=== PATIENT | male | born 1965 | race Hispanic/Latino ===

== ENCOUNTER 2019-12-17 16:18 | Emergency (ER) | payer OTHER ==
--- OUTSIDE RECORDS SUMMARY | 2019-12-17 16:20 | XMS REPORT | Clinical Summary ---
:1965 Author Organization [facility] Address [address] [place] [address] Care Team Providers Name Role Phone Junior Torres MD Primary Care Provider Allergies No Known Allergies Medications Medication Sig Dispensed Refills Start Date End Date Status insulin ASPART Please check blood sugars be fore meals three times a day and before bedtime 0 11/21/2017 Active (NovoLOG) 100 unit/mL BG 150 to 200, give 1 unit. injection BG 201 to 250, give 2 units. BG 251 to 300, give 3 units. BG > 300, give 4 units, recheck in 3 hours and treat again p er Scale pravastatin Take 10 mg by mouth 0 Active (PRAVACHOL) 10 MG nightly. tablet sevelamer (RENVELA) Take 800 mg by mouth 3 (thre e) times a day with meals. Take 4 tabs 3x/day with meals 0 Act tom 800 mg tablet 2 tabs with snacks polyethylene glycol Take 17 g by mouth 0 Active (MIRALAX) 17 gram daily. packet artificial Administer 2 drops 0 Active tears,hypromellose, to both eyes daily 0.3 % drops as needed. aspirin (ECOTRIN) 81 Take 81 mg by mouth 0 Active MG enteric coated daily. tablet ofloxacin (FLOXIN) Administer 3-4 0 08/12/2018 Active 0.3 % otic solution drops to the right ear 2 (two) times a day. amLODIPine (NORVASC) Take 10 mg by mouth 0 Active 10 mg tablet daily. insulin detemir U-100 Inject 10 Units 0 Active (LEVEMIR) 100 unit/mL under the skin injection daily. carvedilol (COREG) Take 6.25 mg by 0 Active 6.25 MG tablet mouth 2 (two) times a day with meals. Active Problems Problem Noted Date Problem with vascular access 09/27/2018 Mastoiditis of right side 08/27/2018 Family History Medical History Relation Name Comments Arthritis Father Diabetes Mother Relation Name Status Comments Father Alive Mother Social History Tobacco Use Types Packs/Day Years Used Date Former Smoker Cigarettes 10 Smokeless Tobacco: Never Used Comments: quit 30 years ago Alcohol Use Drinks/Week oz/Week Comments No Alcohol Habits Answer Date Recorded How often do you have a drink containing alcohol? Never 08/22/2018 How many drinks containing alcohol do you have on a typical Not asked day when you are drinking? How often do you have six or more drinks on one occasion? No t asked Sex Assigned at Date Recorded Not on file Job Start Date Occupation Industry Not on file Not on file Not on file Travel History Travel Start Travel End No recent travel history available. 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 Resources Support Specialist Device Shelf Model / Identifier Expiration Serial / Date Lot Catheter Dialysis Glidepath [id number] Symmetric Tip - [id number] Central N/A: BARD PERIPHERAL 11/14/2019 [id number] / Implanted: 08/22/2018 at [facility] (Quantity not on file) [place] ous N/A VASCULAR / Catheters [id number] Pacemaker Pacemaker System Thrmbtmy Otw 6fr 50cm Angiojet Avx - Sx - [id number] Surg ica N/A: [place] 10/01/2019 [id number] / Implanted: Qty: 1 on 09/30/2018 by Dom Lozano MD at [facility] Implants; N/A SCIENTIFIC GERRY X / Expanders; Extenders; Surgical Wires System Thrmbtmy Otw 6fr 50cm Angiojet Avx - Sx - [id number] Surg ica N/A: [place] 10/01/2019 [id number] / Implanted: Qty: 1 on 09/30/2018 by Dom Lozano MD at [facility] Implants; N/A SCIENTIFIC GERRY X / Expanders; Extenders; Surgical Wires Stent Endprths Viabahn 75x5cm 8mm Heprn Bioactv Surf - [id number] - [id number] Surgical N/A: W L GORE 07/11/2021 [id number] / Implanted: Qty: 1 on 09/30/2018 by Dom Lozano MD at [facility] Stents N/A [id number] / [id number] Graft Vasclr Sandy-Ramesh Stdwl 40cm 6mm - [id number] Vascular N/A: W L GORE 06/21/2022 [id number] / Implanted: 08/22/2018 at [facility] (Quantity not on file) Graft N/A [id number] / [id number] Results Not on fileafter 12/16/2018 Insurance Payer Benefit Plan / Subscriber ID Effective Dates Phone Addre ss Type Group MEDICAID MEDICAID xxxxxxxxx 2014-Present Med icaid [facility] MEDICARE [facility] DUAL COMPLETE xxxxxxxxx 2017-Present [facility] Advance Directives For more information, please contact: [phone] Type Date Recorded Patient Yard [employer] Explanati on Advance Directives, Living Will 08/27/2018 1:34 AM and Medical Power of Facility Administrator
--- OUTSIDE RECORDS SUMMARY | 2019-12-17 16:20 | XMS REPORT | Continuity of Care Document ---
:1965 Author Organization [facility] t Address 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 5-14 Me thodi side side 00:00: st 00 Allergies, Adverse Reactions, Alerts Allergy Allergy Status Severity Reaction(s) Onset Inactive Treating Comm ents Source Name Type Date Date Clinician No Known DA Active [facility] 06 [facility] Family History Family Member Diagnosis Comments Start Date Stop Date Source Natural father Arthritis [facility] thodist Natural mother Diabetes [facility] thodi Social History Social Habit Start Date Stop Date Quantity Comments Source History of Cigarette Smoker [place] [facility] tobacco use History [facility] odist Alcohol Std Drinks History [facility] Alcohol Binge Sex Assigned At [place] M ethodist Alcohol intake 2018-10-02 2018-10-02 Current [facility] thodist 00:00:00 00:00:00 non-drinker of alcohol (finding) History [facility] 2018-08-22 2018-08-22 1 [facility] Alcohol Frequency 00:00:00 00:00:00 Tobacco Comment 2018-08-22 2018-08-22 quit 30 years ago Jet Castellanos 00:00:00 00:00:00 Smoking Status Start Date Stop Date Source Former smoker 2018-10-02 00:00:00 2018-10-02 00:00:00 Mihai Castellanos Medications Ordered Filled Start Stop Current Ordering Indication Dosage Frequency Signature Comments Components Source Medication Medication Date Date Medication? Clinician (SIG) Name Name pravastatin Yes 10mg QD Take 10 mg [facility] (PRAVACHOL) 6-17 by mouth Meth iris 10 MG 21:14: nightly. st tablet 32 sevelamer Yes 800mg [id number] Take 800 [facility] (RENVELA) 6-17 [id number] mg by Met hodi 800 mg 21:14: 3D mouth 3 st tablet 32 (three) times a day with meals. Take 4 tabs 3x/day with meals2 tabs with snacks polyethylen Yes 17g QD Take 17 g [place] glycol 6-17 by mouth [facility] (MIRALAX) 21:14: daily. st 17 gram 32 packet artificial Yes 2[drp] Q24H Administer [facility] tears,hypro 6-17 2 drops to Me maksim dyerose, 21:14: both eyes st 0.3 % drops 32 daily as needed. aspirin Yes 81mg QD Take 81 mg [place] (ECOTRIN) 6-17 by mouth Method i 81 MG 21:14: daily. st enteric 32 coated tablet amLODIPine Yes 10mg QD Take 10 mg [place] (NORVASC) 6-17 by mouth Method i 10 mg 21:14: daily. st tablet 32 insulin Yes 10U QD Inject 10 [place] det[place]ir 6-17 Units Methodi U-100 21:14: under the st (LEVEMIR) 32 skin 100 unit/mL daily. injection carvedilol Yes 6.25mg Q.5D Take 6.25 [facility] (COREG) 6-17 mg by [facility] 6.25 MG 21:14: mouth 2 st tablet 32 (two) times a day with meals. ofloxacin 2018- Yes 3[drp] Q.5D Administer [facility] (FLOXIN) 4-29 3-4 drops Method i 0.3 % otic 00:00: to the st solution 00 right ear 2 (two) times a day. insulin Yes Please Mihai ASPART 11-21 check [facility] (NovoLOG) 00:00: blood st 100 unit/mL 00 sugars injection before meals three times a day and before bedtimeBG 150 to 200, give 1 unit. BG 201 to 250, give 2 units. BG 251 to 300, give 3 units. BG > 300, give 4 units, recheck in 3 hours and treat again per Scale Procedures This patient has no known procedures. Plan of Care Planned Activity Planned Date Details Comments Source Future Scheduled 2020-01-15 INFLUENZA VACCINE [place] [facility] 00:00:00 [code = INFLUENZA VACCINE] Future Scheduled 2013 COLONOSCOPY SCREENING [place] [facility] 00:00:00 [code = COLONOSCOPY SCREENING] Future Scheduled 2013 SHINGLES VACCINES (#1) [place] [facility] 00:00:00 [code = SHINGLES VACCINES (#1)] Future Scheduled 1973 DIABETIC FOOT EXAM [place] [facility] 00:00:00 [code = DIABETIC FOOT EXAM] Future Scheduled 1973 URINE MICROALBUMIN [place] [facility] 00:00:00 [code = URINE MICROALBUMIN] Future Scheduled 1963 DIABETIC RETINAL EYE [facility] 00:00:00 EXAM [code = DIABETIC RETINAL EYE EXAM] Results Test Description Test Time Test Comments Results Result Comments Source GLUBED 2019-08-29 11:34:00 Test Item Value Reference Range Interpretation Comme nts GLUBED (test code = GLUBED) 180 mg/dL 70-105 H Performed by certified 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 [facility] CBC W/AUTO [id number] 06:25:00 Test Item Value Reference Range Interpretation Comments WHITE BLOOD CELL (test code = 6.9 X10(3) 4.5-11.0 N WBC) RED BLOOD CELL (test code = 2.44 X10(6) 4.3-5.9 L RBC) HEMOGLOBIN (test code = HGB) 8.1 g/dL 13.5-18.0 L HEMATOCRIT (test code = HCT) 26.1 % 42.0-52.0 L MEAN CELL VOLUME (test code = 107.0 fl 78-100 H MCV) MEAN CELL HGB (test code = MCH) 33.2 pg 26.0-34.0 N MEAN CELL HGB CONCETRATION 31.0 g/dl 30.0-37.0 N (test code = MCHC) RED CELL DISTRIBUTION WIDTH 12.8 % 11.5-14.5 N (test code = RDW) PLATELET COUNT (test code = 293 X10(3) 150-350 N PLT) MEAN PLATELET VOLUME (test code 10.2 fl 8.7-11.4 N = MPV) NEUTROPHIL % (test code = NT%) 55.7 % 36.0-66.0 N IMMATURE GRANULOCYTE % (test 0.3 % 0.0-2.0 N code = IG%) LYMPHOCYTE % (test code = LY%) 25.4 % 16.0-50.0 N MONOCYTE % (test code = MO%) 16.0 % 0.0-13.0 H EOSINOPHIL % (test code = EO%) 1.9 % 0.0-4.5 N BASOPHIL % (test code = BA%) 0.7 % 0.0-1.5 N NUCLEATED RBC % (test code = 0.0 % 0-0.2 N NRBC%) NEUTROPHIL # (test code = NT#) 3.83 X10(3) 1.70-7.70 N IMMATURE GRANULOCYTE # (test 0.02 X10(3)uL 0.00-0.03 N code = IG#) LYMPHOCYTE # (test code = LY#) 1.75 X10(3) 0.70-4.00 N MONOCYTE # (test code = MO#) 1.10 X10(3) 0.00-0.89 H EOSINOPHIL # (test code = EO#) 0.13 X10(3) 0.00-0.60 N BASOPHIL # (test code = BA#) 0.05 X10(3) 0.00-0.20 N NUCLEATED RBC # (test code = 0.00 K/mm3 0.0-0.1 N NRBC#) ANISOCYTOSIS (test code = 1+ NOT PRESENT ANISO) MACROCYTOSIS (test code = MACR) 1+ NOT PRESENT PLATELET ESTIMATE (test code = NORMAL ADEQUATE PLTEST) [id number] 06:23:00 Test Item Value Reference Range Interpretation Comments GLUBED (test code = 116 mg/dL 70-105 H Performe d by certified GLUBED) 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 [facility] BASIC METABOLIC [id number] 06:08:00 Test Item Value Reference Range Interpretation Comments SODIUM (test code = 136 mmol/L 136-145 N NA) POTASSIUM (test code = 5.0 mmol/L 3.5-5.1 N K) CHLORIDE (test code = 101 mmol/L 98-107 N CL) CARBON DIOXIDE (test 26 mmol/L 21-32 N code = CO2) GLUCOSE (test code = 113 mg/dL 70-100 H GLU) BLOOD UREA NITROGEN 63 mg/dL 7-18 H (test code = BUN) GLOMERULAR FILTRATION 4.96 >=60 L Report ing units: RATE (test code = GFR) mL/mi n/1.73m\S\2 (Modified MDRD formula)REFEREN CE RANGE: > or = 6 0 ml/min/1.73M2IF PATIENT IS -RAUL N, MULTIPLY REPORT ED RESULT BY1.21. CREATININE (test code 10.80 mg/dL 0.67-1.17 H = CREAT) CALCIUM (test code = 8.0 mg/dL 8.5-10.1 L CA) BASIC METABOLIC [id number] 06:02:00 Test Item Value Reference Range Interpretation Comments SODIUM (test code = NA) 136 mmol/L 136-145 N POTASSIUM (test code = K) 5.0 mmol/L 3.5-5.1 N CHLORIDE (test code = CL) 101 mmol/L 98-107 N CARBON DIOXIDE (test code = CO2) mmol/L 21-32 GLUCOSE (test code = GLU) mg/dL 70-100 BLOOD UREA NITROGEN (test code = mg/dL 7-18 BUN) GLOMERULAR FILTRATION RATE (test >=60 code = GFR) CREATININE (test code = CREAT) mg/dL 0.67-1.17 CALCIUM (test code = CA) 8.0 mg/dL 8.5-10.1 L BASIC METABOLIC [id number] 06:02:00 Test Item Value Reference Range Interpretation Comments SODIUM (test code = NA) 136 mmol/L 136-145 N POTASSIUM (test code = K) 5.0 mmol/L 3.5-5.1 N CHLORIDE (test code = CL) 101 mmol/L 98-107 N CARBON DIOXIDE (test code = CO2) 26 mmol/L 21-32 N GLUCOSE (test code = GLU) 113 mg/dL 70-100 H BLOOD UREA NITROGEN (test code = 63 mg/dL 7-18 H BUN) GLOMERULAR FILTRATION RATE (test >=60 code = GFR) CREATININE (test code = CREAT) mg/dL 0.67-1.17 CALCIUM (test code = CA) 8.0 mg/dL 8.5-10.1 L BASIC METABOLIC [id number] 05:59:00 Test Item Value Reference Range Interpretation Comments SODIUM (test code = NA) 136 mmol/L 136-145 N POTASSIUM (test code = K) 5.0 mmol/L 3.5-5.1 N CHLORIDE (test code = CL) 101 mmol/L 98-107 N CARBON DIOXIDE (test code = CO2) mmol/L 21-32 GLUCOSE (test code = GLU) mg/dL 70-100 BLOOD UREA NITROGEN (test code = mg/dL 7-18 BUN) GLOMERULAR FILTRATION RATE (test >=60 code = GFR) CREATININE (test code = CREAT) mg/dL 0.67-1.17 CALCIUM (test code = CA) mg/dL 8.5-10.1 CBC W/AUTO [id number] 05:53:00 Test Item Value Reference Range Interpretation Comments WHITE BLOOD CELL (test code = 6.9 X10(3) 4.5-11.0 N WBC) RED BLOOD CELL (test code = RBC) 2.44 X10(6) 4.3-5.9 L HEMOGLOBIN (test code = HGB) 8.1 g/dL 13.5-18.0 L HEMATOCRIT (test code = HCT) 26.1 % 42.0-52.0 L MEAN CELL VOLUME (test code = 107.0 fl 78-100 H MCV) MEAN CELL HGB (test code = MCH) 33.2 pg 26.0-34.0 N MEAN CELL HGB CONCETRATION (test 31.0 g/dl 30.0-37.0 N code = MCHC) RED CELL DISTRIBUTION WIDTH (test 12.8 % 11.5-14.5 N code = RDW) PLATELET COUNT (test code = PLT) 293 X10(3) 150-350 N MEAN PLATELET VOLUME (test code = 10.2 fl 8.7-11.4 N MPV) NUCLEATED RBC % (test code = 0.0 % 0-0.2 N NRBC%) NUCLEATED RBC # (test code = 0.00 K/mm3 0.0-0.1 N NRBC#) [id number] 20:37:00 Test Item Value Reference Range Interpretation Comments GLUBED (test code = 255 mg/dL 70-105 H Performe d by certified GLUBED) 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 [facility] [id number] 17:12:00 Test Item Value Reference Range Interpretation Comments GLUBED (test code = 169 mg/dL 70-105 H Performe d by certified GLUBED) 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 [facility] [id number] 11:24:00 Test Item Value Reference Range Interpretation Comments GLUBED (test code = 197 mg/dL 70-105 H Performe d by certified GLUBED) 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 [facility] [id number] 06:37:00 Test Item Value Reference Range Interpretation Comments GLUBED (test code = 222 mg/dL 70-105 H Performe d by certified GLUBED) 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 [facility] [id number] 21:04:00 Test Item Value Reference Range Interpretation Comments GLUBED (test code = 174 mg/dL 70-105 H Performe d by certified GLUBED) 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 [facility] [id number] 18:47:00 Test Item Value Reference Range Interpretation Comments GLUBED (test code = 115 mg/dL 70-105 H Performe d by certified GLUBED) 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 [facility] [id number] 12:55:00 Test Item Value Reference Range Interpretation Comments GLUBED (test code = 165 mg/dL 70-105 H Performe d by certified GLUBED) 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 [facility] [id number] 09:25:00 Test Item Value Reference Range Interpretation Comments POTASSIUM (test code = K) 5.6 mmol/L 3.5-5.1 H [id number] 06:12:00 Test Item Value Reference Range Interpretation Comments GLUBED (test code = 163 mg/dL 70-105 H Performe d by certified GLUBED) 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 [facility] Novel Coronavirus 2019 [id number] 03:30:00 Test Item Value Reference Range Interpretation Comments Novel Coronavirus Negative NEGATIVE Positive(D etected) 2019 Inhouse (test results a re indicative of code = COVNONPUI) the presen ceof SARS-CoV-2 RNA, clinical c orrelation with patient hi storyand other diagnosti c information is necessary to determinepat ient infection statu s. Positive result s do not rule outbacteri al infection or co -infection with other viru ses. Negative(Not de tected) results do not preclude SARS-CoV-2 infe ction and should not be u sed as the sole basis forp atient management decisions.Negat tom results must be combined with other clinicalobserva tions, patient history , and epidemiological informatio n. The [employer] e COVID-19 Test is perform ed by laboratoryperso lizzette who have received s pecific training on the use ofthe VappsArray-2.0 S ystem. The [employer] COV ID-19 Test is onlyfor use under the Food and Drug Administration' s EmergencyUse Authorization. [id number] 20:58:00 Test Item Value Reference Range Interpretation Comments GLUBED (test code = 247 mg/dL 70-105 H Performe d by certified GLUBED) 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 [facility]2020-05-12 16:35:00 Test Item Value Reference Range Interpretation Comments GLUBED (test code = 163 mg/dL 70-105 H Performe d by certified GLUBED) 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 [facility]2020-05-12 11:40:00 Test Item Value Reference Range Interpretation Comments GLUBED (test code = 325 mg/dL 70-105 H Performe d by certified GLUBED) 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 [facility] [id number] 10:22:00 Test Item Value Reference Range Interpretation Comments GLUBED (test code = 265 mg/dL 70-105 H Performe d by certified GLUBED) 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 [facility] BASIC METABOLIC [id number] 06:07:00 Test Item Value Reference Range Interpretation Comments SODIUM (test code = 138 mmol/L 136-145 N NA) POTASSIUM (test code = 5.0 mmol/L 3.5-5.1 N K) CHLORIDE (test code = 102 mmol/L 98-107 N CL) CARBON DIOXIDE (test 26 mmol/L 21-32 N code = CO2) GLUCOSE (test code = 93 mg/dL 70-100 N GLU) BLOOD UREA NITROGEN 42 mg/dL 7-18 H (test code = BUN) GLOMERULAR FILTRATION 6.82 >=60 L Report ing units: RATE (test code = GFR) mL/mi n/1.73m\S\2 (Modified MDRD formula)REFEREN CE RANGE: > or = 6 0 ml/min/1.73M2IF PATIENT IS -RAUL N, MULTIPLY REPORT ED RESULT BY1.21. CREATININE (test code 8.20 mg/dL 0.67-1.17 H = CREAT) CALCIUM (test code = 8.5 mg/dL 8.5-10.1 N CA) BASIC METABOLIC [id number] 06:04:00 Test Item Value Reference Range Interpretation Comments SODIUM (test code = NA) 138 mmol/L 136-145 N POTASSIUM (test code = K) 5.0 mmol/L 3.5-5.1 N CHLORIDE (test code = CL) 102 mmol/L 98-107 N CARBON DIOXIDE (test code = CO2) 26 mmol/L 21-32 N GLUCOSE (test code = GLU) 93 mg/dL 70-100 N BLOOD UREA NITROGEN (test code = 42 mg/dL 7-18 H BUN) GLOMERULAR FILTRATION RATE (test >=60 code = GFR) CREATININE (test code = CREAT) mg/dL 0.67-1.17 CALCIUM (test code = CA) 8.5 mg/dL 8.5-10.1 N BASIC METABOLIC [id number] 06:03:00 Test Item Value Reference Range Interpretation Comments SODIUM (test code = NA) 138 mmol/L 136-145 N POTASSIUM (test code = K) 5.0 mmol/L 3.5-5.1 N CHLORIDE (test code = CL) 102 mmol/L 98-107 N CARBON DIOXIDE (test code = CO2) mmol/L 21-32 GLUCOSE (test code = GLU) mg/dL 70-100 BLOOD UREA NITROGEN (test code = mg/dL 7-18 BUN) GLOMERULAR FILTRATION RATE (test >=60 code = GFR) CREATININE (test code = CREAT) mg/dL 0.67-1.17 CALCIUM (test code = CA) 8.5 mg/dL 8.5-10.1 N BASIC METABOLIC [id number] 05:58:00 Test Item Value Reference Range Interpretation Comments SODIUM (test code = NA) 138 mmol/L 136-145 N POTASSIUM (test code = K) 5.0 mmol/L 3.5-5.1 N CHLORIDE (test code = CL) 102 mmol/L 98-107 N CARBON DIOXIDE (test code = CO2) mmol/L 21-32 GLUCOSE (test code = GLU) mg/dL 70-100 BLOOD UREA NITROGEN (test code = mg/dL 7-18 BUN) GLOMERULAR FILTRATION RATE (test >=60 code = GFR) CREATININE (test code = CREAT) mg/dL 0.67-1.17 CALCIUM (test code = CA) mg/dL 8.5-10.1 CBC W/AUTO [id number] 05:52:00 Test Item Value Reference Range Interpretation Comments WHITE BLOOD CELL (test code = 6.8 X10(3) 4.5-11.0 N WBC) RED BLOOD CELL (test code = 2.91 X10(6) 4.3-5.9 L RBC) HEMOGLOBIN (test code = HGB) 9.5 g/dL 13.5-18.0 L HEMATOCRIT (test code = HCT) 30.5 % 42.0-52.0 L MEAN CELL VOLUME (test code = 104.8 fl 78-100 H MCV) MEAN CELL HGB (test code = MCH) 32.6 pg 26.0-34.0 N MEAN CELL HGB CONCETRATION 31.1 g/dl 30.0-37.0 N (test code = MCHC) RED CELL DISTRIBUTION WIDTH 12.7 % 11.5-14.5 N (test code = RDW) PLATELET COUNT (test code = 362 X10(3) 150-350 H PLT) MEAN PLATELET VOLUME (test code 9.8 fl 8.7-11.4 N = MPV) NEUTROPHIL % (test code = NT%) 53.2 % 36.0-66.0 N IMMATURE GRANULOCYTE % (test 0.3 % 0.0-2.0 N code = IG%) LYMPHOCYTE % (test code = LY%) 31.1 % 16.0-50.0 N MONOCYTE % (test code = MO%) 12.6 % 0.0-13.0 N EOSINOPHIL % (test code = EO%) 1.6 % 0.0-4.5 N BASOPHIL % (test code = BA%) 1.2 % 0.0-1.5 N NUCLEATED RBC % (test code = 0.0 % 0-0.2 N NRBC%) NEUTROPHIL # (test code = NT#) 3.64 X10(3) 1.70-7.70 N IMMATURE GRANULOCYTE # (test 0.02 X10(3)uL 0.00-0.03 N code = IG#) LYMPHOCYTE # (test code = LY#) 2.13 X10(3) 0.70-4.00 N MONOCYTE # (test code = MO#) 0.86 X10(3) 0.00-0.89 N EOSINOPHIL # (test code = EO#) 0.11 X10(3) 0.00-0.60 N BASOPHIL # (test code = BA#) 0.08 X10(3) 0.00-0.20 N NUCLEATED RBC # (test code = 0.00 K/mm3 0.0-0.1 N NRBC#) [id number] 20:11:00 Test Item Value Reference Range Interpretation Comments GLUBED (test code = 408 mg/dL 70-105 H Performe d by certified GLUBED) 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 [facility] [id number] 16:29:00 Test Item Value Reference Range Interpretation Comments GLUBED (test code = 329 mg/dL 70-105 H Performe d by certified GLUBED) 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 [facility] AG HEPATITIS B [id number] 13:18:00 Test Item Value Reference Range Interpretation Comments AG HEPATITIS B SURFACE NONREAC NONREAC The r esults were (test code = HBSAG) obtained using the Centaur XP HBsA g assay. AB HEPATITIS [id number] 13:18:00 Test Item Value Reference Range Interpretation Comments AB HEPATITIS C (test NONREAC NONREAC These r esults were code = HCVAB) obtained using the Centaur XP HCV IgGAssay. Values obtained from other manufactu rer's assaymethods ma y not be used interchang eably. [id number] 11:26:00 Test Item Value Reference Range Interpretation Comments GLUBED (test code = 177 mg/dL 70-105 H Performe d by certified GLUBED) 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 [facility] CBC W/AUTO [id number] 11:26:00 Test Item Value Reference Range Interpretation Comments WHITE BLOOD CELL (test code = 8.9 X10(3) 4.5-11.0 N WBC) RED BLOOD CELL (test code = 2.86 X10(6) 4.3-5.9 L RBC) HEMOGLOBIN (test code = HGB) 9.5 g/dL 13.5-18.0 L HEMATOCRIT (test code = HCT) 30.2 % 42.0-52.0 L MEAN CELL VOLUME (test code = 105.6 fl 78-100 H MCV) MEAN CELL HGB (test code = MCH) 33.2 pg 26.0-34.0 N MEAN CELL HGB CONCETRATION 31.5 g/dl 30.0-37.0 N (test code = MCHC) RED CELL DISTRIBUTION WIDTH 12.6 % 11.5-14.5 N (test code = RDW) PLATELET COUNT (test code = 372 X10(3) 150-350 H PLT) MEAN PLATELET VOLUME (test code 10.3 fl 8.7-11.4 N = MPV) NEUTROPHIL % (test code = NT%) 65.2 % 36.0-66.0 N IMMATURE GRANULOCYTE % (test 0.5 % 0.0-2.0 N code = IG%) LYMPHOCYTE % (test code = LY%) 23.6 % 16.0-50.0 N MONOCYTE % (test code = MO%) 8.0 % 0.0-13.0 N EOSINOPHIL % (test code = EO%) 1.5 % 0.0-4.5 N BASOPHIL % (test code = BA%) 1.2 % 0.0-1.5 N NUCLEATED RBC % (test code = 0.0 % 0-0.2 N NRBC%) NEUTROPHIL # (test code = NT#) 5.79 X10(3) 1.70-7.70 N IMMATURE GRANULOCYTE # (test 0.04 X10(3)uL 0.00-0.03 H code = IG#) LYMPHOCYTE # (test code = LY#) 2.10 X10(3) 0.70-4.00 N MONOCYTE # (test code = MO#) 0.71 X10(3) 0.00-0.89 N EOSINOPHIL # (test code = EO#) 0.13 X10(3) 0.00-0.60 N BASOPHIL # (test code = BA#) 0.11 X10(3) 0.00-0.20 N NUCLEATED RBC # (test code = 0.00 K/mm3 0.0-0.1 N NRBC#) POLYCHROMASIA (test code = 1+ NOT PRESENT POLC) POIKILOCYTOSIS (test code = 1+ NOT PRESENT POIK) ANISOCYTOSIS (test code = 1+ NOT PRESENT ANISO) MACROCYTOSIS (test code = MACR) 1+ NOT PRESENT PLATELET ESTIMATE (test code = NORMAL ADEQUATE PLTEST) [id number] 06:26:00 Test Item Value Reference Range Interpretation Comments GLUBED (test code = 135 mg/dL 70-105 H Performe d by certified GLUBED) 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 [facility] BASIC METABOLIC [id number] 06:09:00 Test Item Value Reference Range Interpretation Comments SODIUM (test code = 137 mmol/L 136-145 N NA) POTASSIUM (test code = 5.1 mmol/L 3.5-5.1 N K) CHLORIDE (test code = 105 mmol/L 98-107 N CL) CARBON DIOXIDE (test 21 mmol/L 21-32 N code = CO2) GLUCOSE (test code = 127 mg/dL 70-100 H GLU) BLOOD UREA NITROGEN 62 mg/dL 7-18 H (test code = BUN) GLOMERULAR FILTRATION 5.36 >=60 L Report ing units: RATE (test code = GFR) mL/mi n/1.73m\S\2 (Modified MDRD formula)REFEREN CE RANGE: > or = 6 0 ml/min/1.73M2IF PATIENT IS -RAUL N, MULTIPLY REPORT ED RESULT BY1.21. CREATININE (test code 10.10 mg/dL 0.67-1.17 H = CREAT) CALCIUM (test code = 8.5 mg/dL 8.5-10.1 N CA) BASIC METABOLIC [id number] 06:01:00 Test Item Value Reference Range Interpretation Comments SODIUM (test code = NA) 137 mmol/L 136-145 N POTASSIUM (test code = K) 5.1 mmol/L 3.5-5.1 N CHLORIDE (test code = CL) 105 mmol/L 98-107 N CARBON DIOXIDE (test code = CO2) 21 mmol/L 21-32 N GLUCOSE (test code = GLU) 127 mg/dL 70-100 H BLOOD UREA NITROGEN (test code = 62 mg/dL 7-18 H BUN) GLOMERULAR FILTRATION RATE (test >=60 code = GFR) CREATININE (test code = CREAT) mg/dL 0.67-1.17 CALCIUM (test code = CA) 8.5 mg/dL 8.5-10.1 N BASIC METABOLIC [id number] 06:00:00 Test Item Value Reference Range Interpretation Comments SODIUM (test code = NA) 137 mmol/L 136-145 N POTASSIUM (test code = K) 5.1 mmol/L 3.5-5.1 N CHLORIDE (test code = CL) 105 mmol/L 98-107 N CARBON DIOXIDE (test code = CO2) 21 mmol/L 21-32 N GLUCOSE (test code = GLU) mg/dL 70-100 BLOOD UREA NITROGEN (test code = 62 mg/dL 7-18 H BUN) GLOMERULAR FILTRATION RATE (test >=60 code = GFR) CREATININE (test code = CREAT) mg/dL 0.67-1.17 CALCIUM (test code = CA) 8.5 mg/dL 8.5-10.1 N BASIC METABOLIC [id number] 05:57:00 Test Item Value Reference Range Interpretation Comments SODIUM (test code = NA) 137 mmol/L 136-145 N POTASSIUM (test code = K) 5.1 mmol/L 3.5-5.1 N CHLORIDE (test code = CL) 105 mmol/L 98-107 N CARBON DIOXIDE (test code = CO2) mmol/L 21-32 GLUCOSE (test code = GLU) mg/dL 70-100 BLOOD UREA NITROGEN (test code = mg/dL 7-18 BUN) GLOMERULAR FILTRATION RATE (test >=60 code = GFR) CREATININE (test code = CREAT) mg/dL 0.67-1.17 CALCIUM (test code = CA) mg/dL 8.5-10.1 CBC W/AUTO [id number] 05:52:00 Test Item Value Reference Range Interpretation Comments WHITE BLOOD CELL (test code = 8.9 X10(3) 4.5-11.0 N WBC) RED BLOOD CELL (test code = RBC) 2.86 X10(6) 4.3-5.9 L HEMOGLOBIN (test code = HGB) 9.5 g/dL 13.5-18.0 L HEMATOCRIT (test code = HCT) 30.2 % 42.0-52.0 L MEAN CELL VOLUME (test code = 105.6 fl 78-100 H MCV) MEAN CELL HGB (test code = MCH) 33.2 pg 26.0-34.0 N MEAN CELL HGB CONCETRATION (test 31.5 g/dl 30.0-37.0 N code = MCHC) RED CELL DISTRIBUTION WIDTH (test 12.6 % 11.5-14.5 N code = RDW) PLATELET COUNT (test code = PLT) 372 X10(3) 150-350 H MEAN PLATELET VOLUME (test code = 10.3 fl 8.7-11.4 N MPV) NUCLEATED RBC % (test code = 0.0 % 0-0.2 N NRBC%) NUCLEATED RBC # (test code = 0.00 K/mm3 0.0-0.1 N NRBC#) [id number] 05:19:00 Test Item Value Reference Range Interpretation Comments GLUBED (test code = 127 mg/dL 70-105 H Performe d by certified GLUBED) 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 [facility]2020-05-11 02:56:00 Test Item Value Reference Range Interpretation Comments GLUBED (test code = 44 mg/dL 70-105 L Performe d by certified GLUBED) 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 [facility]2020-05-10 21:06:00 Test Item Value Reference Range Interpretation Comments GLUBED (test code = 259 mg/dL 70-105 H Performe d by certified GLUBED) 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 [facility]2020-05-10 17:09:00 Test Item Value Reference Range Interpretation Comments GLUBED (test code = 150 mg/dL 70-105 H Performe d by certified GLUBED) 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 [facility]2020-05-10 11:35:00 Test Item Value Reference Range Interpretation Comments GLUBED (test code = 207 mg/dL 70-105 H Performe d by certified GLUBED) 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 [facility] BASIC METABOLIC [id number] 06:20:00 Test Item Value Reference Range Interpretation Comments SODIUM (test code = 134 mmol/L 136-145 L NA) POTASSIUM (test code = 4.6 mmol/L 3.5-5.1 N K) CHLORIDE (test code = 103 mmol/L 98-107 N CL) CARBON DIOXIDE (test 23 mmol/L 21-32 N code = CO2) GLUCOSE (test code = 150 mg/dL 70-100 H GLU) BLOOD UREA NITROGEN 43 mg/dL 7-18 H (test code = BUN) GLOMERULAR FILTRATION 7.22 >=60 L Report ing units: RATE (test code = GFR) mL/mi n/1.73m\S\2 (Modified MDRD formula)REFEREN CE RANGE: > or = 6 0 ml/min/1.73M2IF PATIENT IS -RAUL N, MULTIPLY REPORT ED RESULT BY1.21. 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 [id number] 05:59:00 Test Item Value Reference Range Interpretation Comments SODIUM (test code = NA) 134 mmol/L 136-145 L POTASSIUM (test code = K) 4.6 mmol/L 3.5-5.1 N CHLORIDE (test code = CL) 103 mmol/L 98-107 N CARBON DIOXIDE (test code = CO2) mmol/L 21-32 GLUCOSE (test code = GLU) mg/dL 70-100 BLOOD UREA NITROGEN (test code = mg/dL 7-18 BUN) GLOMERULAR FILTRATION RATE (test >=60 code = GFR) CREATININE (test code = CREAT) mg/dL 0.67-1.17 CALCIUM (test code = CA) 8.3 mg/dL 8.5-10.1 L CBC W/AUTO [id number] 05:58:00 Test Item Value Reference Range Interpretation Comments WHITE BLOOD CELL (test code = 7.2 X10(3) 4.5-11.0 N WBC) RED BLOOD CELL (test code = 2.84 X10(6) 4.3-5.9 L RBC) HEMOGLOBIN (test code = HGB) 9.2 g/dL 13.5-18.0 L HEMATOCRIT (test code = HCT) 29.1 % 42.0-52.0 L MEAN CELL VOLUME (test code = 102.5 fl 78-100 H MCV) MEAN CELL HGB (test code = MCH) 32.4 pg 26.0-34.0 N MEAN CELL HGB CONCETRATION 31.6 g/dl 30.0-37.0 N (test code = MCHC) RED CELL DISTRIBUTION WIDTH 12.2 % 11.5-14.5 N (test code = RDW) PLATELET COUNT (test code = 394 X10(3) 150-350 H PLT) MEAN PLATELET VOLUME (test code 10.6 fl 8.7-11.4 N = MPV) NEUTROPHIL % (test code = NT%) 53.5 % 36.0-66.0 N IMMATURE GRANULOCYTE % (test 0.3 % 0.0-2.0 N code = IG%) LYMPHOCYTE % (test code = LY%) 34.9 % 16.0-50.0 N MONOCYTE % (test code = MO%) 9.1 % 0.0-13.0 N EOSINOPHIL % (test code = EO%) 1.4 % 0.0-4.5 N BASOPHIL % (test code = BA%) 0.8 % 0.0-1.5 N NUCLEATED RBC % (test code = 0.0 % 0-0.2 N NRBC%) NEUTROPHIL # (test code = NT#) 3.86 X10(3) 1.70-7.70 N IMMATURE GRANULOCYTE # (test 0.02 X10(3)uL 0.00-0.03 N code = IG#) LYMPHOCYTE # (test code = LY#) 2.52 X10(3) 0.70-4.00 N MONOCYTE # (test code = MO#) 0.66 X10(3) 0.00-0.89 N EOSINOPHIL # (test code = EO#) 0.10 X10(3) 0.00-0.60 N BASOPHIL # (test code = BA#) 0.06 X10(3) 0.00-0.20 N NUCLEATED RBC # (test code = 0.00 K/mm3 0.0-0.1 N NRBC#) BASIC METABOLIC [id number] 05:57:00 Test Item Value Reference Range Interpretation Comments SODIUM (test code = NA) 134 mmol/L 136-145 L POTASSIUM (test code = K) 4.6 mmol/L 3.5-5.1 N CHLORIDE (test code = CL) 103 mmol/L 98-107 N CARBON DIOXIDE (test code = CO2) mmol/L 21-32 GLUCOSE (test code = GLU) mg/dL 70-100 BLOOD UREA NITROGEN (test code = mg/dL 7-18 BUN) GLOMERULAR FILTRATION RATE (test >=60 code = GFR) CREATININE (test code = CREAT) mg/dL 0.67-1.17 CALCIUM (test code = CA) mg/dL 8.5-10.1 [id number] 20:55:00 Test Item Value Reference Range Interpretation Comments GLUBED (test code = 252 mg/dL 70-105 H Performe d by certified GLUBED) 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 [facility]2020-05-09 16:00:00 Test Item Value Reference Range Interpretation Comments GLUBED (test code = 99 mg/dL 70-105 N Performe d by certified GLUBED) 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 [facility]2020-05-09 11:34:00 Test Item Value Reference Range Interpretation Comments GLUBED (test code = 215 mg/dL 70-105 H Performe d by certified GLUBED) 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 [facility] BASIC METABOLIC [id number] 07:06:00 Test Item Value Reference Range Interpretation Comments SODIUM (test code = 132 mmol/L 136-145 L NA) POTASSIUM (test code = 4.4 mmol/L 3.5-5.1 N K) CHLORIDE (test code = 100 mmol/L 98-107 N CL) CARBON DIOXIDE (test 25 mmol/L 21-32 N code = CO2) GLUCOSE (test code = 278 mg/dL 70-100 H GLU) BLOOD UREA NITROGEN 21 mg/dL 7-18 H (test code = BUN) GLOMERULAR FILTRATION 11.79 >=60 L Report ing units: RATE (test code = GFR) mL/mi n/1.73m\S\2 (Modified MDRD formula)REFEREN CE RANGE: > or = 6 0 ml/min/1.73M2IF PATIENT IS -RAUL N, MULTIPLY REPORT ED RESULT BY.. CREATININE (test code 5.10 mg/dL 0.67-1.17 H = CREAT) CALCIUM (test code = 8.5 mg/dL 8.5-10.1 N CA) LIPID PROFILE (CORONARY RISK)2019-08-23 07:06:00 Test Item Value Reference Range Interpretation Comments TRIGLYCERIDES (test code 75 mg/dL 30-150 N = TRIG) CHOLESTEROL (test code = 130 mg/dL 0-200 N CHOL) HDL CHOLESTEROL (test 57 mg/dL 40-59 N code = HDL) NON-HDL CHOLESTEROL (test 73 mg/dl <130 code = NHDL) LIPOPROTEIN LDL [place] (test 58 mg/dl <100 code = LDLC) LDL/HDL (test code = 1.0 Ratio L DL/HDL RATIO LDL/HDL) RISK ---- 3.22 Average 5.03 Twi ce average 6.14 Thr ee times average [id number] 07:06:00 Test Item Value Reference Range Interpretation Comments MAGNESIUM (test code = MAG) 2.6 mg/dL 1.8-2.4 H PROCALCITONIN (PCT)2019-08-23 07:06:00 Test Item Value Reference Range Interpretation Comments PROCALCITONIN (PCT) 0.66 ng/mL <0.5 REFERENC E (test code = PROCAL) RANGES- -->2.0 ng/ml High risk for progression to severe sepsis and/o r septic shock.0. 5 - 2.0 ng/ml Sep sis should be considered.<0.5 ng/ml Lo w risk for progre ssion to severe sepsi s an d/or septic shock. CBC W/AUTO [id number] 06:48:00 Test Item Value Reference Range Interpretation Comments WHITE BLOOD CELL (test code = 6.7 X10(3) 4.5-11.0 N WBC) RED BLOOD CELL (test code = 3.01 X10(6) 4.3-5.9 L RBC) HEMOGLOBIN (test code = HGB) 9.9 g/dL 13.5-18.0 L HEMATOCRIT (test code = HCT) 30.5 % 42.0-52.0 L MEAN CELL VOLUME (test code = 101.3 fl 78-100 H MCV) MEAN CELL HGB (test code = MCH) 32.9 pg 26.0-34.0 N MEAN CELL HGB CONCETRATION 32.5 g/dl 30.0-37.0 N (test code = MCHC) RED CELL DISTRIBUTION WIDTH 12.0 % 11.5-14.5 N (test code = RDW) PLATELET COUNT (test code = 401 X10(3) 150-350 H PLT) MEAN PLATELET VOLUME (test code 10.4 fl 8.7-11.4 N = MPV) NEUTROPHIL % (test code = NT%) 83.8 % 36.0-66.0 H IMMATURE GRANULOCYTE % (test 0.4 % 0.0-2.0 N code = IG%) LYMPHOCYTE % (test code = LY%) 11.0 % 16.0-50.0 L MONOCYTE % (test code = MO%) 4.5 % 0.0-13.0 N EOSINOPHIL % (test code = EO%) 0.0 % 0.0-4.5 N BASOPHIL % (test code = BA%) 0.3 % 0.0-1.5 N NUCLEATED RBC % (test code = 0.0 % 0-0.2 N NRBC%) NEUTROPHIL # (test code = NT#) 5.61 X10(3) 1.70-7.70 N IMMATURE GRANULOCYTE # (test 0.03 X10(3)uL 0.00-0.03 N code = IG#) LYMPHOCYTE # (test code = LY#) 0.74 X10(3) 0.70-4.00 N MONOCYTE # (test code = MO#) 0.30 X10(3) 0.00-0.89 N EOSINOPHIL # (test code = EO#) 0.00 X10(3) 0.00-0.60 N BASOPHIL # (test code = BA#) 0.02 X10(3) 0.00-0.20 N NUCLEATED RBC # (test code = 0.00 K/mm3 0.0-0.1 N NRBC#) SED [id number] 06:48:00 Test Item Value Reference Range Interpretation Comments SED RATE (test code = SEDW) 96 mm/hr 0-15 H BASIC METABOLIC [id number] 06:14:00 Test Item Value Reference Range Interpretation Comments SODIUM (test code = 132 mmol/L 136-145 L NA) POTASSIUM (test code = 4.4 mmol/L 3.5-5.1 N K) CHLORIDE (test code = 100 mmol/L 98-107 N CL) CARBON DIOXIDE (test 25 mmol/L 21-32 N code = CO2) GLUCOSE (test code = 278 mg/dL 70-100 H GLU) BLOOD UREA NITROGEN 21 mg/dL 7-18 H (test code = BUN) GLOMERULAR FILTRATION 11.79 >=60 L Report ing units: RATE (test code = GFR) mL/mi n/1.73m\S\2 (Modified MDRD formula)REFEREN CE RANGE: > or = 6 0 ml/min/1.73M2IF PATIENT IS -RAUL N, MULTIPLY REPORT ED RESULT BY1.21. CREATININE (test code 5.10 mg/dL 0.67-1.17 H = CREAT) CALCIUM (test code = 8.5 mg/dL 8.5-10.1 N CA) LIPID PROFILE (CORONARY RISK)2019-08-23 06:14:00 Test Item Value Reference Range Interpretation Comments TRIGLYCERIDES (test code 75 mg/dL 30-150 N = TRIG) CHOLESTEROL (test code = 130 mg/dL 0-200 N CHOL) HDL CHOLESTEROL (test 57 mg/dL 40-59 N code = HDL) NON-HDL CHOLESTEROL (test 73 mg/dl <130 code = NHDL) LIPOPROTEIN LDL [place] (test 58 mg/dl <100 code = LDLC) LDL/HDL (test code = 1.0 Ratio L DL/HDL RATIO LDL/HDL) RISK ---- 3.22 Average 5.03 Twi ce average 6.14 Thr ee times average [id number] 06:14:00 Test Item Value Reference Range Interpretation Comments MAGNESIUM (test code = MAG) 2.6 mg/dL 1.8-2.4 H PROCALCITONIN (PCT)2019-08-23 06:14:00 Test Item Value Reference Range Interpretation Comments PROCALCITONIN (PCT) (test code = ng/mL <0.5 PROCAL) [id number] 06:11:00 Test Item Value Reference Range Interpretation Comments GLYCOSYLATED 9.7 % <5.7 H SAL GGESTED HEMOGLOBIN (HA1C) DIAGNOSIS (test code = GLYHGB) INTERPR ETATION -------- Normal: < 5.7% Prediabetes: 5 .7 - 6.4% Diabetic: >/ = 6.5%* DUE TO METHOD R EVISION, REFERENCE RANGE HAS BEEN UPDATED * ESTIMATED AVERAGE 232 MG/DL <126 GLUCOSE (test code = EAG) [id number] 06:09:00 Test Item Value Reference Range Interpretation Comments GLUBED (test code = 268 mg/dL 70-105 H Performe d by certified GLUBED) 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 [facility] BASIC METABOLIC [id number] 06:01:00 Test Item Value Reference Range Interpretation Comments SODIUM (test code = NA) 132 mmol/L 136-145 L POTASSIUM (test code = K) 4.4 mmol/L 3.5-5.1 N CHLORIDE (test code = CL) 100 mmol/L 98-107 N CARBON DIOXIDE (test code = CO2) mmol/L 21-32 GLUCOSE (test code = GLU) mg/dL 70-100 BLOOD UREA NITROGEN (test code = mg/dL 7-18 BUN) GLOMERULAR FILTRATION RATE (test >=60 code = GFR) CREATININE (test code = CREAT) mg/dL 0.67-1.17 CALCIUM (test code = CA) mg/dL 8.5-10.1 LIPID PROFILE (CORONARY RISK)2019-08-23 06:01:00 Test Item Value Reference Range Interpretation Comments TRIGLYCERIDES (test code = TRIG) mg/dL 30-150 CHOLESTEROL (test code = CHOL) mg/dL 0-200 HDL CHOLESTEROL (test code = HDL) mg/dL 40-59 NON-HDL CHOLESTEROL (test code = NHDL) mg/dl <130 LIPOPROTEIN LDL [place] (test code = LDLC) mg/dl <100 LDL/HDL (test code = LDL/HDL) Ratio [id number] 06:01:00 Test Item Value Reference Range Interpretation Comments MAGNESIUM (test code = MAG) mg/dL 1.8-2.4 PROCALCITONIN (PCT)2019-08-23 06:01:00 Test Item Value Reference Range Interpretation Comments PROCALCITONIN (PCT) (test code = ng/mL <0.5 PROCAL) CBC W/AUTO [id number] 05:54:00 Test Item Value Reference Range Interpretation Comments WHITE BLOOD CELL (test code = 6.7 X10(3) 4.5-11.0 N WBC) RED BLOOD CELL (test code = 3.01 X10(6) 4.3-5.9 L RBC) HEMOGLOBIN (test code = HGB) 9.9 g/dL 13.5-18.0 L HEMATOCRIT (test code = HCT) 30.5 % 42.0-52.0 L MEAN CELL VOLUME (test code = 101.3 fl 78-100 H MCV) MEAN CELL HGB (test code = MCH) 32.9 pg 26.0-34.0 N MEAN CELL HGB CONCETRATION 32.5 g/dl 30.0-37.0 N (test code = MCHC) RED CELL DISTRIBUTION WIDTH 12.0 % 11.5-14.5 N (test code = RDW) PLATELET COUNT (test code = 401 X10(3) 150-350 H PLT) MEAN PLATELET VOLUME (test code 10.4 fl 8.7-11.4 N = MPV) NEUTROPHIL % (test code = NT%) 83.8 % 36.0-66.0 H IMMATURE GRANULOCYTE % (test 0.4 % 0.0-2.0 N code = IG%) LYMPHOCYTE % (test code = LY%) 11.0 % 16.0-50.0 L MONOCYTE % (test code = MO%) 4.5 % 0.0-13.0 N EOSINOPHIL % (test code = EO%) 0.0 % 0.0-4.5 N BASOPHIL % (test code = BA%) 0.3 % 0.0-1.5 N NUCLEATED RBC % (test code = 0.0 % 0-0.2 N NRBC%) NEUTROPHIL # (test code = NT#) 5.61 X10(3) 1.70-7.70 N IMMATURE GRANULOCYTE # (test 0.03 X10(3)uL 0.00-0.03 N code = IG#) LYMPHOCYTE # (test code = LY#) 0.74 X10(3) 0.70-4.00 N MONOCYTE # (test code = MO#) 0.30 X10(3) 0.00-0.89 N EOSINOPHIL # (test code = EO#) 0.00 X10(3) 0.00-0.60 N BASOPHIL # (test code = BA#) 0.02 X10(3) 0.00-0.20 N NUCLEATED RBC # (test code = 0.00 K/mm3 0.0-0.1 N NRBC#) SED [id number] 05:54:00 Test Item Value Reference Range Interpretation Comments SED RATE (test code = SEDW) mm/hr 0-15 [id number] 23:48:00 Test Item Value Reference Range Interpretation Comments GLUBED (test code = 248 mg/dL 70-105 H Performe d by certified GLUBED) 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 COMPARISON: None. Chest, portable single frontal view. The lungs are well-inflated and clear except for some minimal left basilar atelectasis. Heart size is upper normal. ICD leads intact. Pulmonary vessels maybe upper normal. Some this could be exaggerated by the portable film technique No effusion or pneumothorax can be seen. Osseous structures appear to be intact. IMPRESSION: No obvious consolidation. No effusion seen. Minimal left basilar atelectasis Borderline vascular congestion, possibly Location: U19 at 1932 Reported and signed by: DAPHNE ISAACS M.D. CC: Nelly Beckham MD Technologist: Callie Brannon, RT (R); ... 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 Positive result s do not rule outbacteri al infection or co -infection with other viru ses. Negative(Not de tected) results do not preclude SARS-CoV-2 infe ction and should not be u sed as the sole basis forp atient management decisions.Negat tom results must be combined with other clinicalobserva tions, patient history , and epidemiological informatio n. The BioF[employer] e COVID-19 Test is perform ed by laboratoryperso nnel who have received s pecific training on the use ofthe 2-Observe-2.0 S Mingle360tem. The [employer]Fire COV ID-19 Test is onlyfor use under the Food and Drug Administration' s EmergencyUse Authorization. BASIC METABOLIC [id number] 14:37:00 Test Item Value Reference Range Interpretation Comments SODIUM (test code = 129 mmol/L 136-145 L NA) POTASSIUM (test code = 3.9 mmol/L 3.5-5.1 N K) CHLORIDE (test code = 96 mmol/L 98-107 L CL) CARBON DIOXIDE (test 28 mmol/L 21-32 N code = CO2) GLUCOSE (test code = 305 mg/dL 70-100 H GLU) BLOOD UREA NITROGEN 10 mg/dL 7-18 N (test code = BUN) GLOMERULAR FILTRATION 19.49 >=60 L Report ing units: RATE (test code = GFR) mL/mi n/1.73m\S\2 (Modified MDRD formula)REFEREN CE RANGE: > or = 6 0 ml/min/1.73M2IF PATIENT IS -RAUL N, MULTIPLY REPORT ED RESULT BY1.21. CREATININE (test code 3.30 mg/dL 0.67-1.17 H = CREAT) CALCIUM (test code = 8.7 mg/dL 8.5-10.1 N CA) BASIC METABOLIC [id number] 14:34:00 Test Item Value Reference Range Interpretation Comments SODIUM (test code = NA) 129 mmol/L 136-145 L POTASSIUM (test code = K) 3.9 mmol/L 3.5-5.1 N CHLORIDE (test code = CL) 96 mmol/L 98-107 L CARBON DIOXIDE (test code = CO2) 28 mmol/L 21-32 N GLUCOSE (test code = GLU) 305 mg/dL 70-100 H BLOOD UREA NITROGEN (test code = 10 mg/dL 7-18 N BUN) GLOMERULAR FILTRATION RATE (test >=60 code = GFR) CREATININE (test code = CREAT) mg/dL 0.67-1.17 CALCIUM (test code = CA) 8.7 mg/dL 8.5-10.1 N BASIC METABOLIC [id number] 14:33:00 Test Item Value Reference Range Interpretation Comments SODIUM (test code = NA) 129 mmol/L 136-145 L POTASSIUM (test code = K) 3.9 mmol/L 3.5-5.1 N CHLORIDE (test code = CL) 96 mmol/L 98-107 L CARBON DIOXIDE (test code = CO2) mmol/L 21-32 GLUCOSE (test code = GLU) mg/dL 70-100 BLOOD UREA NITROGEN (test code = mg/dL 7-18 BUN) GLOMERULAR FILTRATION RATE (test >=60 code = GFR) CREATININE (test code = CREAT) mg/dL 0.67-1.17 CALCIUM (test code = CA) 8.7 mg/dL 8.5-10.1 N BASIC METABOLIC [id number] 14:32:00 Test Item Value Reference Range Interpretation Comments SODIUM (test code = NA) 129 mmol/L 136-145 L POTASSIUM (test code = K) 3.9 mmol/L 3.5-5.1 N CHLORIDE (test code = CL) 96 mmol/L 98-107 L CARBON DIOXIDE (test code = CO2) mmol/L 21-32 GLUCOSE (test code = GLU) mg/dL 70-100 BLOOD UREA NITROGEN (test code = mg/dL 7-18 BUN) GLOMERULAR FILTRATION RATE (test >=60 code = GFR) CREATININE (test code = CREAT) mg/dL 0.67-1.17 CALCIUM (test code = CA) mg/dL 8.5-10.1 CBC W/AUTO [id number] 14:21:00 Test Item Value Reference Range Interpretation Comments WHITE BLOOD CELL (test code = 6.1 X10(3) 4.5-11.0 N WBC) RED BLOOD CELL (test code = 3.02 X10(6) 4.3-5.9 L RBC) HEMOGLOBIN (test code = HGB) 9.9 g/dL 13.5-18.0 L HEMATOCRIT (test code = HCT) 29.8 % 42.0-52.0 L MEAN CELL VOLUME (test code = 98.7 fl 78-100 N MCV) MEAN CELL HGB (test code = MCH) 32.8 pg 26.0-34.0 N MEAN CELL HGB CONCETRATION 33.2 g/dl 30.0-37.0 N (test code = MCHC) RED CELL DISTRIBUTION WIDTH 11.9 % 11.5-14.5 N (test code = RDW) PLATELET COUNT (test code = 396 X10(3) 150-350 H PLT) MEAN PLATELET VOLUME (test code 9.7 fl 8.7-11.4 N = MPV) NEUTROPHIL % (test code = NT%) 63.4 % 36.0-66.0 N IMMATURE GRANULOCYTE % (test 0.2 % 0.0-2.0 N code = IG%) LYMPHOCYTE % (test code = LY%) 21.8 % 16.0-50.0 N MONOCYTE % (test code = MO%) 11.5 % 0.0-13.0 N EOSINOPHIL % (test code = EO%) 2.1 % 0.0-4.5 N BASOPHIL % (test code = BA%) 1.0 % 0.0-1.5 N NUCLEATED RBC % (test code = 0.0 % 0-0.2 N NRBC%) NEUTROPHIL # (test code = NT#) 3.87 X10(3) 1.70-7.70 N IMMATURE GRANULOCYTE # (test 0.01 X10(3)uL 0.00-0.03 N code = IG#) LYMPHOCYTE # (test code = LY#) 1.33 X10(3) 0.70-4.00 N MONOCYTE # (test code = MO#) 0.70 X10(3) 0.00-0.89 N EOSINOPHIL # (test code = EO#) 0.13 X10(3) 0.00-0.60 N BASOPHIL # (test code = BA#) 0.06 X10(3) 0.00-0.20 N NUCLEATED RBC # (test code = 0.00 K/mm3 0.0-0.1 N NRBC#) CBC W/AUTO [id number] 14:53:00 Test Item Value Reference Range Interpretation Comments WHITE BLOOD CELL (test code = 8.3 X10(3) 4.5-11.0 N WBC) RED BLOOD CELL (test code = 3.12 X10(6) 4.3-5.9 L RBC) HEMOGLOBIN (test code = HGB) 10.1 g/dL 13.5-18.0 L HEMATOCRIT (test code = HCT) 30.5 % 42.0-52.0 L MEAN CELL VOLUME (test code = 97.8 fl 78-100 N MCV) MEAN CELL HGB (test code = MCH) 32.4 pg 26.0-34.0 N MEAN CELL HGB CONCETRATION 33.1 g/dl 30.0-37.0 N (test code = MCHC) RED CELL DISTRIBUTION WIDTH 11.8 % 11.5-14.5 N (test code = RDW) PLATELET COUNT (test code = 399 X10(3) 150-350 H PLT) MEAN PLATELET VOLUME (test code 9.6 fl 8.7-11.4 N = MPV) NEUTROPHIL % (test code = NT%) 75.9 % 36.0-66.0 H IMMATURE GRANULOCYTE % (test 0.4 % 0.0-2.0 N code = IG%) LYMPHOCYTE % (test code = LY%) 14.7 % 16.0-50.0 L MONOCYTE % (test code = MO%) 7.8 % 0.0-13.0 N EOSINOPHIL % (test code = EO%) 0.5 % 0.0-4.5 N BASOPHIL % (test code = BA%) 0.7 % 0.0-1.5 N NUCLEATED RBC % (test code = 0.0 % 0-0.2 N NRBC%) NEUTROPHIL # (test code = NT#) 6.30 X10(3) 1.70-7.70 N IMMATURE GRANULOCYTE # (test 0.03 X10(3)uL 0.00-0.03 N code = IG#) LYMPHOCYTE # (test code = LY#) 1.22 X10(3) 0.70-4.00 N MONOCYTE # (test code = MO#) 0.65 X10(3) 0.00-0.89 N EOSINOPHIL # (test code = EO#) 0.04 X10(3) 0.00-0.60 N BASOPHIL # (test code = BA#) 0.06 X10(3) 0.00-0.20 N NUCLEATED RBC # (test code = 0.00 K/mm3 0.0-0.1 N NRBC#)
[2019-12-17] MEDS ORDERED: AMOX/K CLAV 875 MG TAB ONE (18:31)
--- NOTE | 2019-12-17 18:34 | ER ---
Nurse's Notes [facility] Name: Joey Baez Age: 54 yrs Sex: Male : 1965 Arrival Date: 12/17/2019 Time: 16:22 Bed 13 Private MD: Diagnosis: Cellulitis Right Fifth Toe Presentation: 12/16 16:33 Chief complaint: Patient states: Wound to right foot 5th digit for 3 days. Oozes blood. ll1 No fever. Coronavirus screen: Client denies travel out of the [place] in the last 14 days. At this time, the client does not indicate any symptoms associated with coronavirus-19. Ebola Screen: Patient denies travel to an Ebola-affected area in the 21 days before illness onset. Initial Sepsis Screen: Does the patient meet any 2 criteria? No. Patient's initial sepsis screen is negative. Risk Assessment: Do you want to hurt yourself or someone else? Patient reports no desire to harm self or others. Onset of symptoms was December 15, 2019. 16:33 Method Of Arrival: Ambulatory ll1 16:33 Acuity: GIRMA 3 ll1 Historical: - Allergies: 16:35 No Known Allergies; ll1 - PMHx: 16:35 Diabetes - IDDM; High Cholesterol; Hypertension; ll1 - PSHx: 16:35 KIDNEY REMOVAL; BTK AMPUTATION-LEFT; pacemaker; ll1 - Immunization history:: Flu vaccine is up to date. - Social history:: Smoking status: Patient denies any tobacco usage or history of. Patient/guardian denies using alcohol, street drugs. Vital Signs: 16:33 BP 138 / 66; Pulse 81; Resp 17; Temp 99.1; Pulse Ox 98% ; Weight 58.97 kg; Height 5 ft. ll1 3 in. (160.02 cm); Pain 3/10; 16:33 Body Mass Index 23.03 (58.97 kg, 160.02 cm) ll1 ED Course: 16:22 Patient arrived in ED. ds1 16:34 Triage completed. ll1 16:35 Arm band placed on. ll1 17:27 Adarsh Solorzano MD is Attending Physician. kdr 18:09 Flower Ott RN is Primary Nurse. ls4 Administered Medications: 18:20 Drug: Augmentin 875 mg Route: PO; ls4 Outcome: 18:33 Discharge ordered by . cornelius 19:14 Patient left the ED. ph Signatures: Adarsh Solorzano MD MD kdr Sanford, Demi ds1 Nata Boyce RN RN ph Flower Ott RN RN ls4 Ede Ponce RN RN ll1
--- NOTE | 2019-12-17 18:34 | EDPHYS ---
Physician Documentation [facility] Name: Joey Baez Age: 54 yrs Sex: Male : 1965 Arrival Date: 12/17/2019 Time: 16:22 Bed 13 Private MD: ED Physician Adarsh Solorzano HPI: 12/17 08:24 This 54 yrs old Male presents to ER via Ambulatory with complaints of Foot kdr Pain. 08:24 The patient presents with pain, swelling, tenderness, erythema . The complaints affect kdr the right foot. Context: The problem was sustained at home, resulted from an unknown cause, Mechanism of Injury: Unknown the patient can fully bear weight, the patient is able to ambulate. Onset: The symptoms/episode began/occurred gradually, 3 day(s) ago. Modifying factors: The symptoms are alleviated by nothing, the symptoms are aggravated by Touching area. Associated signs and symptoms: The patient has no apparent associated signs or symptoms. Severity of symptoms: At their worst the symptoms were mild, in the emergency department the symptoms are unchanged. The patient has not experienced similar symptoms in the past. The patient has not recently seen a physician. Historical: - Allergies: 12/16 16:35 No Known Allergies; ll1 - PMHx: 16:35 Diabetes - IDDM; High Cholesterol; Hypertension; ll1 - PSHx: 16:35 KIDNEY REMOVAL; BTK AMPUTATION-LEFT; pacemaker; ll1 - Immunization history:: Flu vaccine is up to date. - Social history:: Smoking status: Patient denies any tobacco usage or history of. Patient/guardian denies using alcohol, street drugs. ROS: 12/17 08:24 Constitutional: Negative for fever, chills, and weight loss, Eyes: Negative for injury, kdr pain, redness, and discharge, ENT: Negative for injury, pain, and discharge, Neck: Negative for injury, pain, and swelling, Cardiovascular: Negative for chest pain, palpitations, and edema, Respiratory: Negative for shortness of breath, cough, wheezing, and pleuritic chest pain, Abdomen/GI: Negative for abdominal pain, nausea, vomiting, diarrhea, and constipation, Back: Negative for injury and pain, : Negative for injury, bleeding, discharge, and swelling, MS/Extremity: Negative for injury and deformity, Neuro: Negative for headache, weakness, numbness, tingling, and seizure activity. Psych: Negative for depression, anxiety, suicide ideation, homicidal ideation, and hallucinations, Allergy/Immunology: Negative for hives, rash, and allergies, Endocrine: Negative for neck swelling, polydipsia, polyuria, polyphagia, and marked weight changes, Hematologic/Lymphatic: Negative for swollen nodes, abnormal bleeding, and unusual bruising. Skin: Positive for cellulitis, erythema, swelling, Negative for abscesses, burn. Exam: 08:24 Constitutional: This is a well developed, well nourished patient who is awake, alert, kdr and in no acute distress. Head/Face: Normocephalic, atraumatic. Eyes: Pupils equal round and reactive to light, extra-ocular motions intact. Lids and lashes normal. Conjunctiva and sclera are non-icteric and not injected. Cornea within normal limits. Periorbital areas with no swelling, redness, or edema. Neck: Trachea midline, no thyromegaly or masses palpated, and no cervical lymphadenopathy. Supple, full range of motion without nuchal rigidity, or vertebral point tenderness. No Meningismus. 08:24 Skin: cellulitis, that is mild, induration, that is mild is noted, located on the right fifth toe. Vital Signs: 12/16 16:33 BP 138 / 66; Pulse 81; Resp 17; Temp 99.1; Pulse Ox 98% ; Weight 58.97 kg; Height 5 ft. ll1 3 in. (160.02 cm); Pain 3/10; 16:33 Body Mass Index 23.03 (58.97 kg, 160.02 cm) ll1 MDM: 18:33 Patient medically screened. kdr 12/17 08:24 Data reviewed: vital signs, nurses notes, lab test result(s). Counseling: I had a kdr detailed discussion with the patient and/or guardian regarding: the historical points, exam findings, and any diagnostic results supporting the discharge/admit diagnosis, lab results, the need for outpatient follow up. Administered Medications: 12/16 18:20 Drug: Augmentin 875 mg Route: PO; ls4 Disposition: 12/17/19 18:33 Discharged to Home. Impression: Cellulitis Right Fifth Toe. - Condition is Stable. - Discharge Instructions: Cellulitis, Adult, [id number]. - Prescriptions for Augmentin 875- 125 mg Oral Tablet - take 1 tablet by ORAL route every 12 hours for 10 days; 20 tablet. - Medication Reconciliation Form, Thank You Letter, Antibiotic Education form. - Follow up: Private Physician; When: 2 - 3 days; Reason: If symptoms return, Further diagnostic work-up, Recheck today's complaints, Continuance of care, Re-evaluation by your physician. - Problem is new. - Symptoms are unchanged. Signatures: Adarsh Solorzano MD MD kdr Nata Boyce RN RN Flower Ott RN RN ls4 Ede Ponce RN RN ll1 Corrections: (The following items were deleted from the chart) 19:14 18:33 12/17/2019 18:33 Discharged to Home. Impression: Cellulitis Right Fifth Toe. ph Condition is Stable. Forms are Medication Reconciliation Form, Thank You Letter, Antibiotic Education, Prescription Opioid Use. Follow up: Private Physician; When: 2 - 3 days; Reason: If symptoms return, Further diagnostic work-up, Recheck today's complaints, Continuance of care, Re-evaluation by your physician. Problem is new. Symptoms are unchanged. kdr
== END 2019-12-17 19:14 | disposition home or self-care (01) ==
LOC: ER 16:18
DX: L03.031 Cellulitis of right toe (principal); Z95.0 Presence of cardiac pacemaker; Z90.5 Acquired absence of kidney; Z89.9 Acquired absence of limb, unspecified
CPT/HCPCS: 99282

== ENCOUNTER 2020-04-06 14:21 | Inpatient (IN) | payer OTHER ==
--- OUTSIDE RECORDS SUMMARY | 2020-04-06 14:29 | XMS REPORT | Clinical Summary ---
:1965 Author Organization [facility] Address [address] [place] [address] Care Team Providers Name Role Phone Junior Torres MD Primary Care Provider Allergies No Known Active Allergies Medications Medication Sig Dispensed Refills Start [...] access 09/27/2018 Mastoiditis of right side 08/27/2018 Surgical History Surgery Date Site/Laterality Comments CARDIAC PACEMAKER PLACEMENT AV FISTULA PLACEMENT Right INSERT / REPLACE / REMOVE 04/16/2012 - Left PACEMAKER 04/15/2013 AMPUTATION Right toe AMPUTATION, BELOW KNEE 04/16/2008 - Left 04/15/2009 INSERTION, CATHETER, 08/22/2018 Right Procedure: INSERTION CENTRAL VENOUS, TUNNELED, RIGHT TUNNELED CENTRAL FOR HEMODIALYSIS VENOUS CATHETER , AND RIGHT ARM GRAFT REVISION; Surgeon: Ben Cox MD; Locatio n: [facility] OR; Servic e: General; Latera lity: Right; Medical devices from this surgery are in t he Implants section . THROMBECTOMY 09/30/2018 Arm Lower/Right Procedure: THROM BECTOMY RIGHT UPPER EXTT REMITY AVF,BALLOON ANGIOPLASTY,STEN T PLACEMENT; Surg corina: Dom Lozano MD; Location: [facility] OR; Service: Vascula r; Laterality: Righ t; Medical devices from this surgery are in t he Implants section . Medical History Medical History Date Comments Type 2 diabetes mellitus (HCC) Hypertension Prosthesis fitting left leg Hypercholesteremia Chronic kidney disease Renal insufficiency Cataract bilateral Family History Medical History Relation Name Comments [...] Assigned at Date Recorded Not on file Last Filed Vital Signs Not on file Plan of Treatment Health Maintenance Due Date Last Done Comments DIABETES: RETINAL EYE EXAM 1973 DIABETIC FOOT EXAM 1973 URINE MICROALBUMIN 1973 COVID-19 VACCINE (#1) 1979 COLONOSCOPY SCREENING 2013 SHINGLES VACCINES (#1) 2013 INFLUENZA VACCINE 11/15/2019 02/23/2018, 06/27/2012 Implants Implanted Type Area [employer] Device Shelf Model / Identifier Expiration Serial / Date Lot Catheter Dialysis Glidepath [id number] Symmetric Tip - [id number] Central N/A: BARD PERIPHERAL 11/14/2019 [id number] / Implanted: 08/22/2018 at [facility] (Quantity not on file) [place] ous N/A VASCULAR / Catheters [id number] Pacemaker Pacemaker System Thrmbtmy Otw 6fr 50cm Angiojet Avx - Sx - [id number] Surg ical N/A: [place] 10/01/2019 [id number] / Implanted: Qty: 1 on 09/30/2018 by Dom Lozano MD at [facility] Implants; N/A SCIENTIFIC GERRY X / Expanders; Extenders; Surgical Wires System Thrmbtmy Otw 6fr 50cm Angiojet Avx - Sx - [id number] Surg ical N/A: [place] 10/01/2019 [id number] / Implanted: Qty: 1 on 09/30/2018 by Dom Lozano MD at [facility] Implants; N/A SCIENTIFIC GERRY X / Expanders; Extenders; Surgical Wires Stent Endprths Viabahn 75x5cm 8mm Heprn Bioactv Surf - [id number] - [id number] Surgical N/A: W L GORE 07/11/2021 [id number] / Implanted: Qty: 1 on 09/30/2018 by Dom Lozano MD at [facility] Stents N/A [id number] / [id number] Graft Vasclr Fulton-Ramesh Stdwl 40cm 6mm - [id number] Vascular N/A: W L GORE 06/21/2022 [id number] / Implanted: 08/22/2018 at [facility] (Quantity not on file) Graft N/A [id number] / [id number] Results Not on fileafter 04/06/2019 Insurance Payer Benefit Plan / Subscriber ID Effective Dates Phone Addre ss Type Group MEDICAID MEDICAID [id number] 2014-Present Med icaid [facility] MEDICARE [facility] DUAL COMPLETE [id number] 2017-Present [facility] Advance Directives For more information, please contact: [phone] Type Date Recorded 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
--- OUTSIDE RECORDS SUMMARY | 2020-04-06 14:30 | XMS REPORT | Continuity of Care Document ---
:1965 Author Organization [facility] t Address [address] [place] [place] [address] Care Team Providers Name Role Phone Melissa JACOBO, Junior Primary Care Physician Keith HEATON, Payton Adame Attending Clinician Cole JACOBO Attending Clinician Doctor Unassigned, Name Attending Clinician Unavailable Camryn VEGA Attending Clinician Unavailable Khanh JACOBO Attending Clinician Cole JACOBO Admitting Clinician Khanh JACOBO Admitting Clinician Payers Payer Name Policy Type Policy Number Effective Date Expiration Date S ource Problems Condition Condition Condition Status Onset Resolution Last Treating Co mments Source Name Details Category Date Date Treatment Clinician Date Problem Problem Disease Active [facility] with with 6-14 [facility] vascular vascular 00:00: st access access 00 Mastoiditi 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[facility] right s of right 5-14 Me [place] side side 00:00: st 00 Allergies, Adverse Reactions, Alerts Allergy Allergy Status Severity Reaction(s) Onset Inactive Treating Comm ents Source Name Type Date Date Clinician No Known DA Active U [facility] Allergie 5-06 [facility] 00[facility]: [facility] Family History Family Member Diagnosis Comments Start Date Stop Date Source Natural father Arthritis [facility] thodist Natural mother Diabetes [facility] thodist Social History Social Habit Start Date Stop Date Quantity Comments Source History of Cigarette Smoker [facility] tobacco use History [facility] Meth odist Alcohol Std Drinks History [facility] Meth odist Alcohol Binge Sex Assigned At [facility] ethodist Tobacco use and 2018-10-02 2018-10-02 Never used [facility] ethodist exposure 00:00:00 00:00:00 Alcohol intake 2018-10-02 2018-10-02 Current [facility] thodist 00:00:00 00:00:00 non-drinker of alcohol (finding) History SDKY 2018-08-22 2018-08-22 1 [facility] Alcohol Frequency 00:00:00 00:00:00 Tobacco Comment 2018-08-22 2018-08-22 quit 30 years ago [facility] 00:00:00 00:00:00 Smoking Status Start Date Stop Date Source Former smoker 2018-10-02 00:00:00 2018-10-02 00:00:00 [facility] Medications Ordered Filled Start Stop Current Ordering Indication Dosage Frequency Signature Comments Components Source Medication Medication Date Date Medication? Clinician (SIG) Name Name pravastatin Yes 10mg QD Take 10 mg [place] (PRAVACHOL) 6-17 by mouth Meth iris 10 MG 21:14: nightly. st tablet 32 sevelamer Yes 800mg [id number] Take 800 [place] (RENVELA) 6-17 [id number] mg by Met hodi 800 mg 21:14: 3D mouth 3 st tablet 32 (three) times a day with meals. Take 4 tabs 3x/day with meals2 tabs with snacks polyethylen 2018- Yes 17g QD Take 17 g [place] glycol 6-17 by mouth [facility] (MIRALAX) 21:14: daily. st 17 gram 32 packet artificial Yes 2[drp] Q24H Administer [place] tears,hypro 6-17 2 drops to [place] mellose, 21:14: both eyes st 0.3 % drops [...] (two) times a day with meals. ofloxacin Yes 3[drp] Q.5D Administer [place] (FLOXIN) 4-29 3-4 drops Method i 0.3 % otic 00:00: to the st solution 00 right ear 2 (two) times a day. insulin Yes Please Mihai ASPART 8 check [facility] (NovoLOG) 00:00: blood st 100 [...] Planned Date Details Comments Source Future Scheduled 2019-11-15 INFLUENZA VACCINE [place] [facility] Test 00:00:00 [code = INFLUENZA VACCINE] Future Scheduled 2013 COLONOSCOPY SCREENING [place] [facility] Test 00:00:00 [code = COLONOSCOPY SCREENING] Future Scheduled 2013 SHINGLES VACCINES (#1) [place] [facility] Test 00:00:00 [code = SHINGLES VACCINES (#1)] Future Scheduled 1979 COVID-19 VACCINE (#1) [place] [facility] Test 00:00:00 [code = COVID-19 VACCINE (#1)] Future Scheduled 1973 DIABETES: RETINAL EYE [place] [facility] 00:00:00 EXAM [code = DIABETES: RETINAL EYE EXAM] Future Scheduled 1973 DIABETIC FOOT EXAM [place] [facility] 00:00:00 [code = DIABETIC FOOT EXAM] Future Scheduled 1973 URINE MICROALBUMIN [place] [facility] 00:00:00 [code = URINE MICROALBUMIN] Encounters Start End Encounter Admission Attending Care Care Encounter Source Date/Time Date/Time Type Type Clinicians Facility Department ID 2020-01-19 2020-01-24 [facility] Payton Parker [facility] 1.2.840. 114 [id number] 15:57:00 19:05:00 Encounter BrightisidoroKamlesh hernandezpham Molly [id number] [place] [id number] [place] [id number] 2020-01-19 2020-01-19 Orders Doctor ZENY [id number] 00:00:00 00:00:00 Only Unassigned, [place] [id number] [place] [id number] 2020-01-01 2020-01-01 Transition Angella Cowancolin [id number] 00:00:00 00:00:00 of Care Migdalia Caldera [id number] [place] [id number] [id number] 2019-12-23 2019-12-31 [facility] Payton Parker [facility] 1.2.840. 114 [id number] 09:57:00 15:53:00 Encounter Sterling Cassidy Molly [id number] [place] [id number] [place] [id number] 2019-12-23 2019-12-23 Orders Doctor ZENY [id number] 00:00:00 00:00:00 Only Unassigned, [place] [id number] [place] [id number] Results Test Description Test Time Test Comments Results Result Comments Source GLUBED 2019-08-29 11:34:00 Test Item Value Reference Range Interpretation Comme nts GLUBED (test code = GLUBED) 180 mg/dL 70-105 H Performed by certified survey instrument operator at [facility] CBC W/AUTO [id number] 06:25:00 Test Item Value Reference Range Interpretation [...] ESTIMATE (test code = NORMAL ADEQUATE PLTEST) [id number] 06:23:00 Test Item Value Reference Range Interpretation Comments GLUBED (test code = 116 mg/dL 70-105 H Performe d by certified GLUBED) survey instrument operator at [facility] BASIC METABOLIC [id number] 06:08:00 Test Item Value Reference Range Interpretation [...] 8.0 mg/dL 8.5-10.1 L CA) BASIC METABOLIC [id number] 06:02:00 Test Item Value Reference Range Interpretation [...] CA) 8.0 mg/dL 8.5-10.1 L BASIC METABOLIC [id number] 06:02:00 Test Item Value Reference Range Interpretation [...] CA) 8.0 mg/dL 8.5-10.1 L BASIC METABOLIC [id number] 05:59:00 Test Item Value Reference Range Interpretation [...] code = CA) mg/dL 8.5-10.1 CBC W/AUTO [id number] 05:53:00 Test Item Value Reference Range Interpretation [...] code = 0.00 K/mm3 0.0-0.1 N NRBC#) [id number] 20:37:00 Test Item Value Reference Range Interpretation Comments GLUBED (test code = 255 mg/dL 70-105 H Performe d by certified GLUBED) survey instrument operator at [facility]2020-05-14 17:12:00 Test Item Value Reference Range Interpretation Comments GLUBED (test code = 169 mg/dL 70-105 H Performe d by certified GLUBED) survey instrument operator at [facility]2020-05-14 11:24:00 Test Item Value Reference Range Interpretation Comments GLUBED (test code = 197 mg/dL 70-105 H Performe d by certified GLUBED) survey instrument operator at [facility]2020-05-14 06:37:00 Test Item Value Reference Range Interpretation Comments GLUBED (test code = 222 mg/dL 70-105 H Performe d by certified GLUBED) survey instrument operator at [facility]2020-05-13 21:04:00 Test Item Value Reference Range Interpretation Comments GLUBED (test code = 174 mg/dL 70-105 H Performe d by certified GLUBED) survey instrument operator at [facility] [id number] 18:47:00 Test Item Value Reference Range Interpretation Comments GLUBED (test code = 115 mg/dL 70-105 H Performe d by certified GLUBED) survey instrument operator at [facility]2020-05-13 12:55:00 Test Item Value Reference Range Interpretation Comments GLUBED (test code = 165 mg/dL 70-105 H Performe d by certified GLUBED) survey instrument operator at [facility] [id number] 09:25:00 Test Item Value Reference Range Interpretation Comments POTASSIUM (test code = K) 5.6 mmol/L 3.5-5.1 H [id number] 06:12:00 Test Item Value Reference Range Interpretation Comments GLUBED (test code = 163 mg/dL 70-105 H Performe d by certified GLUBED) survey instrument operator at [facility] Novel Coronavirus 2019 [id number] 03:30:00 Test Item Value Reference Range Interpretation Comments Novel Coronavirus Negative NEGATIVE Positive(D etected) 2018 Inhouse (test results [...] s pecific training on the use ofthe Bigvest-2.0 S Telepathytem. The BioFire COV ID-19 Test is onlyfor use under the Food and Drug Administration' s EmergencyUse Authorization. [id number] 20:58:00 Test Item Value Reference Range Interpretation Comments GLUBED (test code = 247 mg/dL 70-105 H Performe d by certified GLUBED) survey instrument operator at [facility] [id number] 16:35:00 Test Item Value Reference Range Interpretation Comments GLUBED (test code = 163 mg/dL 70-105 H Performe d by certified GLUBED) survey instrument operator at [facility] [id number] 11:40:00 Test Item Value Reference Range Interpretation Comments GLUBED (test code = 325 mg/dL 70-105 H Performe d by certified GLUBED) survey instrument operator at [facility] [id number] 10:22:00 Test Item Value Reference Range Interpretation Comments GLUBED (test code = 265 mg/dL 70-105 H Performe d by certified GLUBED) survey instrument operator at [facility] BASIC METABOLIC [id number] 06:07:00 Test Item Value Reference Range Interpretation [...] 8.5 mg/dL 8.5-10.1 N CA) BASIC METABOLIC [id number] 06:04:00 Test Item Value Reference Range Interpretation [...] CA) 8.5 mg/dL 8.5-10.1 N BASIC METABOLIC [id number] 06:03:00 Test Item Value Reference Range Interpretation [...] CA) 8.5 mg/dL 8.5-10.1 N BASIC METABOLIC [id number] 05:58:00 Test Item Value Reference Range Interpretation [...] code = CA) mg/dL 8.5-10.1 CBC W/AUTO [id number] 05:52:00 Test Item Value Reference Range Interpretation [...] code = 0.00 K/mm3 0.0-0.1 N NRBC#) [id number] 20:11:00 Test Item Value Reference Range Interpretation Comments GLUBED (test code = 408 mg/dL 70-105 H Performe d by certified GLUBED) survey instrument operator at [facility] [id number] 16:29:00 Test Item Value Reference Range Interpretation Comments GLUBED (test code = 329 mg/dL 70-105 H Performe d by certified GLUBED) survey instrument operator at [facility] AG HEPATITIS B [id number] 13:18:00 Test Item Value Reference Range Interpretation Comments AG HEPATITIS B SURFACE NONREAC NONREAC The r esults were (test code = HBSAG) obtained using the Interview Masteraur XP HBsA g assay. AB HEPATITIS [id number] 13:18:00 Test Item Value Reference Range Interpretation Comments AB HEPATITIS C (test NONREAC NONREAC These r esults were code = HCVAB) obtained using the Interview Masteraur XP HCV IgGAssay. Values obtained from other manufactu rer's assaymethods ma y not be used interchang eably. [id number] 11:26:00 Test Item Value Reference Range Interpretation Comments GLUBED (test code = 177 mg/dL 70-105 H Performe d by certified GLUBED) survey instrument operator at [facility] CBC W/AUTO [id number] 11:26:00 Test Item Value Reference Range Interpretation [...] ESTIMATE (test code = NORMAL ADEQUATE PLTEST) [id number] 06:26:00 Test Item Value Reference Range Interpretation Comments GLUBED (test code = 135 mg/dL 70-105 H Performe d by certified GLUBED) survey instrument operator at [facility] BASIC METABOLIC [id number] 06:09:00 Test Item Value Reference Range Interpretation [...] IS -RAUL N, MULTIPLY REPORT ED RESULT BY05.06. CREATININE (test code 10.10 mg/dL 0.67-1.17 H = CREAT) CALCIUM (test code = 8.5 mg/dL 8.5-10.1 N CA) BASIC METABOLIC [id number] 06:01:00 Test Item Value Reference Range Interpretation [...] CA) 8.5 mg/dL 8.5-10.1 N BASIC METABOLIC [id number] 06:00:00 Test Item Value Reference Range Interpretation [...] CA) 8.5 mg/dL 8.5-10.1 N BASIC METABOLIC [id number] 05:57:00 Test Item Value Reference Range Interpretation [...] code = CA) mg/dL 8.5-10.1 CBC W/AUTO [id number] 05:52:00 Test Item Value Reference Range Interpretation [...] code = 0.00 K/mm3 0.0-0.1 N NRBC#) [id number] 05:19:00 Test Item Value Reference Range Interpretation Comments GLUBED (test code = 127 mg/dL 70-105 H Performe d by certified GLUBED) survey instrument operator at [facility]2020-05-11 02:56:00 Test Item Value Reference Range Interpretation Comments GLUBED (test code = 44 mg/dL 70-105 L Performe d by certified GLUBED) survey instrument operator at [facility]2020-05-10 21:06:00 Test Item Value Reference Range Interpretation Comments GLUBED (test code = 259 mg/dL 70-105 H Performe d by certified GLUBED) survey instrument operator at [facility]2020-05-10 17:09:00 Test Item Value Reference Range Interpretation Comments GLUBED (test code = 150 mg/dL 70-105 H Performe d by certified GLUBED) survey instrument operator at [facility]2020-05-10 11:35:00 Test Item Value Reference Range Interpretation Comments GLUBED (test code = 207 mg/dL 70-105 H Performe d by certified GLUBED) survey instrument operator at [facility] BASIC METABOLIC [id number] 06:20:00 Test Item Value Reference Range Interpretation [...] code = 8.3 mg/dL 8.5-10.1 L CA) [id number] 06:11:00 Test Item Value Reference Range Interpretation Comments GLUBED (test code = 158 mg/dL 70-105 H Performe d by certified GLUBED) survey instrument operator at [facility] BASIC METABOLIC [id number] 05:59:00 Test Item Value Reference Range Interpretation [...] CA) 8.3 mg/dL 8.5-10.1 L CBC W/AUTO [id number] 05:58:00 Test Item Value Reference Range Interpretation [...] 0.00 K/mm3 0.0-0.1 N NRBC#) BASIC METABOLIC [id number] 05:57:00 Test Item Value Reference Range Interpretation [...] CALCIUM (test code = CA) mg/dL 8.5-10.1 [id number] 20:55:00 Test Item Value Reference Range Interpretation Comments GLUBED (test code = 252 mg/dL 70-105 H Performe d by certified GLUBED) survey instrument operator at [facility]2020-05-09 16:00:00 Test Item Value Reference Range Interpretation Comments GLUBED (test code = 99 mg/dL 70-105 N Performe d by certified GLUBED) survey instrument operator at [facility]2020-05-09 11:34:00 Test Item Value Reference Range Interpretation Comments GLUBED (test code = 215 mg/dL 70-105 H Performe d by certified GLUBED) survey instrument operator at [facility] BASIC METABOLIC [id number] 07:06:00 Test Item Value Reference Range Interpretation [...] ce average 6.14 Thr ee times average [id number] 07:06:00 Test Item Value Reference Range Interpretation [...] s an d/or septic shock. CBC W/AUTO [id number] 06:48:00 Test Item Value Reference Range Interpretation [...] = 0.00 K/mm3 0.0-0.1 N NRBC#) SED [id number] 06:48:00 Test Item Value Reference Range Interpretation Comments SED RATE (test code = SEDW) 96 mm/hr 0-15 H BASIC METABOLIC [id number] 06:14:00 Test Item Value Reference Range Interpretation [...] ce average 6.14 Thr ee times average [id number] 06:14:00 Test Item Value Reference Range Interpretation Comments MAGNESIUM (test code = MAG) 2.6 mg/dL 1.8-2.4 H PROCALCITONIN (PCT)2019-08-23 06:14:00 Test Item Value Reference Range Interpretation Comments PROCALCITONIN (PCT) (test code = ng/mL <0.5 PROCAL) [id number] 06:11:00 Test Item Value Reference Range Interpretation Comments GLYCOSYLATED 9.7 % <5.7 H SAL GGESTED HEMOGLOBIN (HA1C) DIAGNOSIS (test code = GLYHGB) INTERPR ETATION -------- Normal: < 5.7% Prediabetes: 5 .7 - 6.4% Diabetic: >/ = 6.5%* DUE TO METHOD R EVISION, REFERENCE RANGE HAS BEEN UPDATED * ESTIMATED AVERAGE 232 MG/DL <126 GLUCOSE (test code = EAG) [id number] 06:09:00 Test Item Value Reference Range Interpretation Comments GLUBED (test code = 268 mg/dL 70-105 H Performe d by certified GLUBED) survey instrument operator at [facility] BASIC METABOLIC [id number] 06:01:00 Test Item Value Reference Range Interpretation [...] <100 LDL/HDL (test code = LDL/HDL) Ratio [id number] 06:01:00 Test Item Value Reference Range Interpretation Comments MAGNESIUM (test code = MAG) mg/dL 1.8-2.4 PROCALCITONIN (PCT)2019-08-23 06:01:00 Test Item Value Reference Range Interpretation Comments PROCALCITONIN (PCT) (test code = ng/mL <0.5 PROCAL) CBC W/AUTO [id number] 05:54:00 Test Item Value Reference Range Interpretation [...] = 0.00 K/mm3 0.0-0.1 N NRBC#) SED [id number] 05:54:00 Test Item Value Reference Range Interpretation Comments SED RATE (test code = SEDW) mm/hr 0-15 [id number] 23:48:00 Test Item Value Reference Range Interpretation Comments GLUBED (test code = 248 mg/dL 70-105 H Performe d by certified GLUBED) survey instrument operator at [facility] - XR CHEST 1 [id number] 19:32:00 [facility] Name: VAL BAEZ [address] [place] [address] Phys: Kathrine Vasques MD [place] [address] : 1965 Age: 54 Sex: M Acct: [id number] Loc: H.514 A PHONE #: [phone] Exam Date: 08/22/2019 Status: ADM IN FAX #: [phone] Radiology No: Unit No: [id number] Reason: infected L arm vascular access EXAMS: CPT CODE: [id number] XR CHEST 1 V [id number] Fluoro Time: DAP (Gy m2): Air Kerma [...] RT (R); ... Transcribed Date/Time: 08/22/2019 (1931) [email or web address] Orig Print D/T: S: 08/22/2019 (1935) PAGE 1 Signed ReportGLUBED 2019-08-22 17:49:00 Test Item Value Reference Range Interpretation Comments GLUBED (test code = 260 mg/dL 70-105 H Performe d by certified GLUBED) survey instrument operator at [facility] Novel Coronavirus 2019 [id number] 16:44:00 Test Item Value Reference Range Interpretation [...] s pecific training on the use ofthe FilmArray-2.0 S TelepathyteTedcas. The BioFire COV ID-19 Test is onlyfor use under the Food and Drug Administration' s EmergencyUse Authorization. BASIC METABOLIC [id number] 14:37:00 Test Item Value Reference Range Interpretation [...] 8.7 mg/dL 8.5-10.1 N CA) BASIC METABOLIC [id number] 14:34:00 Test Item Value Reference Range Interpretation [...] CA) 8.7 mg/dL 8.5-10.1 N BASIC METABOLIC [id number] 14:33:00 Test Item Value Reference Range Interpretation [...] CA) 8.7 mg/dL 8.5-10.1 N BASIC METABOLIC [id number] 14:32:00 Test Item Value Reference Range Interpretation [...] code = CA) mg/dL 8.5-10.1 CBC W/AUTO [id number] 14:21:00 Test Item Value Reference Range Interpretation [...] 0.00 K/mm3 0.0-0.1 N NRBC#) CBC W/AUTO [id number] 14:53:00 Test Item Value Reference Range Interpretation [...]
[2020-04-06 17:22] LABS: Absolute Lymphocytes (CBC) 1.2 K/uL (0.7-4.9); Basophils % 0.3 % (0-1.3); Hematocrit 28.7 % (39.6-49.0); Lymphocytes % 6.5 % (15.3-44.8); MPV 8.9 fL (7.6-11.3)
[2020-04-06 17:31] LABS: Protime INR 1.16
[2020-04-06 17:41] LABS: Potassium 4.6 mmol/L (3.5-5.1)
--- NOTE | 2020-04-06 17:43 | RAD REPORT ---
EXAM DESCRIPTION: RAD - Chest Single View - 04/06/2020 5:22 pm CLINICAL HISTORY: preop, soft tissue infection right foot, possible amputation COMPARISON: Two view chest June 2018 TECHNIQUE: AP portable chest image was obtained 04/06/2020 5:22 pm . FINDINGS: Lung volumes are low accentuating baseline interstitial pattern. No peripheral mass or con solidation. Significant failure or volume overload are doubtful. Pacemaker in place. Heart and vascul ature are normal. No measurable pleural effusion and no pneumothorax. No acute bony abnormality seen. No acute aortic findings suspected. IMPRESSION: Limited shallow inspiration study without acute cardiopulmonary finding. Above detailed findings are not substantially different from comparison.
--- NOTE | 2020-04-06 17:49 | RAD REPORT ---
EXAM DESCRIPTION: RAD - Foot Right 3 View - 04/06/2020 5:22 pm CLINICAL HISTORY: r/o osteomyelitis COMPARISON: No comparisons FINDINGS: Infectious cast density present in the soft tissues of the right fourth toe. Bones are ost eopenic. Bone destructive changes are present in the proximal, middle and distal phalanges of the fou rth toe. Proximal phalanx base and head at the fourth MTP joint show complete or near complete loss. The first and second metatarsals and phalanges show no acute findings. Lucent changes involve the dis alicia aspect of the third metatarsal head and distal shaft most likely osteomyelitis. Patient has had p rior are section of the middle and distal phalanges of the third toe. No gross bone destruction of th e remnant third proximal phalanx. Prior surgical resection of the fifth toe and most of the metatarsa l. 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 There is abnormal infectious superior in the soft tissues adjacent to the remnant fifth metat arsal. Dense arterial tree calcifications are present. Overall soft tissue edema throughout the right foot. IMPRESSION: Findings of gas-forming infection involving the right fourth toe and the soft tissues ad jacent to the remnant fifth metatarsal. Patient has bone destructive changes involving the entire fourth phalanx, distal fourth metatarsal, r emnant fifth metatarsal and probably the head and distal shaft of the third metatarsal.
[2020-04-06 17:58] LABS: Blood Morphology Comment NOT SEEN (NOT SEEN); Platelet Estimate INCR; White Blood Cell Scan OK (OK)
[2020-04-06] MEDS ORDERED: MORPHINE 4 MG/ML SYR ONE (17:58)
[2020-04-06] MEDS ORDERED: ONDANSETRON 4 MG/2 ML VIAL ONE (17:59)
--- NOTE | 2020-04-06 18:07 | ER ---
Nurse's Notes [facility] Name: Joey Baez Age: 54 yrs Sex: Male : 1965 Arrival Date: 04/06/2020 Time: 14:23 Bed 19 Private MD: Diagnosis: Open wound of foot;Elevated white blood cell count;Cellulitis of right lower limb Presentation: 04/06 14:43 Chief complaint: Patient's son or daughter states: has an infection in his right foot, iw was sent by Dr. Lozano for possible amputation. Coronavirus screen: At this time, the client does not indicate any symptoms associated with coronavirus-19. Ebola Screen: Patient negative for fever greater than or equal to 101.5 degrees Fahrenheit, and additional compatible Ebola Virus Disease symptoms Patient denies exposure to infectious person. Patient denies travel to an Ebola-affected area in the 21 days before illness onset. No symptoms or risks identified at this time. Initial Sepsis Screen: Does the patient meet any 2 criteria? No. Patient's initial sepsis screen is negative. Does the patient have a suspected source of infection? No. Patient's initial sepsis screen is negative. Risk Assessment: Do you want to hurt yourself or someone else? Patient reports no desire to harm self or others. Onset of symptoms. 14:43 Method Of Arrival: Wheelchair iw 14:43 Acuity: GIRMA 3 iw Historical: - Allergies: 14:47 No Known Allergies; iw - Home Meds: 14:47 sevelamer carbonate 800 mg oral tab 3 times per day [Active]; pravastatin 10 mg Oral iw tab 1 tab once daily [Active]; ferrous sulfate 325 mg (65 mg iron) Oral TbEC twice a day [Active]; tramadol 50 mg Oral tab 2 tabs three times a day [Active]; Levemir FlexTouch 100 unit/mL (3 mL) subcutaneous inpn 25 unit daily [Active]; hydralazine 50 mg Oral tab three times a day [Active]; carvedilol 6.25 mg oral tab 1 tab 2 times per day [Active]; amlodipine 10 mg tab 1 tab once daily [Active]; aspirin 81 mg Oral TbEC 1 tab once daily [Active]; - PMHx: 14:47 Diabetes - IDDM; High Cholesterol; Hypertension; iw - PSHx: 14:47 KIDNEY REMOVAL; BKA; pacemaker; iw - Immunization history:: Adult Immunizations up to date. - Social history:: Smoking status: Patient denies any tobacco usage or history of. Screenin:00 Abuse screen: Denies threats or abuse. Denies injuries from another. Nutritional zb screening: No deficits noted. Tuberculosis screening: No symptoms or risk factors identified. Fall Risk No fall in past 12 months (0 pts). No secondary diagnosis (0 pts). IV access (20 points). Ambulatory Aid- Crutches/Cane/Walker (15 pts). Gait- Impaired (20 pts.). Mental Status- Overestimates/Forgets Limitations (15 pts.). Total Freedman Fall Scale indicates Low Risk Score (25-44 pts). Fall prevention measures have been instituted. Side Rails Up X 2 Placed close to Nursing Station Frequent Obs/Assesments occuring Family Present and informed to notify staff if they need to leave bedside As available Patient and Family Educated on Fall Prevention Program and strategies. Assessment: 17:00 General: Appears in no apparent distress. uncomfortable, Behavior is calm, cooperative, zb appropriate for age. Pain: Complains of pain in right foot Pain currently is 10 out of 10 on a pain scale. Quality of pain is described as aching, sharp. Neuro: Level of Consciousness is awake, alert, obeys commands, Oriented to person, place, time, situation. Cardiovascular: Capillary refill is > 3 seconds in bilateral fingers Patient's skin is warm and dry. Respiratory: Airway is patent Respiratory effort is even, unlabored, Respiratory pattern is regular, symmetrical. GI: Abdomen is round non-distended. : No signs and/or symptoms were reported regarding the genitourinary system. EENT: No signs and/or symptoms were reported regarding the EENT system. Derm: Skin is intact, is healthy with good turgor, Skin is jaundiced, Wound noted right foot black eschar noted to foot, amputated 4th, 5th, and 2nd digits. wounds located dorsal and medial area of foot. Musculoskeletal: Amputation of left leg. Capillary refill is > 3 seconds, is sluggish, in bilateral fingers. Range of motion: limited in bilateral feet Swelling present in right foot. 18:00 Reassessment: Patient appears in no apparent distress at this time. Patient and/or zb family updated on plan of care and expected duration. Pain level reassessed. Patient is alert, oriented x 3, equal unlabored respirations, skin warm/dry/pink. family at bedside. pt talking on phone. express some pain and discomfort. 18:38 Reassessment: pt talking on phone currently. aox4. patient states pain had decrease "a zb little bit". 19:00 Reassessment: Patient appears in no apparent distress at this time. Patient and/or jb4 family updated on plan of care and expected duration. Pain level reassessed. Patient is alert, oriented x 3, equal unlabored respirations, skin warm/dry/pink. 20:16 Reassessment: Patient appears in no apparent distress at this time. Patient and/or jb4 family updated on plan of care and expected duration. Pain level reassessed. Patient is alert, oriented x 3, equal unlabored respirations, skin warm/dry/pink. 21:00 Reassessment: Patient appears in no apparent distress at this time. Patient and/or jb4 family updated on plan of care and expected duration. Pain level reassessed. Patient is alert, oriented x 3, equal unlabored respirations, skin warm/dry/pink. Vital Signs: 14:43 BP 144 / 56; Pulse 72; Resp 16; Temp 99.0; Pulse Ox 97% on R/A; Weight 58.97 kg; Height iw 5 ft. 3 in. (160.02 cm); Pain 10/10; 17:00 BP 136 / 88; Pulse 77; Resp 18; Pulse Ox 98% on R/A; zb 18:00 BP 124 / 83; Pulse 59; Resp 16; Pulse Ox 96% on R/A; zb 18:43 BP 132 / 91; Pulse 74; Resp 16; Pulse Ox 97% on R/A; zb 20:00 BP 151 / 63; Pulse 70; Resp 16; Pulse Ox 99% on R/A; jb4 14:43 Body Mass Index 23.03 (58.97 kg, 160.02 cm) iw ED Course: 14:23 Patient arrived in ED. rg4 14:44 Triage completed. iw 14:47 Arm band placed on. iw 16:24 [facility]ite[facility]-C [facility]. kb 16:24 Adarsh Solorzano MD is Attending Physician. kb 16:58 Angie Ramon RN is Primary Nurse. zb 17:00 Patient has correct armband on for positive identification. Bed in low position. Call zb light in reach. Side rails up X 1. Adult w/ patient. Pulse ox on. NIBP on. Door closed. Noise minimized. 17:10 Initial lab(s) drawn, by mi, sent to lab. First set of blood cultures drawn. Inserted kj1 saline lock: 22 gauge in left antecubital area, using aseptic technique. Blood collected. 17:22 Chest Single View XRAY In Process Unspecified. EDMS 17:22 Foot Right 3 View XRAY In Process Unspecified. EDMS 18:05 Marbin Gil MD is Hospitalizing Provider. kb 20:41 Primary Nurse role handed off by Angie Ramon RN ar5 21:15 No provider procedures requiring assistance completed. Patient admitted, IV remains in jb4 place. 21:31 Tank Malloy, RN is Primary Nurse. jb4 Administered Medications: 18:03 Drug: Zofran (Ondansetron) 4 mg Route: IVP; Site: left antecubital; zb 18:04 Drug: morphine 4 mg Route: IVP; Site: left antecubital; zb 19:17 Drug: Clindamycin 600 mg Route: IVPB; Infused Over: 30 mins; Site: left antecubital; jb4 19:47 Follow up: Response: No adverse reaction; IV Status: Completed infusion; IV Intake: [id number] 20:05 Drug: vancoMYCIN 1 grams Route: IVPB; Infused Over: 2 hrs; Site: left antecubital; jb4 Intake: 19:47 IV: 50ml; Total: 50ml. jb4 Outcome: 18:07 Decision to Hospitalize by Provider. kb 21:15 Admitted to Med/surg accompanied by tech, via stretcher, room 208, with chart. jb4 21:15 Condition: stable 21:15 Discharge instructions given to patient, Instructed on the need for admit, Demonstrated understanding of instructions. 21:31 Patient left the ED. jb4 Signatures: Dispatcher [employer] EDMS Erma Benitez, MARYC MOLLY-Kyra Perdue RN RN iw Garcia, Rubi 4 Tank Malloy RN RN jb4 Fauzia Cartwright ar5 Little Benitez kj1 Angie Ramon, RN RN zb Corrections: (The following items were deleted from the chart) 18:36 18:24 General: Appears in no apparent distress. uncomfortable, Behavior is calm, zb cooperative, appropriate for age, zb 18:36 18:24 Pain: Complains of pain in right foot Pain currently is 10 out of 10 on a pain zb scale. Quality of pain is described as aching, sharp, zb 18:36 18:24 Neuro: Level of Consciousness is awake, alert, obeys commands, Oriented to zb person, place, time, situation, zb 18:36 18:24 Cardiovascular: Capillary refill is > 3 seconds in bilateral fingers Patient's zb skin is warm and dry. zb 18:36 18:24 Respiratory: Airway is patent Respiratory effort is even, unlabored, Respiratory zb pattern is regular, symmetrical, zb 18:36 18:24 GI: Abdomen is round non-distended, zb zb 18:36 18:24 : No signs and/or symptoms were reported regarding the genitourinary system. zb zb 18:36 18:24 EENT: No signs and/or symptoms were reported regarding the EENT system. zb zb 18:36 18:24 Derm: Skin is intact, is healthy with good turgor, Skin is jaundiced, Wound noted zb right foot black eschar noted to foot, amputated 4th, 5th, and 2nd digits. wounds located dorsal and medial area of foot zb 18:36 18:24 Musculoskeletal: Amputation of left leg. Capillary refill is > 3 seconds, is zb sluggish, in bilateral fingers. Range of motion: limited in bilateral feet Swelling present in right foot zb 04/07 03:11 03:10 Admitted to Med/surg accompanied by tech, via stretcher, room 208, with chart, [id number] 03:11 03:10 Condition: stable jb4 jb4 03: 03:10 Discharge instructions given to patient, Instructed on the need for admit, jb4 Demonstrated understanding of instructions, jb4
--- NOTE | 2020-04-06 18:07 | EDPHYS ---
Physician Documentation [facility] Name: Joey Baez Age: 54 yrs Sex: Male : 1965 Arrival Date: 04/06/2020 Time: 14:23 Bed 19 Private MD: ED Physician Adarsh Solorzano HPI: 04/06 18:09 This 54 yrs old Male presents to ER via Wheelchair with complaints of Wound kb Infection. 18:07 Pt reports he developed an infection to right foot a few months ago. States he was kb given antibiotics that didn't work, ended up getting some toes amputated, but that didn't work. Was being seen by wound care, but today Dr Lozano told him he needed to come to the ER for admission for possible BKA.. 18:09 The patient presents with pain, swelling, tenderness. The complaints affect the right kb foot. Context: resulted from infection, the patient can partially bear weight, must have assistance. Onset: The symptoms/episode began/occurred 2 month(s) ago. Modifying factors: The symptoms are alleviated by nothing, the symptoms are aggravated by nothing. Associated signs and symptoms: Pertinent positives: swelling, warmth. Severity of symptoms: At their worst the symptoms were moderate, severe, in the emergency department the symptoms are unchanged. The patient has experienced a previous episode. The patient has been recently seen by a physician:. Historical: - Allergies: 14:47 No Known Allergies; iw - Home Meds: 14:47 sevelamer carbonate 800 mg oral tab 3 times per day [Active]; pravastatin 10 mg Oral iw tab 1 tab once daily [Active]; ferrous sulfate 325 mg (65 mg iron) Oral TbEC twice a day [Active]; tramadol 50 mg Oral tab 2 tabs three times a day [Active]; Levemir FlexTouch 100 unit/mL (3 mL) subcutaneous inpn 25 unit daily [Active]; hydralazine 50 mg Oral tab three times a day [Active]; carvedilol 6.25 mg oral tab 1 tab 2 times per day [Active]; amlodipine 10 mg tab 1 tab once daily [Active]; aspirin 81 mg Oral TbEC 1 tab once daily [Active]; - PMHx: 14:47 Diabetes - IDDM; High Cholesterol; Hypertension; iw - PSHx: 14:47 KIDNEY REMOVAL; BKA; pacemaker; iw - Immunization history:: Adult Immunizations up to date. - Social history:: Smoking status: Patient denies any tobacco usage or history of. ROS: 18:01 Constitutional: Negative for fever, chills, and weight loss, Cardiovascular: Negative kb for chest pain, palpitations, and edema, Respiratory: Negative for shortness of breath, cough, wheezing, and pleuritic chest pain, Abdomen/GI: Negative for abdominal pain, nausea, vomiting, diarrhea, and constipation, Neuro: Negative for headache, weakness, numbness, tingling, and seizure. 18:01 MS/extremity: Positive for pain, swelling, of the right foot. 18:01 Skin: Positive for discoloration, erythema, swelling, of the right foot, open wounds. Exam: 18:01 Constitutional: This is a well developed, well nourished patient who is awake, alert, kb and in no acute distress. Head/Face: Normocephalic, atraumatic. Chest/axilla: Normal chest wall appearance and motion. Nontender with no deformity. No lesions are appreciated. Cardiovascular: Regular rate and rhythm with a normal S1 and S2. No gallops, murmurs, or rubs. Normal PMI, no JVD. No pulse deficits. Respiratory: Lungs have equal breath sounds bilaterally, clear to auscultation and percussion. No rales, rhonchi or wheezes noted. No increased work of breathing, no retractions or nasal flaring. Abdomen/GI: Soft, non-tender, with normal bowel sounds. No distension or tympany. No guarding or rebound. No evidence of tenderness throughout. Neuro: Awake and alert, GCS 15, oriented to person, place, time, and situation. Cranial nerves II-XII grossly intact. Motor strength 5/5 in all extremities. Sensory grossly intact. Cerebellar exam normal. Normal gait. 18:01 Musculoskeletal/extremity: Extremities: grossly normal except: noted in the right foot: erythema, pain, swelling, tenderness, open wounds. Vital Signs: 14:43 BP 144 / 56; Pulse 72; Resp 16; Temp 99.0; Pulse Ox 97% on R/A; Weight 58.97 kg; Height iw 5 ft. 3 in. (160.02 cm); Pain 10/10; 17:00 BP 136 / 88; Pulse 77; Resp 18; Pulse Ox 98% on R/A; zb 18:00 BP 124 / 83; Pulse 59; Resp 16; Pulse Ox 96% on R/A; zb 18:43 BP 132 / 91; Pulse 74; Resp 16; Pulse Ox 97% on R/A; zb 20:00 BP 151 / 63; Pulse 70; Resp 16; Pulse Ox 99% on R/A; jb4 14:43 Body Mass Index 23.03 (58.97 kg, 160.02 cm) iw MDM: 16:35 Patient medically screened. kb 17:59 Data reviewed: vital signs, nurses notes. Data interpreted: Pulse oximetry: on room air kb is 97 %. Interpretation: normal. Counseling: I had a detailed discussion with the patient and/or guardian regarding: the historical points, exam findings, and any diagnostic results supporting the discharge/admit diagnosis, lab results, radiology results, the need for further work-up and treatment in the hospital. 18:05 Physician consultation: Ellis PINEDO was contacted at 18:05, regarding admission, kb to the medical/surgical unit. patient's condition, and will see patient in ED, shortly. 04/06 16:44 Order name: CBC with Diff; Complete Time: 17:59 kb 04/06 16:44 Order name: Basic Metabolic Panel; Complete Time: 17:58 kb 04/06 16:44 Order name: Protime (+inr); Complete Time: 17:35 kb 04/06 16:44 Order name: Ptt, Activated; Complete Time: 17:35 kb 04/06 16:45 Order name: Type And Screen; Complete Time: 18:23 kb 04/06 16:55 Order name: Blood Culture Adult (2) kb 04/06 16:45 Order name: Chest Single View XRAY; Complete Time: 17:48 kb 04/06 16:55 Order name: Foot Right 3 View XRAY; Complete Time: 17:50 kb 04/06 17:59 Order name: CBC Smear Scan; Complete Time: 17:59 EDMS 04/06 18:50 Order name: SARS-COV-2 RT PCR; Complete Time: 18:55 EDMS 04/06 18:57 Order name: Procalcitonin; Complete Time: 20:20 la1 04/06 18:57 Order name: Lactate; Complete Time: 19:46 la1 04/06 20:20 Order name: CT; Complete Time: 20:20 EDMS 04/06 16:44 Order name: EKG; Complete Time: 16:45 kb 04/06 16:44 Order name: EKG - Nurse/Tech; Complete Time: 17:21 kb 04/06 16:45 Order name: IV Start; Complete Time: 17:21 kb Administered Medications: 18:03 Drug: Zofran (Ondansetron) 4 mg Route: IVP; Site: left antecubital; zb 18:04 Drug: morphine 4 mg Route: IVP; Site: left antecubital; zb 19:17 Drug: Clindamycin 600 mg Route: IVPB; Infused Over: 30 mins; Site: left antecubital; jb4 19:47 Follow up: Response: No adverse reaction; IV Status: Completed infusion; IV Intake: [id number] 20:05 Drug: vancoMYCIN 1 grams Route: IVPB; Infused Over: 2 hrs; Site: left antecubital; jb4 Disposition: 04/07 06:34 Co-signature as Attending Physician, Adarsh Solorzano MD I agree with the assessment and kdr plan of care. Disposition: 04/06/20 18:07 Hospitalization ordered by Marbin Gil for Inpatient Admission. Preliminary diagnosis are Open wound of foot, Elevated white blood cell count, Cellulitis of right lower limb. - Bed requested for Telemetry/MedSurg (Inpatient). - Status is Inpatient Admission. jb4 - Condition is Stable. - Problem is new. - Symptoms are unchanged. Signatures: Dispatcher [employer] [facility] Erma Benitez, HUMAN FACTORS ERGONOMIST-C HUMAN FACTORS ERGONOMIST-Ckb Luh Hammer RN Adarsh Forde MD MD kdr Williams, Irene, RN RN iw Attema, Lee, HUMAN FACTORS ERGONOMIST-C HUMAN FACTORS ERGONOMIST-Cla1 Tank Malloy RN RN jbAngie Smith RN RN zb Corrections: (The following items were deleted from the chart) 04/06 18:01 17:16 CORONAVIRUS+ ordered. [facility] EDWI 19:53 18:07 Hospitalization Ordered by Marbin Gil MD for Inpatient Admission. Preliminary diagnosis is Open wound of foot; Elevated white blood cell count; Cellulitis of right lower limb. Bed requested for Telemetry/MedSurg (Inpatient). Status is Inpatient Admission. Condition is Stable. Problem is new. Symptoms are unchanged. kb 21:31 19:53 04/06/2020 18:07 Hospitalization Ordered by Marbin Gil MD for Inpatient jb4 Admission. Preliminary diagnosis is Open wound of foot; Elevated white blood cell count; Cellulitis of right lower limb. Bed requested for Telemetry/MedSurg (Inpatient). Status is Inpatient Admission. Condition is Stable. Problem is new. Symptoms are unchanged. dw
[2020-04-06] MEDS ORDERED: VANCOMYCIN/NS 1 gm 1 GM/250 ML BAG IVPB ONE (18:45)
[2020-04-06] MEDS ORDERED: CLINDAMYCIN 600MG/D5W 600 MG/50 ML BAG IV ONE (19:20)
--- NOTE | 2020-04-06 19:42 | P.HP ---
Certification for Inpatient Patient admitted to: Inpatient With expected LOS: >2 Midnights Patient will require the following post-hospital care: None Practitioner: I am a practitioner with admitting privileges, knowledge of patient current condition, hospital course, and medical plan of care. Services: Services provided to patient in accordance with Admission requirements found in Title 42 Section 412.3 of the Code of Federal Regulations <HeladionaimaEllis - Last Filed: 04/06/20 19:38> Patient History Date of Service: 04/06/20 Reason for admission: Gangrenous foot wound History of Present Illness: 54-year-old male with history of diabetes mellitus type 2, end-stage renal disease on hemodialysis MWF, hypertension, hyperlipidemia, presents emergency department for right foot wound. Patient reports that the multiple courses of oral antibiotics for this wound and has not cleared up, patient was sent by his general surgeon for evaluation and admission. Workup in the emergency department reveals white blood cell count 18.3, hemoglobin 9.2 hematocrit 28.7 pro calcitonin lactate currently pending on the patient does not appear septic at this time. Creatinine 6.59 GFR 9 potassium is 4.6. Patient did receive dialysis on Sunday and did complete his session. X-ray the right foot shows gas forming infection involving the right 4th toe and soft tissues adjacent to the remnant 5th metatarsal. Patient has bone destructive changes involving the entire 4th phalanx distal 4th metatarsal remnant 5th metatarsal in probably the head and distal shaft of the 3rd metatarsal. Case was discussed with general surgeon who plans for amputation tomorrow. Continue with broad- spectrum antibiotics including vancomycin and clindamycin. Obtain CT without contrast as patient is unable to receive an MRI due to pacemaker placement. Will admit for further evaluation and management. - Past Medical/Surgical History Diabetic: Yes -: cataracts -: IDDM -: anxiety -: One Kidney from -: HTN -: heart problems -: anemia -: ESRD on HD MWF -: Left BKA -: pacemaker Insertion -: toe amputation -: fistula Psychosocial/ Personal History: Lives at home with family - Family History Family History: Reviewed- Non-Contributory - Social History Smoking Status: Never smoker Alcohol use: No CD- Drugs: No Caffeine use: Yes Place of Residence: Home <Ellis Ann - Last Filed: 04/06/20 19:38> Date of Service: 04/16/20 <Marbin Gil - Last Filed: 04/16/20 04:15> Allergies No Known Allergies Allergy (Verified 04/11/13 00:38) Home Medications: Aspirin [Tao Chewable Aspirin] 1 tab PO DAILY 07/14/16 Pravastatin Sodium 10 mg PO DAILY AT SUPPER 07/14/16 carvediloL [Carvedilol] 1 tab PO DAILY 07/14/16 Ferrous Sulfate [Ferrous Sulfate*] 1 tab PO DAILY 04/07/20 Hydralazine HCl [Apresoline] 25 mg PO DAILY 04/07/20 Sevelamer Carbonate 2 tab PO TID 04/07/20 Acetaminophen 2 tab PO SEECOM PRN 04/12/20 Calcitrol [Rocaltrol*] 1 tab PO DAILY 04/12/20 Carboxymethylcellulose Sodium [Artificial Tears] 2 drops EACH EYE Q2H PRN 04/12/20 Cetirizine HCl [Zyrtec] 1 tab PO DAILY 04/12/20 Ergocalciferol (Vitamin D2) [Vitamin D2] 1 tab PO SEECOM 04/12/20 Folic Acid/Vit B Complex and C [Rashmi-Brad Tablet] 1 tab PO DAILY 04/12/20 Gabapentin [Neurontin*] 1 tab PO Q8H 04/12/20 Lactulose [Cephulac*] 1 tab PO DAILY 04/12/20 Mineral Oil/Petrolatum,White [Lubricant Eye Ointment] 0.5 shashank RIGHT EYE BEDTIME 04/12/20 Patiromer Calcium Sorbitex [Veltassa] 1 packet PO DAILY 04/12/20 Promethazine HCl 1 tab PO Q6H PRN 04/12/20 hydrOXYzine HCL [Atarax*] 1 tab PO Q8H PRN 04/12/20 polyethylene glycoL 3350 [Polyethylene Glycol 3350] 1 packet PO DAILY 04/12/20 Chlorhexidine 4% [Betasept*] 1 appl TOP UD #0 btl 04/14/20 Doxycycline Hyclate [Vibramycin] 100 mg PO BID #14 capsule 04/14/20 Epoetin [Retacrit] 4,000 unit IV EVERY HD vial 04/14/20 Heparin [Heparin 1,000 units/mL *] 2,000 unit IV EVERY HD PRN vial 04/14/20 Insulin -Regular Human [Novolin -R*] See Protocol SQ ACHS ml 04/14/20 Mupirocin Oint [Bactroban 2% Ointment*] 1 appl TOP BID tube 04/14/20 Nifedipine Xl [Procardia Xl*] 30 mg PO DAILY tab 04/14/20 levoFLOXacin [Levaquin] 500 mg PO Q48H #3 tab 04/14/20 Review of Systems General: Fever, Chills Musculoskeletal: Foot Pain Integumentary: As per HPI <Ellis Ann - Last Filed: 04/06/20 19:38> Physical Examination - Physical Exam General: Alert, In no apparent distress HEENT: Atraumatic, PERRLA, Mucous membr. moist/pink Neck: Supple, 2+ carotid pulse no bruit, No LAD Respiratory: Clear to auscultation bilaterally, Normal air movement Cardiovascular: Regular rate/rhythm, Normal S1 S2 Capillary refill: <2 Seconds Gastrointestinal: Normal bowel sounds, No tenderness, No masses, No rebound, No guarding Musculoskeletal: No tenderness, Other (Left BKA) Integumentary: Pressure ulcer (Right lateral foot with eschar present stage IV) Neurological: Normal gait, Normal speech, Normal strength at 5/5 x4 extr, Normal tone, Normal affect Lymphatics: No axilla or inguinal lymphadenopathy - Studies Laboratory Data (last 24 hrs) 04/06/20 17:10: PT 13.6 H, INR 1.16, APTT 26.5 04/06/20 17:10: Sodium 128 L, Potassium 4.6, BUN 35 H, Creatinine 6.59 H*, Glucose 281 H 04/06/20 17:10: WBC 18.3 H, Hgb 9.2 L, Hct 28.7 L, Plt Count 468 H <Ellis Ann - Last Filed: 04/06/20 19:38> Assessment and Plan - Plan Assessment Diabetic ulcer with gas forming infection and osteomyelitis right lateral foot ESRD on HD MWF Diabetes mellitus type 2-insulin dependent Hypertension Hyperlipidemia Plan Diabetic ulcer with gas forming infection and osteomyelitis right lateral foot: Blood cultures obtained, continue with vancomycin/clindamycin. General surgery consulted, case discussed. Obtain CT right foot noncontrast as patient cannot have MRI. NPO after midnight for likely surgical intervention tomorrow. DVT pr ophylaxis with SCD. ESRD on HD MWF: Nephrology consulted patient did complete dialysis on Sunday. Diabetes mellitus type 2-insulin dependent: A.c. HS Accu-Cheks, sliding scale insulin therapy. Hypertension: Obtain and restart home medications. Hyperlipidemia: Obtain and restart home medications. Discharge Plan: Home Plan to discharge in: 72 Hours - Advance Directives Does patient have a Living Will: No Does patient have a Durable POA for Healthcare: No - Code Status/Comfort Care Code Status Assessed: Yes (Full code) Critical Care: No Time Spent Managing Pts Care (In Minutes): 55 <Ellis Ann - Last Filed: 04/06/20 19:38> - Plan Plan of care reviewed as noted above by Ellis Ann, and I agree with the management plan as noted above. will need surgical intervention, likely BKA. General surgery consulted nephrology consulted for HD <Marbin Gil - Last Filed: 04/16/20 04:15>
--- NOTE | 2020-04-06 20:19 | RAD REPORT ---
EXAM DESCRIPTION: CT - Foot Right Wo Con - 04/06/2020 7:47 pm CLINICAL HISTORY: eval for amputation, soft tissue infection, bone destruction, abnormal plain film COMPARISON: Foot Right 3 View dated 04/06/2020 TECHNIQUE: Axial noncontrast 2 millimeter thick images of the foot were obtained. Sagittal and coron al re-formatted images were generated and reviewed. The CT scan was performed using dose optimization techniques as appropriate to a performed exam incl uding one or more of the following: Automated exposure control, adjustment of the mA and/or kV accord ing to patient size (this includes techniques or standardized protocols for targeted exams where dose is matched to indication/reason for exam) and use of iterative reconstruction technique. FINDINGS: The distal tibia/ fibula, talus and calcaneus show no acute or destructive findings. Degen erative cystic changes are present in the navicular bone with mild degenerative changes in the cuboid and cuneiform bones. The first and second metatarsals and phalanges are intact. Degenerative changes minimal. The head and distal shaft of the third metatarsal shows thinning but no gross disruption of the catrachito x. Third proximal phalanx is intact. Middle and distal phalanges of the third toe previously resected . Air densities throughout the soft tissues of the fourth toe consistent with gas-forming infectious pr ocess. Air densities are present surrounding and within the fourth distal phalanx and abutting the pr oximal and mid phalanges of the fourth toe. Bone destructive changes are present in the phalanges of the fourth toe. Similar infectious soft tissue air densities are present along the lateral and plantar margins of the remnant fifth metatarsal. There is bone loss at the distal shaft osteotomy site as well as cortical thinning and disruption along the lateral base. Soft tissue edema surrounds the foot. No additional areas of abnormal air density. No abscess or drai nable fluid collection. Dense arterial calcifications present. IMPRESSION: Bone destruction and air densities in the right fourth toe consistent with bone destruct tom gas-forming infection. Bone destructive changes extend into the fourth metatarsal head. Similar gas-forming infection changes are seen in the soft tissues lateral and plantar surface of the fifth metatarsal remnant. There is bone destruction of the fifth metatarsal base indicating destruct tom osteomyelitis. There is some thinning of the cortex third metatarsal head without gross bone destruction. No abscess or drainable fluid collection. Soft tissue air extends proximally from the base of the fifth metatarsal in the soft tissues cuboid b one level. There is no evidence for involvement of the cuboid bone.
[2020-04-06] MEDS: INSULIN -REGULAR HUMAN 50 UNIT/0.5 ML ML SQ SCH (22:03)
[2020-04-06] MEDS: MORPHINE 2 MG/ML SYR IV PRN (22:21)
[2020-04-06] MEDS: ONDANSETRON 4 MG/2 ML VIAL IV PRN (22:21)
[2020-04-06] MEDS: ACETAMINOPHEN 500 MG TAB PO PRN (23:43)
[2020-04-07] MEDS ORDERED: CLINDAMYCIN 600MG/D5W 600 MG/50 ML BAG IV ONE (00:06)
[2020-04-07] MEDS: CLINDAMYCIN INJ 600 MG in NA CHLORIDE 0.9% 50 ML IV SCH ×3 (01:00→16:50)
[2020-04-07] MEDS ORDERED: CLINDAMYCIN IV 150 MG/ML (6 mL) VIAL ONE (01:38)
[2020-04-07] MEDS ORDERED: NA CHLORIDE 0.9% 50 ML ONE (01:39)
[2020-04-07] MEDS: MORPHINE 2 MG/ML SYR IV PRN (05:44)
[2020-04-07] MEDS: ONDANSETRON 4 MG/2 ML VIAL IV PRN (05:44)
[2020-04-07 06:15] LABS: Absolute Lymphocytes (CBC) 1.6 K/uL (0.7-4.9); Basophils % 0.7 % (0-1.3); Hematocrit 27.4 % (39.6-49.0); Lymphocytes % 9.1 % (15.3-44.8); MPV 8.9 fL (7.6-11.3); RBC Red Blood Cell Count 2.79 M/uL (4.33-5.43)
[2020-04-07] MEDS: INSULIN -REGULAR HUMAN 50 UNIT/0.5 ML ML SQ SCH ×4 (07:30→21:20)
[2020-04-07] MEDS ORDERED: VANCOMYCIN 500 MG in NA CHLORIDE 0.9% 100 ML IVPB SCH (08:15)
[2020-04-07] MEDS ORDERED: VANCOMYCIN/NS 1 gm 1 GM/250 ML BAG IVPB SCH (09:00)
[2020-04-07] MEDS ORDERED: LIDOCAINE 2% MPF 5 ML VIAL ONE (09:18)
[2020-04-07] MEDS ORDERED: NS 0.9% VIAL 10 ML ONE (09:18)
[2020-04-07] MEDS ORDERED: dexAMETHasone 10 MG/ML VIAL ONE (09:19)
[2020-04-07] MEDS ORDERED: MIDAZOLAM HCL 2 MG/2 ML INJ ONE (09:19)
[2020-04-07] MEDS ORDERED: NA CHLORIDE 0.9% 500 ML ONE (09:19)
--- NOTE | 2020-04-07 09:49 | PREOPCON ---
Date of Consultation: 04/06/2020 Reason For Consultation: Gangrene right lower extremity. History Of Present Illness: The patient is a 54-year-old gentleman, who has had multiple procedure i n [facility] Molly was seen 2 weeks ago. He told everything was doing fine, but he had progressive pain , drainage, tissue turning black and he [facility] yesterday and I saw him for the first time and he obviously had a very bad diabetic foot infection. He in my opinion was very ill, he was sent to the ER, workup was done. He has gas gangrene with destruction o f multiple metatarsal bone and the best treatment is a right below-knee amputation. He already has a below-knee amputation on the left side for similar issues in the past. He is complaining of exquisi te pain and low-grade fever. No sore throat, runny nose, cough, headaches, or dizziness. No chest p ain. Foul smell to the right foot. Review of Systems: Otherwise unremarkable. Past Medical History: Significant for cataract, insulin-dependent diabetes, hypertension, end-stage renal disease, and anemia. Past Surgical History: Left below-knee amputation, right foot surgery, pacemaker, toe amputation, fi stula. Social History: The patient does not smoke. Does not drink alcohol. Allergies: NONE. Family History: Noncontributory. Physical Examination: Vital Signs: Currently stable. He is afebrile. General: He is awake, alert, and oriented x3. Head and Neck: No masses. Chest: Clear. Heart: S1 and S2. Abdomen: Soft. Extremities: Palpable dorsalis pedis and posterior tibial pulses. Diminished on the posterior tibia l side. Right lateral foot has gangrene and foul odor to the wound. There is infection all across t he plantar aspect of the wound near the calcaneus. There is pus underneath the skin. Laboratory Data: White count was 18.3 yesterday with a left shift. INR is 1.16. Electrolytes revie sun. Procalcitonin is 4.13. He had a CT of the foot and the foot x-ray, which showed consistent wit h gas gangrene and destruction of multiple metatarsal bones. Assessment: Gas gangrene with a bad diabetic infection in the right foot. Recommendations: This foot is not salvageable, therefore we will proceed with right below-knee amput ation. The patient understands the risks, benefits, and alternatives and agrees to procedure. IV an tibiotics per the renal service and dialysis per the renal service. /MODL Voice ID: [id number] Report ID: [id number]
[2020-04-07] MEDS ORDERED: propofoL 200 MG/20 ML VIAL IV ONE (10:30)
[2020-04-07] MEDS ORDERED: dexAMETHasone 4 MG/ML VIAL ONE (10:30)
[2020-04-07] MEDS ORDERED: KETAMINE HCL 500 MG/5 ML VIAL ONE (10:34)
[2020-04-07] MEDS ORDERED: ALBUMIN HUMAN 25% 50 ML IV ONE (10:37)
--- NOTE | 2020-04-07 11:11 | P.OP ---
Air Conditioning Specialist: Haritha LEIVA Preoperative diagnosis: Gas Gangrene Right Foot Postoperative diagnosis: same Primary procedure: Right BKA Anesthesia: Regional Estimated blood loss: min Specimen: Right Leg and Foot Findings: as above Complications: None Transferred to: Recovery Room Condition: Good
--- NOTE | 2020-04-07 11:55 | OP ---
Date of Procedure: 04/07/2020 Surgeon: Nato Lozano MD Communications Superintendent: ABBIE Rebollar Preoperative Diagnosis: Gas gangrene, right foot. Postoperative Diagnosis: Gas gangrene, right foot. Procedure: Right below-knee amputation. Estimated Blood Loss: Minimal. Specimen: Right leg and foot. Finding: As above. Anesthesia: Regional. Complications: None. Disposition: Patient tolerated the procedure in stable condition, taken to Recovery in good general condition. Description Of Procedure: Patient brought to the operating room and placed in supine position. Jessica onal anesthesia was begun and patient was prepped and draped in usual sterile fashion. Then, a 15 bl gustavo was used to make a flap 4 fingerbreadths below the tibial tuberosity and posterior flaps created accordingly. Then, a flap was made and the tibia and fibula neurovascular bundle identified and divi ded between clamps and tied with 2-0 silk and 0 silk ties and then Gigli saw used to cut the tibia an d bone cutter was used to cut the fibula. Rough edges smoothened with rasp and rongeur and then the entire leg removed and sent to Pathology. Flap fashioned to fit appropriately and cover the wound co mpletely and then wound irrigated, bleeding controlled cautery, and 2-0 silk ties and then a nice mus chapis flap utilized and the fascia closed with 2-0 chromic. Subcutaneous tissue closed with 3-0 chromi c and then lou were used to close skin. Sterile dressing was applied. Patient awakened and taken to Recovery in good general condition. /MODL Voice ID: [id number] Report ID: [id number]
--- NOTE | 2020-04-07 14:40 | P.PN ---
Subjective Date of Service: 04/07/20 Chief Complaint: Gangrenous foot wound Subjective: No new changes (continues with foot pain, scheduled for OR today. denies any other symptoms at this time) Review of Systems 10-point ROS is otherwise unremarkable Physical Examination - Vital Signs Temperature: 97.8 F Blood Pressure: 134/61 Pulse: 61 Respirations: 18 Pulse Ox (%): 90 - Physical Exam General: Alert, In no apparent distress HEENT: Sclerae nonicteric Respiratory: Clear to auscultation bilaterally Cardiovascular: Regular rate/rhythm Gastrointestinal: Soft and benign, Non-distended, No tenderness Integumentary: Other (foot wrapped in kerlix) Neurological: Normal speech, Normal affect - Studies Laboratory Data (last 24 hrs) 04/06/20 17:10: PT 13.6 H, INR 1.16, APTT 26.5 04/06/20 17:10: Sodium 128 L, Potassium 4.6, BUN 35 H, Creatinine 6.59 H*, Glucose 281 H 04/06/20 17:10: WBC 18.3 H, Hgb 9.2 L, Hct 28.7 L, Plt Count 468 H Assessment & Plan Physician Review Additional Text: Diabetic ulcer with gas forming infection and osteomyelitis right lateral foot ESRD on HD MWF Diabetes mellitus type 2-insulin dependent Hypertension Hyperlipidemia Plan Diabetic ulcer with gas forming infection and osteomyelitis right lateral foot: Blood cultures obtained, continue with vancomycin/clindamycin. General surgery consulted, case discussed. NPO, for surgery today ESRD on HD MWF: Nephrology consulted patient did complete dialysis on Sunday. Diabetes mellitus type 2-insulin dependent: A.c. HS Accu-Cheks, sliding scale insulin therapy. Hypertension, HLD: resume as appropriate Dispo: will likely be hospitalized >48hrs, likely needs BKA, will need PT/OT Time Spent Managing Pts Care (In Minutes): 35
[2020-04-08] MEDS: CLINDAMYCIN INJ 600 MG in NA CHLORIDE 0.9% 50 ML IV SCH ×3 (00:36→16:26)
[2020-04-08 06:20] LABS: Absolute Lymphocytes (CBC) 0.6 K/uL (0.7-4.9); Basophils % 0.2 % (0-1.3); Lymphocytes % 5.2 % (15.3-44.8); MPV 9.6 fL (7.6-11.3); RBC Red Blood Cell Count 3.32 M/uL (4.33-5.43)
[2020-04-08] MEDS: INSULIN -REGULAR HUMAN 50 UNIT/0.5 ML ML SQ SCH ×5 (07:30→21:00)
[2020-04-08 08:17] LABS: Magnesium 2.5 mg/dL (1.8-2.4); Potassium 5.4 mmol/L (3.5-5.1)
[2020-04-08] MEDS ORDERED: GLUCAGON 1 MG/VIAL IM PRN ×2 (08:36→12:42)
[2020-04-08] MEDS ORDERED: D50W 25 GM/50 ML SYRINGE IV PRN ×2 (08:36→12:42)
--- NOTE | 2020-04-08 08:46 | P.PN ---
Subjective Date of Service: 04/08/20 Primary Care Provider: Dr. Torres; Nephrology-Dr. Rodriguez Chief Complaint: Gangrenous foot wound Subjective: Other (Patient doing well post operatively. Pain under control.) Physical Examination - Vital Signs Temperature: 97.5 F Blood Pressure: 121/60 Pulse: 67 Respirations: 16 Pulse Ox (%): 96 - Physical Exam General: Alert, In no apparent distress, Oriented x3, Cooperative HEENT: Atraumatic Neck: Supple Respiratory: Clear to auscultation bilaterally, Normal air movement Cardiovascular: Normal pulses, Regular rate/rhythm Gastrointestinal: No ascites, No tenderness Musculoskeletal: Other (Right lower extremity and knee immobilizer. Dressings in place.) Integumentary: Other (Patient also with history of left below-knee amputation.) Neurological: Normal speech, Normal strength at 5/5 x4 extr, Normal tone, Normal affect - Studies Medications List Reviewed: Yes Assessment & Plan Discharge Plan: Other (Inpatient rehab versus skilled placement) Plan to discharge in: Greater than 2 days Physician Review Additional Text: Impression: Diabetic ulcer with gas forming infection and osteomyelitis right lateral foot status post below-knee amputation of the right foot End-stage renal disease on hemodialysis with hyperkalemia and hyponatremia: Diabetes mellitus type 2 insulin-dependent with hyperglycemia Hypertension Hyperlipidemia History of left below-knee amputation Anemia of chronic disease with iron deficiency Plan Diabetic ulcer with gas forming infection and osteomyelitis right lateral foot status post below-knee amputation of the right foot: Blood cultures negative. Continue with IV antibiotic therapy. Status post right below-knee amputation. Will discuss with surgery about plan of care. Doubt patient will require long- term IV antibiotic therapy. Will discuss with surgery on when to discontinue antibiotics. Will recommend physical therapy to assess his mobility. Patient with left below-knee amputation history. Patient will need to increase his strength to the upper extremity. Patient will likely require will chair. Patient has prosthetic with him. Patient would benefit with inpatient rehab versus skilled placement. Will consult inpatient rehab. Will discuss with delinquency prevention social worker and surgery. Need diabetes better controlled. Patient will likely require dialysis today due to hypernatremia and hyperkalemia. Will discuss with nephrology. End-stage renal disease on hemodialysis with hyperkalemia and hyponatremia: Patient may require dialysis today. Will discuss with nephrology. Diabetes mellitus type 2 insulin-dependent with hyperglycemia: Blood sugars not well controlled. Will restart Lantus. Provide aggressive sliding scale. Will check A1c. Will make sure diabetes is better control. Hypertension: Home medications reviewed. Will start carvedilol and hydralazine. Hold on Norvasc. Will continue to adjust medication. Hyperlipidemia: Will review and restart home medication. History of left below-knee amputation: Continue as above. Anemia of chronic disease with iron deficiency: Restart iron supplementation. Time Spent Managing Pts Care (In Minutes): 55
[2020-04-08] MEDS: INSULIN GLARGINE 100 UNITS/ML SQ SCH ×2 (08:51→21:00)
[2020-04-08] MEDS ORDERED: AMLODIPINE 10 MG TAB PO SCH (09:00)
[2020-04-08] MEDS: HYDRALAZINE HCL 25 MG TABLET PO SCH (09:00)
[2020-04-08] MEDS ORDERED: HOME MED 1 EA UNK (Hydralazine Hcl [Apresoline] 50 MG Tablet) PO SCH (09:00)
[2020-04-08] MEDS ORDERED: SEVELAMER CARBONATE 800 MG TABLET PO SCH (09:00)
[2020-04-08] MEDS: FERROUS SULFATE 325 MG TAB PO SCH (09:45)
[2020-04-08] MEDS: ASPIRIN 81 MG CHEWABLE TABLET PO SCH (09:45)
--- NOTE | 2020-04-08 10:08 | PN ---
Date of Progress Note: 04/08/2020 Subjective: Patient is awake alert, has a little bit of pain, but not too bad. Objective: VITALS: Stable. He is afebrile. Laboratory Data: Reviewed. His white count is 11.5 with a left shift. Electrolytes reviewed as wel l. His dressing is clean, dry, and intact. Assessment: Status post right below knee amputation. Recommendations: Continue IV antibiotics, physical therapy, and rehab evaluation as ordered. Keep d ressing clean and dry. The patient can be transferred up to the rehab floor when accepted. /MODL Voice ID: [id number] Report ID: [id number]
[2020-04-08] MEDS: carvediloL 6.25 MG TAB PO SCH (11:18)
[2020-04-08] MEDS: HYDROMORPHONE HCL 1 MG/ML INJ IV PRN ×3 (11:38→21:54)
[2020-04-08] MEDS ORDERED: INSULIN -REGULAR HUMAN 50 UNIT/0.5 ML ML SQ ONE ×2 (12:43→13:55)
[2020-04-08 13:32] LABS: Potassium 4.8 mmol/L (3.5-5.1)
[2020-04-08] MEDS: ONDANSETRON 4 MG/2 ML VIAL IV PRN (16:57)
[2020-04-08] MEDS: HYDROCODONE/APAP 7.5/325 MG TAB PO PRN (19:25)
[2020-04-08] MEDS: ATORVASTATIN 10 MG TAB PO SCH (19:25)
[2020-04-09] MEDS: CLINDAMYCIN INJ 600 MG in NA CHLORIDE 0.9% 50 ML IV SCH ×3 (01:31→16:46)
[2020-04-09] MEDS: HYDROCODONE/APAP 7.5/325 MG TAB PO PRN ×3 (01:31→16:46)
[2020-04-09] MEDS: HYDROMORPHONE HCL 1 MG/ML INJ IV PRN ×3 (05:45→21:31)
[2020-04-09 06:09] LABS: Absolute Lymphocytes (CBC) 2.1 K/uL (0.7-4.9); Basophils % 0.8 % (0-1.3); Hematocrit 31.5 % (39.6-49.0); MPV 8.7 fL (7.6-11.3); RBC Red Blood Cell Count 3.27 M/uL (4.33-5.43)
[2020-04-09 06:24] LABS: Potassium 4.9 mmol/L (3.5-5.1)
--- NOTE | 2020-04-09 08:31 | P.PN ---
Subjective Date of Service: 04/09/20 Primary Care Provider: Dr. Torres; Nephrology-Dr. Rodriguez Chief Complaint: Gangrenous foot wound Subjective: Other (Blood sugars better. Patient still reports some pain to the lower extremity.) Physical Examination - Vital Signs Temperature: 97.3 F Blood Pressure: 172/70 Pulse: 68 Respirations: 19 Pulse Ox (%): 97 - Physical Exam General: Alert, In no apparent distress, Oriented x3, Cooperative HEENT: Atraumatic Neck: Supple Respiratory: Clear to auscultation bilaterally, Normal air movement Cardiovascular: Normal pulses, Regular rate/rhythm Gastrointestinal: Normal bowel sounds, Soft and benign, Non-distended Neurological: Normal speech, Normal strength at 5/5 x4 extr, Normal tone, Other (Right lower extremity bandage with knee immobilizer.) - Studies Medications List Reviewed: Yes Assessment & Plan Discharge Plan: Other (Inpatient rehab) Plan to discharge in: 72 Hours Physician Review Additional Text: Impression: Diabetic ulcer with gas forming infection and osteomyelitis right lateral foot status post below-knee amputation of the right foot End-stage renal disease on hemodialysis with hyperkalemia and hyponatremia: Diabetes mellitus type 2 insulin-dependent with hyperglycemia Hypertension Hyperlipidemia History of left below-knee amputation Anemia of chronic disease with iron deficiency Plan Diabetic ulcer with gas forming infection and osteomyelitis right lateral foot status post below-knee amputation of the right foot: Blood cultures negative. Wound culture pending. Continue with IV antibiotic therapy. Will transition to oral medication once wound care cultures resolved. Blood sugars were not well controlled yesterday. Blood sugars better control today. Lantus has been adjusted. Continue aggressive sliding scale. Will adjust pain medication. Add Neurontin. Continue physical therapy. Awaiting approval for inpatient rehab. Case discussed with social work yesterday. Will discuss further with surgery today for plan of care. I will turn the service over to the hospitalist team tomorrow. I will go plan of care with him. End-stage renal disease on hemodialysis with hyperkalemia and hyponatremia: Continue with dialysis. Continue with Nephrology recommendations.. Diabetes mellitus type 2 insulin-dependent with hyperglycemia: Blood sugars was not well controlled yesterday. Aggressive sliding scale was added. Lantus was adjusted. Now on 15 units subcu twice daily. Continue to adjust for better control. Hypertension: Continue with home medications including carvedilol, hydralazine and Norvasc. Hyperlipidemia: Continue medication. History of left below-knee amputation: Continue as above. Patient has prosthestic for left lower extremity. Anemia of chronic disease with iron deficiency: Continue iron supplementation Time Spent Managing Pts Care (In Minutes): 55
[2020-04-09] MEDS: HYDRALAZINE HCL 25 MG TABLET PO SCH (08:39)
[2020-04-09] MEDS: ASPIRIN 81 MG CHEWABLE TABLET PO SCH (08:40)
[2020-04-09] MEDS: FERROUS SULFATE 325 MG TAB PO SCH (08:40)
[2020-04-09] MEDS: INSULIN -REGULAR HUMAN 50 UNIT/0.5 ML ML SQ SCH ×4 (08:40→21:31)
[2020-04-09] MEDS: carvediloL 6.25 MG TAB PO SCH (08:40)
[2020-04-09] MEDS: GABAPENTIN 100 MG CAP PO SCH ×3 (09:26→21:31)
[2020-04-09] MEDS: INSULIN GLARGINE 100 UNITS/ML SQ SCH ×2 (09:27→21:30)
[2020-04-09] MEDS ORDERED: CHLORHEXIDINE GLUCO 4% 120 ML TOP SCH (11:00)
--- NOTE | 2020-04-09 11:03 | PN ---
Date of Progress Note: 04/09/2020 Subjective: The patient is awake, alert, complaining of incisional pain. Objective: Vital Signs: Stable. Afebrile. Laboratory Data: White count is 12.5. Cultures reviewed and growing Enterobacter cloacae and MRSA. Patient's dressing is clean, dry, and intact. Assessment: Status post right below-knee amputation. Recommendations: I discussed the sensitivities with the Renal Service and the hospitalist. We will adjust the antibiotics accordingly. Probably add another one based on the sensitivity and his kidney functions. Continue vancomycin. We will add Bactroban and Hibiclens soap as ordered. Physical the rapy as ordered. Rehab evaluation is in progress. Patient is clinically doing well. /MODL Voice ID: [id number] Report ID: [id number]
--- NOTE | 2020-04-09 11:10 | P.PN ---
Subjective Date of Service: 04/10/20 Primary Care Provider: Dr. Torres; Nephrology-Dr. Rodriguez Chief Complaint: Gangrenous foot wound Subjective 54-year-old male with history ESRD on HD MWF via AVF from [place], poorly controlled DM , , hypertension, hyperlipidemia PVD S/p Lt AKA and chronic Rt foot ulcer , required multiple hospitalization with prolonged ABx duration presented for right foot wound required BKA today No overnight events wound culture E. faeclais Abx as per sensitivity HD today Pt/O possible transfer to Rehab Review of Systems: Head and Neck: No red eye. No ear pain. GI: No nausea, no vomiting. : No polyuria, no dysuria, no hematuria. Wire Repairer: Not applicable. Respiratory: No shortness of breath. Cardiovascular: No chest pain. Endocrine: No polydipsia. Skin: No rash. Neuro: Has neuropathy. Musculoskeletal: Rt stumb pain . Physical exam general: AAOX3, NAD , Neck; Supple, No elevated JVD hear: RRR, normal S1,2 no murmur or rub Chest: CTAB, no rlaes or wheezes Abdomen: Soft , Nt Extremities Lt AKA, rt BKA with dressing A/p End-stage renal disease on HD MWF HD as per schedule renal dose meds pseudohyponatremia need strict BS control Rt Foot OM with gas S/p BKA Abx as per sensitivity Anemia of chronic disease Cont epogen HTN Controlled DM as per PCP Physical Examination - Vital Signs Temperature: 97.3 F Blood Pressure: 134/63 Pulse: 62 Respirations: 16 Pulse Ox (%): 97 - Studies Medications List Reviewed: Yes
[2020-04-09] MEDS ORDERED: ALBUMIN HUMAN 25% 100 ML IV ONE (14:00)
[2020-04-09] MEDS: SEVELAMER CARBONATE 800 MG TABLET PO SCH (16:45)
[2020-04-09] MEDS: MUPIROCIN 2% OINT 22GM TUBE TOP SCH (21:30)
[2020-04-09] MEDS: ATORVASTATIN 10 MG TAB PO SCH (21:31)
[2020-04-10] MEDS: CLINDAMYCIN INJ 600 MG in NA CHLORIDE 0.9% 50 ML IV SCH ×3 (01:05→16:24)
[2020-04-10 06:16] LABS: Absolute Lymphocytes (CBC) 1.9 K/uL (0.7-4.9); Basophils % 1.3 % (0-1.3); Hematocrit 31.2 % (39.6-49.0); Lymphocytes % 23.4 % (15.3-44.8); MPV 8.7 fL (7.6-11.3); RBC Red Blood Cell Count 3.21 M/uL (4.33-5.43)
[2020-04-10 06:33] LABS: Magnesium 2.5 mg/dL (1.8-2.4); Potassium 4.7 mmol/L (3.5-5.1)
[2020-04-10] MEDS: INSULIN GLARGINE 100 UNITS/ML SQ SCH ×2 (09:14→21:21)
[2020-04-10] MEDS: INSULIN -REGULAR HUMAN 50 UNIT/0.5 ML ML SQ SCH ×4 (09:14→21:21)
[2020-04-10] MEDS: ASPIRIN 81 MG CHEWABLE TABLET PO SCH (09:15)
[2020-04-10] MEDS: SEVELAMER CARBONATE 800 MG TABLET PO SCH ×2 (09:15→16:24)
[2020-04-10] MEDS: HYDRALAZINE HCL 25 MG TABLET PO SCH (09:15)
[2020-04-10] MEDS: GABAPENTIN 100 MG CAP PO SCH ×3 (09:15→21:20)
[2020-04-10] MEDS: FERROUS SULFATE 325 MG TAB PO SCH (09:16)
[2020-04-10] MEDS: carvediloL 6.25 MG TAB PO SCH (09:16)
[2020-04-10] MEDS: MUPIROCIN 2% OINT 22GM TUBE TOP SCH ×2 (09:17→21:20)
--- NOTE | 2020-04-10 10:54 | P.PN ---
Subjective Date of Service: 04/10/20 Primary Care Provider: Dr. Torres; Nephrology-Dr. Rodriguez Chief Complaint: Gangrenous foot wound Subjective: No new changes (overall reports feeling ok, continues with R stump pain, medication helps temporarily. pain better when not moving) Review of Systems 10-point ROS is otherwise unremarkable Physical Examination - Vital Signs Temperature: 97.4 F Blood Pressure: 191/79 Pulse: 68 Respirations: 20 Pulse Ox (%): 96 - Physical Exam General: Alert, In no apparent distress HEENT: Sclerae nonicteric Respiratory: Clear to auscultation bilaterally Cardiovascular: Regular rate/rhythm Gastrointestinal: Soft and benign, No tenderness Musculoskeletal: Other (b/l BKAs) Integumentary: Other (R stump with ISABELLA bandage ) Neurological: Normal speech, Normal affect - Studies Medications List Reviewed: Yes Assessment & Plan Physician Review Additional Text: Impression: Diabetic ulcer with gas forming infection and osteomyelitis right lateral foot status post below-knee amputation of the right foot End-stage renal disease on hemodialysis with hyperkalemia and hyponatremia: Diabetes mellitus type 2 insulin-dependent with hyperglycemia Hypertension Hyperlipidemia History of left below-knee amputation Anemia of chronic disease with iron deficiency Plan Diabetic ulcer with gas forming infection and osteomyelitis right lateral foot status post below-knee amputation of the right foot: Blood cx negative Wound cx: enterobacter & MRSA - on IV Vanc and Clinda will discuss with surgery/nephrology regarding antibiotic regimen continues with moderate-severe pain at times, neurontin added yesterday PT/OT consulted awaiting approval for inpatient rehab leukocytosis resolved End-stage renal disease on hemodialysis with hyperkalemia and hyponatremia: Continue with dialysis. Continue with Nephrology recommendations.. Diabetes mellitus type 2 insulin-dependent with hyperglycemia: much better controlled now, continue Lantus 15u BID, and sliding scale insulin Hypertension: Continue with home medications including carvedilol, hydralazine and Norvasc. Hyperlipidemia: Continue medication. History of left below-knee amputation: Continue as above. Patient has prosthestic for left lower extremity. Anemia of chronic disease with iron deficiency: Continue iron supplementation Dispo: awaiting approval for inpatient rehab Time Spent Managing Pts Care (In Minutes): 35
[2020-04-10] MEDS: AMLODIPINE 5 MG TAB PO SCH (11:54)
--- NOTE | 2020-04-10 14:47 | P.PN ---
Subjective Date of Service: 04/10/20 Primary Care Provider: Dr. Torres; Nephrology-Dr. Rodriguez Chief Complaint: Gangrenous foot wound Subjective 54-year-old male with history ESRD on HD MWF via AVF from [place], poorly controlled DM , , hypertension, hyperlipidemia PVD S/p Lt AKA and chronic Rt foot ulcer , required multiple hospitalization with prolonged ABx duration presented for right foot wound required BKA today No overnight events next HD on Sunday Pt/O possible transfer to Rehab Review of Systems: Head and Neck: No red eye. No ear pain. GI: No nausea, no vomiting. : No polyuria, no dysuria, no hematuria. Ui Developer Designer: Not applicable. Respiratory: No shortness of breath. Cardiovascular: No chest pain. Endocrine: No polydipsia. Skin: No rash. Neuro: Has neuropathy. Musculoskeletal: Rt stumb pain . Physical exam general: AAOX3, NAD , Neck; Supple, No elevated JVD hear: RRR, normal S1,2 no murmur or rub Chest: CTAB, no rlaes or wheezes Abdomen: Soft , Nt Extremities Lt AKA, rt BKA with dressing A/p End-stage renal disease on HD MWF HD as per schedule renal dose meds vanco oh HD days monitor level pseudohyponatremia need strict BS control Rt Foot OM with gas S/p BKA wound cultures MRSA and E.fecalis Abx as per sensitivity Anemia of chronic disease Cont epogen HTN Controlled DM as per PCP total time 30min Physical Examination - Vital Signs Temperature: 97.9 F Blood Pressure: 159/70 Pulse: 63 Respirations: 18 Pulse Ox (%): 97 - Studies Medications List Reviewed: Yes
[2020-04-10] MEDS: HYDROCODONE/APAP 7.5/325 MG TAB PO PRN (16:52)
[2020-04-10] MEDS: Levofloxacin500mg IV 500 MG/100 ML BAG IV SCH (18:37)
[2020-04-10] MEDS: ATORVASTATIN 10 MG TAB PO SCH (21:20)
[2020-04-11] MEDS: HYDROMORPHONE HCL 1 MG/ML INJ IV PRN (01:19)
[2020-04-11 05:16] LABS: Absolute Lymphocytes (CBC) 2.3 K/uL (0.7-4.9); Basophils % 0.7 % (0-1.3); Hematocrit 30.3 % (39.6-49.0); Lymphocytes % 24.1 % (15.3-44.8); MPV 8.5 fL (7.6-11.3); RBC Red Blood Cell Count 3.08 M/uL (4.33-5.43)
[2020-04-11 05:32] LABS: Magnesium 2.7 mg/dL (1.8-2.4); Potassium 5.4 mmol/L (3.5-5.1)
[2020-04-11] MEDS: INSULIN -REGULAR HUMAN 50 UNIT/0.5 ML ML SQ SCH ×4 (07:30→20:45)
[2020-04-11] MEDS: INSULIN GLARGINE 100 UNITS/ML SQ SCH ×2 (08:28→20:45)
[2020-04-11] MEDS: AMLODIPINE 5 MG TAB PO SCH (08:38)
[2020-04-11] MEDS: HYDRALAZINE HCL 25 MG TABLET PO SCH (08:38)
[2020-04-11] MEDS: carvediloL 6.25 MG TAB PO SCH (08:38)
[2020-04-11] MEDS: FERROUS SULFATE 325 MG TAB PO SCH (08:39)
[2020-04-11] MEDS: GABAPENTIN 100 MG CAP PO SCH ×3 (08:39→20:44)
[2020-04-11] MEDS: ASPIRIN 81 MG CHEWABLE TABLET PO SCH (08:39)
[2020-04-11] MEDS: SEVELAMER CARBONATE 800 MG TABLET PO SCH ×2 (08:39→17:28)
[2020-04-11] MEDS: TRAMADOL HCL 50 MG TAB PO PRN (08:43)
[2020-04-11] MEDS: MUPIROCIN 2% OINT 22GM TUBE TOP SCH ×2 (09:00→20:45)
[2020-04-11] MEDS ORDERED: EPOETIN 4,000 UNIT/ML VIAL IV SCH (11:30)
--- NOTE | 2020-04-11 11:31 | P.PN ---
Subjective Date of Service: 04/11/20 Primary Care Provider: Dr. Torres; Nephrology-Dr. Rodriguez Chief Complaint: Gangrenous foot wound Subjective 54-year-old male with history ESRD on HD MWF via AVF from [place], poorly controlled DM , , hypertension, hyperlipidemia PVD S/p Lt AKA and chronic Rt foot ulcer , required multiple hospitalization with prolonged ABx duration presented for right foot wound required BKA today No overnight events next HD on Sunday Pt/OT will change amlodipine to Nifedipine possible transfer to Rehab Review of Systems: Head and Neck: No red eye. No ear pain. GI: No nausea, no vomiting. : No polyuria, no dysuria, no hematuria. Supervisor Sign Shop: Not applicable. Respiratory: No shortness of breath. Cardiovascular: No chest pain. Endocrine: No polydipsia. Skin: No rash. Neuro: Has neuropathy. Musculoskeletal: Rt stumb pain . Physical exam general: AAOX3, NAD , Neck; Supple, No elevated JVD hear: RRR, normal S1,2 no murmur or rub Chest: CTAB, no rlaes or wheezes Abdomen: Soft , Nt Extremities Lt AKA, rt BKA with dressing A/p End-stage renal disease on HD MWF HD as per schedule renal dose meds vanco oh HD days monitor level pseudohyponatremia need strict BS control Rt Foot OM with gas S/p BKA wound cultures MRSA and E.fecalis Abx as per sensitivity Anemia of chronic disease Cont epogen HTN will change amlodipine to Nifedipine DM as per PCP total time 30min Physical Examination - Vital Signs Temperature: 97 F Blood Pressure: 194/84 Pulse: 69 Respirations: 18 Pulse Ox (%): 99 - Studies Medications List Reviewed: Yes
--- NOTE | 2020-04-11 12:46 | P.PN ---
Subjective Date of Service: 04/11/20 Primary Care Provider: Dr. Torres; Nephrology-Dr. Rodriguez Chief Complaint: Gangrenous foot wound Subjective: No new changes (doing about the same per patient, continues wit hsome R stump pain no acute events overnight) Review of Systems 10-point ROS is otherwise unremarkable Physical Examination - Vital Signs Temperature: 97 F Blood Pressure: 194/84 Pulse: 69 Respirations: 18 Pulse Ox (%): 99 - Physical Exam General: Alert, In no apparent distress HEENT: Sclerae nonicteric Respiratory: Clear to auscultation bilaterally Cardiovascular: Regular rate/rhythm Gastrointestinal: Soft and benign, No tenderness Musculoskeletal: Other (RLE with surgical dressing in place, immobilizer in place as well, c/d/i) Neurological: Normal speech, Normal affect - Studies Medications List Reviewed: Yes Assessment & Plan Physician Review Additional Text: Impression: Diabetic ulcer with gas forming infection and osteomyelitis right lateral foot status post below-knee amputation of the right foot End-stage renal disease on hemodialysis with hyperkalemia and hyponatremia: Diabetes mellitus type 2 insulin-dependent with hyperglycemia Hypertension Hyperlipidemia History of left below-knee amputation Anemia of chronic disease with iron deficiency Plan Diabetic ulcer with gas forming infection and osteomyelitis right lateral foot status post below-knee amputation of the right foot: Blood cx negative Wound cx: enterobacter & MRSA - on IV Vanc and levaquin - will need 2 weeks total since surgery continues with moderate-severe pain at times, neurontin added PT/OT consulted awaiting approval for inpatient rehab leukocytosis resolved End-stage renal disease on hemodialysis with hyperkalemia and hyponatremia: Continue with dialysis. Continue with Nephrology recommendations.. Diabetes mellitus type 2 insulin-dependent with hyperglycemia: much better controlled now, with some lower glc this morning, will decrease lantus to 10u BID, reduce aggressive sliding scale to mild Hypertension: Continue with home medications including carvedilol, hydralazine, very hypertensive today, nephrology switched norvasc to nifedipine Hyperlipidemia: Continue medication. History of left below-knee amputation: Continue as above. Patient has prosthestic for left lower extremity. Anemia of chronic disease with iron deficiency: Continue iron supplementation Dispo: awaiting approval for inpatient rehab Time Spent Managing Pts Care (In Minutes): 35
[2020-04-11] MEDS: NIFEDIPINE XL 30 MG TABLET PO SCH (13:20)
[2020-04-11] MEDS: HYDROCODONE/APAP 7.5/325 MG TAB PO PRN ×2 (13:20→20:48)
[2020-04-11] MEDS: ATORVASTATIN 10 MG TAB PO SCH (20:45)
[2020-04-12 06:02] LABS: Absolute Lymphocytes (CBC) 1.5 K/uL (0.7-4.9); Basophils % 0.4 % (0-1.3); Hematocrit 29.4 % (39.6-49.0); Lymphocytes % 6.7 % (15.3-44.8); MPV 8.3 fL (7.6-11.3); RBC Red Blood Cell Count 2.95 M/uL (4.33-5.43)
[2020-04-12 06:30] LABS: Magnesium 2.7 mg/dL (1.8-2.4)
[2020-04-12 06:32] LABS: Potassium 6.6 mmol/L (3.5-5.1)
[2020-04-12] MEDS: ONDANSETRON 4 MG/2 ML VIAL IV PRN (06:38)
[2020-04-12] MEDS: HYDROCODONE/APAP 7.5/325 MG TAB PO PRN ×2 (07:07→23:13)
--- NOTE | 2020-04-12 08:51 | RAD REPORT ---
EXAM DESCRIPTION: RAD - Chest Single View - 04/12/2020 6:44 am CLINICAL HISTORY: SOB Chest pain. COMPARISON: Chest Single View dated 04/06/2020; Chest Pa And Lat (2 Views) dated 07/01/2018; Chest Pa And Lat (2 Views) dated 04/30/2018; Chest Single View dated 07/13/2016 FINDINGS: Portable technique limits examination quality. The lungs are grossly clear. The heart is mildly enlarged with a dual lead pacer device present. No d isplaced fractures. IMPRESSION: No acute intrathoracic process suspected.
[2020-04-12] MEDS: INSULIN -REGULAR HUMAN 50 UNIT/0.5 ML ML SQ SCH ×4 (09:00→21:07)
[2020-04-12] MEDS: ASPIRIN 81 MG CHEWABLE TABLET PO SCH (09:00)
[2020-04-12] MEDS: GABAPENTIN 100 MG CAP PO SCH ×3 (09:00→21:07)
[2020-04-12] MEDS: NIFEDIPINE XL 30 MG TABLET PO SCH (09:00)
[2020-04-12] MEDS: FERROUS SULFATE 325 MG TAB PO SCH (09:01)
[2020-04-12] MEDS: carvediloL 6.25 MG TAB PO SCH (09:01)
[2020-04-12] MEDS: SEVELAMER CARBONATE 800 MG TABLET PO SCH ×2 (09:01→17:01)
[2020-04-12] MEDS: HYDRALAZINE HCL 25 MG TABLET PO SCH (09:01)
[2020-04-12] MEDS: MUPIROCIN 2% OINT 22GM TUBE TOP SCH ×2 (09:02→21:08)
[2020-04-12 09:21] LABS: Blood Morphology Comment NOT SEEN (NOT SEEN); Platelet Estimate INCR
[2020-04-12] MEDS ORDERED: D50W 25 GM/50 ML VIAL IV PRN (15:00)
[2020-04-12 15:10] LABS: Potassium 3.9 mmol/L (3.5-5.1)
[2020-04-12] MEDS: Levofloxacin500mg IV 500 MG/100 ML BAG IV SCH (17:01)
--- NOTE | 2020-04-12 17:37 | PN ---
Date of Progress Note: 04/12/2020 Subjective: The patient is awake, alert. No complaints. Objective: Vital Signs: Stable, afebrile. Extremities: Examination of the wound reveals it to be clean, dry, and intact. No evidence of infec tion. Laboratory Data: However, shows white count has jumped up to 21.9 today from a normal level yesterda y. Platelets are slightly high at 575 and there is a left shift. His potassium and creatinine are e levated as well. He is being dialyzed today. His chest x-ray shows no acute intrathoracic process. Assessment: A 54-year-old gentleman with status post right [id number] with leukocytosis. Recommendations: At this time, we keep the IV antibiotics on the patient. The stump does not appear to be a source of the infection. We will clinically follow this patient and make further recommenda tions as the case develops. /MODL Voice ID: [id number] Report ID: [id number]
--- NOTE | 2020-04-12 18:23 | P.PN ---
Subjective Date of Service: 04/12/20 Primary Care Provider: Dr. Torres; Nephrology-Dr. Rodriguez Chief Complaint: Gangrenous foot wound Subjective: Improving (pt with slight nausea today, otherwise doing well, continues with pain at BKA site but improved slightly. denies cough, diarrhea, abdominal pain, rash/lesions.) Review of Systems 10-point ROS is otherwise unremarkable Physical Examination - Vital Signs Temperature: 98.2 F Blood Pressure: 123/58 Pulse: 68 Respirations: 15 Pulse Ox (%): 96 - Physical Exam General: Alert, In no apparent distress HEENT: Sclerae nonicteric Respiratory: Clear to auscultation bilaterally Cardiovascular: No edema, Regular rate/rhythm Gastrointestinal: Soft and benign, Non-distended, No tenderness Musculoskeletal: No tenderness Integumentary: No rashes, No breakdown, No significant lesion Neurological: Normal speech, Normal affect - Studies Microbiology Data (last 24 hrs): 04/06/20 17:35 Blood - Blood Aerobic Blood Culture - Final No growth in 5 days. 04/06/20 17:35 Blood - Blood Anaerobic Blood Culture - Final No growth in 5 days. 04/06/20 17:10 Blood - Blood Aerobic Blood Culture - Final No growth in 5 days. 04/06/20 17:10 Blood - Blood Anaerobic Blood Culture - Final No growth in 5 days. Medications List Reviewed: Yes Assessment & Plan Physician Review Additional Text: Impression: Diabetic ulcer with gas forming infection and osteomyelitis right lateral foot status post below-knee amputation of the right foot End-stage renal disease on hemodialysis with hyperkalemia and hyponatremia: Diabetes mellitus type 2 insulin-dependent with hyperglycemia Hypertension Hyperlipidemia History of left below-knee amputation Anemia of chronic disease with iron deficiency Plan Diabetic ulcer with gas forming infection and osteomyelitis right lateral foot status post below-knee amputation of the right foot: leukocytosis this morning, unclear source, patient clinically appears well / improving. Surgery looked at wound and reported no evidence of infection Wound cx: enterobacter & MRSA - on IV Vanc and levaquin - will need 2 weeks total since surgery PT/OT consulted awaiting approval for inpatient rehab blood cultures obtained, CXR clear, pt denies diarrhea, had formed BM yesterday, ?drug reaction discussed with general surgery, repeat CBC in AM End-stage renal disease on hemodialysis with hyperkalemia and hyponatremia: Continue with dialysis. Continue with Nephrology recommendations.. Diabetes mellitus type 2 insulin-dependent with hyperglycemia: much better controlled now, with some lower glc this morning, zenobia'nacho dugan Hypertension: Continue with home medications including carvedilol, hydralazine, very hypertensive today, nephrology switched norvasc to nifedipine Hyperlipidemia: Continue medication. History of left below-knee amputation: Continue as above. Patient has prosthestic for left lower extremity. Anemia of chronic disease with iron deficiency: Continue iron supplementation Dispo: awaiting approval for inpatient rehab Time Spent Managing Pts Care (In Minutes): 40
[2020-04-12] MEDS: ATORVASTATIN 10 MG TAB PO SCH (21:07)
--- NOTE | 2020-04-12 23:03 | PN ---
Date of Progress Note: 04/12/2020 Chief Complaint: End-stage renal disease, on dialysis 3 times per week on Sunday, Sunday, Sunday. History Of Present Illness: The patient is a 54-year-old man with history of end-stage renal disease , on hemodialysis via AV fistula; poorly controlled diabetes; hypertension; hyperlipidemia; history o f left AKA secondary to severe peripheral vascular disease, complicated by diabetic foot infection an d osteomyelitis. The patient required multiple hospitalization with prolonged antibiotic treatment, presented for right foot wound and diabetic foot infection. The patient required BKA. Review of Systems: The patient denies PND or orthopnea. Physical Examination: Lungs: Diminished breath sounds at bases. Heart: S1, S2. Abdomen: Soft, benign. Extremities: No edema. Laboratory Data: WBC 21.9, hemoglobin 9.4, platelet count 575,000. Chemistry showed procalcitonin 0 .54, sodium 153, potassium 6.2, chloride 96, CO2 28, BUN 87, creatinine 9.47, glucose 195, magnesium 2.2, calcium 8.8. Impression And Plan: 1.End-stage renal disease, hyperkalemia, fluid overload, hyponatremia. The patient is to have under went dialysis to control electrolyte abnormality. The patient has uncontrolled diabetes. The patien t was found to have hypoglycemia. Recommended treatment and avoid oral medication in this particular patient. The patient needs to being managed with insulin. 2.Fluid overload associated with dilutional hyponatremia. Volume control will be managed with ultra filtration and dialysis. The patient is oliguric. The patient has advanced kidney failure with end- stage renal disease. Continue dialysis 3 times per week. Continue renal diet with p.o. fluid restri ction. 3.Hyperkalemia with potassium of 6.6, was treated with dialysis and after dialysis, potassium improv ed to 3.9. 4.Metabolic acidosis, in relatively good control. Bicarbonate was 28 before dialysis. 5.Diabetic foot infection. Continue on antibiotics and further workup for peripheral vascular disea se. EB/MODL Voice ID: [id number] Report ID: [id number]
[2020-04-13 05:52] LABS: Basophils % 0.9 % (0-1.3); Hematocrit 26.6 % (39.6-49.0); Lymphocytes % 15.2 % (15.3-44.8); MPV 8.6 fL (7.6-11.3); RBC Red Blood Cell Count 2.68 M/uL (4.33-5.43)
[2020-04-13 06:04] LABS: Magnesium 2.6 mg/dL (1.8-2.4); Potassium 5.3 mmol/L (3.5-5.1)
[2020-04-13] MEDS: INSULIN -REGULAR HUMAN 50 UNIT/0.5 ML ML SQ SCH ×4 (09:32→21:00)
[2020-04-13] MEDS: NIFEDIPINE XL 30 MG TABLET PO SCH (09:32)
[2020-04-13] MEDS: HYDRALAZINE HCL 25 MG TABLET PO SCH (09:33)
[2020-04-13] MEDS: SEVELAMER CARBONATE 800 MG TABLET PO SCH ×2 (09:33→17:00)
[2020-04-13] MEDS: FERROUS SULFATE 325 MG TAB PO SCH (09:33)
[2020-04-13] MEDS: ASPIRIN 81 MG CHEWABLE TABLET PO SCH (09:33)
[2020-04-13] MEDS: carvediloL 6.25 MG TAB PO SCH (09:33)
[2020-04-13] MEDS: GABAPENTIN 100 MG CAP PO SCH ×3 (09:33→21:18)
[2020-04-13] MEDS: MUPIROCIN 2% OINT 22GM TUBE TOP SCH ×2 (09:34→21:19)
[2020-04-13] MEDS: ACETAMINOPHEN 500 MG TAB PO PRN (09:45)
[2020-04-13] MEDS ORDERED: SOD POLYSTYREN SUL 15 GM/60 ML UCUP PO ONE (12:27)
--- NOTE | 2020-04-13 12:29 | P.PN ---
Subjective Date of Service: 04/13/20 Primary Care Provider: Dr. Torres; Nephrology-Dr. Rodriguez Chief Complaint: Gangrenous foot wound Subjective 54-year-old male with history ESRD on HD MWF via AVF from [place], poorly controlled DM , , hypertension, hyperlipidemia PVD S/p Lt AKA and chronic Rt foot ulcer , required multiple hospitalization with prolonged ABx duration presented for right foot wound required BKA today No overnight events WBC trending down Will give kayexalate HD tomorrow Cont ABx Review of Systems: Head and Neck: No red eye. No ear pain. GI: No nausea, no vomiting. : No polyuria, no dysuria, no hematuria. Radiation Therapy Technologist: Not applicable. Respiratory: No shortness of breath. Cardiovascular: No chest pain. Endocrine: No polydipsia. Skin: No rash. Neuro: Has neuropathy. Musculoskeletal: Rt stumb pain . Physical exam general: AAOX3, NAD , Neck; Supple, No elevated JVD hear: RRR, normal S1,2 no murmur or rub Chest: CTAB, no rlaes or wheezes Abdomen: Soft , Nt Extremities Lt AKA, rt BKA with dressing A/p End-stage renal disease on HD MWF HD as per schedule renal dose meds vanco oh HD days monitor level pseudohyponatremia need strict BS control Rt Foot OM with gas S/p BKA wound cultures MRSA and E.fecalis Abx as per sensitivity wbc on 03/13 >20K , now trending down Anemia of chronic disease Cont epogen HTN better controlled DM as per PCP total time 30min Physical Examination - Vital Signs Temperature: 97.6 F Blood Pressure: 155/70 Pulse: 68 Respirations: 16 Pulse Ox (%): 98 - Studies Medications List Reviewed: Yes
[2020-04-13] MEDS ORDERED: D50W 25 GM/50 ML SYRINGE IV PRN (15:15)
--- NOTE | 2020-04-13 15:15 | P.PN ---
Subjective Date of Service: 04/13/20 Primary Care Provider: Dr. Torres; Nephrology-Dr. Rodriguez Chief Complaint: Gangrenous foot wound Status post BKA. Patient has no complain He has been AFib. He is eating well. Physical Examination - Vital Signs Temperature: 97.6 F Blood Pressure: 155/70 Pulse: 68 Respirations: 16 Pulse Ox (%): 98 - Physical Exam General: Alert, In no apparent distress Neck: Supple, JVD not distended Respiratory: Clear to auscultation bilaterally, Normal air movement Cardiovascular: No edema, Regular rate/rhythm, Normal S1 S2 Gastrointestinal: Normal bowel sounds, Soft and benign, No tenderness Musculoskeletal: Other (B/L BKA.) Neurological: Other (Nonfocal) - Studies Medications List Reviewed: Yes Assessment And Plan - Current Problems (Diagnosis) (1) Gangrene of right foot Current Visit: No Status: Acute (2) Diabetes Current Visit: No Status: Chronic (3) ESRD (end stage renal disease) Current Visit: No Status: Chronic Physician Review Additional Text: Impression: Diabetic ulcer with gas forming infection and osteomyelitis right lateral foot status post below-knee amputation of the right foot End-stage renal disease on hemodialysis with hyperkalemia and hyponatremia: Diabetes mellitus type 2 insulin-dependent with hyperglycemia Hypertension Hyperlipidemia History of left below-knee amputation Anemia of chronic disease with iron deficiency Plan Diabetic ulcer with gas forming infection and osteomyelitis right lateral foot status post below-knee amputation of the right foot: Wound cx: enterobacter & MRSA - on IV Vanc and levaquin. Leukocytosis has trended down significantly. No infection on the amputation stump per general surgery. Patient hoping for inpatient rehab placement awaiting approval for inpatient rehab blood cultures: No growth, CXR clear. Ok to D/C per Surgery once he is approved for inpatient rehab. Wound care recommendation per general surgery. End-stage renal disease on hemodialysis with hyperkalemia and hyponatremia: Continue with dialysis. Continue with Nephrology recommendations.. Diabetes mellitus type 2 insulin-dependent with hyperglycemia: Patient now hyperglycemic Will start Lantus insulin 10 units daily. Hypertension: Continue with home medications including carvedilol, hydralazine, very hypertensive today, nephrology switched norvasc to nifedipine Hyperlipidemia: Continue medication. History of left below-knee amputation: Continue as above. Patient has prosthestic for left lower extremity. Anemia of chronic disease with iron deficiency: Continue iron supplementation Dispo: awaiting approval for inpatient rehab
--- NOTE | 2020-04-13 17:24 | PN ---
Date of Progress Note: 04/13/2020 Subjective: The patient is awake, alert, no complaints. Objective: Vital Signs: Stable, afebrile. Extremities: Dressing is clean, dry, and intact. Wound is clean, dry, and intact. Laboratory Data: White count is down to 13.1. Assessment: Status post right [id number]. Recommendations: Continue current medical management with antibiotics. The patient can be discharge d to the appropriate facility, hopefully a rehab facility and he can follow up with me in 2-3 weeks f or a wound check and evaluation for when lou should be removed. Plan of care discussed with the nursing staff. /MODL Voice ID: [id number] Report ID: [id number]
[2020-04-13] MEDS: ATORVASTATIN 10 MG TAB PO SCH (21:18)
[2020-04-14 05:09] VITALS: BMI 22.4
[2020-04-14 06:04] LABS: Absolute Lymphocytes (CBC) 1.6 K/uL (0.7-4.9); Basophils % 0.8 % (0-1.3); Hematocrit 25.6 % (39.6-49.0); Lymphocytes % 14.9 % (15.3-44.8); MPV 8.6 fL (7.6-11.3); RBC Red Blood Cell Count 2.59 M/uL (4.33-5.43)
[2020-04-14 06:25] LABS: Magnesium 2.8 mg/dL (1.8-2.4)
[2020-04-14 06:32] LABS: Potassium 5.9 mmol/L (3.5-5.1)
[2020-04-14] MEDS: INSULIN -REGULAR HUMAN 50 UNIT/0.5 ML ML SQ SCH ×2 (07:30→11:30)
[2020-04-14] MEDS: SEVELAMER CARBONATE 800 MG TABLET PO SCH (08:21)
[2020-04-14] MEDS: ASPIRIN 81 MG CHEWABLE TABLET PO SCH (08:21)
[2020-04-14] MEDS: FERROUS SULFATE 325 MG TAB PO SCH (08:22)
[2020-04-14] MEDS: MUPIROCIN 2% OINT 22GM TUBE TOP SCH (08:22)
[2020-04-14] MEDS: GABAPENTIN 100 MG CAP PO SCH (08:22)
[2020-04-14] MEDS: TRAMADOL HCL 50 MG TAB PO PRN (08:22)
[2020-04-14] MEDS: carvediloL 6.25 MG TAB PO SCH (08:50)
[2020-04-14] MEDS: HYDRALAZINE HCL 25 MG TABLET PO SCH (08:50)
[2020-04-14] MEDS ORDERED: INSULIN GLARGINE 100 UNITS/ML SQ SCH (09:00)
[2020-04-14] MEDS: NIFEDIPINE XL 30 MG TABLET PO SCH (09:00)
[2020-04-14 10:16] VITALS: BP 165/72; TEMP 97.2; O2SAT 98
[2020-04-14] MEDS ORDERED: PNEUMOCOCCAL VACCINE 0.5 ML IMVAC ONE (11:00)
--- NOTE | 2020-04-14 12:04 | P.DS ---
Admission Date: 04/06/20 Discharge Date: 04/14/20 Primary Care Provider: Dr. Trores; Nephrology-Dr. Rodriguez Disposition: TRANSFER TO INPATIENT REHAB Discharge Condition: FAIR Reason for Admission: Gangrenous foot wound - Problems (1) Gangrene of right foot Current Visit: No Status: Acute (2) Diabetes Current Visit: No Status: Chronic (3) ESRD (end stage renal disease) Current Visit: No Status: Chronic Brief History of Present Illness: 54-year-old gentleman with a history of end-stage renal disease on hemodialysis, diabetes mellitus type 2, status post left BKA was referred to the emergency department due to chronic nonhealing wound of the right foot. Patient had its taking multiple rounds of antibiotics without improvement. He had leukocytosis in the ED. X-ray done in the ED also showed gas gangrene and bony destruction of multiple phalances and metatarsals of the right foot. His general surgeon Dr. Lozano recommended hospitalization for amputation. Patient was started on IV antibiotics and admitted for further management. Hospital Course: Patient was diagnosed with gas gangrene and osteomyelitis of the right and was admitted to the medical floor. He was treated with IV antibiotics including vancomycin and clindamycin. He was seen by Dr. Lozano will performed right below-knee amputation the next day. Nephrology was consulted, he underwent routine hemodialysis. Patient was treated with antibiotics during the postop period. Nephrology help optimize patient's electrolyte abnormalities. His blood cultures yielded no growth. Wound culture grew Enterobacter and MRAs. Patient had transient leukocytosis which resolved with no change in antibiotics. Patient clinical condition has improved. He is deemed stable for discharge per Dr. Lozano. He has been accepted to inpatient rehab. Patient is discharged to continue antibiotic treatment. He needs to follow with Dr. Lozano 2-3 weeks for wound check, and lou check. Vital Signs/Physical Exam: Temp Pulse Resp BP Pulse Ox 97.2 F 79 16 165/72 H 98 04/14/20 08:00 04/14/20 08:00 04/14/20 08:00 04/14/20 08:00 04/14/20 08:00 General: Alert, In no apparent distress, Oriented x3 HEENT: Mucous membr. moist/pink Respiratory: Clear to auscultation bilaterally, Normal air movement Cardiovascular: Regular rate/rhythm, Normal S1 S2 Gastrointestinal: Soft and benign, No tenderness Musculoskeletal: Other (Bilateral BKA) Integumentary: No rashes Neurological: Other (Non-focal.) Laboratory Data at Discharge: WBC 10.6 K/uL (4.3-10.9) D 04/14/20 05:34 Hgb 8.4 g/dL (13.6-17.9) L 04/14/20 05:34 Hct 25.6 % (39.6-49.0) L 04/14/20 05:34 Plt Count 502 K/uL (152-406) H 04/14/20 05:34 PT 13.6 SECONDS (9.5-12.5) H 04/06/20 17:10 INR 1.16 04/06/20 17:10 APTT 26.5 SECONDS (24.3-36.9) 04/06/20 17:10 Sodium 133 mmol/L (136-145) L 04/14/20 05:34 Potassium 5.9 mmol/L (3.5-5.1) H* 04/14/20 05:34 BUN 68 mg/dL (7-18) H D 04/14/20 05:34 Creatinine 8.57 mg/dL (0.55-1.3) H* D 04/14/20 05:34 Glucose 253 mg/dL (74-106) H 04/14/20 05:34 Magnesium 2.8 mg/dL (1.8-2.4) H 04/14/20 05:34 Home Medications: Aspirin [Tao Chewable Aspirin] 1 tab PO DAILY 07/14/16 Pravastatin Sodium 10 mg PO DAILY AT SUPPER 07/14/16 carvediloL [Carvedilol] 1 tab PO DAILY 07/14/16 Ferrous Sulfate [Ferrous Sulfate*] 1 tab PO DAILY 04/07/20 Hydralazine HCl [Apresoline] 25 mg PO DAILY 04/07/20 Sevelamer Carbonate 2 tab PO TID 04/07/20 Acetaminophen 2 tab PO SEECOM PRN 04/12/20 Calcitrol [Rocaltrol*] 1 tab PO DAILY 04/12/20 Carboxymethylcellulose Sodium [Artificial Tears] 2 drops EACH EYE Q2H PRN 04/12/20 Cetirizine HCl [Zyrtec] 1 tab PO DAILY 04/12/20 Ergocalciferol (Vitamin D2) [Vitamin D2] 1 tab PO SEECOM 04/12/20 Folic Acid/Vit B Complex and C [Rashmi-Brad Tablet] 1 tab PO DAILY 04/12/20 Gabapentin [Neurontin*] 1 tab PO Q8H 04/12/20 Lactulose [Cephulac*] 1 tab PO DAILY 04/12/20 Mineral Oil/Petrolatum,White [Lubricant Eye Ointment] 0.5 shashank RIGHT EYE BEDTIME 04/12/20 Patiromer Calcium Sorbitex [Veltassa] 1 packet PO DAILY 04/12/20 Promethazine HCl 1 tab PO Q6H PRN 04/12/20 hydrOXYzine HCL [Atarax*] 1 tab PO Q8H PRN 04/12/20 polyethylene glycoL 3350 [Polyethylene Glycol 3350] 1 packet PO DAILY 04/12/20 Chlorhexidine 4% [Betasept*] 1 appl TOP UD #0 btl 04/14/20 Epoetin [Retacrit] 4,000 unit IV EVERY HD vial 04/14/20 Heparin [Heparin 1,000 units/mL *] 2,000 unit IV EVERY HD PRN vial 04/14/20 Insulin -Regular Human [Novolin -R*] See Protocol SQ ACHS ml 04/14/20 Mupirocin Oint [Bactroban 2% Ointment*] 1 appl TOP BID tube 04/14/20 Nifedipine Xl [Procardia Xl*] 30 mg PO DAILY tab 04/14/20 levoFLOXacin [Levaquin] 500 mg PO Q48H #3 tab 04/14/20 New Medications: levoFLOXacin [Levaquin] 500 mg PO Q48H #3 tab Diet: Renal (ADA) Activity: Fall precautions Followup: NONE,NONE [Primary Care Provider] - (within 4 weeks) Nato Lozano MD [ACTIVE - CAN ADMIT] - (within 2-3 weeks for wound check and evaluation of lou/sutures. )
--- NOTE | 2020-04-14 22:47 | PN ---
Date of Progress Note: 04/14/2020 Chief Complaint: End-stage renal disease, on dialysis Sunday, Sunday, and Sunday. The patient is undergoing dialysis 3 times per week. The patient has history of diabetes mellitus poorly controlle d, hypertension, hyperlipidemia, and he presented to the hospital for right foot wound with osteomyel itis, required BKA. Review of Systems: Denies PND or orthopnea. Objective: Lungs: Diminished breath sounds at bases. Heart: S1, S2. Abdomen: Soft, benign. Extremities: He has some peripheral edema. Impression And Plan: 1.End-stage renal disease. Continue dialysis Sunday, Sunday, and Sunday. Adjust dialysis parame ters to current blood work. 2.Pseudohyponatremia. The patient needs blood sugar control. 3.Right foot osteomyelitis, status post below knee amputation. Culture showed methicillin-resistant Staphylococcus aureus and Enterococcus faecalis. Continue antibiotics. White count is gradually im proving. 4.Hypertension. Continue blood pressure medication. 5.Diabetes mellitus. Continue insulin. CHRISTOPHER/SAMYL Voice ID: [id number] Report ID: [id number]
--- NOTE | 2020-04-15 20:29 | PN ---
Date of Progress Note: 04/15/2020 Chief Complaint: End-stage renal disease, on dialysis 3 times per week on Sunday, Sunday, Sunday. Patient underwent dialysis yesterday. The patient has history of diabetes mellitus, poorly control led, hypertension, hyperlipidemia, presented to the hospital for right foot wound and osteomyelitis, he required BKA. Currently, he is undergoing rehab. Review of Systems: Denies PND or orthopnea. Physical Examination: Lungs: Diminished breath sounds at bases. Heart: S1, S2. Abdomen: Soft. Benign. Extremities: Some peripheral edema. Impression: 1.End-stage renal disease. Continue dialysis 3 times per week. Next dialysis tomorrow. Monitor el ectrolytes. Continue on low-potassium diet. 2.Pseudohyponatremia. Due to hyperglycemia, monitor glucose level, adjust insulin. 3.Right foot osteomyelitis, status post below-knee amputation. Culture showed methicillin-resistant Staphylococcus aureus and Enterococcus faecalis. Continue antibiotic. White count is gradually imp roving. 4.Hypertension, on blood pressure medication. Continue low-sodium diet and current blood pressure m edication. 5.Diabetes mellitus with renal manifestation. Continue insulin. EB/MODL Voice ID: [id number] Report ID: [id number]
== END 2020-04-14 14:03 | DRG 853 ==
LOC: ER 14:21 → ERHOLD 19:15 → 2ND 20:44
PROVIDERS: ADMIT Hospitalist; ATTEND Internal Medicine
PROC: 5A1D70Z Performance of Urinary Filtration, Intermittent, Less than 6 Hours Per Day (ICD-10-PCS; 2020-04-07)
PROC: 0Y6H0Z1 Detachment at Right Lower Leg, High, Open Approach (ICD-10-PCS; principal; 2020-04-07 10:00)
DX: A41.9 Sepsis, unspecified organism (principal); A48.0 Gas gangrene; N18.6 End stage renal disease; E11.52 Type 2 diabetes mellitus with diabetic peripheral angiopathy with gangrene; M86.8X7 Other osteomyelitis, ankle and foot; I12.0 Hypertensive chronic kidney disease with stage 5 chronic kidney disease or end stage renal disease; E87.1 Hypo-osmolality and hyponatremia; E87.2 Acidosis; E11.69 Type 2 diabetes mellitus with other specified complication; E11.22 Type 2 diabetes mellitus with diabetic chronic kidney disease; E11.649 Type 2 diabetes mellitus with hypoglycemia without coma; E11.65 Type 2 diabetes mellitus with hyperglycemia; E11.621 Type 2 diabetes mellitus with foot ulcer; L97.519 Non-pressure chronic ulcer of other part of right foot with unspecified severity; E78.5 Hyperlipidemia, unspecified; I48.91 Unspecified atrial fibrillation; E87.5 Hyperkalemia; D72.829 Elevated white blood cell count, unspecified; D50.9 Iron deficiency anemia, unspecified; B95.2 Enterococcus as the cause of diseases classified elsewhere; B95.62 Methicillin resistant Staphylococcus aureus infection as the cause of diseases classified elsewhere; Z79.82 Long term (current) use of aspirin; Z79.899 Other long term (current) drug therapy; Z79.4 Long term (current) use of insulin; Z99.2 Dependence on renal dialysis; Z89.422 Acquired absence of other left toe(s); Z89.512 Acquired absence of left leg below knee; Z20.828 Contact with and (suspected) exposure to other viral communicable diseases
CPT/HCPCS: 36415; 71045; 73700; 80048; 80202; 82947; 83605; 83735; 84145; 85025; 85610; 85730; 86850; 86900; 86901; 87040; 87070; 87077; 87186; 87205; 88305; 88307; 88311; 90935; 93005; 96365; 96375; 97110; 97161; 97530; 97542; 99203; 99285; J1100; J1170; J1644; J1815; J2250; J2270; J2405; J2704; J3370; J7040; P9047; Q5105; U0003

== ENCOUNTER 2020-04-12 12:21 | Inpatient (IN) | payer OTHER ==
--- NOTE | 2020-04-08 14:05 | P.CNS ---
Date of Consult: 04/08/20 Reason for Consult: ESRd , hyperkalemia, hyponatremia History of Present Illness: HPI 54-year-old male with history ESRD on HD MWF via AVF from [place], poorly controlled DM , , hypertension, hyperlipidemia PVD S/p Lt AKA and chronic Rt foot ulcer , required multiple hospitalization with prolonged ABx duration presented for right foot wound. X-ray the right foot shows gas forming infection involving the right 4th toe and soft tissues adjacent to the remnant 5th metatarsal. Review of Systems: Head and Neck: No red eye. No ear pain. GI: No nausea, no vomiting. : No polyuria, no dysuria, no hematuria. Pastry Mixer: Not applicable. Respiratory: No shortness of breath. Cardiovascular: No chest pain. Endocrine: No polydipsia. Skin: No rash. Neuro: Has neuropathy. Musculoskeletal: Rt stumb pain . Physical exam general: AAOX3, NAD , Neck; Supple, No elevated JVD hear: RRR, normal S1,2 no murmur or rub Chest: CTAB, no rlaes or wheezes Abdomen: Soft , Nt Extremities Lt AKA, rt BKA with dressing A/p End-stage renal disease on HD MWF HD as per schedule renal dose meds Hyperkalemia will correct with HD pseudohyponatremia need strict BS control Rt Foot OM with gas S/p BKA Anemia of chronic disease Cont epogen HTN Controlled DM as per PCP Allergies No Known Allergies Allergy (Verified 04/11/13 00:38) Home Medications: Amlodipine Besylate 10 mg PO DAILY 07/14/16 Aspirin [Tao Chewable Aspirin] 1 tab PO DAILY 07/14/16 Pravastatin Sodium 10 mg PO DAILY AT SUPPER 07/14/16 Sevelamer Carbonate [Renvela*] 4 tab PO TID 07/14/16 carvediloL [Carvedilol] 1 tab PO DAILY 07/14/16 Insulin Detemir [Levemir Flextouch] 12 unit SQ DAILY 07/17/18 Insulin Lispro [Humalog*] 5 unit SQ TIDWM 07/17/18 Ferrous Sulfate [Ferrous Sulfate*] 1 tab PO DAILY 04/07/20 Hydralazine HCl [Apresoline] 1 tab PO DAILY 04/07/20 Sevelamer Carbonate 2 tab PO SEECOM 04/07/20 Tramadol HCl [Ultram] 1 tab PO Q6H PRN 04/07/20 - Past Medical/Surgical History Diabetic: Yes -: cataracts -: IDDM -: anxiety -: One Kidney from (right) -: HTN -: heart problems-pacemaker -: anemia -: ESRD on HD MWF -: Left BKA -: pacemaker Insertion -: toe amputation -: fistula-KENNETH Psychosocial/ Personal History: Lives at home with family - Family History Mother Medical History: Diabetes - Social History Smoking Status: Never smoker Alcohol use: No CD- Drugs: No Caffeine use: Yes
--- NOTE | 2020-04-14 11:03 | R.PREADM ---
PRE-ADMISSION SCREENING FORM SCREENING DATE AND TIME 04/12/2020 11:09 (CYTOGENETICS TECHNOLOGIST) ANTICIPATED REHAB ADMISSION DATE 04/14/2020 REFERRING FACILITY [facility] REFERRAL DATE AND TIME 04/12/2020 11:09 (CYTOGENETICS TECHNOLOGIST) REFERRAL OFFICE PHONE [phone] REFERRAL ROOM# [id number] ACUTE ADMIT DATE 04/14/2020 Previous Rehabilitation(s): No. ACUTE KILN WORKER/DC LENDING CONSULTANT Antonia ATTENDING PHYSICIAN SHANEKA REFERRING PHYSICIAN PRIMARY CARE PHYSICIAN ; NEPHROLOGY- DR. FLOOD REHAB FACILITY [facility] CLINICAL LIAISON Melchor Vera PHYSICIAN REVIEWER Dr. Min Velarde M.D. MR# [id number] NAME VAL MAGALLANES ADDRESS [facility] PHONE [facility] [id number] DATE OF 1965 AGE 54 SSN# [id number] GENDER male MARITAL STATUS RACE unknown race PREF. LANGUAGE (IF NON-LUXEMBOURGISH) Trinidadian ADMIT FROM 02 - [facility] PRE-HOSPITAL LIVING SETTING 01 - Home (private home/apt. board/care, assisted living, senior care, transitional living) HOME TYPE AND DETAILS Type of home: single family house # of levels in the residence: 1 # of steps within the residence: 0 # of steps to enter the residence: 0 PRE-HOSPITAL LIVING WITH Family/Relatives FAMILY SUPPORT Yes PRIMARY FAMILY CONTACT NAME SHAGGY MAGALLANES PRIMARY FAMILY CONTACT PHONE PRIMARY FAMILY CONTACT RELATIONSHIP Spouse PHONE PRIMARY FAMILY CONTACT ON ADM.? no IS PRIMARY FAMILY CONTACT AUTH. REP.? no 1ST EMERGENCY CONTACT SHAGGY MAGALLANES 1ST CONTACT PHONE 1ST CONTACT RELATIONSHIP Spouse PHONE 1ST CONTACT ON ADM. no IS 1ST CONTACT AUTH. REP.? no PHONE 2ND CONTACT ON ADM.? no PATIENT EMPLOYMENT STATUS Employed [employer] PAYOR INFORMATION: 1ST PAYOR NAME MEDICARE [employer] 1ST PAYOR PHONE [phone] 1ST PAYOR INJURY/ILLNESS DUE TO ACCIDENT? No ANOTHER REPUBLICAN RESPONSIBLE? No PRIMARY REHAB/ACUTE DIAGNOSIS: RIGHT BELOW-KNEE AMPUTTION ONSET DATE 04/06/2020 REHAB IMPAIRMENT CATEGORY (DEMETRI): 10 Amputation, lower extremity (Amp/LE) MEETS 60% rule AFFECTED EXTREMITIES: BLE PRIMARY DIAGNOSIS-RELATED SURGERIES: RIGHT BELOW KNEE AMPUTATION SUMMARY OF ACUTE HOSPITALIZATION: Pt. is a 54 yo Right-handed male of unknown race. On 04/06/2020 he was admitted to [facility] with diagnosis RIGHT BELOW-KNEE AMPUTTION. His impairment category is Amputation of Limb 05 - Bilateral Lower Limb Below the Knee (BK/BK) (05.7 ). Pre-morbidly, Pt. was independent/mod-I in Safety Awareness, Transfers Control, Sphincter Control, an d Self-Care; and he had good Safety Awareness, Balance, Endurance, and Locomotion. Currently, he has deficits of Safety Awareness, Locomotion, Balance, Transfers Control, Endurance, an d Sphincter Control. Pt. is now referred to [facility] for acute in-patient rehabilitation in order to maximize patient's functional independence in activities of daily living, strength, ROM, and mobi lity. Patient has realistic goal of being discharged at assistance level 7-Ind to reside at Home with Fami ly/Relatives. CONSULT: Consult Certified Prosthetic for prosthesis construction PAST MEDICAL HISTORY L BKA W/ PROSTHETIC LEG IDDM ESRD ON HD MWF FISTULA R ARM HTN HYPERLIPIDEMIA CATARACT ANXIETY ONE KIDNEY BY ANEMIA TO DAILYSIS DIABETIC PAST SURGICAL HISTORY: PACEMAKER TOE AMPUTATION S/P R BKA OLD L BKA MEDICATION ALLERGIES: No Known Drug Allergies (NKDA) ENVIRONMENTAL ALLERGIES: - Substance Allergies None Known - Other Allergies None Known CODE STATUS: Full code WEIGHT/HEIGHT/BMI: WEIGHT 130 lbs HEIGHT 5' 3" BMI 23 DIET: - Diet Type Regular - Diet - Solid Texture Regular - Diet - Liquid Texture Regular - Tube Feed N/A REVIEW OF SYSTEMS: - Gen Alert and awake Lying in bed No apparent distress Oriented to: person, time, and place - Vital Signs Temperature: 97.9 F SBP/DBP: 160/65 Pulse: 59 Resp: 18 Vital signs stable, afebrile - CVS RRR VITAL SIGNS Temperature: 97.9 F SBP/DBP: 160/65 Pulse: 59 Resp: 18 Vital signs stable, afebrile MEDICATIONS/TREATMENT: Other- See attached MAR (Medication Administration Record). CURRENT SPHINCTER CONTROL: Pre-hospital bladder status: unspecified # of bladder accidents in the last 7 days prior to screenin Pre-hospital bowel status: unspecified # of bowel accidents in the last 7 days prior to screenin Last Bowel Movement Date: 04/12/2020 CURRENT LOCOMOTION STATUS: distance walked feet DETAILED CURRENT FUNCTIONAL STATUS: - Bladder accident frequency: Ind - No accidents in the past 7 days - Bowel accident frequency: Ind - No accidents in the past 7 days - Walking score based on distance walked: 0(N/A) - Wheelchair score based on distance traveled: 0(N/A) QI SCORES: - Self-Care A. Eating 03-Partial/moderate assistance B. Oral hygiene 03-Partial/moderate assistance C. Toileting hygiene 03-Partial/moderate assistance E. Shower/bathe self 03-Partial/moderate assistance F. Upper body dressing 03-Partial/moderate assistance G. Lower body dressing 03-Partial/moderate assistance H. Putting on/taking off footwear 88-Not attempted due to medical condition or safety concerns - Mobility A. Roll left and right 04-Supervision or touching assistance B. Sit to lying 03-Partial/moderate assistance C. Lying to sitting on side of bed 03-Partial/moderate assistance D. Sit to stand 88-Not attempted due to medical condition or safety concerns E. Chair/azu-rm-djjsg transfer 03-Partial/moderate assistance F. Toilet transfer 03-Partial/moderate assistance G. Car transfer 88-Not attempted due to medical condition or safety concerns I. Walk 10 feet 88-Not attempted due to medical condition or safety concerns J. Walk 50 feet with two turns 88-Not attempted due to medical condition or safety concerns K. Walk 150 feet 88-Not attempted due to medical condition or safety concerns L. Walking 10 feet on uneven surfaces 88-Not attempted due to medical condition or safety concerns M. 1 step (curb) 88-Not attempted due to medical condition or safety concerns N. 4 steps 88-Not attempted due to medical condition or safety concerns O. 12 steps 88-Not attempted due to medical condition or safety concerns P. Picking up object 88-Not attempted due to medical condition or safety concerns R. Wheel 50 feet with two turns 88-Not attempted due to medical condition or safety concerns S. Wheel 150 feet 88-Not attempted due to medical condition or safety concerns - Bladder and Bowel Bladder continence Bowel continence - Endurance Fair - Balance Fair - Safety Awareness Fair CURRENT FUNC. DEFICITS: Self-Care CURRENT / PREVIOUS ASSISTIVE DEVICES: Wheelchair HISTORY OF FALLS. HAS THE PATIENT HAD TWO OR MORE FALLS IN THE PAST YEAR OR ANY FALL WITH INJURY IN T HE PAST YEAR?: No PRIOR SURGERY. DID THE PATIENT HAVE MAJOR SURGERY DURING THE 100 DAYS PRIOR TO ADMISSION?: No THERAPY NOTES FROM ACUTE CARE: Attached. SPECIAL NEEDS: - Safety Concerns Skin breakdown precautions needed due to skin breakdown risk PATIENT NEEDS ACTIVE AND ONGOING THERAPEUTIC INTERVENTION OF MULTIPLE THERAPY DISCIPLINES, INCLUDING: - Orthotics/Prosthetics Prosthetic Evaluation. - Dietary and Nutrition Adequate Nutrition. Nutritional Education. Nutritional Supplements. PATIENT NEEDS CLOSE MEDICAL SUPERVISION BY A REHABILITATION PHYSICIAN FOR: Coordination of Treatment Team PATIENT REQUIRES 24X7 REHAB NURSING FOR MEDICAL AND FUNCTIONAL MGT. OF THE FOLLOWING DEFICITS: Disease Management Medication Management Patient/Family Education Providing Safe Environment PATIENT REQUIRES INTENSIVE, COORDINATED INTERDISCIPLINARY APPROACH TO REHAB: Arranging Home Equipment/Services Discharge Planning Family Intervention/Training Dog Beautician/Case Management PATIENT REHAB POTENTIAL: Pretty MAGALLANES is able and expected to receive 3 hours of individualized therapy daily on at least 5 o f every 7 days Pretty MAGALLANES's prognosis for significant practical improvement within a reasonable period of time ap pears Good Expected level of measurable improvement will be of a practical value to Pretty MAGALLANES's functional c apacity or adaptations to impairments Has a viable Discharge Plan Medically appropriate; condition is sufficiently stable to participate in intensive rehab program DISCHARGE PLAN: - Estimated Length of Stay (days) 11. - Consensus on plan Discharge plan has been discussed with primary caregiver. Patient/Family is in agreement with the mushtaq n. Primary caregiver is in agreement with the plan. - Patient/Family Goals Return home independently. - Planned Living Setting Upon Discharge Home, to live with Family/Relatives. Transitional Living. RECOMMENDED CARE LEVEL: IRF RECOMMENDATION DETAILS: Recommended Admission to Comprehensive Rehabilitation Program to Increase Functional Nutrioso SCREENER'S COMPLETENESS CONFIRMATION: - Screening Confirmation The patient data collection on this preadmission screening form is finished PHYSICIANS REVIEW AND ADMISSION DETERMINATION Admit - Based on my review of the Pre-Admission Screening results, in my medical judgment and experie nce, I concur with the findings and recommend admission to [facility], as this patient requires an IRF level of care. SIGNATURE PANEL: Patient Access Associate - [electronically] signed by Melchor Vera on 04/13/2020 at 14:27 (CYTOGENETICS TECHNOLOGIST) Patient Access Associate - [electronically] signed by Kyle Sotelo PT on 04/13/2020 at 16:49 (CYTOGENETICS TECHNOLOGIST) Physician Reviewer - [electronically] signed by Dr. Min Velarde M.D. on 04/14/2020 at 11:03 (CYTOGENETICS TECHNOLOGIST )
--- OUTSIDE RECORDS SUMMARY | 2020-04-14 14:32 | XMS REPORT | Clinical Summary ---
:1965 Author Organization [facility] Address [address] [place] [address] Care Team Providers Name Role Phone Junior [...] REVISION; Surgeon: Ben Cox MD; Locatio n: [facility] OR; Servic e: General; Latera lity: Right; Medical devices from this surgery are in t he Implants section . THROMBECTOMY 09/30/2018 Arm Lower/Right Procedure: THROM BECTOMY RIGHT UPPER EXTT REMITY AVF,BALLOON ANGIOPLASTY,STEN T PLACEMENT; Surg corina: Dom Lozano MD; Location: [facility] OR; Service: Vascula r; Laterality: Righ [...] 11/15/2019 02/23/2018, 06/27/2012 Implants Implanted Type Area Ship Engines Operating Engineer Device Shelf Model / Identifier Expiration Serial / Date Lot Catheter Dialysis Glidepath [id number] Symmetric Tip - [id number] Central N/A: BARD PERIPHERAL 11/14/2019 [id number] / Implanted: 08/22/2018 at [facility] (Quantity not on file) [place] ous N/A VASCULAR / Catheters [id number] Pacemaker Pacemaker System Thrmbtmy Otw 6fr 50cm Angiojet Avx - Sx - [id number] Surg ical N/A: [place] 10/01/2019 [id number] / Implanted: Qty: 1 on 09/30/2018 by Dom Lozano MD at [facility] Implants; N/A SCIENTIFIC GERRY X / Expanders; Extenders; Surgical Wires System Thrmbtmy Otw 6fr 50cm Angiojet Avx - Sx - [id number] Surg ical N/A: [place] 10/01/2019 [id number] / Implanted: Qty: 1 on 09/30/2018 by Dom Lozano MD at [facility] Implants; N/A SCIENTIFIC GERRY X / Expanders; Extenders; Surgical Wires Stent Endprths Viabahn 75x5cm 8mm Heprn Bioactv Surf - [id number] - [id number] Surgical N/A: W L GORE 07/11/2021 [id number] / Implanted: Qty: 1 on 09/30/2018 by Dom Lozano MD at [facility] Stents N/A [id number] / [id number] Graft Vasclr Hancock-Ramesh Stdwl 40cm 6mm - [id number] Vascular N/A: W L GORE 06/21/2022 [id number] / Implanted: 08/22/2018 at [facility] (Quantity not on file) Graft N/A [id number] / [id number] Results Not on fileafter 04/14/2019 Insurance Payer Benefit Plan / Subscriber ID Effective Dates Phone Addre ss Type Group MEDICAID MEDICAID [id number] 2014-Present Med icaid [facility] MEDICARE [facility] DUAL COMPLETE [id number] 2017-Present [facility] Advance Directives For more information, please contact: [phone] Type Date Recorded Patient Surgical Rn Explanati on Advance Directives, Living Will 08/27/2018 1:34 AM and Medical Power of Machine Striper
--- OUTSIDE RECORDS SUMMARY | 2020-04-14 14:33 | XMS REPORT | Continuity of Care Document ---
:1965 Author Organization [facility] t Address [address] [place] [address] Care Team Providers Name Role Phone Melissa [...] Treatment Clinician Date Problem Problem Disease Active [place] with with 6-14 Methodi vascular vascular 00:00: st access access 00 Mastoiditi 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 of right s of right 5-14 Me th[place] side side 00:00: st 00 Allergies, Adverse Reactions, Alerts Allergy Allergy Status Severity Reaction(s) Onset Inactive Treating Comm ents Source Name Type Date Date Clinician No Known DA Active [facility] All[facility]ie 5-06 [facility] Family History Family Member Diagnosis Comments Start Date Stop Date Source Natural father [facility] Natural mother [facility] Social History Social Habit Start Date Stop Date Quantity Comments Source History of Cigarette Smoker [facility] tobacco use History [facility] odist Alcohol Std Drinks History [facility] Meth odist Alcohol Binge Sex Assigned At [facility] ethodist Tobacco use and 2018-10-02 2018-10-02 Never used [facility] ethodist exposure 00:00:00 00:00:00 Alcohol intake 2018-10-02 2018-10-02 [facility] 00:00:00 00:00:00 non-drinker of alcohol (finding) History SDOH 2018-08-22 2018-08-22 1 [facility] Meth odist Alcohol Frequency 00:00:00 00:00:00 Tobacco Comment 2018-08-22 2018-08-22 quit 30 years ago Jet jaimes [facility]ast[facility] 00:00:00 00:00:00 Smoking Status Start Date Stop Date Source Former smoker 2018-10-02 00:00:00 2018-10-02 00:00:00 [facility] Medications Ordered Filled Start Stop Current Ordering Indication Dosage Frequency Signature Comments Components Source Medication Medication Date Date Medication? Clinician (SIG) Name Name pravastatin Yes 10mg QD Take 10 mg [place] (PRAVACHOL) 6-17 by mouth Meth iris 10 MG 21:14: nightly. st tablet 32 sevelamer Yes 800mg [id number] Take 800 [place] (RENVELA) 6-17 [id number] mg by Met hodi 800 mg 21:14: 3D mouth 3 st tablet 32 (three) times a day with meals. Take 4 tabs 3x/day with meals2 tabs with snacks polyethylen 2018- Yes 17g QD Take 17 g [place] e glycol 6-17 by mouth Methodi (MIRALAX) 21:14: daily. st 17 gram 32 packet artificial Yes 2[drp] Q24H Administer [place] tears,hypro 6-[address] mellose, 21:14: both eyes st 0.3 % drops 32 daily as needed. aspirin Yes 81mg QD Take 81 mg [place] (ECOTRIN) 6-17 by mouth Method i 81 MG 21:14: daily. st enteric 32 coated tablet amLODIPine Yes 10mg QD Take 10 mg [place] (NORVASC) 6-17 by mouth Method i 10 mg 21:14: daily. st tablet 32 insulin 2018- Yes 10U QD Inject 10 [place] detemir 6-17 Units Methodi U-100 21:14: under the st (LEVEMIR) 32 skin 100 unit/mL daily. injection carvedilol 2018- Yes 6.25mg Q.5D Take 6.25 [place] (COREG) [...] Comments Source Future Scheduled 2019-11-15 INFLUENZA VACCINE [place] [facility] Test 00:00:00 [code = INFLUENZA VACCINE] Future Scheduled 2013 COLONOSCOPY SCREENING [place] [facility] Test 00:00:00 [code = COLONOSCOPY SCREENING] Future Scheduled 2013 SHINGLES VACCINES (#1) [place] [facility] Test 00:00:00 [code = SHINGLES VACCINES (#1)] Future Scheduled 1979 COVID-19 VACCINE (#1) [place] [facility] Test 00:00:00 [code = COVID-19 VACCINE (#1)] Future Scheduled 1973 DIABETES: RETINAL EYE [place] [facility] Test 00:00:00 EXAM [code = DIABETES: RETINAL EYE EXAM] Future Scheduled 1973 DIABETIC FOOT EXAM [place] [facility] Test 00:00:00 [code = DIABETIC FOOT EXAM] Future Scheduled 1973 URINE MICROALBUMIN [place] [facility] Test 00:00:00 [code = URINE MICROALBUMIN] Encounters Start End Encounter Admission Attending Care Care Encounter Source Date/Time Date/Time Type Type Clinicians Facility Department ID 2020-01-19 2020-01-24 [facility] Payton Parker [facility] 1.2.840. [id number] 15:57:00 19:05:00 Encounter Delicia Galvan [place] [id number] [place] [id number] [place] [id number] 2020-01-19 2020-01-19 Orders Doctor ZENY [id number] 00:00:00 00:00:00 Only Unassigned, [place] [id number] [place] [id number] 2020-01-01 2020-01-01 Transition Waldemar Cowan [id number] 00:00:00 00:00:00 of Care Migdalia Caldera [id number] [place] [id number] 2019-12-23 2019-12-31 [facility] 1.2.840. 114 [id number] 09:57:00 15:53:00 Encounter Sterling [place] [id number] [place] [id number] [place] [id number] 2019-12-23 2019-12-23 Orders Doctor ZENY [id number] 00:00:00 00:00:00 Only Unassigned, [place] [id number] [place] [id number] Results Test Description Test Time Test Comments Results Result Comments Source GLUBED 2019-08-29 11:34:00 Test Item Value Reference Range Interpretation Comme nts GLUBED (test code = GLUBED) 180 mg/dL 70-105 H Performed by certified brine mixer operator at [facility] CBC W/AUTO [id number] 06:25:00 Test Item Value Reference Range Interpretation [...] ESTIMATE (test code = NORMAL ADEQUATE PLTEST) [id number] 06:23:00 Test Item Value Reference Range Interpretation Comments GLUBED (test code = 116 mg/dL 70-105 H Performe d by certified GLUBED) brine mixer operator at [facility] BASIC METABOLIC [id number] 06:08:00 Test Item Value Reference Range Interpretation [...] IS -RAUL N, MULTIPLY REPORT ED RESULT BY1.. CREATININE (test code 10.80 mg/dL 0.67-1.17 H = CREAT) CALCIUM (test code = 8.0 mg/dL 8.5-10.1 L CA) BASIC METABOLIC [id number] 06:02:00 Test Item Value Reference Range Interpretation [...] CA) 8.0 mg/dL 8.5-10.1 L BASIC METABOLIC [id number] 06:02:00 Test Item Value Reference Range Interpretation [...] CA) 8.0 mg/dL 8.5-10.1 L BASIC METABOLIC [id number] 05:59:00 Test Item Value Reference Range Interpretation [...] code = CA) mg/dL 8.5-10.1 CBC W/AUTO [id number] 05:53:00 Test Item Value Reference Range Interpretation [...] code = 0.00 K/mm3 0.0-0.1 N NRBC#) [id number] 20:37:00 Test Item Value Reference Range Interpretation Comments GLUBED (test code = 255 mg/dL 70-105 H Performe d by certified GLUBED) brine mixer operator at [facility] [id number] 17:12:00 Test Item Value Reference Range Interpretation Comments GLUBED (test code = 169 mg/dL 70-105 H Performe d by certified GLUBED) brine mixer operator at [facility] [id number] 11:24:00 Test Item Value Reference Range Interpretation Comments GLUBED (test code = 197 mg/dL 70-105 H Performe d by certified GLUBED) brine mixer operator at [facility] [id number] 06:37:00 Test Item Value Reference Range Interpretation Comments GLUBED (test code = 222 mg/dL 70-105 H Performe d by certified GLUBED) brine mixer operator at [facility] [id number] 21:04:00 Test Item Value Reference Range Interpretation Comments GLUBED (test code = 174 mg/dL 70-105 H Performe d by certified GLUBED) brine mixer operator at [facility] [id number] 18:47:00 Test Item Value Reference Range Interpretation Comments GLUBED (test code = 115 mg/dL 70-105 H Performe d by certified GLUBED) brine mixer operator at [facility] [id number] 12:55:00 Test Item Value Reference Range Interpretation Comments GLUBED (test code = 165 mg/dL 70-105 H Performe d by certified GLUBED) brine mixer operator at [facility] [id number] 09:25:00 Test Item Value Reference Range Interpretation Comments POTASSIUM (test code = K) 5.6 mmol/L 3.5-5.1 H [id number] 06:12:00 Test Item Value Reference Range Interpretation Comments GLUBED (test code = 163 mg/dL 70-105 H Performe d by certified GLUBED) brine mixer operator at [facility] Novel Coronavirus 2019 [id number] 03:30:00 Test Item Value Reference Range Interpretation [...] s pecific training on the use ofthe [employer]-2.[employer] S [employer]. The BioFire COV ID-19 Test is onlyfor use under the Food and Drug Administration' s EmergencyUse Authorization. [id number] 20:58:00 Test Item Value Reference Range Interpretation Comments GLUBED (test code = 247 mg/dL 70-105 H Performe d by certified GLUBED) brine mixer operator at [facility] [id number] 16:35:00 Test Item Value Reference Range Interpretation Comments GLUBED (test code = 163 mg/dL 70-105 H Performe d by certified GLUBED) brine mixer operator at [facility] [id number] 11:40:00 Test Item Value Reference Range Interpretation Comments GLUBED (test code = 325 mg/dL 70-105 H Performe d by certified GLUBED) brine mixer operator at [facility] [id number] 10:22:00 Test Item Value Reference Range Interpretation Comments GLUBED (test code = 265 mg/dL 70-105 H Performe d by certified GLUBED) brine mixer operator at [facility] BASIC METABOLIC [id number] 06:07:00 Test Item Value Reference Range Interpretation [...] 8.5 mg/dL 8.5-10.1 N CA) BASIC METABOLIC [id number] 06:04:00 Test Item Value Reference Range Interpretation [...] CA) 8.5 mg/dL 8.5-10.1 N BASIC METABOLIC [id number] 06:03:00 Test Item Value Reference Range Interpretation [...] CA) 8.5 mg/dL 8.5-10.1 N BASIC METABOLIC [id number] 05:58:00 Test Item Value Reference Range Interpretation [...] code = CA) mg/dL 8.5-10.1 CBC W/AUTO [id number] 05:52:00 Test Item Value Reference Range Interpretation [...] code = 0.00 K/mm3 0.0-0.1 N NRBC#) [id number] 20:11:00 Test Item Value Reference Range Interpretation Comments GLUBED (test code = 408 mg/dL 70-105 H Performe d by certified GLUBED) brine mixer operator at [facility] [id number] 16:29:00 Test Item Value Reference Range Interpretation Comments GLUBED (test code = 329 mg/dL 70-105 H Performe d by certified GLUBED) brine mixer operator at [facility] AG HEPATITIS B [id number] 13:18:00 Test Item Value Reference Range Interpretation Comments AG HEPATITIS B SURFACE NONREAC NONREAC The r esults were (test code = HBSAG) obtained using the [employer] XP HBsA g assay. AB HEPATITIS [id number] 13:18:00 Test Item Value Reference Range Interpretation Comments AB HEPATITIS C (test NONREAC NONREAC These r esults were code = HCVAB) obtained using the [employer] XP HCV IgGAssay. Values obtained from other manufactu rer's assaymethods ma y not be used interchang eably. [id number] 11:26:00 Test Item Value Reference Range Interpretation Comments GLUBED (test code = 177 mg/dL 70-105 H Performe d by certified GLUBED) brine mixer operator at [facility] CBC W/AUTO [id number] 11:26:00 Test Item Value Reference Range Interpretation [...] ESTIMATE (test code = NORMAL ADEQUATE PLTEST) [id number] 06:26:00 Test Item Value Reference Range Interpretation Comments GLUBED (test code = 135 mg/dL 70-105 H Performe d by certified GLUBED) brine mixer operator at [facility] BASIC METABOLIC [id number] 06:09:00 Test Item Value Reference Range Interpretation [...] 8.5 mg/dL 8.5-10.1 N CA) BASIC METABOLIC [id number] 06:01:00 Test Item Value Reference Range Interpretation [...] CA) 8.5 mg/dL 8.5-10.1 N BASIC METABOLIC [id number] 06:00:00 Test Item Value Reference Range Interpretation [...] CA) 8.5 mg/dL 8.5-10.1 N BASIC METABOLIC [id number] 05:57:00 Test Item Value Reference Range Interpretation [...] code = CA) mg/dL 8.5-10.1 CBC W/AUTO [id number] 05:52:00 Test Item Value Reference Range Interpretation [...] code = 0.00 K/mm3 0.0-0.1 N NRBC#) [id number] 05:19:00 Test Item Value Reference Range Interpretation Comments GLUBED (test code = 127 mg/dL 70-105 H Performe d by certified GLUBED) brine mixer operator at [facility]2020-05-11 02:56:00 Test Item Value Reference Range Interpretation Comments GLUBED (test code = 44 mg/dL 70-105 L Performe d by certified GLUBED) brine mixer operator at [facility]2020-05-10 21:06:00 Test Item Value Reference Range Interpretation Comments GLUBED (test code = 259 mg/dL 70-105 H Performe d by certified GLUBED) brine mixer operator at [facility]2020-05-10 17:09:00 Test Item Value Reference Range Interpretation Comments GLUBED (test code = 150 mg/dL 70-105 H Performe d by certified GLUBED) brine mixer operator at [facility]2020-05-10 11:35:00 Test Item Value Reference Range Interpretation Comments GLUBED (test code = 207 mg/dL 70-105 H Performe d by certified GLUBED) brine mixer operator at [facility] BASIC METABOLIC [id number] 06:20:00 Test Item Value Reference Range Interpretation [...] code = 8.3 mg/dL 8.5-10.1 L CA) [id number] 06:11:00 Test Item Value Reference Range Interpretation Comments GLUBED (test code = 158 mg/dL 70-105 H Performe d by certified GLUBED) brine mixer operator at [facility] BASIC METABOLIC [id number] 05:59:00 Test Item Value Reference Range Interpretation [...] CA) 8.3 mg/dL 8.5-10.1 L CBC W/AUTO [id number] 05:58:00 Test Item Value Reference Range Interpretation [...] 0.00 K/mm3 0.0-0.1 N NRBC#) BASIC METABOLIC [id number] 05:57:00 Test Item Value Reference Range Interpretation [...] CALCIUM (test code = CA) mg/dL 8.5-10.1 [id number] 20:55:00 Test Item Value Reference Range Interpretation Comments GLUBED (test code = 252 mg/dL 70-105 H Performe d by certified GLUBED) brine mixer operator at [facility]2020-05-09 16:00:00 Test Item Value Reference Range Interpretation Comments GLUBED (test code = 99 mg/dL 70-105 N Performe d by certified GLUBED) brine mixer operator at [facility]2020-05-09 11:34:00 Test Item Value Reference Range Interpretation Comments GLUBED (test code = 215 mg/dL 70-105 H Performe d by certified GLUBED) brine mixer operator at [facility] BASIC METABOLIC [id number] 07:06:00 Test Item Value Reference Range Interpretation [...] ce average 6.14 Thr ee times average [id number] 07:06:00 Test Item Value Reference Range Interpretation [...] s an d/or septic shock. CBC W/AUTO [id number] 06:48:00 Test Item Value Reference Range Interpretation [...] = 0.00 K/mm3 0.0-0.1 N NRBC#) SED [id number] 06:48:00 Test Item Value Reference Range Interpretation Comments SED RATE (test code = SEDW) 96 mm/hr 0-15 H BASIC METABOLIC [id number] 06:14:00 Test Item Value Reference Range Interpretation [...] ce average 6.14 Thr ee times average [id number] 06:14:00 Test Item Value Reference Range Interpretation Comments MAGNESIUM (test code = MAG) 2.6 mg/dL 1.8-2.4 H PROCALCITONIN (PCT)2019-08-23 06:14:00 Test Item Value Reference Range Interpretation Comments PROCALCITONIN (PCT) (test code = ng/mL <0.5 PROCAL) [id number] 06:11:00 Test Item Value Reference Range Interpretation Comments GLYCOSYLATED 9.7 % <5.7 H SAL GGESTED HEMOGLOBIN (HA1C) DIAGNOSIS (test code = GLYHGB) INTERPR ETATION -------- Normal: < 5.7% Prediabetes: 5 .7 - 6.4% Diabetic: >/ = 6.5%* DUE TO METHOD R EVISION, REFERENCE RANGE HAS BEEN UPDATED * ESTIMATED AVERAGE 232 MG/DL <126 GLUCOSE (test code = EAG) [id number] 06:09:00 Test Item Value Reference Range Interpretation Comments GLUBED (test code = 268 mg/dL 70-105 H Performe d by certified GLUBED) brine mixer operator at [facility] BASIC METABOLIC [id number] 06:01:00 Test Item Value Reference Range Interpretation [...] <100 LDL/HDL (test code = LDL/HDL) Ratio [id number] 06:01:00 Test Item Value Reference Range Interpretation Comments MAGNESIUM (test code = MAG) mg/dL 1.8-2.4 PROCALCITONIN (PCT)2019-08-23 06:01:00 Test Item Value Reference Range Interpretation Comments PROCALCITONIN (PCT) (test code = ng/mL <0.5 PROCAL) CBC W/AUTO [id number] 05:54:00 Test Item Value Reference Range Interpretation [...] = 0.00 K/mm3 0.0-0.1 N NRBC#) SED [id number] 05:54:00 Test Item Value Reference Range Interpretation Comments SED RATE (test code = SEDW) mm/hr 0-15 [id number] 23:48:00 Test Item Value Reference Range Interpretation Comments GLUBED (test code = 248 mg/dL 70-105 H Performe d by certified GLUBED) brine mixer operator at [facility] - XR CHEST 1 [id number] 19:32:00 [facility] Name: VAL BAEZ [address] [place] [address] Phys: Kathrine Vasques MD [place] [address] : 1965 Age: 54 Sex: M Acct: [id number] Loc: H.514 A PHONE #: [phone] Exam Date: 08/22/2019 Status: ADM IN FAX #: [phone] Radiology No: Unit No: [id number] Reason: infected L arm vascular access EXAMS: CPT CODE: [id number] XR CHEST 1 V 22047 Fluoro Time: DAP (Gy m2): Air Kerma [...] RT (R); ... Transcribed Date/Time: 08/22/2019 (1931) [email or web address] Orig Print D/T: S: 08/22/2019 (1935) PAGE 1 Signed ReportGLUBED 2019-08-22 17:49:00 Test Item Value Reference Range Interpretation Comments GLUBED (test code = 260 mg/dL 70-105 H Performe d by certified GLUBED) brine mixer operator at [facility] Novel Coronavirus 2018 [id number] 16:44:00 Test Item Value Reference Range Interpretation [...] training on the use ofthe FilmArray-2.[employer] S [employer]. The BioFire COV ID-19 Test is onlyfor use under the Food and Drug Administration' s EmergencyUse Authorization. BASIC METABOLIC [id number] 14:37:00 Test Item Value Reference Range Interpretation [...] 8.7 mg/dL 8.5-10.1 N CA) BASIC METABOLIC [id number] 14:34:00 Test Item Value Reference Range Interpretation [...] CA) 8.7 mg/dL 8.5-10.1 N BASIC METABOLIC [id number] 14:33:00 Test Item Value Reference Range Interpretation [...] CA) 8.7 mg/dL 8.5-10.1 N BASIC METABOLIC [id number] 14:32:00 Test Item Value Reference Range Interpretation [...] code = CA) mg/dL 8.5-10.1 CBC W/AUTO [id number] 14:21:00 Test Item Value Reference Range Interpretation [...] 0.00 K/mm3 0.0-0.1 N NRBC#) CBC W/AUTO [id number] 14:53:00 Test Item Value Reference Range Interpretation [...]
[2020-04-14] MEDS ORDERED: CETIRIZINE HCL 5 MG TABLET PO PRN (15:21)
[2020-04-14] MEDS ORDERED: hydrOXYzine HCL 25 MG TAB PO PRN (15:43)
[2020-04-14] MEDS ORDERED: GLUCAGON 1 MG/VIAL IM PRN ×2 (16:02→16:52)
[2020-04-14] MEDS ORDERED: D50W 25 GM/50 ML SYRINGE IV PRN ×2 (16:02→16:52)
[2020-04-14] MEDS: INSULIN -REGULAR HUMAN 50 UNIT/0.5 ML ML SQ SCH ×2 (16:27→20:56)
[2020-04-14] MEDS: SEVELAMER CARBONATE 800 MG TABLET PO SCH (17:21)
[2020-04-14] MEDS: levoFLOXacin 500 MG TAB PO SCH (17:21)
[2020-04-14] MEDS: ATORVASTATIN 10 MG TAB PO SCH (19:45)
[2020-04-14] MEDS: HEPARIN 5000 UNIT/ML 1 ML VIAL SQ SCH (20:00)
[2020-04-14] MEDS: MUPIROCIN 2% OINT 22GM TUBE TOP SCH (20:55)
[2020-04-14] MEDS: ACETAMINOPHEN 325 MG TABLET PO PRN (23:42)
[2020-04-15] MEDS: carvediloL 6.25 MG TAB PO SCH (05:12)
[2020-04-15 05:55] LABS: Absolute Lymphocytes (CBC) 1.6 K/uL (0.7-4.9); Basophils % 1.3 % (0-1.3); Hematocrit 26.3 % (39.6-49.0); Lymphocytes % 23.1 % (15.3-44.8); MPV 8.1 fL (7.6-11.3); RBC Red Blood Cell Count 2.67 M/uL (4.33-5.43)
[2020-04-15 06:13] LABS: Albumin 2.1 g/dL (3.4-5.0); Magnesium 2.6 mg/dL (1.8-2.4); Potassium 4.7 mmol/L (3.5-5.1); Prealbumin 17.5 mg/dL (20-40)
[2020-04-15] MEDS: INSULIN -REGULAR HUMAN 50 UNIT/0.5 ML ML SQ SCH ×4 (07:30→20:51)
[2020-04-15] MEDS ORDERED: INSULIN GLARGINE 100 UNITS/ML SQ SCH (08:00)
[2020-04-15] MEDS: HEPARIN 5000 UNIT/ML 1 ML VIAL SQ SCH ×2 (09:00→21:00)
[2020-04-15] MEDS: SEVELAMER CARBONATE 800 MG TABLET PO SCH ×3 (09:27→17:18)
[2020-04-15] MEDS: HYDRALAZINE HCL 25 MG TABLET PO SCH (09:27)
[2020-04-15] MEDS: ASPIRIN 81 MG CHEWABLE TABLET PO SCH (09:28)
[2020-04-15] MEDS: MULTIVITAMINS,THERAPEUT 1 TAB PO SCH (09:28)
[2020-04-15] MEDS: FERROUS SULFATE 325 MG TAB PO SCH (09:28)
[2020-04-15] MEDS: CALCITROL 0.25 MCG CAP PO SCH (09:28)
[2020-04-15] MEDS: MUPIROCIN 2% OINT 22GM TUBE TOP SCH ×2 (09:31→20:50)
--- NOTE | 2020-04-15 10:23 | P.RH.PN ---
Estimated Length of Stay: 15 Expected Discharge Date: 04/28/20 Discharge Disposition Plan: Home Family Support: Yes Shelter Goal: Mobility, Transfers, Self Care Vital Signs: Last Vital Signs Temp 98.1 F 04/15/20 07:15 Pulse 60 04/15/20 07:15 Resp 16 04/15/20 07:15 BP 142/61 H 04/15/20 07:15 Pulse Ox 97 04/14/20 20:00 Laboratory: Laboratory Last Values WBC 7.1 K/uL (4.3-10.9) D 04/15/20 05:42 RBC 2.67 M/uL (4.33-5.43) L 04/15/20 05:42 Hgb 8.6 g/dL (13.6-17.9) L 04/15/20 05:42 Hct 26.3 % (39.6-49.0) L 04/15/20 05:42 MCV 98.3 fL (80-100) 04/15/20 05:42 MCH 32.2 pg (27.0-35.0) 04/15/20 05:42 MCHC 32.7 g/dL (32.0-36.0) 04/15/20 05:42 RDW 13.8 % (12.1-15.2) 04/15/20 05:42 Plt Count 484 K/uL (152-406) H 04/15/20 05:42 MPV 8.1 fL (7.6-11.3) 04/15/20 05:42 Neutrophils % 61.4 % (41.7-73.7) 04/15/20 05:42 Lymphocytes % 23.1 % (15.3-44.8) 04/15/20 05:42 Monocytes % 9.7 % (3.3-12.3) 04/15/20 05:42 Eosinophils % 4.5 % (0-4.4) H 04/15/20 05:42 Basophils % 1.3 % (0-1.3) 04/15/20 05:42 Absolute Neutrophils 4.4 K/uL (1.8-8.0) 04/15/20 05:42 Absolute Lymphocytes 1.6 K/uL (0.7-4.9) 04/15/20 05:42 Absolute Monocytes 0.7 K/uL (0.1-1.3) 04/15/20 05:42 Absolute Eosinophils 0.3 K/uL (0-0.5) 04/15/20 05:42 Absolute Basophils 0.1 K/uL (0-0.5) 04/15/20 05:42 Sodium 141 mmol/L (136-145) 04/15/20 05:42 Potassium 4.7 mmol/L (3.5-5.1) 04/15/20 05:42 Chloride 102 mmol/L (98-107) 04/15/20 05:42 Carbon Dioxide 32 mmol/L (21-32) 04/15/20 05:42 BUN 41 mg/dL (7-18) H D 04/15/20 05:42 Creatinine 5.86 mg/dL (0.55-1.3) H* D 04/15/20 05:42 Estimated GFR 10 mL/min (=/>90) L 04/15/20 05:42 Glucose 60 mg/dL (74-106) L 04/15/20 05:42 POC Glucose 98 mg/dL (65-120) 04/15/20 07:31 Calcium 8.8 mg/dL (8.5-10.1) 04/15/20 05:42 Magnesium 2.6 mg/dL (1.8-2.4) H 04/15/20 05:42 Albumin 2.1 g/dL (3.4-5.0) L 04/15/20 05:42 Prealbumin 17.5 mg/dL (20-40) L 04/15/20 05:42 SARS-CoV-2 RNA (RT-PCR) Negative (NEGATIVE) 04/14/20 14:15 Weight: 130 lb Closed Surgical Incision Present: Yes Negative Pressure Wound Therapy Present: No Physician Update: Walker 200' contact guard with the rolling walker. Needs minimum assistance for transfers. His current left lower extremity prosthesis is 10 years and does not fit well. He has a ramp and steps to get into his house and should be able to easily get into and out of his house. He will likely require shower remodling as he is now a bilateral lower extremity amputee. He will require a wheelchair. His blood sugars decreased to 55 this AM. Will decrease insulin to 8 units daily (Glargine). Summary: Patient's care plan and sand tester goals have been reviewed and revised as necessary. Please see the Rehabilitation Signature page for all necessary signatures.
[2020-04-15] MEDS: NIFEDIPINE XL 30 MG TABLET PO SCH (11:15)
[2020-04-15] MEDS: ACETAMINOPHEN 325 MG TABLET PO PRN (12:11)
--- NOTE | 2020-04-15 13:09 | R.HP ---
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 board/care, assisted living, care home, transitional living) PRE-HOSPITAL LIVING WITH Family/Relatives ENCOUNTER PHYSICIAN: Dr. Min Velarde M.D. 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 FLOOD HOME TYPE AND DETAILS: Type of home: single family house # of levels in the residence: 1 # of steps within the residence: 0 # of steps to enter the residence: 0 ONSET DATE: 04/06/2020 PRIMARY DIAGNOSIS-RELATED SURGERIES: RIGHT BELOW KNEE AMPUTATION HISTORY OF PRESENT ILLNESS (HPI): Pt. is a 54 yo Right-handed male of unknown race. On 04/06/2020 [facility] RIGHT BELOW-KNEE AMPUTTION. His impairment category is Amputation of Limb 05 - Bilateral Lower Limb Below the Knee (BK/BK) (05.7 ). Pre-morbidly, Pt. was independent/mod-I in Safety Awareness, Transfers Control, Sphincter Control, an d Self-Care; and he had good Safety Awareness, Balance, Endurance, and Locomotion. Currently, he has deficits of Safety Awareness, Locomotion, Balance, Transfers Control, Endurance, an d Sphincter Control. Pt. is now referred to [facility] for acute in-patient rehabilitation in order to maximize patient's functional independence in activities of daily living, strength, ROM, and mobi lity. Patient has realistic goal of being discharged at assistance level 7-Ind to reside at Home with Fami ly/Relatives. 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 DIABETIC PAST SURGICAL HISTORY: PACEMAKER TOE AMPUTATION S/P R BKA OLD L BKA SOCIAL HISTORY: - Home Living Family/Relatives REVIEW OF SYSTEMS: - Gen No Chills Fatigue No Fever - Eyes No Double Vision No itchiness - ENMT No Difficulty Swallowing - CVS No Chest Discomfort No Chest Pain Fatigue No Weight Gain - Resp No Cough No Shortness of Breath - GI Continent No Abdominal Pain No Constipation No Diarrhea - Continent No Kidney Pain No Painful Urination No Urinary Urgency - MSK No Joint Pain Muscle Cramps No Stiffness - Skin No Itching No Rash No Suspicious Lesions - Neuro Coordination Difficulty No Difficulty with Concentration No Memory Loss No Seizures Weakness - Psych No Anxiety No Depression No HIV Exposure No Persistent Infections No Seasonal Allergies - Endo No Cold/Heat Intolerance No Excessive Hunger No Excessive Thirst No Excessive Urination PHYSICAL EXAM - Gen Alert and awake Lying in bed No apparent distress Oriented to: person, time, and place - Skin No skin breakdown. No abnormalities - Eyes No abnormalities - ENMT No abnormalities - Neck No abnormalities No cervical adenopathy - CVS RRR - Chest No abnormalities - Resp Clear to auscultation - Abd Soft - GI Soft Deferred - No abnormalities - Ext No significant edema - MSK 4+/5 weakness in both lower extremities. - Neuro 4/5 strength right lower extremity. - Psych No abnormalities VITAL SIGNS Temperature: 97.9 F SBP/DBP: 138-179/61-75 Pulse: 59 Resp: 18 NURSING: - Shower allowing shower - Skin care per protocol PRECAUTIONS: - Weight Bearing Precaution NWB right LE ACTIVITIES OOB only with supervision QI SCORES: - Self-Care A. Eating 03-Partial/moderate assistance B. Oral hygiene 03-Partial/moderate assistance C. Toileting hygiene 03-Partial/moderate assistance E. Shower/bathe self 03-Partial/moderate assistance F. Upper body dressing 03-Partial/moderate assistance G. Lower body dressing 03-Partial/moderate assistance H. Putting on/taking off footwear 88-Not attempted due to medical condition or safety concerns - Mobility A. Roll left and right 04-Supervision or touching assistance B. Sit to lying 03-Partial/moderate assistance C. Lying to sitting on side of bed 03-Partial/moderate assistance D. Sit to stand 88-Not attempted due to medical condition or safety concerns E. Chair/cnb-wj-gsded transfer 03-Partial/moderate assistance F. Toilet transfer 03-Partial/moderate assistance G. Car transfer 88-Not attempted due to medical condition or safety concerns I. Walk 10 feet 88-Not attempted due to medical condition or safety concerns J. Walk 50 feet with two turns 88-Not attempted due to medical condition or safety concerns K. Walk 150 feet 88-Not attempted due to medical condition or safety concerns L. Walking 10 feet on uneven surfaces 88-Not attempted due to medical condition or safety concerns M. 1 step (curb) 88-Not attempted due to medical condition or safety concerns N. 4 steps 88-Not attempted due to medical condition or safety concerns O. 12 steps 88-Not attempted due to medical condition or safety concerns P. Picking up object 88-Not attempted due to medical condition or safety concerns R. Wheel 50 feet with two turns 88-Not attempted due to medical condition or safety concerns S. Wheel 150 feet 88-Not attempted due to medical condition or safety concerns - Bladder and Bowel Bladder continence Bowel continence - Endurance Fair - Balance Fair - Safety Awareness Fair CURRENT FUNC. DEFICITS: Self-Care MEDICATIONS: - Other See attached MAR (Medication Administration Record) ASSESSMENT: Pt. is a 54 yo Right-handed male of unknown race.On 04/06/2020 he was admitted to [facility] with diagnosis RIGHT BELOW-KNEE AMPUTTION.His impairment category is Amputation of Limb 05 - Bi lateral Lower Limb Below the Knee (BK/BK) (05.7).Pre-morbidly, Pt. was independent/mod-I in Safety Aw areness, Transfers Control, Sphincter Control, and Self-Care; and he had good Safety Awareness, Michelet ce, Endurance, and Locomotion.Currently, he has deficits of Safety Awareness, Locomotion, Balance, Tr ansfers Control, Endurance, and Sphincter Control.Pt. is now referred to [facility] for acute in-patient rehabilitation in order to maximize patient's functional independence in a ctivities of daily living, strength, ROM, and mobility.- Rehab Goal Patient has realistic goal of being discharged at assistance level 7-Ind to reside at Home with Fami ly/Relatives. REHAB PLAN: - Physical Therapy Inability to transfer - to improve, our physical therapists will perform initial evaluation of pt's s tatus upon admission and devise an individualized program for Bed mobility Need for home safety evaluation - to improve, our physical therapists will perform initial evaluation of pt's status upon admission and devise an individualized program for Home Evaluation Need in caregiver upon discharge - to improve, our physical therapists will perform initial evaluatio n of pt's status upon admission and devise an individualized program for Caregiver Training New precaution - to improve, our physical therapists will perform initial evaluation of pt's status u gay admission and devise an individualized program for Patient precaution education Edema - to improve, our physical therapists will perform initial evaluation of pt's status upon admi ssion and devise an individualized program for Elevation Training, and Lymphedema Therapy Poor balance - to improve, our physical therapists will perform initial evaluation of pt's status upo n admission and devise an individualized program for Balance Training Poor endurance - to improve, our physical therapists will perform initial evaluation of pt's status u gay admission and devise an individualized program for Endurance Training Achieving independence - to improve, our physical therapists will perform initial evaluation of pt's status upon admission and devise an individualized program for Community Reintegration Activities - Occupational Therapy Need for manager respiratory care - to improve, our occupation therapists will perform initial evaluation of pt's s tatus upon admission and devise an individualized program for Caregiver Training MEDICAL PLAN: - Diet Type Start Regular - Diet - Liquid Texture Start Regular - Tube Feed Start N/A - Weight Bearing Precaution NWB right LE - Consult Perform Consult Certified Prosthetic for prosthesis construction - Skin care per protocol - Other See attached MAR (Medication Administration Record) - N/A Perform Consult Certified Prosthetic for prosthesis construction - Diet - Solid Texture Regular - Shower shower DISCHARGE PLAN: - Estimated Length of Stay (days) 11. - Consensus on plan Discharge plan has been discussed with primary caregiver. Patient/Family is in agreement with the mushtaq n. Primary caregiver is in agreement with the plan. - Patient/Family Goals Return home independently. - Planned Living Setting Upon Discharge Home, to live with Family/Relatives. Transitional Living. 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
--- NOTE | 2020-04-15 13:11 | PAPE ---
POST ADMISSION PHYSICIAN EVALUATION PATIENT: [facility] MR# [id number] REFERRING DOCTOR PRIMARY CARE PHYSICIAN ; NEPHROLOGY- DR. 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 Min Velarde M.D. ADMISSION DIAGNOSIS: RIGHT BELOW-KNEE AMPUTTION ONSET DATE 04/06/2020 POST-ADMISSION FUNCTIONAL/MEDICAL STATUS: - Bladder Same accident frequency: Ind - No accidents in the past 7 days - Bowel Same accident frequency: Ind - No accidents in the past 7 days - Walking Same score based on distance walked: 0(N/A) - Wheelchair Same score based on distance traveled: 0(N/A) STATUS CHANGE EVALUATION: No change in Functional or Medical Status is identified compared with Pre-Admission screening. PATIENT NEEDS CLOSE MEDICAL SUPERVISION BY A REHABILITATION PHYSICIAN FOR: Coordination of Treatment Team PATIENT REQUIRES 24X7 REHAB NURSING FOR MEDICAL AND FUNCTIONAL MGT. OF THE FOLLOWING DEFICITS: Disease Management Medication Management Patient/Family Education Providing Safe Environment PATIENT REQUIRES INTENSIVE, COORDINATED INTERDISCIPLINARY APPROACH TO REHAB: Arranging Home Equipment/Services Discharge Planning Family Intervention/Training Safety Manager/Case Management LIST OF IDENTIFIED AND POTENTIAL PROBLEMS: Alteration in leisure activities Bladder, Incontinence Bowel, Incontinence Infection, Actual or Potential Mobility Impaired Pain, Alteration in Comfort Self Care Deficit Skin Integrity, Actual or Potential Urinary Tract Infection (UTI), Actual or Potential PATIENT COULD BE AT RISK FOR COMPLICATIONS FROM ADVERSE MEDICAL CONDITIONS DUE TO HIS/HER COMORBIDITI ES AND THE RIGORS OF THE INTENSIVE REHABILLITATION PROGRAM. METHODS OR INTERVENTIONS TO AVOID COMPLIC ATIONS INCLUDE: - Infection Clinical staff to assess and manage the signs and symptoms of infection including fever, redness, war mth, etc. - Urinary Tract Infection - Falls Patient will be evaluated for Fall Precautions and will be placed on Fall Precautions as indicated pe r protocol. - Skin Breakdown Nursing will assess skin daily using assessment tool and will place on Skin Breakdown Precautions as indicated per protocol. - Pain Clinical staff may employ non-medication methods such as massage, distraction, decrease stimulus, etc . as needed. Clinical staff will assess patient's pain level every shift per protocol to assess and e nsure pain management effectiveness. Medications will be given and the pain level re-assessed. PRELIMINARY PLAN OF CARE: - Physical Therapy Patient needs Physical Therapy for a daily minimum of 1.5 hours at least 5 out of 7 days, to improve: Mobility, Strengthening, Transfers, Stretching, ROM, Endurance, Ability to manage stairs, Gait, and Balance. - Rehabilitation Nursing Patient requires 24x7 Rehabilitation Nursing for: Pain Issues, Identifying and preventing risk factor s, Monitoring and reporting current medical conditions, Assisting with ambulation and transfer, Beth ting with all ADL-s, Teaching patients about disease process and medications, Family teaching, Provid ing safe environment, Bowel and Bladder Issues, Skin Integrity, and Medication Management. Patient needs Safety Manager and/or Case Management for: Discharge Planning, Arranging Home Equipmen t or Services, and Family Interventions. - Dietary and Nutrition Services Patient needs Dietary and Nutrition Services for: Adequate Nutrition, Nutritional Supplements, and Nu tritional Education. - Occupational Therapy Patient needs Occupational Therapy for a daily minimum of 1.5 hours at least 5 out of 7 days, to impr ove Activities of Daily Living, including: Eating, Grooming, Bathing, Dressing, Toileting, Toilet Tra nsfers, Community Reintegration, Higher functional activities, Adaptive Equipment, Splinting, Househo ld Tasks, and Other activities as determined. QI SCORES: - Self-Care A. Eating 03-Partial/moderate assistance B. Oral hygiene 03-Partial/moderate assistance C. Toileting hygiene 03-Partial/moderate assistance E. Shower/bathe self 03-Partial/moderate assistance F. Upper body dressing 03-Partial/moderate assistance G. Lower body dressing 03-Partial/moderate assistance H. Putting on/taking off footwear 88-Not attempted due to medical condition or safety concerns - Mobility A. Roll left and right 04-Supervision or touching assistance B. Sit to lying 03-Partial/moderate assistance C. Lying to sitting on side of bed 03-Partial/moderate assistance D. Sit to stand 88-Not attempted due to medical condition or safety concerns E. Chair/mnh-zp-jewzg transfer 03-Partial/moderate assistance F. Toilet transfer 03-Partial/moderate assistance G. Car transfer 88-Not attempted due to medical condition or safety concerns I. Walk 10 feet 88-Not attempted due to medical condition or safety concerns J. Walk 50 feet with two turns 88-Not attempted due to medical condition or safety concerns K. Walk 150 feet 88-Not attempted due to medical condition or safety concerns L. Walking 10 feet on uneven surfaces 88-Not attempted due to medical condition or safety concerns M. 1 step (curb) 88-Not attempted due to medical condition or safety concerns N. 4 steps 88-Not attempted due to medical condition or safety concerns O. 12 steps 88-Not attempted due to medical condition or safety concerns P. Picking up object 88-Not attempted due to medical condition or safety concerns R. Wheel 50 feet with two turns 88-Not attempted due to medical condition or safety concerns S. Wheel 150 feet 88-Not attempted due to medical condition or safety concerns - Bladder and Bowel Bladder continence Bowel continence - Endurance Fair - Balance Fair - Safety Awareness Fair POTENTIAL FUNCTIONAL GOALS FOR PATIENT TO ACHIEVE BY DISCHARGE: - Safety Precaution Patient will remain free from falls or injury at time of discharge. - Bed Mobility Patient will perform bed mobility at 4-Cynthia level of assistance. - Transfers Patient will complete transfers from bed to chair at 4-Cynthia level of assistance. - Mobility Patient will ambulate 150 ft with 4-Cynthia level of assistance with RW. PATIENT REHAB POTENTIAL Pretty MAGALLANES is able and expected to receive 3 hours of individualized therapy daily on at least 5 o f every 7 days Pretty MAGALLANES's prognosis for significant practical improvement within a reasonable period of time ap pears Good Expected level of measurable improvement will be of a practical value to Pretty MAGALLANES's functional c apacity or adaptations to impairments Has a viable Discharge Plan Medically appropriate; condition is sufficiently stable to participate in intensive rehab program DISCHARGE PLAN: - Estimated Length of Stay (days) 11. - Consensus on plan Discharge plan has been discussed with primary caregiver. Patient/Family is in agreement with the mushtaq n. Primary caregiver is in agreement with the plan. - Patient/Family Goals Return home independently. - Planned Living Setting Upon Discharge Home, to live with Family/Relatives. Transitional Living. CONCLUSION ON REHABILITATION NECESSITY: I have evaluated patient's pre-admission functional status and, comparing it to the patient's post-ad mission functional status now, I conclude that the pre-admission assessment was accurate. Patient's c ondition on admission supports the medical necessity of admission to [facility]. It is safe to proceed with patient's therapy program. 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
--- NOTE | 2020-04-15 15:08 | FAST ---
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 Min Velarde M.D. ADMISSION DIAGNOSIS: - Amputation of Limb 05 - Bilateral Lower Limb Below the Knee (BK/BK) (05.7) RIGHT BELOW-KNEE AMPUTTION. EATING: EATING - STEP 1: Does the patient complete the activity by him/herself with no assistance (physical, verbal/nonverbal cueing, setup/clean-up)? No. EATING - STEP 2: Does the patient need only setup/clean-up assistance from one helper? Yes. 1. [id number] ADMISSION PERFORMANCE: Setup or clean-up assistance CODE: 05 ORAL HYGIENE: ORAL HYGIENE - STEP 1: Does the patient complete the activity by him/herself with no assistance (physical, verbal/nonverbal cueing, setup/clean-up)? No. ORAL HYGIENE - STEP 2: Does the patient need only setup/clean-up assistance from one helper? Yes. 1. [id number] ADMISSION PERFORMANCE: Setup or clean-up assistance CODE: 05 TOILETING HYGIENE: TOILETING HYGIENE - STEP 1: Does the patient complete the activity by him/herself with no assistance (physical, verbal/nonverbal cueing, setup/clean-up)? No. TOILETING HYGIENE - STEP 2: Does the patient need only setup/clean-up assistance from one helper? Yes. 1. [id number] ADMISSION PERFORMANCE: Setup or clean-up assistance CODE: 05 DRESSING - UPPER BODY: DRESSING - UPPER BODY - STEP 1: Does the patient complete the activity by him/herself with no assistance (physical, verbal/nonverbal cueing, setup/clean-up)? No. DRESSING - UPPER BODY - STEP 2: Does the patient need only setup/clean-up assistance from one helper? Yes. 1. [id number] ADMISSION PERFORMANCE: Setup or clean-up assistance CODE: 05 DRESSING - LOWER BODY: DRESSING - LOWER BODY - STEP 1: Does the patient complete the activity by him/herself with no assistance (physical, verbal/nonverbal cueing, setup/clean-up)? No. DRESSING - LOWER BODY - STEP 2: Does the patient need only setup/clean-up assistance from one helper? Yes. 1. [id number] ADMISSION PERFORMANCE: Setup or clean-up assistance CODE: 05 PUTTING ON/TAKING OFF FOOTWEAR: FOOTWEAR - STEP 1: Does the patient complete the activity by him/herself with no assistance (physical, verbal/nonverbal cueing, setup/clean-up)? Yes. 1. [id number] ADMISSION PERFORMANCE: Independent CODE: 06 ROLL LEFT AND RIGHT: ROLL LEFT AND RIGHT - STEP 1: Does the patient complete the activity by him/herself with no assistance (physical, verbal/nonverbal cueing, setup/clean-up)? No. ROLL LEFT AND RIGHT - STEP 2: Does the patient need only setup/clean-up assistance from one helper? Yes. 1. [id number] ADMISSION PERFORMANCE: Setup or clean-up assistance CODE: 05 SIT TO LYING: SIT TO LYING - STEP 1: Does the patient complete the activity by him/herself with no assistance (physical, verbal/nonverbal cueing, setup/clean-up)? No. SIT TO LYING - STEP 2: Does the patient need only setup/clean-up assistance from one helper? Yes. 1. [id number] ADMISSION PERFORMANCE: Setup or clean-up assistance CODE: 05 LYING TO SITTING: LYING TO SITTING ON SIDE OF BED - STEP 1: Does the patient complete the activity by him/herself with no assistance (physical, verbal/nonverbal cueing, setup/clean-up)? No. LYING TO SITTING ON SIDE OF BED - STEP 2: Does the patient need only setup/clean-up assistance from one helper? Yes. 1. [id number] ADMISSION PERFORMANCE: Setup or clean-up assistance CODE: 05 SIT TO STAND: SIT TO STAND - STEP 1: Does the patient complete the activity by him/herself with no assistance (physical, verbal/nonverbal cueing, setup/clean-up)? No. SIT TO STAND - STEP 2: Does the patient need only setup/clean-up assistance from one helper? No. SIT TO STAND - STEP 3: Does the patient need only verbal/nonverbal cueing or touching/steadying/contact guard assistance fro m one helper? Yes. 1. [id number] ADMISSION PERFORMANCE: Supervision or touching assistance CODE: 04 TRANSFERS: BED, CHAIR: CHAIR/[id number] TRANSFER - STEP 1: Does the patient complete the activity by him/herself with no assistance (physical, verbal/nonverbal cueing, setup/clean-up)? No. CHAIR/[id number] TRANSFER - STEP 2: Does the patient need only setup/clean-up assistance from one helper? Yes. 1. [id number] ADMISSION PERFORMANCE: Setup or clean-up assistance CODE: 05 TRANSFER TOILET: TOILET TRANSFER - STEP 1: Does the patient complete the activity by him/herself with no assistance (physical, verbal/nonverbal cueing, setup/clean-up)? No. TOILET TRANSFER - STEP 2: Does the patient need only setup/clean-up assistance from one helper? Yes. 1. [id number] ADMISSION PERFORMANCE: Setup or clean-up assistance CODE: 05 TRANSFERS: CAR: Not assessed/no information CODE: - WALK 10 FEET: Not assessed/no information CODE: - 1 STEP (CURB): Not assessed/no information CODE: - PICKING UP OBJECT: Not assessed/no information CODE: - DOES THE PATIENT USE A WHEELCHAIR/SCOOTER? Q1. DOES THE PATIENT USE A WHEELCHAIR/SCOOTER?: Yes CODE: 1 WHEEL 50 FEET WITH TWO TURNS: WHEEL 50 FEET WITH TWO TURNS - STEP 1: Does the patient complete the activity by him/herself with no assistance (physical, verbal/nonverbal cueing, setup/clean-up)? Yes. 1. [id number] ADMISSION PERFORMANCE: Independent CODE: 06 INDICATE THE TYPE OF WHEELCHAIR/SCOOTER USED: RR1. INDICATE THE TYPE OF WHEELCHAIR/SCOOTER USED.: Manual CODE: 1 WHEEL 150 FEET: WHEEL 150 FEET - STEP 1: Does the patient complete the activity by him/herself with no assistance (physical, verbal/nonverbal cueing, setup/clean-up)? Yes. 1. [id number] ADMISSION PERFORMANCE: Independent CODE: 06 INDICATE THE TYPE OF WHEELCHAIR/SCOOTER USED: SS1. INDICATE THE TYPE OF WHEELCHAIR/SCOOTER USED.: Manual CODE: 1 BLADDER AND BOWEL: H350. BLADDER CONTINENCE (3-DAY ASSESSMENT PERIOD): No urine output (e.g., renal failure) CODE: 5 H400. BOWEL CONTINENCE (3-DAY ASSESSMENT PERIOD): Always continent CODE: 0 SIGNATURE PANEL: The following modified sections: 1. [id number] Admission Performance, 1. [id number] Admission Performance, 1. [id number] Admission Performance, 1. [id number] Admission Performance, 1. [id number] Admission Performance, 1. LC0610c Admission Performance, 1. [id number] Admission Performance, 1. [id number] Admission Performance , 1. [id number] Admission Performance, 1. [id number] Admission Performance, 1. [id number] Admission Performanc e, 1. [id number] Admission Performance, Q1. Does the patient use a wheelchair/scooter?, 1. [id number] Admis luisa Performance, RR1. Indicate the type of wheelchair/scooter used., 1. [id number] Admission Performanc e, 1. [id number] Admission Performance, Code, SS1. Indicate the type of wheelchair/scooter used., H350. Bladder Continence (3-day assessment period), H350. Bladder Continence (3-day assessment period), H40 0. Bowel Continence (3-day assessment period) were [electronically] signed by Haritha GordonNAlize on SunApr 15 2020 15:07:00 GMT-0600 (Central Standard Time)
[2020-04-15] MEDS: ATORVASTATIN 10 MG TAB PO SCH (20:50)
[2020-04-16] MEDS: ACETAMINOPHEN 325 MG TABLET PO PRN ×2 (01:25→08:15)
[2020-04-16] MEDS: carvediloL 6.25 MG TAB PO SCH (05:05)
[2020-04-16] MEDS: HEPARIN 5000 UNIT/ML 1 ML VIAL SQ SCH ×2 (06:24→17:58)
[2020-04-16] MEDS: INSULIN -REGULAR HUMAN 50 UNIT/0.5 ML ML SQ SCH ×4 (07:30→20:46)
[2020-04-16] MEDS: NIFEDIPINE XL 30 MG TABLET PO SCH ×2 (08:00→13:59)
[2020-04-16] MEDS: HYDRALAZINE HCL 25 MG TABLET PO SCH ×2 (08:00→14:00)
[2020-04-16] MEDS: VELTASSA PO SCH (08:00)
[2020-04-16] MEDS ORDERED: [UNRECOGNIZED DRUG - OTHER] PO SCH (08:00)
[2020-04-16] MEDS: INSULIN GLARGINE 100 UNITS/ML SQ SCH (08:13)
[2020-04-16] MEDS: POLYVINYL ALCOHOL 1.4% 15 ML EACH EYE PRN ×2 (08:14→19:09)
[2020-04-16] MEDS: MUPIROCIN 2% OINT 22GM TUBE TOP SCH ×2 (08:14→19:09)
[2020-04-16] MEDS: VITAMIN D 1000 UNIT TAB PO SCH (08:15)
[2020-04-16] MEDS: SEVELAMER CARBONATE 800 MG TABLET PO SCH ×3 (08:15→17:03)
[2020-04-16] MEDS: FERROUS SULFATE 325 MG TAB PO SCH (08:17)
[2020-04-16] MEDS: MULTIVITAMINS,THERAPEUT 1 TAB PO SCH (08:17)
[2020-04-16] MEDS: CALCITROL 0.25 MCG CAP PO SCH (08:17)
[2020-04-16] MEDS: ASPIRIN 81 MG CHEWABLE TABLET PO SCH (08:17)
[2020-04-16] MEDS: TRAMADOL HCL 50 MG TAB PO PRN (10:33)
[2020-04-16] MEDS: GABAPENTIN 100 MG CAP PO SCH ×2 (10:33→19:09)
[2020-04-16] MEDS: EPOETIN 4,000 UNIT/ML VIAL IV SCH (14:45)
[2020-04-16] MEDS: GABAPENTIN 300 MG CAP PO SCH (15:38)
[2020-04-16] MEDS: levoFLOXacin 500 MG TAB PO SCH (15:38)
[2020-04-16] MEDS: ATORVASTATIN 10 MG TAB PO SCH (19:09)
--- NOTE | 2020-04-16 22:37 | PN ---
Date of Progress Note: 04/16/2020 Chief Complaint: End-stage renal disease, on dialysis. History Of Present Illness: Patient is undergoing dialysis 3 times per week. Today, he had dialysis done with ultrafiltration. Procedure was well tolerated. Patient is undergoing wound care and reha b after BKA was done for osteomyelitis and gangrene of the right foot. Review of Systems: Denies PND, orthopnea. Physical Examination: Lungs: Diminished breath sounds at bases. Heart: S1, S2. Abdomen: Soft, benign. Extremities: No edema. Impression And Plan: 1.End-stage renal disease. Continue dialysis 3 times per week. Monitor electrolytes. Adjust dialy sis parameters accordingly. 2.Mild fluid overload. Patient responded to IV fluids. Monitor fluid balance and electrolytes. 3.Right foot osteomyelitis status post below-knee amputation. Culture showed methicillin-resistant Staphylococcus aureus and enterococcus faecalis. Continue antibiotics. 4.Hypertension. Blood pressure controlled. Monitor blood pressure during dialysis. Adjust ultrafi ltration goal accordingly. EB/MODL Voice ID: [id number] Report ID: [id number]
[2020-04-17] MEDS: carvediloL 6.25 MG TAB PO SCH (05:05)
[2020-04-17] MEDS: INSULIN -REGULAR HUMAN 50 UNIT/0.5 ML ML SQ SCH ×4 (07:30→20:29)
[2020-04-17] MEDS: VELTASSA PO SCH (08:00)
[2020-04-17] MEDS: MUPIROCIN 2% OINT 22GM TUBE TOP SCH ×2 (08:00→19:15)
[2020-04-17] MEDS: GABAPENTIN 100 MG CAP PO SCH ×2 (08:11→19:15)
[2020-04-17] MEDS: FERROUS SULFATE 325 MG TAB PO SCH (08:11)
[2020-04-17] MEDS: VITAMIN D 1000 UNIT TAB PO SCH (08:11)
[2020-04-17] MEDS: HYDRALAZINE HCL 25 MG TABLET PO SCH (08:12)
[2020-04-17] MEDS: ASPIRIN 81 MG CHEWABLE TABLET PO SCH (08:12)
[2020-04-17] MEDS: MULTIVITAMINS,THERAPEUT 1 TAB PO SCH (08:12)
[2020-04-17] MEDS: CALCITROL 0.25 MCG CAP PO SCH (08:12)
[2020-04-17] MEDS: SEVELAMER CARBONATE 800 MG TABLET PO SCH ×3 (08:12→17:01)
[2020-04-17] MEDS: INSULIN GLARGINE 100 UNITS/ML SQ SCH (08:53)
[2020-04-17] MEDS: NIFEDIPINE XL 30 MG TABLET PO SCH (08:55)
[2020-04-17] MEDS: HEPARIN 5000 UNIT/ML 1 ML VIAL SQ SCH ×2 (09:00→20:00)
[2020-04-17] MEDS: POLYETHYL GLY 3350 17 GM/DOSE PO PRN (12:57)
[2020-04-17] MEDS: POLYVINYL ALCOHOL 1.4% 15 ML EACH EYE PRN (19:15)
[2020-04-17] MEDS: ATORVASTATIN 10 MG TAB PO SCH (19:15)
[2020-04-17] MEDS: TRAMADOL HCL 50 MG TAB PO PRN (22:19)
[2020-04-18] MEDS: carvediloL 6.25 MG TAB PO SCH (05:45)
[2020-04-18] MEDS: HEPARIN 5000 UNIT/ML 1 ML VIAL SQ SCH ×2 (07:15→20:00)
[2020-04-18] MEDS: INSULIN -REGULAR HUMAN 50 UNIT/0.5 ML ML SQ SCH ×4 (07:30→21:00)
[2020-04-18] MEDS: MUPIROCIN 2% OINT 22GM TUBE TOP SCH ×2 (08:00→20:00)
[2020-04-18] MEDS: VELTASSA PO SCH (08:00)
[2020-04-18] MEDS ORDERED: ERGOCALCIFEROL 1250 MCG PO SCH (08:00)
[2020-04-18] MEDS: CALCITROL 0.25 MCG CAP PO SCH (08:28)
[2020-04-18] MEDS: MULTIVITAMINS,THERAPEUT 1 TAB PO SCH (08:29)
[2020-04-18] MEDS: VITAMIN D 1000 UNIT TAB PO SCH (08:29)
[2020-04-18] MEDS: HYDRALAZINE HCL 25 MG TABLET PO SCH (08:29)
[2020-04-18] MEDS: SEVELAMER CARBONATE 800 MG TABLET PO SCH ×3 (08:29→17:10)
[2020-04-18] MEDS: ASPIRIN 81 MG CHEWABLE TABLET PO SCH (08:29)
[2020-04-18] MEDS: FERROUS SULFATE 325 MG TAB PO SCH (08:30)
[2020-04-18] MEDS: INSULIN GLARGINE 100 UNITS/ML SQ SCH (08:32)
[2020-04-18] MEDS: GABAPENTIN 100 MG CAP PO SCH ×2 (08:32→20:18)
[2020-04-18] MEDS: NIFEDIPINE XL 30 MG TABLET PO SCH (09:16)
[2020-04-18] MEDS: POLYETHYL GLY 3350 17 GM/DOSE PO PRN (17:10)
[2020-04-18] MEDS: levoFLOXacin 500 MG TAB PO SCH (17:10)
--- NOTE | 2020-04-18 20:15 | PN ---
Date of Progress Note: 04/17/2020 Chief Complaint: 1.End-stage renal disease, on hemodialysis 3 times per week. The patient underwent dialysis yesterd ay without agitation. He tolerated the procedure. The patient is euvolemic. He is on p.o. fluid re striction and low-potassium diet. 2.The patient has history of hyperkalemia. He was instructed about low-potassium diet. 3.The patient is undergoing wound care and rehab after BKA was done for osteomyelitis and gangrene o f the right foot. Review of Systems: Denies PND or orthopnea. Physical Examination: Lungs: Diminished breath sounds at bases. Heart: S1 and S2. Abdomen: Soft, benign. Extremities: No edema. No clubbing. No cyanosis. Impression And Plan: 1.End-stage renal disease. Continue dialysis 3 times per week. The patient was complaining of some discomfort at the right eye and plan is to treat Doppler with fistula and venous circulation to rule out deep vein thrombosis. 2.Mild fluid overload. Continue p.o. section. The patient underwent dialysis and volemia has impro zohaib. 3.Right foot osteomyelitis, status post below-knee amputation. Culture showed methicillin-resistant Staphylococcal aureus and Enterococcus faecalis. Continue antibiotics. 4.Hypertension. Continue blood pressure medication and monitor blood pressure during dialysis. Adj ust ultrafiltration accordingly to prevent intradialytic hypotension. 5.Renal osteodystrophy. Continue renal diet. Adjust binders according to phosphorus level. EB/MODL Voice ID: [id number] Report ID: [id number]
[2020-04-18] MEDS: ATORVASTATIN 10 MG TAB PO SCH (20:18)
[2020-04-18] MEDS: POLYVINYL ALCOHOL 1.4% 15 ML EACH EYE PRN (20:19)
--- NOTE | 2020-04-19 01:27 | PN ---
Date of Progress Note: 04/18/2020 Chief Complaint: End-stage renal disease, on hemodialysis. Patient is undergoing rehab after he had BKA done for osteomyelitis and gangrene of the right foot. Patient had diabetic kidney disease, per ipheral neuropathy, nephropathy, retinopathy. Review of Systems: Denies PND or orthopnea. Physical Examination: General: Not in acute distress. Heart: S1, S2. Abdomen: Soft, benign. Extremities: No edema, no clubbing, no cyanosis. Impression And Plan: 1.End-stage renal dialysis. Continue dialysis 3 times per week. Next dialysis tomorrow. Monitor e lectrolytes. Adjust dialysis parameters. Patient has history of hyperkalemia. Recently done potass ium level was 5.0. Continue p.o. fluid restriction. Blood work will be done tomorrow to check elect rolytes. 2.Hypertension. Continue blood pressure medication. Adjust ultrafiltration for volume control. 3.Renal osteodystrophy. Continue renal diet and binders. EB/MODL Voice ID: [id number] Report ID: [id number]
[2020-04-19] MEDS: carvediloL 6.25 MG TAB PO SCH (05:29)
[2020-04-19] MEDS: HYDRALAZINE HCL 25 MG TABLET PO SCH (05:31)
[2020-04-19] MEDS: TRAMADOL HCL 50 MG TAB PO PRN ×2 (05:34→19:48)
[2020-04-19] MEDS: HEPARIN 5000 UNIT/ML 1 ML VIAL SQ SCH ×2 (06:12→18:27)
[2020-04-19 06:31] LABS: Basophils % 1.6 % (0-1.3); Hematocrit 24.4 % (39.6-49.0); Lymphocytes % 24.3 % (15.3-44.8); MPV 8.1 fL (7.6-11.3); RBC Red Blood Cell Count 2.49 M/uL (4.33-5.43)
[2020-04-19 06:40] LABS: Potassium 6.7 mmol/L (3.5-5.1)
[2020-04-19] MEDS: POLYVINYL ALCOHOL 1.4% 15 ML EACH EYE PRN (06:44)
[2020-04-19] MEDS ORDERED: SOD POLYSTYREN SUL 15 GM/60 ML UCUP PO ONE (07:19)
[2020-04-19] MEDS ORDERED: ALBUTEROL 2.5 MG/3 ML NEB SOL NEB ONE (07:20)
[2020-04-19] MEDS: INSULIN -REGULAR HUMAN 50 UNIT/0.5 ML ML SQ SCH ×4 (07:30→19:40)
[2020-04-19] MEDS: INSULIN GLARGINE 100 UNITS/ML SQ SCH ×2 (07:43→08:00)
[2020-04-19] MEDS: FERROUS SULFATE 325 MG TAB PO SCH (07:44)
[2020-04-19] MEDS: VITAMIN D 1000 UNIT TAB PO SCH (07:44)
[2020-04-19] MEDS: GABAPENTIN 100 MG CAP PO SCH ×2 (07:44→19:40)
[2020-04-19] MEDS: SEVELAMER CARBONATE 800 MG TABLET PO SCH ×3 (07:44→17:30)
[2020-04-19] MEDS: MUPIROCIN 2% OINT 22GM TUBE TOP SCH ×2 (07:44→19:40)
[2020-04-19] MEDS: MULTIVITAMINS,THERAPEUT 1 TAB PO SCH (07:44)
[2020-04-19] MEDS: CALCITROL 0.25 MCG CAP PO SCH (07:45)
[2020-04-19] MEDS: ASPIRIN 81 MG CHEWABLE TABLET PO SCH (07:45)
[2020-04-19] MEDS: NIFEDIPINE XL 30 MG TABLET PO SCH (07:45)
[2020-04-19] MEDS: VELTASSA PO SCH (07:45)
[2020-04-19] MEDS: EPOETIN 4,000 UNIT/ML VIAL IV SCH (11:17)
[2020-04-19] MEDS: ACETAMINOPHEN 325 MG TABLET PO PRN (12:56)
[2020-04-19] MEDS: GABAPENTIN 300 MG CAP PO SCH (13:02)
[2020-04-19] MEDS: POLYETHYL GLY 3350 17 GM/DOSE PO PRN (15:25)
--- NOTE | 2020-04-19 16:51 | RAD REPORT ---
EXAM DESCRIPTION: US - UPPER EXTREMITY VENOUS UNILATE - 04/19/2020 4:32 pm CLINICAL HISTORY: Right upper extremity pain COMPARISON: 2012 FINDINGS: The right internal jugular, subclavian, brachial, axillary, cephalic, basilic, radial and ulnar veins demonstrate phasic signal. The veins are generally compressible. Doppler demonstrates good flow IMPRESSION: No evidence of thrombus involving the right upper extremity
[2020-04-19] MEDS ORDERED: D50W 25 GM/50 ML VIAL IV PRN (16:57)
--- NOTE | 2020-04-19 17:15 | R.PN ---
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 Pt denied any Shortness of Breath. Right BKA and chronic left BKA with pain in the heeling right stump. Ambulated 300' with contact guard assistance using a rolling walker. WBC 8.4, Hbg 8.1, Plt 413, K+ 6.7 and Occupational Physician 9.80, glucose 90 to 187. He has hemodialysis today managed by the renal service. COVID-19 is negative. VITAL SIGNS Temperature: 97.4F SBP/DBP: 151/45 Pulse: 60 Resp: 16 MEDICATION ALLERGIES: No Known Drug Allergies (NKDA) ENVIRONMENTAL ALLERGIES: - Substance Allergies None Known - Other Allergies None Known CONSULT: Perform Consult Certified Prosthetic for prosthesis construction NURSING: - Shower allowing shower - Skin care per protocol PRECAUTIONS: - Weight Bearing Precaution NWB right LE ACTIVITIES OOB only with supervision THERAPIES: - Orthotics/Prosthetics Prosthetic Evaluation. - Dietary and Nutrition Adequate Nutrition. Nutritional Education. Nutritional Supplements. PHYSICAL EXAM - Gen Alert and awake Lying in bed No apparent distress Oriented to: person, time, and place - Skin No skin breakdown. No abnormalities - Eyes No abnormalities - ENMT No abnormalities - Neck No abnormalities No cervical adenopathy - CVS RRR - Chest No abnormalities - Resp Clear to auscultation - Abd Soft - GI Soft Deferred - No abnormalities - Ext No significant edema - MSK 4+/5 weakness in both lower extremities. - Neuro 4/5 strength right lower extremity. - Psych No abnormalities ASSESSMENT: Pt. is a 54 yo Right-handed male of unknown race.On 04/06/2020 he was admitted to [facility] with diagnosis RIGHT BELOW-KNEE AMPUTTION.His impairment category is Amputation of Limb 05 - Bi lateral Lower Limb Below the Knee (BK/BK) (05.7).Pre-morbidly, Pt. was independent/mod-I in Safety Aw areness, Transfers Control, Sphincter Control, and Self-Care; and he had good Safety Awareness, Michelet ce, Endurance, and Locomotion.Currently, he has deficits of Safety Awareness, Locomotion, Balance, Tr ansfers Control, Endurance, and Sphincter Control.Pt. is now referred to [facility] for acute in-patient rehabilitation in order to maximize patient's functional independence in a ctivities of daily living, strength, ROM, and mobility.- Rehab Goal Patient has realistic goal of being discharged at assistance level 7-Ind to reside at Home with Fami ly/Relatives. MDM/PLAN: - Physical Therapy Inability to transfer - to improve, our physical therapists will perform initial evaluation of pt's status upon admission and devise an individualized program for Bed mobility Need for home safety evaluation - to improve, our physical therapists will perform initial evaluatio n of pt's status upon admission and devise an individualized program for Home Evaluation Need in caregiver upon discharge - to improve, our physical therapists will perform initial evaluati on of pt's status upon admission and devise an individualized program for Caregiver Training New precaution - to improve, our physical therapists will perform initial evaluation of pt's status upon admission and devise an individualized program for Patient precaution education Edema - to improve, our physical therapists will perform initial evaluation of pt's status upon admis luisa and devise an individualized program for Elevation Training, and Lymphedema Therapy Poor balance - to improve, our physical therapists will perform initial evaluation of pt's status up on admission and devise an individualized program for Balance Training Poor endurance - to improve, our physical therapists will perform initial evaluation of pt's status upon admission and devise an individualized program for Endurance Training Achieving independence - to improve, our physical therapists will perform initial evaluation of pt's status upon admission and devise an individualized program for Community Reintegration Activities - Occupational Therapy Need for care management associate - to improve, our occupation therapists will perform initial evaluation of pt's status upon admission and devise an individualized program for Caregiver Training - Other See attached MAR (Medication Administration Record) - Diet Type Continue Regular - Diet - Liquid Texture Continue Regular - Tube Feed Continue N/A - Weight Bearing Precaution NWB right LE - Consult Perform Consult Certified Prosthetic for prosthesis construction - Skin care per protocol - N/A Perform Consult Certified Prosthetic for prosthesis construction - Diet - Solid Texture Continue Regular - Shower allowing shower FUNCTIONAL STATUS: UPDATED AT WEEKLY TEAM CONFERENCE - Bladder Same accident frequency: 7-Ind - No accidents in the past 7 days - Bowel Same accident frequency: 7-Ind - No accidents in the past 7 days - Walking Same score based on distance walked: 0(N/A) - Wheelchair Same score based on distance traveled: 0(N/A) FUNCTIONAL STATUS: - Self-Care A. Eating sup B. Grooming Gera C. Bathing Cynthia D. Dressing - Upper sup E. Dressing - Lower Cynthia F. Toileting Cynthia - Sphincter Control G. Bladder control modA H. Bowel control Gera - Transfers Control I. Bed/Chair/Wheelchair sup J. Toilet sup K. Tub/Shower Cynthia - Locomotion L. Walk/Wheelchair (B) sup M. Stairs modA - Communication N. Comprehension (B) Gera O. Expression (B) Gera - Social Cognition P. Social Interaction Gera Q. Problem Solving Gera R. Memory Gera - Endurance Good - Balance Fair - Safety Awareness Fair QI SCORES: - Self-Care A. Eating 03-Partial/moderate assistance B. Oral hygiene 03-Partial/moderate assistance C. Toileting hygiene 03-Partial/moderate assistance E. Shower/bathe self 03-Partial/moderate assistance F. Upper body dressing 03-Partial/moderate assistance G. Lower body dressing 03-Partial/moderate assistance H. Putting on/taking off footwear 88-Not attempted due to medical condition or safety concerns - Mobility A. Roll left and right 04-Supervision or touching assistance B. Sit to lying 03-Partial/moderate assistance C. Lying to sitting on side of bed 03-Partial/moderate assistance D. Sit to stand 88-Not attempted due to medical condition or safety concerns E. Chair/trw-uo-srhiz transfer 03-Partial/moderate assistance F. Toilet transfer 03-Partial/moderate assistance G. Car transfer 88-Not attempted due to medical condition or safety concerns I. Walk 10 feet 88-Not attempted due to medical condition or safety concerns J. Walk 50 feet with two turns 88-Not attempted due to medical condition or safety concerns K. Walk 150 feet 88-Not attempted due to medical condition or safety concerns L. Walking 10 feet on uneven surfaces 88-Not attempted due to medical condition or safety concerns M. 1 step (curb) 88-Not attempted due to medical condition or safety concerns N. 4 steps 88-Not attempted due to medical condition or safety concerns O. 12 steps 88-Not attempted due to medical condition or safety concerns P. Picking up object 88-Not attempted due to medical condition or safety concerns R. Wheel 50 feet with two turns 88-Not attempted due to medical condition or safety concerns S. Wheel 150 feet 88-Not attempted due to medical condition or safety concerns - Bladder and Bowel Bladder continence Bowel continence - Endurance Fair - Balance Fair - Safety Awareness Fair CURRENT [facility]. 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
--- NOTE | 2020-04-19 17:18 | P.PN ---
Date of Service: 04/19/20 Due to scheduled hemodialysis and untrasound studies, Mr. Baez cannot get a full day of physical and occupational therapy today. This will be made up over the next 2-3 days.
[2020-04-19 17:51] LABS: Potassium 4.9 mmol/L (3.5-5.1)
[2020-04-19] MEDS: DOCUSATE NA/SENNA CONC 1 TAB PO PRN (19:39)
[2020-04-19] MEDS: ATORVASTATIN 10 MG TAB PO SCH (19:40)
--- NOTE | 2020-04-19 19:45 | RAD REPORT ---
EXAM DESCRIPTION: CT - Upper Extremity Wo Contr - 04/19/2020 7:19 pm CLINICAL HISTORY: Arm pain COMPARISON: Ultrasound April 19, 2020 TECHNIQUE: Computed axial tomography of the right arm was obtained from above the shoulder to above the elbow All CT scans are performed using dose optimization technique as appropriate and may include automated exposure control or mA/KV adjustment according to patient size. FINDINGS: An AV graft is present within the anterior aspect of the upper arm. A 27 x 16 millimeter fluid collection abuts the graft at the mid to lower aspect of the right humerus . Contrast was not administered during this exam. However, ultrasound demonstrates flow within this c ompatible with a pseudo aneurysm. . 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
--- NOTE | 2020-04-19 22:15 | PN ---
Date of Progress Note: 04/18/2020 End-stage renal disease on hemodialysis. The patient is undergoing rehab after he had BKA done for o steomyelitis and gangrene of the right foot. Patient has diabetic kidney disease, peripheral neuropa thy, nephropathy, retinopathy. Today, Doppler of the right upper extremity and Doppler of the AV gra ft was ordered for evaluation. Review of Systems: Patient developed hyperkalemia today and had stat dialysis with 1 potassium. Patient denies chest pa in, palpitation, syncope. Physical Examination: Lungs: Diminished breath sounds at bases. Heart: S1, S2. Abdomen: Soft, benign. Extremities: No edema. Impression And Plan: 1.End-stage renal disease. Continue dialysis 3 times per week. Patient will have low-potassium t and plan is to start low dose of Kayexalate to prevent hyperkalemia. 2.Hypertension. Continue blood pressure medication. 3.Renal osteodystrophy. Continue renal diet and binders. EB/MODL Voice ID: [id number] Report ID: [id number]
[2020-04-20] MEDS: carvediloL 6.25 MG TAB PO SCH (05:06)
[2020-04-20 05:13] LABS: Potassium 5.8 mmol/L (3.5-5.1)
[2020-04-20] MEDS: HEPARIN 5000 UNIT/ML 1 ML VIAL SQ SCH ×2 (06:20→18:18)
[2020-04-20] MEDS: POLYVINYL ALCOHOL 1.4% 15 ML EACH EYE PRN (06:28)
[2020-04-20] MEDS: HYDRALAZINE HCL 25 MG TABLET PO SCH (06:48)
[2020-04-20] MEDS: NIFEDIPINE XL 30 MG TABLET PO SCH (06:48)
[2020-04-20] MEDS: INSULIN -REGULAR HUMAN 50 UNIT/0.5 ML ML SQ SCH ×4 (07:30→20:13)
[2020-04-20] MEDS: SOD POLYSTYREN SUL 15 GM/60 ML UCUP PO SCH (08:05)
[2020-04-20] MEDS: SEVELAMER CARBONATE 800 MG TABLET PO SCH ×3 (08:06→17:28)
[2020-04-20] MEDS: MULTIVITAMINS,THERAPEUT 1 TAB PO SCH (08:06)
[2020-04-20] MEDS: FERROUS SULFATE 325 MG TAB PO SCH (08:06)
[2020-04-20] MEDS: INSULIN GLARGINE 100 UNITS/ML SQ SCH (08:06)
[2020-04-20] MEDS: VITAMIN D 1000 UNIT TAB PO SCH (08:06)
[2020-04-20] MEDS: CALCITROL 0.25 MCG CAP PO SCH (08:07)
[2020-04-20] MEDS: GABAPENTIN 100 MG CAP PO SCH ×2 (08:07→20:13)
[2020-04-20] MEDS: ASPIRIN 81 MG CHEWABLE TABLET PO SCH (08:07)
[2020-04-20] MEDS: ACETAMINOPHEN 325 MG TABLET PO PRN (08:32)
[2020-04-20] MEDS: MUPIROCIN 2% OINT 22GM TUBE TOP SCH ×2 (08:34→20:13)
[2020-04-20] MEDS: PROMETHAZINE 25 MG TABLET PO PRN (10:01)
--- NOTE | 2020-04-20 15:02 | PN ---
Date of Progress Note: 04/20/2020 Subjective: The patient was admitted for rehabilitation. The patient had been on rehabilitation for a week. Objective: Vital Signs: Blood pressure 129/60, pulse of 60. Chest: Clear to auscultation. Heart: S1, S2 regular. Abdomen: Soft, nontender. Extremities: Bilateral below-knee amputation. Laboratory Data: Sodium 120, potassium 5.8. Current Medications: The patient on aspirin, promethazine, cetirizine, Epogen, ferrous sulfate, atorvastatin, carvedilol, nifedipine, hydralazine, Tylenol, Renvela. Assessment And Plan: 1. End-stage renal disease with hyperkalemia. I am going to do another session of dialysis on 1K today and we will follow up. We are not going to remove any fluid. Patient with normal volume. 2. Hyperkalemia, possible secondary to poor clearance secondary to recirculation phenomenon, secondary to central stenosis for the patient. We will repeat dialysis today. The patient is going to need angiogram with angioplasty as outpatient. 3. Anemia of chronic kidney disease. Continue SHERIF. 4. Deconditioning. Continue PT, OT. time spend exam the patient face to face , place order , discussed the case with other steam oven operator hospitalist and other customer care voice consultant 45 min. PELON Voice ID: [id number] Report ID: [id number] YAMIL
[2020-04-20] MEDS: GABAPENTIN 300 MG CAP PO SCH (17:30)
--- NOTE | 2020-04-20 18:05 | R.PN ---
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 Pt denied any Shortness of Breath. Right BKA and chronic left BKA with pain in the heeling right stump. Ambulated 405' with standby assistance using a rolling walker. WBC 8.4, Hbg 8.1, Plt 413, K+ 5.8 and Formula Clerk 7.34, glucose 100 to 135. He has hemodialysis today managed by the renal service. COVID-19 is negative. VITAL SIGNS Temperature: 97.7 F SBP/DBP: 129/60 Pulse: 60 Resp: 16 MEDICATION ALLERGIES: No Known Drug Allergies (NKDA) ENVIRONMENTAL ALLERGIES: - Substance Allergies None Known - Other Allergies None Known CONSULT: Perform Consult Certified Prosthetic for prosthesis construction NURSING: - Shower allowing shower - Skin care per protocol PRECAUTIONS: - Weight Bearing Precaution NWB right LE ACTIVITIES OOB only with supervision THERAPIES: - Orthotics/Prosthetics Prosthetic Evaluation. - Dietary and Nutrition Adequate Nutrition. Nutritional Education. Nutritional Supplements. PHYSICAL EXAM - Gen Alert and awake Lying in bed No apparent distress Oriented to: person, time, and place - Skin No skin breakdown. No abnormalities - Eyes No abnormalities - ENMT No abnormalities - Neck No abnormalities No cervical adenopathy - CVS RRR - Chest No abnormalities - Resp Clear to auscultation - Abd Soft - GI Soft Deferred - No abnormalities - Ext No significant edema - MSK 4+/5 weakness in both lower extremities. - Neuro 4/5 strength right lower extremity. - Psych No abnormalities ASSESSMENT: Pt. is a 54 yo Right-handed male of unknown race.On 04/06/2020 he was admitted to [facility] with diagnosis RIGHT BELOW-KNEE AMPUTTION.His impairment category is Amputation of Limb 05 - Bi lateral Lower Limb Below the Knee (BK/BK) (05.7).Pre-morbidly, Pt. was independent/mod-I in Safety Aw areness, Transfers Control, Sphincter Control, and Self-Care; and he had good Safety Awareness, Michelet ce, Endurance, and Locomotion.Currently, he has deficits of Safety Awareness, Locomotion, Balance, Tr ansfers Control, Endurance, and Sphincter Control.Pt. is now referred to [facility] for acute in-patient rehabilitation in order to maximize patient's functional independence in a ctivities of daily living, strength, ROM, and mobility.- Rehab Goal Patient has realistic goal of being discharged at assistance level 7-Ind to reside at Home with Fami ly/Relatives. MDM/PLAN: - Physical Therapy Inability to transfer - to improve, our physical therapists will perform initial evaluation of pt's status upon admission and devise an individualized program for Bed mobility Need for home safety evaluation - to improve, our physical therapists will perform initial evaluatio n of pt's status upon admission and devise an individualized program for Home Evaluation Need in caregiver upon discharge - to improve, our physical therapists will perform initial evaluati on of pt's status upon admission and devise an individualized program for Caregiver Training New precaution - to improve, our physical therapists will perform initial evaluation of pt's status upon admission and devise an individualized program for Patient precaution education Edema - to improve, our physical therapists will perform initial evaluation of pt's status upon admi ssion and devise an individualized program for Elevation Training, and Lymphedema Therapy Poor balance - to improve, our physical therapists will perform initial evaluation of pt's status up on admission and devise an individualized program for Balance Training Poor endurance - to improve, our physical therapists will perform initial evaluation of pt's status upon admission and devise an individualized program for Endurance Training Achieving independence - to improve, our physical therapists will perform initial evaluation of pt's status upon admission and devise an individualized program for Community Reintegration Activities - Occupational Therapy Need for health and social care teacher - to improve, our occupation therapists will perform initial evaluation of pt's status upon admission and devise an individualized program for Caregiver Training - Other See attached MAR (Medication Administration Record) - Diet Type Continue Regular - Diet - Liquid Texture Continue Regular - Tube Feed Continue N/A - Weight Bearing Precaution NWB right LE - Consult Perform Consult Certified Prosthetic for prosthesis construction - Skin care per protocol - N/A Perform Consult Certified Prosthetic for prosthesis construction - Diet - Solid Texture Continue Regular - Shower allowing shower FUNCTIONAL STATUS: UPDATED AT WEEKLY TEAM CONFERENCE - Bladder Same accident frequency: 7-Ind - No accidents in the past 7 days - Bowel Same accident frequency: 7-Ind - No accidents in the past 7 days - Walking Same score based on distance walked: 0(N/A) - Wheelchair Same score based on distance traveled: 0(N/A) FUNCTIONAL STATUS: - Self-Care A. Eating sup B. Grooming Gera C. Bathing Cynthia D. Dressing - Upper sup E. Dressing - Lower Cynthia F. Toileting Cynthia - Sphincter Control G. Bladder control modA H. Bowel control Gera - Transfers Control I. Bed/Chair/Wheelchair sup J. Toilet sup K. Tub/Shower Cynthia - Locomotion L. Walk/Wheelchair (B) sup M. Stairs modA - Communication N. Comprehension (B) Gera O. Expression (B) Gera - Social Cognition P. Social Interaction Gera Q. Problem Solving Gera R. Memory Gera - Endurance Good - Balance Fair - Safety Awareness Fair QI SCORES: - Self-Care A. Eating 03-Partial/moderate assistance B. Oral hygiene 03-Partial/moderate assistance C. Toileting hygiene 03-Partial/moderate assistance E. Shower/bathe self 03-Partial/moderate assistance F. Upper body dressing 03-Partial/moderate assistance G. Lower body dressing 03-Partial/moderate assistance H. Putting on/taking off footwear 88-Not attempted due to medical condition or safety concerns - Mobility A. Roll left and right 04-Supervision or touching assistance B. Sit to lying 03-Partial/moderate assistance C. Lying to sitting on side of bed 03-Partial/moderate assistance D. Sit to stand 88-Not attempted due to medical condition or safety concerns E. Chair/kui-sl-ynrnc transfer 03-Partial/moderate assistance F. Toilet transfer 03-Partial/moderate assistance G. Car transfer 88-Not attempted due to medical condition or safety concerns I. Walk 10 feet 88-Not attempted due to medical condition or safety concerns J. Walk 50 feet with two turns 88-Not attempted due to medical condition or safety concerns K. Walk 150 feet 88-Not attempted due to medical condition or safety concerns L. Walking 10 feet on uneven surfaces 88-Not attempted due to medical condition or safety concerns M. 1 step (curb) 88-Not attempted due to medical condition or safety concerns N. 4 steps 88-Not attempted due to medical condition or safety concerns O. 12 steps 88-Not attempted due to medical condition or safety concerns P. Picking up object 88-Not attempted due to medical condition or safety concerns R. Wheel 50 feet with two turns 88-Not attempted due to medical condition or safety concerns S. Wheel 150 feet 88-Not attempted due to medical condition or safety concerns - Bladder and Bowel Bladder continence Bowel continence - Endurance Fair - Balance Fair - Safety Awareness Fair [facility]. 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
[2020-04-20] MEDS: DOCUSATE NA/SENNA CONC 1 TAB PO PRN (20:13)
[2020-04-20] MEDS: ATORVASTATIN 10 MG TAB PO SCH (20:13)
[2020-04-21] MEDS: carvediloL 6.25 MG TAB PO SCH (05:00)
[2020-04-21] MEDS: HEPARIN 5000 UNIT/ML 1 ML VIAL SQ SCH ×2 (06:15→20:00)
[2020-04-21] MEDS: ACETAMINOPHEN 325 MG TABLET PO PRN (07:28)
[2020-04-21] MEDS: INSULIN -REGULAR HUMAN 50 UNIT/0.5 ML ML SQ SCH ×4 (07:30→20:23)
[2020-04-21] MEDS: MUPIROCIN 2% OINT 22GM TUBE TOP SCH ×2 (08:00→20:22)
[2020-04-21] MEDS ORDERED: EPOETIN ALFA 10,000 UNIT/ML VIAL IV SCH (08:00)
[2020-04-21] MEDS: VITAMIN D 1000 UNIT TAB PO SCH (08:31)
[2020-04-21] MEDS: MULTIVITAMINS,THERAPEUT 1 TAB PO SCH (08:32)
[2020-04-21] MEDS: CALCITROL 0.25 MCG CAP PO SCH (08:32)
[2020-04-21] MEDS: ASPIRIN 81 MG CHEWABLE TABLET PO SCH (08:32)
[2020-04-21] MEDS: SEVELAMER CARBONATE 800 MG TABLET PO SCH ×3 (08:32→17:04)
[2020-04-21] MEDS: GABAPENTIN 100 MG CAP PO SCH ×2 (08:32→20:21)
[2020-04-21] MEDS: HYDRALAZINE HCL 25 MG TABLET PO SCH (08:33)
[2020-04-21] MEDS: INSULIN GLARGINE 100 UNITS/ML SQ SCH (08:36)
[2020-04-21] MEDS: NIFEDIPINE XL 30 MG TABLET PO SCH (09:07)
[2020-04-21 11:15] LABS: Potassium 4.8 mmol/L (3.5-5.1)
[2020-04-21] MEDS ORDERED: EPOETIN ALFA-EPBX 10,000 UNIT/ML VIAL SQ SCH (14:00)
[2020-04-21 18:59] LABS: HBsAG Nonreactive (Nonreactive)
[2020-04-21] MEDS: POLYVINYL ALCOHOL 1.4% 15 ML EACH EYE PRN (20:22)
[2020-04-21] MEDS: ATORVASTATIN 10 MG TAB PO SCH (20:22)
[2020-04-21] MEDS: TRAMADOL HCL 50 MG TAB PO PRN (20:33)
--- NOTE | 2020-04-21 21:04 | R.PN ---
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 Pt denied any Shortness of Breath. Right BKA and chronic left BKA with pain in the heeling right stump. Ambulated 690' with contact guard assistance using a rolling walker. WBC 8.4, Hbg 8.1, Plt 413, K+ 5.8 and Insect Control Aide 6.29, glucose 84 to 290. He has hemodialysis managed by the renal service. COVID-19 is negative. VITAL SIGNS Temperature: 99.2 F SBP/DBP: 154/71 Pulse: 65 Resp: 16 MEDICATION ALLERGIES: No Known Drug Allergies (NKDA) ENVIRONMENTAL ALLERGIES: - Substance Allergies None Known - Other Allergies None Known CONSULT: Perform Consult Certified Prosthetic for prosthesis construction NURSING: - Shower allowing shower - Skin care per protocol PRECAUTIONS: - Weight Bearing Precaution NWB right LE ACTIVITIES OOB only with supervision THERAPIES: - Orthotics/Prosthetics Prosthetic Evaluation. - Dietary and Nutrition Adequate Nutrition. Nutritional Education. Nutritional Supplements. PHYSICAL EXAM - Gen Alert and awake Lying in bed No apparent distress Oriented to: person, time, and place - Skin No skin breakdown. No abnormalities - Eyes No abnormalities - ENMT No abnormalities - Neck No abnormalities No cervical adenopathy - CVS RRR - Chest No abnormalities - Resp Clear to auscultation - Abd Soft - GI Soft Deferred - No abnormalities - Ext No significant edema - MSK 4+/5 weakness in both lower extremities. - Neuro 4/5 strength right lower extremity. - Psych No abnormalities ASSESSMENT: Pt. is a 54 yo Right-handed male of unknown race.On 04/06/2020 he was admitted to [facility] with diagnosis RIGHT BELOW-KNEE AMPUTTION.His impairment category is Amputation of Limb 05 - Bi lateral Lower Limb Below the Knee (BK/BK) (05.7).Pre-morbidly, Pt. was independent/mod-I in Safety Aw areness, Transfers Control, Sphincter Control, and Self-Care; and he had good Safety Awareness, Michelet ce, Endurance, and Locomotion.Currently, he has deficits of Safety Awareness, Locomotion, Balance, Tr ansfers Control, Endurance, and Sphincter Control.Pt. is now referred to [facility] for acute in-patient rehabilitation in order to maximize patient's functional independence in a ctivities of daily living, strength, ROM, and mobility.- Rehab Goal Patient has realistic goal of being discharged at assistance level 7-Ind to reside at Home with Fami ly/Relatives. MDM/PLAN: - Physical Therapy Inability to transfer - to improve, our physical therapists will perform initial evaluation of pt's status upon admission and devise an individualized program for Bed mobility Need for home safety evaluation - to improve, our physical therapists will perform initial evaluatio n of pt's status upon admission and devise an individualized program for Home Evaluation Need in caregiver upon discharge - to improve, our physical therapists will perform initial evaluati on of pt's status upon admission and devise an individualized program for Caregiver Training New precaution - to improve, our physical therapists will perform initial evaluation of pt's status upon admission and devise an individualized program for Patient precaution education Edema - to improve, our physical therapists will perform initial evaluation of pt's status upon admi ssion and devise an individualized program for Elevation Training, and Lymphedema Therapy Poor balance - to improve, our physical therapists will perform initial evaluation of pt's status up on admission and devise an individualized program for Balance Training Poor endurance - to improve, our physical therapists will perform initial evaluation of pt's status upon admission and devise an individualized program for Endurance Training Achieving independence - to improve, our physical therapists will perform initial evaluation of pt's status upon admission and devise an individualized program for Community Reintegration Activities - Occupational Therapy Need for laboratory animal caretaker - to improve, our occupation therapists will perform initial evaluation of pt's status upon admission and devise an individualized program for Caregiver Training - Other See attached MAR (Medication Administration Record) - Diet Type Continue Regular - Diet - Liquid Texture Continue Regular - Tube Feed Continue N/A - Weight Bearing Precaution NWB right LE - Consult Perform Consult Certified Prosthetic for prosthesis construction - Skin care per protocol - N/A Perform Consult Certified Prosthetic for prosthesis construction - Diet - Solid Texture Continue Regular - Shower allowing shower FUNCTIONAL STATUS: UPDATED AT WEEKLY TEAM CONFERENCE - Bladder Same accident frequency: 7-Ind - No accidents in the past 7 days - Bowel Same accident frequency: 7-Ind - No accidents in the past 7 days - Walking Same score based on distance walked: 0(N/A) - Wheelchair Same score based on distance traveled: 0(N/A) FUNCTIONAL STATUS: - Self-Care A. Eating sup B. Grooming Gera C. Bathing Cynthia D. Dressing - Upper sup E. Dressing - Lower Cynthia F. Toileting Cynthia - Sphincter Control G. Bladder control modA H. Bowel control Gera - Transfers Control I. Bed/Chair/Wheelchair sup J. Toilet sup K. Tub/Shower Cynthia - Locomotion L. Walk/Wheelchair (B) sup M. Stairs modA - Communication N. Comprehension (B) Gera O. Expression (B) Gera - Social Cognition P. Social Interaction Gera Q. Problem Solving Gera R. Memory Gera - Endurance Good - Balance Fair - Safety Awareness Fair QI SCORES: - Self-Care A. Eating 03-Partial/moderate assistance B. Oral hygiene 03-Partial/moderate assistance C. Toileting hygiene 03-Partial/moderate assistance E. Shower/bathe self 03-Partial/moderate assistance F. Upper body dressing 03-Partial/moderate assistance G. Lower body dressing 03-Partial/moderate assistance H. Putting on/taking off footwear 88-Not attempted due to medical condition or safety concerns - Mobility A. Roll left and right 04-Supervision or touching assistance B. Sit to lying 03-Partial/moderate assistance C. Lying to sitting on side of bed 03-Partial/moderate assistance D. Sit to stand 88-Not attempted due to medical condition or safety concerns E. Chair/mgc-ds-mpedd transfer 03-Partial/moderate assistance F. Toilet transfer 03-Partial/moderate assistance G. Car transfer 88-Not attempted due to medical condition or safety concerns I. Walk 10 feet 88-Not attempted due to medical condition or safety concerns J. Walk 50 feet with two turns 88-Not attempted due to medical condition or safety concerns K. Walk 150 feet 88-Not attempted due to medical condition or safety concerns L. Walking 10 feet on uneven surfaces 88-Not attempted due to medical condition or safety concerns M. 1 step (curb) 88-Not attempted due to medical condition or safety concerns N. 4 steps 88-Not attempted due to medical condition or safety concerns O. 12 steps 88-Not attempted due to medical condition or safety concerns P. Picking up object 88-Not attempted due to medical condition or safety concerns R. Wheel 50 feet with two turns 88-Not attempted due to medical condition or safety concerns S. Wheel 150 feet 88-Not attempted due to medical condition or safety concerns - Bladder and Bowel Bladder continence Bowel continence - Endurance Fair - Balance Fair - Safety Awareness Fair CURRENT PENDING SALE TO [facility]. 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
[2020-04-22] MEDS: TRAMADOL HCL 50 MG TAB PO PRN (00:36)
[2020-04-22] MEDS: carvediloL 6.25 MG TAB PO SCH (05:14)
[2020-04-22 06:34] LABS: Absolute Lymphocytes (CBC) 1.9 K/uL (0.7-4.9); Basophils % 2.7 % (0-1.3); Hematocrit 26.4 % (39.6-49.0); MPV 8.2 fL (7.6-11.3); RBC Red Blood Cell Count 2.67 M/uL (4.33-5.43)
[2020-04-22] MEDS: HYDRALAZINE HCL 25 MG TABLET PO SCH (06:44)
[2020-04-22 07:01] LABS: Albumin 2.5 g/dL (3.4-5.0); Magnesium 3.1 mg/dL (1.8-2.4); Potassium 4.8 mmol/L (3.5-5.1); Prealbumin 25.8 mg/dL (20-40)
[2020-04-22] MEDS: INSULIN -REGULAR HUMAN 50 UNIT/0.5 ML ML SQ SCH ×4 (07:30→20:37)
[2020-04-22] MEDS: HEPARIN 5000 UNIT/ML 1 ML VIAL SQ SCH ×2 (07:30→20:00)
[2020-04-22] MEDS: MUPIROCIN 2% OINT 22GM TUBE TOP SCH ×2 (08:00→19:51)
[2020-04-22] MEDS: CALCITROL 0.25 MCG CAP PO SCH (08:06)
[2020-04-22] MEDS: ACETAMINOPHEN 325 MG TABLET PO PRN (08:06)
[2020-04-22] MEDS: VITAMIN D 1000 UNIT TAB PO SCH (08:06)
[2020-04-22] MEDS: MULTIVITAMINS,THERAPEUT 1 TAB PO SCH (08:09)
[2020-04-22] MEDS: NIFEDIPINE XL 30 MG TABLET PO SCH (08:10)
[2020-04-22] MEDS: SEVELAMER CARBONATE 800 MG TABLET PO SCH ×3 (08:10→17:16)
[2020-04-22] MEDS: ASPIRIN 81 MG CHEWABLE TABLET PO SCH (08:10)
[2020-04-22] MEDS: GABAPENTIN 100 MG CAP PO SCH ×2 (08:10→19:51)
[2020-04-22] MEDS: SOD POLYSTYREN SUL 15 GM/60 ML UCUP PO SCH (08:11)
[2020-04-22] MEDS: INSULIN GLARGINE 100 UNITS/ML SQ SCH (08:11)
[2020-04-22] MEDS: PROMETHAZINE 25 MG TABLET PO PRN (10:27)
--- NOTE | 2020-04-22 13:51 | PN ---
Date of Progress Note: 04/22/2020 Subjective: The patient was admitted with rehabilitation. The patient found to have hyperkalemia. Objective: Vital Signs: When I saw the patient, blood pressure 156/67, pulse of 60. Chest: Clear to auscultation. Heart: S1, S2 regular. Systolic murmur. Abdomen: Soft, nontender. Extremities: Bilateral above-knee amputation. Laboratory Data: H and H 8.4/26.4. Sodium 136, potassium 4.8, bicarb 30, BUN 53, creatinine 7.9, calcium 8.7. Current Medications: The patient on includes cetirizine, hydroxyzine, Epogen, atorvastatin, carvedilol 6.25, hydralazine 25 t.i.d., nifedipine 30, gabapentin, Renvela. Assessment And Plan: 1. End-stage renal disease with hyperkalemia. We will continue to dialyze the patient on low-potassium bath and we will follow up. 2. Hypertension, controlled to avoid low blood pressure. Discontinue nifedipine. We will follow up blood pressure after dialysis. 3. Anemia of chronic kidney disease. Continue SHERIF. 4. Deconditioning. Continue PT, OT. Time spent discussing with the patient, [id number], using the translation, discussing with the staff and placing an order, discussing with over subspecialty and hospitalist 45 minutes. PELON Voice ID: [id number] Report ID: [id number] YAMIL
[2020-04-22] MEDS ORDERED: ONDANSETRON 4 MG (ODT) TAB PO PRN (14:11)
--- NOTE | 2020-04-22 14:34 | FAST ---
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 Min Velarde M.D. ADMISSION DIAGNOSIS: - Amputation of Limb 05 - Bilateral Lower Limb Below the Knee (BK/BK) (05.7) RIGHT BELOW-KNEE AMPUTTION. EATING: EATING - STEP 1: Does the patient complete the activity by him/herself with no assistance (physical, verbal/nonverbal cueing, setup/clean-up)? No. EATING - STEP 2: Does the patient need only setup/clean-up assistance from one helper? Yes. 1. [id number] ADMISSION PERFORMANCE: Setup or clean-up assistance CODE: 05 ORAL HYGIENE: ORAL HYGIENE - STEP 1: Does the patient complete the activity by him/herself with no assistance (physical, verbal/nonverbal cueing, setup/clean-up)? No. ORAL HYGIENE - STEP 2: Does the patient need only setup/clean-up assistance from one helper? Yes. 1. [id number] ADMISSION PERFORMANCE: Setup or clean-up assistance CODE: 05 TOILETING HYGIENE: TOILETING HYGIENE - STEP 1: Does the patient complete the activity by him/herself with no assistance (physical, verbal/nonverbal cueing, setup/clean-up)? No. TOILETING HYGIENE - STEP 2: Does the patient need only setup/clean-up assistance from one helper? Yes. 1. [id number] ADMISSION PERFORMANCE: Setup or clean-up assistance CODE: 05 BATHING: Not assessed/no information CODE: - DRESSING - UPPER BODY: DRESSING - UPPER BODY - STEP 1: Does the patient complete the activity by him/herself with no assistance (physical, verbal/nonverbal cueing, setup/clean-up)? No. DRESSING - UPPER BODY - STEP 2: Does the patient need only setup/clean-up assistance from one helper? Yes. 1. [id number] ADMISSION PERFORMANCE: Setup or clean-up assistance CODE: 05 DRESSING - LOWER BODY: DRESSING - LOWER BODY - STEP 1: Does the patient complete the activity by him/herself with no assistance (physical, verbal/nonverbal cueing, setup/clean-up)? No. DRESSING - LOWER BODY - STEP 2: Does the patient need only setup/clean-up assistance from one helper? Yes. 1. [id number] ADMISSION PERFORMANCE: Setup or clean-up assistance CODE: 05 PUTTING ON/TAKING OFF FOOTWEAR: FOOTWEAR - STEP 1: Does the patient complete the activity by him/herself with no assistance (physical, verbal/nonverbal cueing, setup/clean-up)? Yes. 1. [id number] ADMISSION PERFORMANCE: Independent CODE: 06 ROLL LEFT AND RIGHT: ROLL LEFT AND RIGHT - STEP 1: Does the patient complete the activity by him/herself with no assistance (physical, verbal/nonverbal cueing, setup/clean-up)? No. ROLL LEFT AND RIGHT - STEP 2: Does the patient need only setup/clean-up assistance from one helper? Yes. 1. [id number] ADMISSION PERFORMANCE: Setup or clean-up assistance CODE: 05 SIT TO LYING: SIT TO LYING - STEP 1: Does the patient complete the activity by him/herself with no assistance (physical, verbal/nonverbal cueing, setup/clean-up)? No. SIT TO LYING - STEP 2: Does the patient need only setup/clean-up assistance from one helper? Yes. 1. [id number] ADMISSION PERFORMANCE: Setup or clean-up assistance CODE: 05 LYING TO SITTING: LYING TO SITTING ON SIDE OF BED - STEP 1: Does the patient complete the activity by him/herself with no assistance (physical, verbal/nonverbal cueing, setup/clean-up)? No. LYING TO SITTING ON SIDE OF BED - STEP 2: Does the patient need only setup/clean-up assistance from one helper? Yes. 1. [id number] ADMISSION PERFORMANCE: Setup or clean-up assistance CODE: 05 SIT TO STAND: SIT TO STAND - STEP 1: Does the patient complete the activity by him/herself with no assistance (physical, verbal/nonverbal cueing, setup/clean-up)? No. SIT TO STAND - STEP 2: Does the patient need only setup/clean-up assistance from one helper? Yes. 1. [id number] ADMISSION PERFORMANCE: Setup or clean-up assistance CODE: 05 TRANSFERS: BED, CHAIR: CHAIR/[id number] TRANSFER - STEP 1: Does the patient complete the activity by him/herself with no assistance (physical, verbal/nonverbal cueing, setup/clean-up)? No. CHAIR/[id number] TRANSFER - STEP 2: Does the patient need only setup/clean-up assistance from one helper? Yes. 1. [id number] ADMISSION PERFORMANCE: Setup or clean-up assistance CODE: 05 TRANSFER TOILET: TOILET TRANSFER - STEP 1: Does the patient complete the activity by him/herself with no assistance (physical, verbal/nonverbal cueing, setup/clean-up)? No. TOILET TRANSFER - STEP 2: Does the patient need only setup/clean-up assistance from one helper? Yes. 1. [id number] ADMISSION PERFORMANCE: Setup or clean-up assistance CODE: 05 TRANSFERS: CAR: Not assessed/no information CODE: - WALK 10 FEET: Not assessed/no information CODE: - 1 STEP (CURB): Not assessed/no information CODE: - PICKING UP OBJECT: Not assessed/no information CODE: - DOES THE PATIENT USE A WHEELCHAIR/SCOOTER? Q1. DOES THE PATIENT USE A WHEELCHAIR/SCOOTER?: Yes CODE: 1 WHEEL 50 FEET WITH TWO TURNS: WHEEL 50 FEET WITH TWO TURNS - STEP 1: Does the patient complete the activity by him/herself with no assistance (physical, verbal/nonverbal cueing, setup/clean-up)? No. WHEEL 50 FEET WITH TWO TURNS - STEP 2: Does the patient need only setup/clean-up assistance from one helper? Yes. 1. [id number] ADMISSION PERFORMANCE: Setup or clean-up assistance CODE: 05 INDICATE THE TYPE OF WHEELCHAIR/SCOOTER USED: RR1. INDICATE THE TYPE OF WHEELCHAIR/SCOOTER USED.: Manual CODE: 1 WHEEL 150 FEET: WHEEL 150 FEET - STEP 1: Does the patient complete the activity by him/herself with no assistance (physical, verbal/nonverbal cueing, setup/clean-up)? No. WHEEL 150 FEET - STEP 2: Does the patient need only setup/clean-up assistance from one helper? Yes. 1. [id number] ADMISSION PERFORMANCE: Setup or clean-up assistance CODE: 05 INDICATE THE TYPE OF WHEELCHAIR/SCOOTER USED: SS1. INDICATE THE TYPE OF WHEELCHAIR/SCOOTER USED.: Manual CODE: 1 BLADDER AND BOWEL: H350. BLADDER CONTINENCE (3-DAY ASSESSMENT PERIOD): No urine output (e.g., renal failure) CODE: 5 H400. BOWEL CONTINENCE (3-DAY ASSESSMENT PERIOD): Always continent CODE: 0 SIGNATURE PANEL: The following modified sections: 1. [id number] Admission Performance, 1. [id number] Admission Performance, 1. [id number] Admission Performance, 1. [id number] Admission Performance, 1. [id number] Admission Performance, 1. [id number] Admission Performance, 1. [id number] Admission Performance, 1. [id number] Admission Performance , 1. [id number] Admission Performance, 1. [id number] Admission Performance, 1. [id number] Admission Performanc e, 1. [id number] Admission Performance, Q1. Does the patient use a wheelchair/scooter?, 1. [id number] Admis luisa Performance, RR1. Indicate the type of wheelchair/scooter used., 1. [id number] Admission Performanc e, Code, SS1. Indicate the type of wheelchair/scooter used., H350. Bladder Continence (3-day assessme nt period), H400. Bowel Continence (3-day assessment period) were [electronically] signed by Ingrid Arroyo [email or web address] on SunApr 22 2020 14:34:10 GMT-0600 (Central Standard Time)
--- NOTE | 2020-04-22 17:39 | R.PN ---
PROGRESS NOTES ENCOUNTER DATE AND TIME: 04/22/2020 17:34 (SERVICE ATTENDANT CAFETERIA) NAME VAL MAGALLANES DATE OF : 1965 DATE OF ADMISSION: 04/14/2020 14:13 (SERVICE ATTENDANT CAFETERIA) RIGHT BELOW-KNEE AMPUTTIONCHIEF COMPLAINT: Right [id number] amputation SUBJECTIVE: Pt denied any depression. Pt denied any Shortness of Breath. Right BKA and chronic left BKA with less pain in the heeling right stump. Ambulated 270' with contact guard assistance using a rolling walker. WBC 7.7, Hbg 8.4, Plt 350, K+ 4.8 and Charting Clerk 7.94, glucose 65 to 229. He has hemodialysis managed by the renal service. COVID-19 is negative. VITAL SIGNS Temperature: 98.6 F SBP/DBP: 156/67 Pulse: 60 Resp: 16 MEDICATION ALLERGIES: No Known Drug Allergies (NKDA) ENVIRONMENTAL ALLERGIES: - Substance Allergies None Known - Other Allergies None Known CONSULT: Perform Consult Certified Prosthetic for prosthesis construction NURSING: - Shower allowing shower - Skin care per protocol PRECAUTIONS: - Weight Bearing Precaution NWB right LE ACTIVITIES OOB only with supervision THERAPIES: - Orthotics/Prosthetics Prosthetic Evaluation. - Dietary and Nutrition Adequate Nutrition. Nutritional Education. Nutritional Supplements. PHYSICAL EXAM - Gen Alert and awake Lying in bed No apparent distress Oriented to: person, time, and place - Skin No skin breakdown. No abnormalities - Eyes No abnormalities - ENMT No abnormalities - Neck No abnormalities No cervical adenopathy - CVS RRR - Chest No abnormalities - Resp Clear to auscultation - Abd Soft - GI Soft Deferred - No abnormalities - Ext No significant edema - MSK 4+/5 weakness in both lower extremities. - Neuro 4/5 strength right lower extremity. - Psych No abnormalities ASSESSMENT: Pt. is a 54 yo Right-handed male of unknown race.On 04/06/2020 he was admitted to [facility] with diagnosis RIGHT BELOW-KNEE AMPUTTION.His impairment category is Amputation of Limb 05 - Bi lateral Lower Limb Below the Knee (BK/BK) (05.7).Pre-morbidly, Pt. was independent/mod-I in Safety Aw areness, Transfers Control, Sphincter Control, and Self-Care; and he had good Safety Awareness, Michelet ce, Endurance, and Locomotion.Currently, he has deficits of Safety Awareness, Locomotion, Balance, Tr ansfers Control, Endurance, and Sphincter Control.Pt. is now referred to [facility] for acute in-patient rehabilitation in order to maximize patient's functional independence in a ctivities of daily living, strength, ROM, and mobility.- Rehab Goal Patient has realistic goal of being discharged at assistance level 7-Ind to reside at Home with Fami ly/Relatives. MDM/PLAN: - Physical Therapy Inability to transfer - to improve, our physical therapists will perform initial evaluation of pt's status upon admission and devise an individualized program for Bed mobility Need for home safety evaluation - to improve, our physical therapists will perform initial evaluatio n of pt's status upon admission and devise an individualized program for Home Evaluation Need in caregiver upon discharge - to improve, our physical therapists will perform initial evaluati on of pt's status upon admission and devise an individualized program for Caregiver Training New precaution - to improve, our physical therapists will perform initial evaluation of pt's status upon admission and devise an individualized program for Patient precaution education Edema - to improve, our physical therapists will perform initial evaluation of pt's status upon admi ssion and devise an individualized program for Elevation Training, and Lymphedema Therapy Poor balance - to improve, our physical therapists will perform initial evaluation of pt's status up on admission and devise an individualized program for Balance Training Poor endurance - to improve, our physical therapists will perform initial evaluation of pt's status upon admission and devise an individualized program for Endurance Training Achieving independence - to improve, our physical therapists will perform initial evaluation of pt's status upon admission and devise an individualized program for Community Reintegration Activities - Occupational Therapy Need for point of care specialist - to improve, our occupation therapists will perform initial evaluation of pt's status upon admission and devise an individualized program for Caregiver Training - Other See attached MAR (Medication Administration Record) - Diet Type Continue Regular - Diet - Liquid Texture Continue Regular - Tube Feed Continue N/A - Weight Bearing Precaution NWB right LE - Consult Perform Consult Certified Prosthetic for prosthesis construction - Skin care per protocol - N/A Perform Consult Certified Prosthetic for prosthesis construction - Diet - Solid Texture Continue Regular - Shower allowing shower FUNCTIONAL STATUS: UPDATED AT WEEKLY TEAM CONFERENCE - Bladder Same accident frequency: 7-Ind - No accidents in the past 7 days - Bowel Same accident frequency: 7-Ind - No accidents in the past 7 days - Walking Same score based on distance walked: 0(N/A) - Wheelchair Same score based on distance traveled: 0(N/A) FUNCTIONAL STATUS: - Self-Care A. Eating sup B. Grooming Gera C. Bathing Cynthia D. Dressing - Upper sup E. Dressing - Lower Cynthia F. Toileting Cynthia - Sphincter Control G. Bladder control modA H. Bowel control Gera - Transfers Control I. Bed/Chair/Wheelchair sup J. Toilet sup K. Tub/Shower Cynthia - Locomotion L. Walk/Wheelchair (B) sup M. Stairs modA - Communication N. Comprehension (B) Gera O. Expression (B) Gera - Social Cognition P. Social Interaction Gera Q. Problem Solving Gera R. Memory Gera - Endurance Good - Balance Fair - Safety Awareness Fair QI SCORES: - Self-Care A. Eating 03-Partial/moderate assistance B. Oral hygiene 03-Partial/moderate assistance C. Toileting hygiene 03-Partial/moderate assistance E. Shower/bathe self 03-Partial/moderate assistance F. Upper body dressing 03-Partial/moderate assistance G. Lower body dressing 03-Partial/moderate assistance H. Putting on/taking off footwear 88-Not attempted due to medical condition or safety concerns - Mobility A. Roll left and right 04-Supervision or touching assistance B. Sit to lying 03-Partial/moderate assistance C. Lying to sitting on side of bed 03-Partial/moderate assistance D. Sit to stand 88-Not attempted due to medical condition or safety concerns E. Chair/bkg-kz-ezsym transfer 03-Partial/moderate assistance F. Toilet transfer 03-Partial/moderate assistance G. Car transfer 88-Not attempted due to medical condition or safety concerns I. Walk 10 feet 88-Not attempted due to medical condition or safety concerns J. Walk 50 feet with two turns 88-Not attempted due to medical condition or safety concerns K. Walk 150 feet 88-Not attempted due to medical condition or safety concerns L. Walking 10 feet on uneven surfaces 88-Not attempted due to medical condition or safety concerns M. 1 step (curb) 88-Not attempted due to medical condition or safety concerns N. 4 steps 88-Not attempted due to medical condition or safety concerns O. 12 steps 88-Not attempted due to medical condition or safety concerns P. Picking up object 88-Not attempted due to medical condition or safety concerns R. Wheel 50 feet with two turns 88-Not attempted due to medical condition or safety concerns S. Wheel 150 feet 88-Not attempted due to medical condition or safety concerns - Bladder and Bowel Bladder continence Bowel continence - Endurance Fair - Balance Fair - Safety Awareness Fair CURRENT [facility]. DEFICITS: Self-Care SIGNATURE PANEL: (SERVICE ATTENDANT CAFETERIA)
[2020-04-22] MEDS: ATORVASTATIN 10 MG TAB PO SCH (19:51)
[2020-04-22] MEDS: POLYVINYL ALCOHOL 1.4% 15 ML EACH EYE PRN (19:51)
[2020-04-23] MEDS: carvediloL 6.25 MG TAB PO SCH (05:25)
[2020-04-23] MEDS: INSULIN -REGULAR HUMAN 50 UNIT/0.5 ML ML SQ SCH ×4 (06:45→20:15)
[2020-04-23] MEDS: HEPARIN 5000 UNIT/ML 1 ML VIAL SQ SCH ×2 (06:47→18:20)
[2020-04-23] MEDS: INSULIN GLARGINE 100 UNITS/ML SQ SCH (06:48)
[2020-04-23] MEDS: VITAMIN D 1000 UNIT TAB PO SCH ×2 (06:49→13:34)
[2020-04-23] MEDS: GABAPENTIN 100 MG CAP PO SCH ×2 (06:49→20:13)
[2020-04-23] MEDS: MULTIVITAMINS,THERAPEUT 1 TAB PO SCH ×2 (06:49→13:35)
[2020-04-23] MEDS: SEVELAMER CARBONATE 800 MG TABLET PO SCH ×3 (06:49→16:55)
[2020-04-23] MEDS: CALCITROL 0.25 MCG CAP PO SCH ×2 (06:49→13:35)
[2020-04-23] MEDS: ASPIRIN 81 MG CHEWABLE TABLET PO SCH ×2 (06:50→13:35)
[2020-04-23] MEDS: HYDRALAZINE HCL 25 MG TABLET PO SCH (06:52)
[2020-04-23] MEDS: POLYVINYL ALCOHOL 1.4% 15 ML EACH EYE PRN ×2 (06:53→20:23)
[2020-04-23] MEDS: MUPIROCIN 2% OINT 22GM TUBE TOP SCH ×2 (06:53→20:00)
[2020-04-23] MEDS ORDERED: NA CHLORIDE 0.9% 500 ML ONE (09:12)
[2020-04-23] MEDS ORDERED: CEFAZOLIN/SWI 1gm 1 GM/10 ML SYR ONE (09:18)
--- NOTE | 2020-04-23 09:41 | PREOPCON ---
Date of Consultation: 04/22/2020 Reason: Patient needs dialysis. History Of Present Illness: Patient is a 54-year-old gentleman who underwent a right below-knee ampu tation by me a couple of weeks ago, was in rehab, was doing well but his right arm graft/fistula clot lee and he needs dialysis; therefore, I was asked to place a dialysis catheter in hand and he is awak e, alert, no complaint, no fever or chills. No sore throat, runny nose, cough, headaches, or dizzine ss. No chest pain. Review of Systems: Otherwise, unremarkable. Past Medical History: See my previous dictation. Physical Examination: Vital Signs: Stable. He is afebrile. General: He is awake, alert, and oriented x3. Head and Neck: No masses. Chest: Clear. Heart: S1, S2. Abdomen: Soft. Extremities: Neurovascularly intact. Neurologic: Nonfocal. Assessment: End-stage renal disease with a clotted graft. Recommendation: We will go ahead and try to place a chest tube catheter in the left side of the neck or the chest. Patient understands the risks, benefits, and alternatives and agrees to procedure. /MODL Voice ID: [id number] Report ID: [id number]
--- NOTE | 2020-04-23 10:06 | P.RH.PN ---
Estimated Length of Stay: 14 Expected Discharge Date: 04/27/20 Discharge Disposition Plan: Home Family Support: Yes Residential Goal: Mobility, Transfers, Self Care Vital Signs: Last Vital Signs Temp 98.5 F 04/23/20 07:38 Pulse 60 04/23/20 07:50 Resp 18 04/23/20 07:38 BP 155/65 H 04/23/20 07:50 Pulse Ox 98 04/23/20 07:38 Laboratory: Laboratory Last Values WBC 7.7 K/uL (4.3-10.9) 04/22/20 06:01 RBC 2.67 M/uL (4.33-5.43) L 04/22/20 06:01 Hgb 8.4 g/dL (13.6-17.9) L 04/22/20 06:01 Hct 26.4 % (39.6-49.0) L 04/22/20 06:01 MCV 98.7 fL (80-100) 04/22/20 06:01 MCH 31.5 pg (27.0-35.0) 04/22/20 06:01 MCHC 31.9 g/dL (32.0-36.0) L 04/22/20 06:01 RDW 14.4 % (12.1-15.2) 04/22/20 06:01 Plt Count 350 K/uL (152-406) 04/22/20 06:01 MPV 8.2 fL (7.6-11.3) 04/22/20 06:01 Neutrophils % 57.9 % (41.7-73.7) 04/22/20 06:01 Lymphocytes % 24.0 % (15.3-44.8) 04/22/20 06:01 Monocytes % 10.7 % (3.3-12.3) 04/22/20 06:01 Eosinophils % 4.7 % (0-4.4) H 04/22/20 06:01 Basophils % 2.7 % (0-1.3) H 04/22/20 06:01 Absolute Neutrophils 4.5 K/uL (1.8-8.0) 04/22/20 06:01 Absolute Lymphocytes 1.9 K/uL (0.7-4.9) 04/22/20 06:01 Absolute Monocytes 0.8 K/uL (0.1-1.3) 04/22/20 06:01 Absolute Eosinophils 0.4 K/uL (0-0.5) 04/22/20 06:01 Absolute Basophils 0.2 K/uL (0-0.5) 04/22/20 06:01 Sodium 136 mmol/L (136-145) 04/22/20 06:01 Potassium 4.8 mmol/L (3.5-5.1) 04/22/20 06:01 Chloride 98 mmol/L (98-107) 04/22/20 06:01 Carbon Dioxide 31 mmol/L (21-32) 04/22/20 06:01 BUN 53 mg/dL (7-18) H 04/22/20 06:01 Creatinine 7.94 mg/dL (0.55-1.3) H* D 04/22/20 06:01 Estimated GFR 7 mL/min (=/>90) L 04/22/20 06:01 Glucose 75 mg/dL (74-106) 04/22/20 06:01 POC Glucose 138 mg/dL (65-120) H 04/23/20 06:24 Calcium 8.7 mg/dL (8.5-10.1) 04/22/20 06:01 Magnesium 3.1 mg/dL (1.8-2.4) H D 04/22/20 06:01 Albumin 2.5 g/dL (3.4-5.0) L 04/22/20 06:01 Prealbumin 25.8 mg/dL (20-40) 04/22/20 06:01 Hep Bs Antigen Nonreactive (Nonreactive) 04/19/20 06:04 Hep Bs Antibody Reactive (Nonreactive) H 04/19/20 06:04 Hep B Core Total Ab Nonreactive (Nonreactive) 04/19/20 06:04 Hepatitis C Antibody Nonreactive (Nonreactive) 04/19/20 06:04 Hep C Ab Signal/Cutoff 0.01 ratio (<1.00) 04/19/20 06:04 SARS-CoV-2 RNA (RT-PCR) Negative (NEGATIVE) 04/14/20 14:15 Weight: 121 lb 2 oz Wound Present: No Closed Surgical Incision Present: Yes Negative Pressure Wound Therapy Present: No Physician Update: Labs reviewed and are stable. He is doing well with physical and occupational therapy. His dialysis port is being revised today. His therapy will be held today and be made up tomorrow. He is walking 150' with contact guard, transfers at standby assistance. Comment: Wound care daily: Clean with NS, cover with gauze, kerlix, merrick bandage,figure 8 dressing. Functional Improvement: pt is demonstrating progress each day with his functional performance. pt does rapidly fatigue and has been limited by nausea at times. pt continues to require skilled PT services to enhance functional performance and safety. Summary: Patient's care plan and fpc goals have been reviewed and revised as necessary. Please see the Rehabilitation Signature page for all necessary signatures.
[2020-04-23] MEDS ORDERED: NS 0.9% VIAL 10 ML ONE ×2 (10:29→11:55)
[2020-04-23] MEDS ORDERED: NA CHLORIDE 0.9% 100 ML IV ONE (10:30)
[2020-04-23] MEDS ORDERED: LIDOCAINE 1% 20 ML MDV ONE (10:30)
[2020-04-23] MEDS ORDERED: HEPARIN 5000 UNIT/ML 1 ML VIAL ONE ×2 (10:30→10:42)
[2020-04-23] MEDS ORDERED: propofoL 200 MG/20 ML VIAL IV ONE (11:10)
[2020-04-23] MEDS ORDERED: MIDAZOLAM HCL 2 MG/2 ML INJ ONE (11:10)
[2020-04-23] MEDS ORDERED: FENTANYL CITR 100 MCG/2 ML ONE (11:10)
[2020-04-23] MEDS ORDERED: LIDOCAINE 1% MPF 5 ML VIAL ONE (11:10)
[2020-04-23] MEDS ORDERED: ONDANSETRON 4 MG/2 ML VIAL ONE (11:53)
--- NOTE | 2020-04-23 11:53 | P.OP ---
Reception Manager: NONE,NONE Preoperative diagnosis: ESRD, Clotted Graft Postoperative diagnosis: same Primary procedure: Attemted RIJ Tesio, Right Femoral Justen, Fluoroscopy Anesthesia: General Estimated blood loss: min Specimen: none Findings: as above Complications: None Transferred to: Recovery Room Condition: Good
[2020-04-23] MEDS ORDERED: EPHEDRINE SULF 50 MG/ML VIAL ONE (11:55)
--- NOTE | 2020-04-23 12:22 | RAD REPORT ---
EXAM DESCRIPTION: RAD - Fluoroscopy <1 Hour - 04/23/2020 12:10 pm CLINICAL HISTORY: Venous catheter insertion. ATTEMPT TESSIO COMPARISON: AV Fistulagram in [facility] dated 04/17/2013 FINDINGS: Fluoroscopy time: 2.9 minutes
--- NOTE | 2020-04-23 12:39 | RAD REPORT ---
EXAM DESCRIPTION: RAD - Chest Single View - 04/23/2020 12:32 pm CLINICAL HISTORY: Attempted RIJ Tesio, central line placement postprocedure examination COMPARISON: Portable April 12, 2001 TECHNIQUE: AP portable chest image was obtained 04/23/2020 12:32 pm . FINDINGS: Low lung volumes or expiration exam shows no pneumothorax. No acute lung parenchymal proce ss identified. Heart and vasculature are normal. Right lung base opacification is believed to be atel ectasis. Pacemaker is in place. No measurable pleural effusion and no pneumothorax. No acute bony abn ormality seen. No acute aortic findings suspected. IMPRESSION: Postprocedure chest film shows no pneumothorax or acute finding.
[2020-04-23 12:46] VITALS: O2SAT 98
--- NOTE | 2020-04-23 12:47 | OP ---
Date of Procedure: 04/23/2020 Surgeon: aNto Lozano MD Preoperative Diagnoses: End-stage renal disease, clotted right arm graft. Postoperative Diagnoses: End-stage renal disease, clotted right arm graft. Procedures: Attempted right IJ Tesio catheter, placement of right femoral Justen catheter, and inte rpretation of fluoroscopy. Estimated Blood Loss: Minimal. Specimen: None. Findings: Could not get the guidewire into the SVC under fluoroscopy on the right side, s tenosis. The patient also has a pacemaker in that area. Anesthesia: General. Complications: None. Disposition: The patient tolerated the procedure in stable condition and taken to Recovery in good g eneral condition. Description Of Procedure: The patient was brought to the OR and placed in supine position. General anesthesia was begun. The patient was placed in the supine position. Prepped and draped in the ua l sterile fashion. Lidocaine 1% was infiltrated locally. Then, 18-gauge needle was used to access t he right IJ vein and a guidewire passed but felt some resistance, utilized fluoroscopy. The catheter was going down the IJ at the junction of the brachiocephalic and the SVC. After multiple attempts t o try to manipulate the wire into the SVC could not be accomplished. The pacemaker wire was going in that area. There may be a stenosis, however, given the complex nature and the fact that the patient 's graft is on the right side, I opted to proceed with the placement of a right groin femoral Justen . So, then pressure was applied on the right neck and then the right groin was prepped and draped in usual sterile fashion. Lidocaine 1% was infiltrated locally. An 18-gauge needle was used to access the right femoral vein. Guidewire was passed. Position was confirmed with fluoroscopy and then Sophy dedra technique was used and vein dilated and Justen catheter was placed and flushed with heparin a nd packed with heparin with good blood flow and secured to the skin with 2-0 nylon suture and sterile dressing was applied. The patient was awakened and taken to Recovery in good general condition. est x-ray has been ordered. /MODL Voice ID: [id number] Report ID: [id number]
[2020-04-23] MEDS: TRAMADOL HCL 50 MG TAB PO PRN (13:41)
[2020-04-23] MEDS: HYDRALAZINE HCL 20 MG/ML VIAL IV PRN (13:43)
[2020-04-23] MEDS: EPOETIN ALFA 10,000 UNIT/ML VIAL IV SCH (18:45)
[2020-04-23] MEDS: GABAPENTIN 300 MG CAP PO SCH (20:13)
[2020-04-23] MEDS: ATORVASTATIN 10 MG TAB PO SCH (20:13)
[2020-04-24] MEDS: TRAMADOL HCL 50 MG TAB PO PRN ×2 (00:40→07:54)
[2020-04-24] MEDS: carvediloL 6.25 MG TAB PO SCH (05:25)
[2020-04-24] MEDS: HYDRALAZINE HCL 20 MG/ML VIAL IV PRN ×2 (05:25→11:07)
[2020-04-24] MEDS: HEPARIN 5000 UNIT/ML 1 ML VIAL SQ SCH ×2 (06:03→18:11)
[2020-04-24] MEDS: POLYVINYL ALCOHOL 1.4% 15 ML EACH EYE PRN (06:48)
[2020-04-24] MEDS: MUPIROCIN 2% OINT 22GM TUBE TOP SCH ×2 (06:48→20:14)
[2020-04-24] MEDS: INSULIN -REGULAR HUMAN 50 UNIT/0.5 ML ML SQ SCH ×4 (07:30→20:14)
[2020-04-24] MEDS: INSULIN GLARGINE 100 UNITS/ML SQ SCH (07:51)
[2020-04-24] MEDS: MULTIVITAMINS,THERAPEUT 1 TAB PO SCH (07:52)
[2020-04-24] MEDS: ASPIRIN 81 MG CHEWABLE TABLET PO SCH (07:52)
[2020-04-24] MEDS: SEVELAMER CARBONATE 800 MG TABLET PO SCH ×3 (07:52→16:39)
[2020-04-24] MEDS: CALCITROL 0.25 MCG CAP PO SCH (07:52)
[2020-04-24] MEDS: SOD POLYSTYREN SUL 15 GM/60 ML UCUP PO SCH (07:52)
[2020-04-24] MEDS: VITAMIN D 1000 UNIT TAB PO SCH (07:53)
[2020-04-24] MEDS: GABAPENTIN 100 MG CAP PO SCH ×2 (07:53→20:13)
[2020-04-24] MEDS: HYDRALAZINE HCL 25 MG TABLET PO SCH (07:53)
[2020-04-24] MEDS: PROMETHAZINE 25 MG TABLET PO PRN (10:08)
[2020-04-24] MEDS ORDERED: BISACODYL 10 MG RECTAL SUPP PR PRN (11:25)
[2020-04-24] MEDS ORDERED: FLEET ENEMA ADULT PR PRN (11:26)
[2020-04-24] MEDS ORDERED: cloNIDine HCL 0.1 MG TAB PO ONE (17:42)
--- NOTE | 2020-04-24 17:44 | P.PN ---
Subjective Date of Service: 04/24/20 Subjective 54-year-old male with history ESRD on HD MWF via AVF from [place], poorly controlled DM , , hypertension, hyperlipidemia PVD S/p Lt AKA and chronic Rt foot ulcer , required multiple hospitalization with prolonged ABx duration presented for right foot wound required BKA today No overnight events BP elevated , will increase hydralazine and give clonidine X1 Review of Systems: Head and Neck: No red eye. No ear pain. GI: No nausea, no vomiting. : No polyuria, no dysuria, no hematuria. International Marketing Coordinator: Not applicable. Respiratory: No shortness of breath. Cardiovascular: No chest pain. Endocrine: No polydipsia. Skin: No rash. Neuro: Has neuropathy. Musculoskeletal: Rt stumb pain . Physical exam general: AAOX3, NAD , Neck; Supple, No elevated JVD hear: RRR, normal S1,2 no murmur or rub Chest: CTAB, no rlaes or wheezes Abdomen: Soft , Nt Extremities Lt AKA, rt BKA with dressing A/p End-stage renal disease on HD MWF HD as per schedule renal dose meds vanco oh HD days monitor level pseudohyponatremia need strict BS control Rt Foot OM with gas S/p BKA cont Abx Anemia of chronic disease Cont epogen HTN BP elevated , will increase hydralazine and give clonidine X1 hyperkalemia Cont HD DM as per PCP total time 30min Physical Examination - Vital Signs Temperature: 98.4 F Blood Pressure: 187/75 Pulse: 67 Respirations: 16 Pulse Ox (%): 96
[2020-04-24] MEDS ORDERED: HYDRALAZINE HCL 25 MG TABLET PO ONE (19:19)
[2020-04-24] MEDS: ATORVASTATIN 10 MG TAB PO SCH (20:14)
[2020-04-25] MEDS: carvediloL 6.25 MG TAB PO SCH (05:03)
[2020-04-25] MEDS: HEPARIN 5000 UNIT/ML 1 ML VIAL SQ SCH ×2 (07:10→18:05)
[2020-04-25] MEDS: INSULIN -REGULAR HUMAN 50 UNIT/0.5 ML ML SQ SCH ×4 (07:30→19:18)
[2020-04-25] MEDS: SOD POLYSTYREN SUL 15 GM/60 ML UCUP PO SCH (08:11)
[2020-04-25] MEDS: HYDRALAZINE HCL 25 MG TABLET PO SCH (08:12)
[2020-04-25] MEDS: MUPIROCIN 2% OINT 22GM TUBE TOP SCH ×2 (08:12→19:18)
[2020-04-25] MEDS: CALCITROL 0.25 MCG CAP PO SCH (08:13)
[2020-04-25] MEDS: SEVELAMER CARBONATE 800 MG TABLET PO SCH ×3 (08:13→16:34)
[2020-04-25] MEDS: GABAPENTIN 100 MG CAP PO SCH ×2 (08:13→19:18)
[2020-04-25] MEDS: VITAMIN D 1000 UNIT TAB PO SCH (08:13)
[2020-04-25] MEDS: MULTIVITAMINS,THERAPEUT 1 TAB PO SCH (08:13)
[2020-04-25] MEDS: ASPIRIN 81 MG CHEWABLE TABLET PO SCH (08:13)
[2020-04-25] MEDS: INSULIN GLARGINE 100 UNITS/ML SQ SCH (08:14)
[2020-04-25 16:25] LABS: Potassium 5.2 mmol/L (3.5-5.1)
[2020-04-25] MEDS: ATORVASTATIN 10 MG TAB PO SCH (19:18)
[2020-04-26] MEDS: TRAMADOL HCL 50 MG TAB PO PRN ×2 (04:27→23:36)
[2020-04-26] MEDS: carvediloL 6.25 MG TAB PO SCH (05:23)
[2020-04-26] MEDS: HEPARIN 5000 UNIT/ML 1 ML VIAL SQ SCH ×2 (06:15→20:00)
[2020-04-26] MEDS: INSULIN -REGULAR HUMAN 50 UNIT/0.5 ML ML SQ SCH ×4 (06:53→20:00)
[2020-04-26] MEDS: MULTIVITAMINS,THERAPEUT 1 TAB PO SCH (08:48)
[2020-04-26] MEDS: POLYVINYL ALCOHOL 1.4% 15 ML EACH EYE PRN ×2 (08:48→20:04)
[2020-04-26] MEDS: SEVELAMER CARBONATE 800 MG TABLET PO SCH ×3 (08:48→17:00)
[2020-04-26] MEDS: VITAMIN D 1000 UNIT TAB PO SCH (08:48)
[2020-04-26] MEDS: HYDRALAZINE HCL 25 MG TABLET PO SCH (08:48)
[2020-04-26] MEDS: CALCITROL 0.25 MCG CAP PO SCH (08:49)
[2020-04-26] MEDS: INSULIN GLARGINE 100 UNITS/ML SQ SCH (08:49)
[2020-04-26] MEDS: MUPIROCIN 2% OINT 22GM TUBE TOP SCH ×2 (08:49→20:00)
[2020-04-26] MEDS: ASPIRIN 81 MG CHEWABLE TABLET PO SCH (08:49)
[2020-04-26] MEDS: GABAPENTIN 100 MG CAP PO SCH ×2 (08:49→20:03)
[2020-04-26] MEDS: ATORVASTATIN 10 MG TAB PO SCH (20:03)
--- NOTE | 2020-04-26 20:03 | R.PN ---
PROGRESS NOTES ENCOUNTER DATE AND TIME: 04/26/2020 20:00 (SYSTEM AUDITOR) NAME VAL MAGALLANES DATE OF : 1965 DATE OF ADMISSION: 04/14/2020 14:13 (SYSTEM AUDITOR) RIGHT BELOW-KNEE AMPUTTIONCHIEF COMPLAINT: Right ayemr-qev-bdkq amputation SUBJECTIVE: Pt denied any depression. Pt denied any Shortness of Breath. Right BKA and chronic left BKA with less pain in the heeling right stump. Ambulated 750' with standby assistance using a rolling walker. WBC 7.7, Hbg 8.4, Plt 350, K+ 4.8 and Graphic Design Specialist 9.54, glucose 58 to 132. He has hemodialysis managed by the renal service. COVID-19 is negative. VITAL SIGNS Temperature: 98.6 F SBP/DBP: 158/67 Pulse: 62 Resp: 16 MEDICATION ALLERGIES: No Known Drug Allergies (NKDA) ENVIRONMENTAL ALLERGIES: - Substance Allergies None Known - Other Allergies None Known CONSULT: Perform Consult Certified Prosthetic for prosthesis construction NURSING: - Shower allowing shower - Skin care per protocol PRECAUTIONS: - Weight Bearing Precaution NWB right LE ACTIVITIES OOB only with supervision THERAPIES: - Orthotics/Prosthetics Prosthetic Evaluation. - Dietary and Nutrition Adequate Nutrition. Nutritional Education. Nutritional Supplements. PHYSICAL EXAM - Gen Alert and awake Lying in bed No apparent distress Oriented to: person, time, and place - Skin No skin breakdown. No abnormalities - Eyes No abnormalities - ENMT No abnormalities - Neck No abnormalities No cervical adenopathy - CVS RRR - Chest No abnormalities - Resp Clear to auscultation - Abd Soft - GI Soft Deferred - No abnormalities - Ext No significant edema - MSK 4+/5 weakness in both lower extremities. - Neuro 4/5 strength right lower extremity. - Psych No abnormalities ASSESSMENT: Pt. is a 54 yo Right-handed male of unknown race.On 04/06/2020 he was admitted to [facility] with diagnosis RIGHT BELOW-KNEE AMPUTTION.His impairment category is Amputation of Limb 05 - Bi lateral Lower Limb Below the Knee (BK/BK) (05.7).Pre-morbidly, Pt. was independent/mod-I in Safety Aw areness, Transfers Control, Sphincter Control, and Self-Care; and he had good Safety Awareness, Michelet ce, Endurance, and Locomotion.Currently, he has deficits of Safety Awareness, Locomotion, Balance, Tr ansfers Control, Endurance, and Sphincter Control.Pt. is now referred to [facility] for acute in-patient rehabilitation in order to maximize patient's functional independence in a ctivities of daily living, strength, ROM, and mobility.- Rehab Goal Patient has realistic goal of being discharged at assistance level 7-Ind to reside at Home with Fami ly/Relatives. MDM/PLAN: - Physical Therapy Inability to transfer - to improve, our physical therapists will perform initial evaluation of pt's status upon admission and devise an individualized program for Bed mobility Need for home safety evaluation - to improve, our physical therapists will perform initial evaluatio n of pt's status upon admission and devise an individualized program for Home Evaluation Need in caregiver upon discharge - to improve, our physical therapists will perform initial evaluati on of pt's status upon admission and devise an individualized program for Caregiver Training New precaution - to improve, our physical therapists will perform initial evaluation of pt's status upon admission and devise an individualized program for Patient precaution education Edema - to improve, our physical therapists will perform initial evaluation of pt's status upon admi ssion and devise an individualized program for Elevation Training, and Lymphedema Therapy Poor balance - to improve, our physical therapists will perform initial evaluation of pt's status up on admission and devise an individualized program for Balance Training Poor endurance - to improve, our physical therapists will perform initial evaluation of pt's status upon admission and devise an individualized program for Endurance Training Achieving independence - to improve, our physical therapists will perform initial evaluation of pt's status upon admission and devise an individualized program for Community Reintegration Activities - Occupational Therapy Need for director of primary care - to improve, our occupation therapists will perform initial evaluation of pt's status upon admission and devise an individualized program for Caregiver Training - Other See attached MAR (Medication Administration Record) - Diet Type Continue Regular - Diet - Liquid Texture Continue Regular - Tube Feed Continue N/A - Weight Bearing Precaution NWB right LE - Consult Perform Consult Certified Prosthetic for prosthesis construction - Skin care per protocol - N/A Perform Consult Certified Prosthetic for prosthesis construction - Diet - Solid Texture Continue Regular - Shower allowing shower FUNCTIONAL STATUS: UPDATED AT WEEKLY TEAM CONFERENCE - Bladder Same accident frequency: 7-Ind - No accidents in the past 7 days - Bowel Same accident frequency: 7-Ind - No accidents in the past 7 days - Walking Same score based on distance walked: 0(N/A) - Wheelchair Same score based on distance traveled: 0(N/A) FUNCTIONAL STATUS: - Self-Care A. Eating sup B. Grooming Gera C. Bathing Cynthia D. Dressing - Upper sup E. Dressing - Lower Cynthia F. Toileting Cynthia - Sphincter Control G. Bladder control modA H. Bowel control Gera - Transfers Control I. Bed/Chair/Wheelchair sup J. Toilet sup K. Tub/Shower Cynthia - Locomotion L. Walk/Wheelchair (B) sup M. Stairs modA - Communication N. Comprehension (B) Gera O. Expression (B) Gera - Social Cognition P. Social Interaction Gera Q. Problem Solving Gera R. Memory Gera - Endurance Good - Balance Fair - Safety Awareness Fair QI SCORES: - Self-Care A. Eating 03-Partial/moderate assistance B. Oral hygiene 03-Partial/moderate assistance C. Toileting hygiene 03-Partial/moderate assistance E. Shower/bathe self 03-Partial/moderate assistance F. Upper body dressing 03-Partial/moderate assistance G. Lower body dressing 03-Partial/moderate assistance H. Putting on/taking off footwear 88-Not attempted due to medical condition or safety concerns - Mobility A. Roll left and right 04-Supervision or touching assistance B. Sit to lying 03-Partial/moderate assistance C. Lying to sitting on side of bed 03-Partial/moderate assistance D. Sit to stand 88-Not attempted due to medical condition or safety concerns E. Chair/zqs-kv-bxzmx transfer 03-Partial/moderate assistance F. Toilet transfer 03-Partial/moderate assistance G. Car transfer 88-Not attempted due to medical condition or safety concerns I. Walk 10 feet 88-Not attempted due to medical condition or safety concerns J. Walk 50 feet with two turns 88-Not attempted due to medical condition or safety concerns K. Walk 150 feet 88-Not attempted due to medical condition or safety concerns L. Walking 10 feet on uneven surfaces 88-Not attempted due to medical condition or safety concerns M. 1 step (curb) 88-Not attempted due to medical condition or safety concerns N. 4 steps 88-Not attempted due to medical condition or safety concerns O. 12 steps 88-Not attempted due to medical condition or safety concerns P. Picking up object 88-Not attempted due to medical condition or safety concerns R. Wheel 50 feet with two turns 88-Not attempted due to medical condition or safety concerns S. Wheel 150 feet 88-Not attempted due to medical condition or safety concerns - Bladder and Bowel Bladder continence Bowel continence - Endurance Fair - Balance Fair - Safety Awareness Fair CURRENT [facility]. DEFICITS: Self-Care SIGNATURE PANEL: (SYSTEM AUDITOR)
[2020-04-26] MEDS: GABAPENTIN 300 MG CAP PO SCH (20:04)
[2020-04-26] MEDS: DOCUSATE NA/SENNA CONC 1 TAB PO PRN (20:04)
--- NOTE | 2020-04-27 00:32 | PN ---
Date of Progress Note: 04/26/2020 Chief Complaint: End-stage renal disease, on dialysis on Sunday, Sunday, Sunday; history of hyper kalemia. Patient received additional dose of Kayexalate to control hyperkalemia. Patient was treate d with dialysis with 1 potassium dialysate. Lab work will be obtained to control electrolytes. Sara ent is on low potassium diet. Review of Systems: Denies PND or orthopnea. Physical Examination: Lungs: Diminished breath sounds. Heart: S1, S2. Abdomen: Soft, benign. Extremities: No edema. Impression And Plan: 1.End-stage renal disease, on dialysis today and scheduled with ultrafiltration. Continue vancomyci n with dialysis for diabetic foot infection. 2.Diabetes mellitus, pseudohyponatremia secondary to elevated blood glucose. Adjust insulin for abel betic control. 3.Hyperkalemia. Continue low-potassium diet. 4.Anemia chronic kidney disease. Continue Epogen. 5.Hypertension. Medication adjusted. Patient received clonidine. Adjust medication as needed. CHRISTOPHER/JERSON Voice ID: [id number] Report ID: [id number]
[2020-04-27] MEDS: carvediloL 6.25 MG TAB PO SCH (05:02)
[2020-04-27] MEDS: HYDRALAZINE HCL 25 MG TABLET PO SCH (05:03)
[2020-04-27] MEDS: HEPARIN 5000 UNIT/ML 1 ML VIAL SQ SCH ×2 (06:14→18:24)
[2020-04-27 06:24] LABS: Absolute Lymphocytes (CBC) 1.5 K/uL (0.7-4.9); Basophils % 1.5 % (0-1.3); Hematocrit 26.7 % (39.6-49.0); MPV 8.7 fL (7.6-11.3); RBC Red Blood Cell Count 2.68 M/uL (4.33-5.43)
[2020-04-27 06:44] LABS: Potassium 4.9 mmol/L (3.5-5.1)
[2020-04-27] MEDS: MUPIROCIN 2% OINT 22GM TUBE TOP SCH ×2 (07:13→20:11)
[2020-04-27] MEDS: POLYVINYL ALCOHOL 1.4% 15 ML EACH EYE PRN ×2 (07:14→20:12)
[2020-04-27] MEDS: INSULIN -REGULAR HUMAN 50 UNIT/0.5 ML ML SQ SCH ×4 (07:26→20:11)
[2020-04-27] MEDS: INSULIN GLARGINE 100 UNITS/ML SQ SCH (07:27)
[2020-04-27] MEDS: PROMETHAZINE 25 MG TABLET PO PRN (07:35)
[2020-04-27] MEDS: SEVELAMER CARBONATE 800 MG TABLET PO SCH ×3 (08:05→17:00)
[2020-04-27] MEDS: CALCITROL 0.25 MCG CAP PO SCH (08:05)
[2020-04-27] MEDS: SOD POLYSTYREN SUL 15 GM/60 ML UCUP PO SCH (08:05)
[2020-04-27] MEDS: VITAMIN D 1000 UNIT TAB PO SCH (08:05)
[2020-04-27] MEDS: GABAPENTIN 100 MG CAP PO SCH ×2 (08:05→20:00)
[2020-04-27] MEDS: ASPIRIN 81 MG CHEWABLE TABLET PO SCH (08:05)
[2020-04-27] MEDS: MULTIVITAMINS,THERAPEUT 1 TAB PO SCH (08:05)
--- NOTE | 2020-04-27 18:07 | R.PN ---
PROGRESS NOTES ENCOUNTER DATE AND TIME: 04/27/2020 18:03 (CODING CONSULTANT) NAME VAL MAGALLANES DATE OF : 1965 DATE OF ADMISSION: 04/14/2020 14:13 (CODING CONSULTANT) RIGHT BELOW-KNEE AMPUTTIONCHIEF COMPLAINT: Right xiuke-nfp-eoba amputation SUBJECTIVE: Pt denied any depression. Pt denied any Shortness of Breath. Right BKA and chronic left BKA with less pain in the heeling right stump. Ambulated 750' with standby assistance using a rolling walker. WBC 7.7, Hbg 8.6, Plt 350, K+ 4.8 and Heel Seat Filler 8.40, glucose 79 to 209. He has hemodialysis managed by the renal service. COVID-19 is negative. VITAL SIGNS Temperature: 99.7 F SBP/DBP: 153/65 Pulse: 60 Resp: 16 MEDICATION ALLERGIES: No Known Drug Allergies (NKDA) ENVIRONMENTAL ALLERGIES: - Substance Allergies None Known - Other Allergies None Known CONSULT: Perform Consult Certified Prosthetic for prosthesis construction NURSING: - Shower allowing shower - Skin care per protocol PRECAUTIONS: - Weight Bearing Precaution NWB right LE ACTIVITIES OOB only with supervision THERAPIES: - Orthotics/Prosthetics Prosthetic Evaluation. - Dietary and Nutrition Adequate Nutrition. Nutritional Education. Nutritional Supplements. PHYSICAL EXAM - Gen Alert and awake Lying in bed No apparent distress Oriented to: person, time, and place - Skin No skin breakdown. No abnormalities - Eyes No abnormalities - ENMT No abnormalities - Neck No abnormalities No cervical adenopathy - CVS RRR - Chest No abnormalities - Resp Clear to auscultation - Abd Soft - GI Soft Deferred - No abnormalities - Ext No significant edema - MSK 4+/5 weakness in both lower extremities. - Neuro 4/5 strength right lower extremity. - Psych No abnormalities ASSESSMENT: Pt. is a 54 yo Right-handed male of unknown race.On 04/06/2020 he was admitted to [facility] with diagnosis RIGHT BELOW-KNEE AMPUTTION.His impairment category is Amputation of Limb 05 - Bi lateral Lower Limb Below the Knee (BK/BK) (05.7).Pre-morbidly, Pt. was independent/mod-I in Safety Aw areness, Transfers Control, Sphincter Control, and Self-Care; and he had good Safety Awareness, Michelet ce, Endurance, and Locomotion.Currently, he has deficits of Safety Awareness, Locomotion, Balance, Tr ansfers Control, Endurance, and Sphincter Control.Pt. is now referred to [facility] for acute in-patient rehabilitation in order to maximize patient's functional independence in a ctivities of daily living, strength, ROM, and mobility.- Rehab Goal Patient has realistic goal of being discharged at assistance level 7-Ind to reside at Home with Fami ly/Relatives. MDM/PLAN: - Physical Therapy Inability to transfer - to improve, our physical therapists will perform initial evaluation of pt's status upon admission and devise an individualized program for Bed mobility Need for home safety evaluation - to improve, our physical therapists will perform initial evaluatio n of pt's status upon admission and devise an individualized program for Home Evaluation Need in caregiver upon discharge - to improve, our physical therapists will perform initial evaluati on of pt's status upon admission and devise an individualized program for Caregiver Training New precaution - to improve, our physical therapists will perform initial evaluation of pt's status upon admission and devise an individualized program for Patient precaution education Edema - to improve, our physical therapists will perform initial evaluation of pt's status upon admi ssion and devise an individualized program for Elevation Training, and Lymphedema Therapy Poor balance - to improve, our physical therapists will perform initial evaluation of pt's status up on admission and devise an individualized program for Balance Training Poor endurance - to improve, our physical therapists will perform initial evaluation of pt's status upon admission and devise an individualized program for Endurance Training Achieving independence - to improve, our physical therapists will perform initial evaluation of pt's status upon admission and devise an individualized program for Community Reintegration Activities - Occupational Therapy Need for floor care specialist - to improve, our occupation therapists will perform initial evaluation of pt's status upon admission and devise an individualized program for Caregiver Training - Other See attached MAR (Medication Administration Record) - Diet Type Continue Regular - Diet - Liquid Texture Continue Regular - Tube Feed Continue N/A - Weight Bearing Precaution NWB right LE - Consult Perform Consult Certified Prosthetic for prosthesis construction - Skin care per protocol - N/A Perform Consult Certified Prosthetic for prosthesis construction - Diet - Solid Texture Continue Regular - Shower allowing shower FUNCTIONAL STATUS: UPDATED AT WEEKLY TEAM CONFERENCE - Bladder Same accident frequency: 7-Ind - No accidents in the past 7 days - Bowel Same accident frequency: 7-Ind - No accidents in the past 7 days - Walking Same score based on distance walked: 0(N/A) - Wheelchair Same score based on distance traveled: 0(N/A) FUNCTIONAL STATUS: - Self-Care A. Eating sup B. Grooming Gera C. Bathing Cynthia D. Dressing - Upper sup E. Dressing - Lower Cynthia F. Toileting Cynthia - Sphincter Control G. Bladder control modA H. Bowel control Gera - Transfers Control I. Bed/Chair/Wheelchair sup J. Toilet sup K. Tub/Shower Cynthia - Locomotion L. Walk/Wheelchair (B) sup M. Stairs modA - Communication N. Comprehension (B) Gera O. Expression (B) Gera - Social Cognition P. Social Interaction Gera Q. Problem Solving Gera R. Memory Gera - Endurance Good - Balance Fair - Safety Awareness Fair QI SCORES: - Self-Care A. Eating 03-Partial/moderate assistance B. Oral hygiene 03-Partial/moderate assistance C. Toileting hygiene 03-Partial/moderate assistance E. Shower/bathe self 03-Partial/moderate assistance F. Upper body dressing 03-Partial/moderate assistance G. Lower body dressing 03-Partial/moderate assistance H. Putting on/taking off footwear 88-Not attempted due to medical condition or safety concerns - Mobility A. Roll left and right 04-Supervision or touching assistance B. Sit to lying 03-Partial/moderate assistance C. Lying to sitting on side of bed 03-Partial/moderate assistance D. Sit to stand 88-Not attempted due to medical condition or safety concerns E. Chair/naj-le-hrwsm transfer 03-Partial/moderate assistance F. Toilet transfer 03-Partial/moderate assistance G. Car transfer 88-Not attempted due to medical condition or safety concerns I. Walk 10 feet 88-Not attempted due to medical condition or safety concerns J. Walk 50 feet with two turns 88-Not attempted due to medical condition or safety concerns K. Walk 150 feet 88-Not attempted due to medical condition or safety concerns L. Walking 10 feet on uneven surfaces 88-Not attempted due to medical condition or safety concerns M. 1 step (curb) 88-Not attempted due to medical condition or safety concerns N. 4 steps 88-Not attempted due to medical condition or safety concerns O. 12 steps 88-Not attempted due to medical condition or safety concerns P. Picking up object 88-Not attempted due to medical condition or safety concerns R. Wheel 50 feet with two turns 88-Not attempted due to medical condition or safety concerns S. Wheel 150 feet 88-Not attempted due to medical condition or safety concerns - Bladder and Bowel Bladder continence Bowel continence - Endurance Fair - Balance Fair - Safety Awareness Fair CURRENT [facility]. DEFICITS: Self-Care SIGNATURE PANEL: (CODING CONSULTANT)
--- NOTE | 2020-04-27 18:24 | PN ---
Date of Progress Note: 04/27/2020 Subjective: The patient was admitted with deconditioning. The patient in rehab. Physical Examination: Vital Signs: Blood pressure 153/65, pulse of 60, afebrile. Chest: Clear to auscultation. Heart: S1, S2. Regular. Abdomen: Soft, nontender. Extremity: Right below-knee amputation, left below-knee amputation with artificial leg. Laboratory Data: H and H 8.6/26.7. Sodium 136, potassium 4.9, bicarb 30, BUN 47, creatinine 8.4. Current Medications: The patient on include cetirizine, promethazine, Epogen, carvedilol 6.25, hydra lazine 50 daily, gabapentin, Renvela. Assessment And Plan: 1.End-stage renal disease. We will continue the patient on dialysis Sunday, Sunday, Sunday. Romero edule for dialysis tomorrow. 2.Secondary hyperparathyroidism. Continue binder. 3.Anemia of chronic kidney disease. Continue SHERIF. 4.Clotted AV fistula. Plan to declot as outpatient. 5.Deconditioning. Continue PT, OT. KENYON/JERSON Voice ID: [id number] Report ID: [id number]
[2020-04-27] MEDS: cloNIDine HCL 0.1 MG TAB PO PRN (20:09)
[2020-04-27] MEDS: ATORVASTATIN 10 MG TAB PO SCH (20:10)
[2020-04-27] MEDS: TRAMADOL HCL 50 MG TAB PO PRN (20:10)
[2020-04-28] MEDS: carvediloL 6.25 MG TAB PO SCH (05:59)
[2020-04-28] MEDS: cloNIDine HCL 0.1 MG TAB PO PRN (06:00)
[2020-04-28] MEDS: HYDRALAZINE HCL 25 MG TABLET PO SCH (06:45)
[2020-04-28] MEDS: POLYVINYL ALCOHOL 1.4% 15 ML EACH EYE PRN (06:45)
[2020-04-28] MEDS: INSULIN -REGULAR HUMAN 50 UNIT/0.5 ML ML SQ SCH ×4 (07:30→20:07)
[2020-04-28] MEDS: ASPIRIN 81 MG CHEWABLE TABLET PO SCH (08:07)
[2020-04-28] MEDS: INSULIN GLARGINE 100 UNITS/ML SQ SCH (08:07)
[2020-04-28] MEDS: SEVELAMER CARBONATE 800 MG TABLET PO SCH ×3 (08:08→17:21)
[2020-04-28] MEDS: VITAMIN D 1000 UNIT TAB PO SCH (08:08)
[2020-04-28] MEDS: MULTIVITAMINS,THERAPEUT 1 TAB PO SCH (08:08)
[2020-04-28] MEDS: CALCITROL 0.25 MCG CAP PO SCH (08:09)
[2020-04-28] MEDS: GABAPENTIN 100 MG CAP PO SCH ×2 (08:10→20:03)
[2020-04-28] MEDS: HEPARIN 5000 UNIT/ML 1 ML VIAL SQ SCH ×2 (09:35→18:11)
[2020-04-28] MEDS: MUPIROCIN 2% OINT 22GM TUBE TOP SCH ×2 (10:07→20:03)
[2020-04-28] MEDS: GABAPENTIN 300 MG CAP PO SCH (17:21)
--- NOTE | 2020-04-28 18:04 | R.PN ---
PROGRESS NOTES ENCOUNTER DATE AND TIME: 04/28/2020 18:00 (RESEARCH ASSOCIATE QUALITY CONTROL QC) NAME VAL MAGALLANES DATE OF : 1965 DATE OF ADMISSION: 04/14/2020 14:13 (RESEARCH ASSOCIATE QUALITY CONTROL QC) RIGHT BELOW-KNEE AMPUTTIONCHIEF COMPLAINT: Right [id number] amputation SUBJECTIVE: Pt denied any depression. Pt denied any Shortness of Breath. Right BKA and chronic left BKA with less pain in the heeling right stump. Ambulated 600' with modified independence using a rolling walker. WBC 7.7, Hbg 8.6, Plt 350, K+ 4.8 and Photographic Reproduction Technician 8.40, glucose 43 to 71. He has hemodialysis managed by the renal service. COVID-19 is negative. VITAL SIGNS Temperature: 98.2 F SBP/DBP: 156/75 Pulse: 60 Resp: 16 MEDICATION ALLERGIES: No Known Drug Allergies (NKDA) ENVIRONMENTAL ALLERGIES: - Substance Allergies None Known - Other Allergies None Known CONSULT: Perform Consult Certified Prosthetic for prosthesis construction NURSING: - Shower allowing shower - Skin care per protocol PRECAUTIONS: - Weight Bearing Precaution NWB right LE ACTIVITIES OOB only with supervision THERAPIES: - Orthotics/Prosthetics Prosthetic Evaluation. - Dietary and Nutrition Adequate Nutrition. Nutritional Education. Nutritional Supplements. PHYSICAL EXAM - Gen Alert and awake Lying in bed No apparent distress Oriented to: person, time, and place - Skin No skin breakdown. No abnormalities - Eyes No abnormalities - ENMT No abnormalities - Neck No abnormalities No cervical adenopathy - CVS RRR - Chest No abnormalities - Resp Clear to auscultation - Abd Soft - GI Soft Deferred - No abnormalities - Ext No significant edema - MSK 4+/5 weakness in both lower extremities. - Neuro 4/5 strength right lower extremity. - Psych No abnormalities ASSESSMENT: Pt. is a 54 yo Right-handed male of unknown race.On 04/06/2020 he was admitted to [facility] with diagnosis RIGHT BELOW-KNEE AMPUTTION.His impairment category is Amputation of Limb 05 - Bi lateral Lower Limb Below the Knee (BK/BK) (05.7).Pre-morbidly, Pt. was independent/mod-I in Safety Aw areness, Transfers Control, Sphincter Control, and Self-Care; and he had good Safety Awareness, Michelet ce, Endurance, and Locomotion.Currently, he has deficits of Safety Awareness, Locomotion, Balance, Tr ansfers Control, Endurance, and Sphincter Control.Pt. is now referred to [facility] for acute in-patient rehabilitation in order to maximize patient's functional independence in a ctivities of daily living, strength, ROM, and mobility.- Rehab Goal Patient has realistic goal of being discharged at assistance level 7-Ind to reside at Home with Fami ly/Relatives. MDM/PLAN: - Physical Therapy Inability to transfer - to improve, our physical therapists will perform initial evaluation of pt's status upon admission and devise an individualized program for Bed mobility Need for home safety evaluation - to improve, our physical therapists will perform initial evaluatio n of pt's status upon admission and devise an individualized program for Home Evaluation Need in caregiver upon discharge - to improve, our physical therapists will perform initial evaluati on of pt's status upon admission and devise an individualized program for Caregiver Training New precaution - to improve, our physical therapists will perform initial evaluation of pt's status upon admission and devise an individualized program for Patient precaution education Edema - to improve, our physical therapists will perform initial evaluation of pt's status upon admi ssion and devise an individualized program for Elevation Training, and Lymphedema Therapy Poor balance - to improve, our physical therapists will perform initial evaluation of pt's status up on admission and devise an individualized program for Balance Training Poor endurance - to improve, our physical therapists will perform initial evaluation of pt's status upon admission and devise an individualized program for Endurance Training Achieving independence - to improve, our physical therapists will perform initial evaluation of pt's status upon admission and devise an individualized program for Community Reintegration Activities - Occupational Therapy Need for child care center assistant director - to improve, our occupation therapists will perform initial evaluation of pt's status upon admission and devise an individualized program for Caregiver Training - Other See attached MAR (Medication Administration Record) - Diet Type Continue Regular - Diet - Liquid Texture Continue Regular - Tube Feed Continue N/A - Weight Bearing Precaution NWB right LE - Consult Perform Consult Certified Prosthetic for prosthesis construction - Skin care per protocol - N/A Perform Consult Certified Prosthetic for prosthesis construction - Diet - Solid Texture Continue Regular - Shower allowing shower FUNCTIONAL STATUS: UPDATED AT WEEKLY TEAM CONFERENCE - Bladder Same accident frequency: 7-Ind - No accidents in the past 7 days - Bowel Same accident frequency: 7-Ind - No accidents in the past 7 days - Walking Same score based on distance walked: 0(N/A) - Wheelchair Same score based on distance traveled: 0(N/A) FUNCTIONAL STATUS: - Self-Care A. Eating sup B. Grooming Gera C. Bathing Cynthia D. Dressing - Upper sup E. Dressing - Lower Cynthia F. Toileting Cynthia - Sphincter Control G. Bladder control modA H. Bowel control Gera - Transfers Control I. Bed/Chair/Wheelchair sup J. Toilet sup K. Tub/Shower Cynthia - Locomotion L. Walk/Wheelchair (B) sup M. Stairs modA - Communication N. Comprehension (B) Gera O. Expression (B) Gera - Social Cognition P. Social Interaction Gera Q. Problem Solving Gera R. Memory Gera - Endurance Good - Balance Fair - Safety Awareness Fair QI SCORES: - Self-Care A. Eating 03-Partial/moderate assistance B. Oral hygiene 03-Partial/moderate assistance C. Toileting hygiene 03-Partial/moderate assistance E. Shower/bathe self 03-Partial/moderate assistance F. Upper body dressing 03-Partial/moderate assistance G. Lower body dressing 03-Partial/moderate assistance H. Putting on/taking off footwear 88-Not attempted due to medical condition or safety concerns - Mobility A. Roll left and right 04-Supervision or touching assistance B. Sit to lying 03-Partial/moderate assistance C. Lying to sitting on side of bed 03-Partial/moderate assistance D. Sit to stand 88-Not attempted due to medical condition or safety concerns E. Chair/waj-ko-hnkmt transfer 03-Partial/moderate assistance F. Toilet transfer 03-Partial/moderate assistance G. Car transfer 88-Not attempted due to medical condition or safety concerns I. Walk 10 feet 88-Not attempted due to medical condition or safety concerns J. Walk 50 feet with two turns 88-Not attempted due to medical condition or safety concerns K. Walk 150 feet 88-Not attempted due to medical condition or safety concerns L. Walking 10 feet on uneven surfaces 88-Not attempted due to medical condition or safety concerns M. 1 step (curb) 88-Not attempted due to medical condition or safety concerns N. 4 steps 88-Not attempted due to medical condition or safety concerns O. 12 steps 88-Not attempted due to medical condition or safety concerns P. Picking up object 88-Not attempted due to medical condition or safety concerns R. Wheel 50 feet with two turns 88-Not attempted due to medical condition or safety concerns S. Wheel 150 feet 88-Not attempted due to medical condition or safety concerns - Bladder and Bowel Bladder continence Bowel continence - Endurance Fair - Balance Fair - Safety Awareness Fair CURRENT [facility]. DEFICITS: Self-Care SIGNATURE PANEL: (RESEARCH ASSOCIATE QUALITY CONTROL QC)
[2020-04-28] MEDS: ATORVASTATIN 10 MG TAB PO SCH (20:03)
--- NOTE | 2020-04-29 01:09 | PN ---
Date of Progress Note: 04/28/2020 Subjective: The patient was admitted for rehabilitation. The patient had clotted AV fistula. Objective: Vital Signs: When I saw the patient, blood pressure 156/75, pulse of 60. Chest: Clear to auscultation. Heart: S1, S2 regular. Abdomen: Soft, nontender. Extremities: Below knee amputation bilaterally. Laboratory Data: Hemoglobin 8.6, hematocrit 26.7. Sodium 136, potassium 4.9, bicarb 30, BUN 47, creatinine 8.4, calcium 8.6. Assessment And Plan: 1. End-stage renal disease with clotted AV fistula. We will continue using the temporary hemodialysis catheter. We will try to arrange for declot as outpatient. We discussed with the case management associate and floor sweeper for arrangement for outpatient declot. We will proceed. 2. Hypertension, controlled, optimal. Continue current medication. 3. Hyperkalemia, resolved. Continue dialysis on low-potassium bath. 4. Deconditioning. Continue PT, OT. KENYON/JERSON Voice ID: [id number] Report ID: [id number] YAMIL
[2020-04-29] MEDS: carvediloL 6.25 MG TAB PO SCH (05:00)
[2020-04-29 06:36] LABS: Absolute Lymphocytes (CBC) 1.7 K/uL (0.7-4.9); Basophils % 1.7 % (0-1.3); Hematocrit 25.9 % (39.6-49.0); MPV 8.8 fL (7.6-11.3); RBC Red Blood Cell Count 2.64 M/uL (4.33-5.43)
[2020-04-29 07:06] LABS: Albumin 2.5 g/dL (3.4-5.0); Magnesium 2.9 mg/dL (1.8-2.4); Potassium 5.2 mmol/L (3.5-5.1); Prealbumin 24.2 mg/dL (20-40)
[2020-04-29] MEDS: HYDRALAZINE HCL 25 MG TABLET PO SCH (07:20)
[2020-04-29] MEDS: INSULIN -REGULAR HUMAN 50 UNIT/0.5 ML ML SQ SCH ×4 (07:30→19:26)
[2020-04-29] MEDS: ASPIRIN 81 MG CHEWABLE TABLET PO SCH (07:50)
[2020-04-29] MEDS: SOD POLYSTYREN SUL 15 GM/60 ML UCUP PO SCH (07:51)
[2020-04-29] MEDS: INSULIN GLARGINE 100 UNITS/ML SQ SCH (07:51)
[2020-04-29] MEDS: MULTIVITAMINS,THERAPEUT 1 TAB PO SCH (07:51)
[2020-04-29] MEDS: GABAPENTIN 100 MG CAP PO SCH ×2 (07:57→19:14)
[2020-04-29] MEDS: SEVELAMER CARBONATE 800 MG TABLET PO SCH ×3 (07:58→17:19)
[2020-04-29] MEDS: MUPIROCIN 2% OINT 22GM TUBE TOP SCH ×2 (08:00→19:14)
[2020-04-29] MEDS: VITAMIN D 1000 UNIT TAB PO SCH (08:00)
[2020-04-29] MEDS: CALCITROL 0.25 MCG CAP PO SCH (08:00)
[2020-04-29] MEDS: HEPARIN 5000 UNIT/ML 1 ML VIAL SQ SCH (18:20)
[2020-04-29] MEDS: ATORVASTATIN 10 MG TAB PO SCH (19:13)
[2020-04-29] MEDS: TRAMADOL HCL 50 MG TAB PO PRN (19:13)
[2020-04-30] MEDS: carvediloL 6.25 MG TAB PO SCH (05:16)
[2020-04-30] MEDS: HEPARIN 5000 UNIT/ML 1 ML VIAL SQ SCH ×2 (06:04→19:36)
[2020-04-30] MEDS: POLYVINYL ALCOHOL 1.4% 15 ML EACH EYE PRN ×2 (06:55→22:19)
[2020-04-30] MEDS: MUPIROCIN 2% OINT 22GM TUBE TOP SCH ×2 (06:56→22:13)
[2020-04-30] MEDS: INSULIN -REGULAR HUMAN 50 UNIT/0.5 ML ML SQ SCH ×4 (07:30→21:00)
[2020-04-30] MEDS: HYDRALAZINE HCL 25 MG TABLET PO SCH (08:00)
[2020-04-30] MEDS: INSULIN GLARGINE 100 UNITS/ML SQ SCH (08:50)
[2020-04-30] MEDS: SEVELAMER CARBONATE 800 MG TABLET PO SCH ×3 (08:50→17:07)
[2020-04-30] MEDS: VITAMIN D 1000 UNIT TAB PO SCH (08:51)
[2020-04-30] MEDS: ASPIRIN 81 MG CHEWABLE TABLET PO SCH (08:51)
[2020-04-30] MEDS: GABAPENTIN 100 MG CAP PO SCH (08:51)
[2020-04-30] MEDS: MULTIVITAMINS,THERAPEUT 1 TAB PO SCH (08:51)
[2020-04-30] MEDS: CALCITROL 0.25 MCG CAP PO SCH (08:51)
--- NOTE | 2020-04-30 10:06 | P.RH.PN ---
Estimated Length of Stay: 21 Expected Discharge Date: 05/04/20 Discharge Disposition Plan: Home Family Support: Yes Usp Goal: Mobility, Transfers, Self Care Vital Signs: Last Vital Signs Temp 98.1 F 04/30/20 08:00 Pulse 60 04/30/20 08:00 Resp 18 04/30/20 08:00 BP 165/79 H 04/30/20 08:00 Pulse Ox 100 04/30/20 08:00 Laboratory: Laboratory Last Values WBC 6.0 K/uL (4.3-10.9) D 04/29/20 06:10 RBC 2.64 M/uL (4.33-5.43) L 04/29/20 06:10 Hgb 8.6 g/dL (13.6-17.9) L 04/29/20 06:10 Hct 25.9 % (39.6-49.0) L 04/29/20 06:10 MCV 98.3 fL (80-100) 04/29/20 06:10 MCH 32.7 pg (27.0-35.0) 04/29/20 06:10 MCHC 33.3 g/dL (32.0-36.0) 04/29/20 06:10 RDW 14.8 % (12.1-15.2) 04/29/20 06:10 Plt Count 264 K/uL (152-406) 04/29/20 06:10 MPV 8.8 fL (7.6-11.3) 04/29/20 06:10 Neutrophils % 47.3 % (41.7-73.7) 04/29/20 06:10 Lymphocytes % 28.0 % (15.3-44.8) 04/29/20 06:10 Monocytes % 13.1 % (3.3-12.3) H 04/29/20 06:10 Eosinophils % 9.9 % (0-4.4) H 04/29/20 06:10 Basophils % 1.7 % (0-1.3) H 04/29/20 06:10 Absolute Neutrophils 2.9 K/uL (1.8-8.0) 04/29/20 06:10 Absolute Lymphocytes 1.7 K/uL (0.7-4.9) 04/29/20 06:10 Absolute Monocytes 0.8 K/uL (0.1-1.3) 04/29/20 06:10 Absolute Eosinophils 0.6 K/uL (0-0.5) H 04/29/20 06:10 Absolute Basophils 0.1 K/uL (0-0.5) 04/29/20 06:10 Sodium 136 mmol/L (136-145) 04/29/20 06:10 Potassium 5.2 mmol/L (3.5-5.1) H 04/29/20 06:10 Chloride 100 mmol/L (98-107) 04/29/20 06:10 Carbon Dioxide 30 mmol/L (21-32) 04/29/20 06:10 BUN 46 mg/dL (7-18) H 04/29/20 06:10 Creatinine 7.67 mg/dL (0.55-1.3) H* 04/29/20 06:10 Estimated GFR 7 mL/min (=/>90) L 04/29/20 06:10 Glucose 113 mg/dL (74-106) H 04/29/20 06:10 POC Glucose 129 mg/dL (65-120) H 04/30/20 07:05 Calcium 8.6 mg/dL (8.5-10.1) 04/29/20 06:10 Magnesium 2.9 mg/dL (1.8-2.4) H 04/29/20 06:10 Albumin 2.5 g/dL (3.4-5.0) L 04/29/20 06:10 Prealbumin 24.2 mg/dL (20-40) 04/29/20 06:10 Hep Bs Antigen Nonreactive (Nonreactive) 04/19/20 06:04 Hep Bs Antibody Reactive (Nonreactive) H 04/19/20 06:04 Hep B Core Total Ab Nonreactive (Nonreactive) 04/19/20 06:04 Hepatitis C Antibody Nonreactive (Nonreactive) 04/19/20 06:04 Hep C Ab Signal/Cutoff 0.01 ratio (<1.00) 04/19/20 06:04 SARS-CoV-2 RNA (RT-PCR) Negative (NEGATIVE) 04/14/20 14:15 Weight: 123 lb Wound Present: No Closed Surgical Incision Present: Yes Negative Pressure Wound Therapy Present: No Physician Update: Labs reviewed. He is in dialysis now. He is independent with occupational and physical therapy. Comment: Wound care daily: Clean with NS, cover with gauze, kerlix, merrick bandage,figure 8 dressing. Functional Improvement: pt is demonstrating progress with physical therapy. He is able to ambulate without the need for physical assist upwards of 250', but typically will traverse 150' at a time. pt is able to perform surface <-> surface transfers Independently without the use of an AD using lateral transfer technique. Summary: Patient's care plan and manager intermediate goals have been reviewed and revised as necessary. Please see the Rehabilitation Signature page for all necessary signatures.
[2020-04-30] MEDS: EPOETIN ALFA 10,000 UNIT/ML VIAL IV SCH (10:45)
[2020-04-30] MEDS: GABAPENTIN 300 MG CAP PO SCH ×2 (12:32→22:12)
[2020-04-30] MEDS: LIDOCAINE JELLY 2%- 5 ML TUBE TOP SCH (15:08)
--- NOTE | 2020-04-30 21:18 | P.PN ---
Subjective Date of Service: 04/30/20 Subjective 54-year-old male with history ESRD on HD MWF via AVF from [facility], poorly controlled DM , , hypertension, hyperlipidemia PVD S/p Lt AKA and chronic Rt foot ulcer , required multiple hospitalization with prolonged ABx duration presented for right foot wound required BKA today No overnight events tolerated HD with no complications cont PT/OT Review of Systems: Head and Neck: No red eye. No ear pain. GI: No nausea, no vomiting. : No polyuria, no dysuria, no hematuria. Puff Ironer: Not applicable. Respiratory: No shortness of breath. Cardiovascular: No chest pain. Endocrine: No polydipsia. Skin: No rash. Neuro: Has neuropathy. Musculoskeletal: denied pain . Physical exam general: AAOX3, NAD , Neck; Supple, No elevated JVD hear: RRR, normal S1,2 no murmur or rub Chest: CTAB, no rlaes or wheezes Abdomen: Soft , Nt Extremities Lt AKA, rt BKA with dressing A/p End-stage renal disease on HD MWF HD as per schedule renal dose meds pseudohyponatremia need strict BS control Rt Foot OM with gas S/p BKA cont Abx Anemia of chronic disease Cont epogen HTN BP elevated , will increase hydralazine and give clonidine X1 hyperkalemia Cont HD DM as per PCP total time 30min Physical Examination - Vital Signs Temperature: 98.1 F Blood Pressure: 165/79 Pulse: 60 Respirations: 18 Pulse Ox (%): 100
[2020-04-30] MEDS: ATORVASTATIN 10 MG TAB PO SCH (22:12)
[2020-05-01] MEDS: carvediloL 6.25 MG TAB PO SCH (05:04)
[2020-05-01] MEDS: INSULIN -REGULAR HUMAN 50 UNIT/0.5 ML ML SQ SCH ×4 (07:30→20:25)
[2020-05-01] MEDS: MUPIROCIN 2% OINT 22GM TUBE TOP SCH ×2 (08:00→20:20)
[2020-05-01] MEDS: HEPARIN 5000 UNIT/ML 1 ML VIAL SQ SCH (08:16)
[2020-05-01] MEDS: SEVELAMER CARBONATE 800 MG TABLET PO SCH ×3 (08:22→17:09)
[2020-05-01] MEDS: GABAPENTIN 300 MG CAP PO SCH ×2 (08:22→20:20)
[2020-05-01] MEDS: ASPIRIN 81 MG CHEWABLE TABLET PO SCH (08:25)
[2020-05-01] MEDS: VITAMIN D 1000 UNIT TAB PO SCH (08:25)
[2020-05-01] MEDS: MULTIVITAMINS,THERAPEUT 1 TAB PO SCH (08:26)
[2020-05-01] MEDS: HYDRALAZINE HCL 25 MG TABLET PO SCH (08:26)
[2020-05-01] MEDS: INSULIN GLARGINE 100 UNITS/ML SQ SCH (08:26)
[2020-05-01] MEDS: SOD POLYSTYREN SUL 15 GM/60 ML UCUP PO SCH (08:27)
[2020-05-01] MEDS: CALCITROL 0.25 MCG CAP PO SCH (10:14)
[2020-05-01] MEDS: LIDOCAINE JELLY 2%- 5 ML TUBE TOP SCH (10:18)
[2020-05-01] MEDS: ATORVASTATIN 10 MG TAB PO SCH (20:20)
[2020-05-01] MEDS: POLYVINYL ALCOHOL 1.4% 15 ML EACH EYE PRN (20:27)
[2020-05-02] MEDS: carvediloL 6.25 MG TAB PO SCH (05:34)
[2020-05-02] MEDS: cloNIDine HCL 0.1 MG TAB PO PRN (05:34)
[2020-05-02] MEDS: HEPARIN 5000 UNIT/ML 1 ML VIAL SQ SCH ×3 (05:47→20:00)
[2020-05-02] MEDS: INSULIN -REGULAR HUMAN 50 UNIT/0.5 ML ML SQ SCH ×4 (06:59→20:24)
[2020-05-02] MEDS: MUPIROCIN 2% OINT 22GM TUBE TOP SCH ×2 (08:00→20:18)
[2020-05-02] MEDS: GABAPENTIN 300 MG CAP PO SCH ×2 (08:17→20:18)
[2020-05-02] MEDS: ASPIRIN 81 MG CHEWABLE TABLET PO SCH (08:17)
[2020-05-02] MEDS: CALCITROL 0.25 MCG CAP PO SCH (08:17)
[2020-05-02] MEDS: HYDRALAZINE HCL 25 MG TABLET PO SCH (08:18)
[2020-05-02] MEDS: INSULIN GLARGINE 100 UNITS/ML SQ SCH (08:18)
[2020-05-02] MEDS: MULTIVITAMINS,THERAPEUT 1 TAB PO SCH (08:24)
[2020-05-02] MEDS: SEVELAMER CARBONATE 800 MG TABLET PO SCH ×3 (08:24→17:23)
[2020-05-02] MEDS: LIDOCAINE JELLY 2%- 5 ML TUBE TOP SCH (09:48)
[2020-05-02] MEDS: VITAMIN D 1000 UNIT TAB PO SCH (09:48)
[2020-05-02] MEDS: SOD POLYSTYREN SUL 15 GM/60 ML UCUP PO SCH (09:48)
--- NOTE | 2020-05-02 12:42 | PN ---
Date of Progress Note: 05/02/2020 Subjective: The patient was admitted with deconditioning, stump infection, treated the patient on rehab for rehabilitation. The patient had clotted AV fistula, status post declot, . We used on Sunday, working well. Femoral hemodialysis catheter was removed. Physical Examination: Vital Signs: Blood pressure 155/75, pulse of 61, afebrile. Chest: Clear to auscultation. Heart: S1, S2. Systolic murmur. Abdomen: Soft, nontender. Extremities: Left arm AV fistula, good thrill. Bilateral below-knee amputation. Laboratory Data: H and H 8.6/25.9. Sodium 136, potassium 5.2, bicarb 30, BUN 46, creatinine 7.6, calcium 8.6. Current Medications: The patient on include aspirin, cetirizine, Epogen, heparin, atorvastatin, carvedilol 6.25, hydralazine 50 daily, gabapentin, IV iron. Assessment And Plan: 1. End-stage renal disease. We will continue the patient on dialysis. We will arrange for dialysis tomorrow. 2. Hyperkalemia. The patient is going to be continue to be dialyzed on low- potassium bath. 3. Secondary hyperparathyroid. Continue binder. 4. Anemia of chronic kidney disease. Continue SHERIF. 5. Deconditioning. Continue PT, OT. time spend discussing with the patient face to face , placing order , discusse with the patient and other steamboat inspector including hospitalist 45 min. PELON Voice ID: [id number] Report ID: [id number] YAMIL
[2020-05-02] MEDS: ATORVASTATIN 10 MG TAB PO SCH (20:19)
[2020-05-02] MEDS: POLYVINYL ALCOHOL 1.4% 15 ML EACH EYE PRN (20:20)
[2020-05-03] MEDS: carvediloL 6.25 MG TAB PO SCH ×2 (05:27→18:33)
[2020-05-03 05:53] LABS: Absolute Lymphocytes (CBC) 1.8 K/uL (0.7-4.9); Basophils % 1.8 % (0-1.3); Hematocrit 27.3 % (39.6-49.0); Lymphocytes % 27.7 % (15.3-44.8); MPV 8.9 fL (7.6-11.3); RBC Red Blood Cell Count 2.76 M/uL (4.33-5.43)
[2020-05-03 05:58] VITALS: BMI 21.3
[2020-05-03 06:13] LABS: Albumin 2.8 g/dL (3.4-5.0); Phosphorus 7.9 mg/dL (2.5-4.9); Potassium 5.1 mmol/L (3.5-5.1)
[2020-05-03] MEDS: HEPARIN 5000 UNIT/ML 1 ML VIAL SQ SCH ×2 (06:27→19:09)
[2020-05-03] MEDS: POLYVINYL ALCOHOL 1.4% 15 ML EACH EYE PRN ×2 (07:00→20:40)
[2020-05-03] MEDS: MUPIROCIN 2% OINT 22GM TUBE TOP SCH ×2 (07:00→20:01)
[2020-05-03] MEDS: INSULIN -REGULAR HUMAN 50 UNIT/0.5 ML ML SQ SCH ×4 (07:30→20:02)
[2020-05-03] MEDS: HYDRALAZINE HCL 25 MG TABLET PO SCH ×2 (08:00→18:34)
[2020-05-03] MEDS: INSULIN GLARGINE 100 UNITS/ML SQ SCH (08:00)
[2020-05-03] MEDS: SEVELAMER CARBONATE 800 MG TABLET PO SCH ×3 (08:18→18:32)
[2020-05-03] MEDS: VITAMIN D 1000 UNIT TAB PO SCH (08:18)
[2020-05-03] MEDS: ASPIRIN 81 MG CHEWABLE TABLET PO SCH (08:18)
[2020-05-03] MEDS: CALCITROL 0.25 MCG CAP PO SCH (08:18)
[2020-05-03] MEDS: MULTIVITAMINS,THERAPEUT 1 TAB PO SCH (08:18)
[2020-05-03] MEDS: GABAPENTIN 300 MG CAP PO SCH ×3 (08:18→20:01)
[2020-05-03] MEDS: LIDOCAINE JELLY 2%- 5 ML TUBE TOP SCH (11:43)
[2020-05-03] MEDS: ATORVASTATIN 10 MG TAB PO SCH (20:01)
[2020-05-03 20:18] VITALS: TEMP 97.8
--- NOTE | 2020-05-03 20:58 | PN ---
Date of Progress Note: 05/03/2020 Chief Complaint: End-stage disease, deconditioning, diabetic foot infection. Subjective: The patient is undergoing wound care after he had a BKA done. The patient has clotted AV fistula and underwent thrombectomy on . Femoral catheter was lio zohaib. Review of Systems: Denies PND or orthopnea. Physical Examination: Lungs: Diminished breath sounds at bases. Heart: S1, S2. Abdomen: Soft, benign. Extremities: Minimal peripheral edema. Impression And Plan: 1.End-stage renal disease. The patient had dialysis done today. Monitor electrolytes. 2.Hyperkalemia, resolved. Continue to adjust dialysis on potassium bath. 3.Secondary hyperparathyroidism. Continue binders. 4.Deconditioning. The patient is undergoing PT, OT. 5.Anemia of chronic kidney disease. Continue SHERIF. EB/MODL Voice ID: [id number] Report ID: [id number]
[2020-05-04] MEDS: carvediloL 6.25 MG TAB PO SCH (05:18)
[2020-05-04] MEDS: MUPIROCIN 2% OINT 22GM TUBE TOP SCH (06:12)
[2020-05-04] MEDS: POLYVINYL ALCOHOL 1.4% 15 ML EACH EYE PRN (06:12)
[2020-05-04] MEDS: HEPARIN 5000 UNIT/ML 1 ML VIAL SQ SCH (06:13)
[2020-05-04] MEDS: ASPIRIN 81 MG CHEWABLE TABLET PO SCH (07:25)
[2020-05-04] MEDS: CALCITROL 0.25 MCG CAP PO SCH (07:25)
[2020-05-04] MEDS: SEVELAMER CARBONATE 800 MG TABLET PO SCH ×2 (07:25→12:19)
[2020-05-04] MEDS: SOD POLYSTYREN SUL 15 GM/60 ML UCUP PO SCH (07:25)
[2020-05-04] MEDS: VITAMIN D 1000 UNIT TAB PO SCH (07:26)
[2020-05-04] MEDS: INSULIN GLARGINE 100 UNITS/ML SQ SCH (07:26)
[2020-05-04] MEDS: GABAPENTIN 300 MG CAP PO SCH (07:26)
[2020-05-04] MEDS: MULTIVITAMINS,THERAPEUT 1 TAB PO SCH (07:26)
[2020-05-04] MEDS: HYDRALAZINE HCL 25 MG TABLET PO SCH (07:26)
[2020-05-04] MEDS: INSULIN -REGULAR HUMAN 50 UNIT/0.5 ML ML SQ SCH ×2 (07:28→11:30)
[2020-05-04 08:42] VITALS: BP 173/68
[2020-05-04] MEDS: LIDOCAINE JELLY 2%- 5 ML TUBE TOP SCH (10:58)
--- NOTE | 2020-05-04 18:26 | R.PN ---
PROGRESS NOTES ENCOUNTER DATE AND TIME: 05/04/2020 18:22 (DIRECTOR OF BILLING) NAME VAL MAGALLANES DATE OF : 1965 DATE OF ADMISSION: 04/14/2020 14:13 (DIRECTOR OF BILLING) RIGHT BELOW-KNEE AMPUTTIONCHIEF COMPLAINT: Right [id number] amputation SUBJECTIVE: Pt denied any depression. Pt denied any Shortness of Breath. Right BKA and chronic left BKA with less pain in the heeling right stump. Ambulated 775' with modified independence using a rolling walker. WBC 6.4, Hbg 8.9, Plt 239, K+ 5.1 and Plaster Mechanic 10.8, glucose 91 to 175. He has hemodialysis managed by the renal service. COVID-19 is negative. VITAL SIGNS Temperature: 97.8 F SBP/DBP: 173/68 Pulse: 60 Resp: 16 MEDICATION ALLERGIES: No Known Drug Allergies (NKDA) ENVIRONMENTAL ALLERGIES: - Substance Allergies None Known - Other Allergies None Known CONSULT: Perform Consult Certified Prosthetic for prosthesis construction NURSING: - Shower allowing shower - Skin care per protocol PRECAUTIONS: - Weight Bearing Precaution NWB right LE ACTIVITIES OOB only with supervision THERAPIES: - Orthotics/Prosthetics Prosthetic Evaluation. - Dietary and Nutrition Adequate Nutrition. Nutritional Education. Nutritional Supplements. PHYSICAL EXAM - Gen Alert and awake Lying in bed No apparent distress Oriented to: person, time, and place - Skin No skin breakdown. No abnormalities - Eyes No abnormalities - ENMT No abnormalities - Neck No abnormalities No cervical adenopathy - CVS RRR - Chest No abnormalities - Resp Clear to auscultation - Abd Soft - GI Soft Deferred - No abnormalities - Ext No significant edema - MSK 4+/5 weakness in both lower extremities. - Neuro 4/5 strength right lower extremity. - Psych No abnormalities ASSESSMENT: Pt. is a 54 yo Right-handed male of unknown race.On 04/06/2020 he was admitted to [facility] with diagnosis RIGHT BELOW-KNEE AMPUTTION.His impairment category is Amputation of Limb 05 - Bi lateral Lower Limb Below the Knee (BK/BK) (05.7).Pre-morbidly, Pt. was independent/mod-I in Safety Aw areness, Transfers Control, Sphincter Control, and Self-Care; and he had good Safety Awareness, Michelet ce, Endurance, and Locomotion.Currently, he has deficits of Safety Awareness, Locomotion, Balance, Tr ansfers Control, Endurance, and Sphincter Control.Pt. is now referred to [facility] for acute in-patient rehabilitation in order to maximize patient's functional independence in a ctivities of daily living, strength, ROM, and mobility.- Rehab Goal Patient has realistic goal of being discharged at assistance level 7-Ind to reside at Home with Fami ly/Relatives. MDM/PLAN: - Physical Therapy Inability to transfer - to improve, our physical therapists will perform initial evaluation of pt's status upon admission and devise an individualized program for Bed mobility Need for home safety evaluation - to improve, our physical therapists will perform initial evaluatio n of pt's status upon admission and devise an individualized program for Home Evaluation Need in caregiver upon discharge - to improve, our physical therapists will perform initial evaluati on of pt's status upon admission and devise an individualized program for Caregiver Training New precaution - to improve, our physical therapists will perform initial evaluation of pt's status upon admission and devise an individualized program for Patient precaution education Edema - to improve, our physical therapists will perform initial evaluation of pt's status upon admi ssion and devise an individualized program for Elevation Training, and Lymphedema Therapy Poor balance - to improve, our physical therapists will perform initial evaluation of pt's status up on admission and devise an individualized program for Balance Training Poor endurance - to improve, our physical therapists will perform initial evaluation of pt's status upon admission and devise an individualized program for Endurance Training Achieving independence - to improve, our physical therapists will perform initial evaluation of pt's status upon admission and devise an individualized program for Community Reintegration Activities - Occupational Therapy Need for animal caregiver - to improve, our occupation therapists will perform initial evaluation of pt's status upon admission and devise an individualized program for Caregiver Training - Other See attached MAR (Medication Administration Record) - Diet Type Continue Regular - Diet - Liquid Texture Continue Regular - Tube Feed Continue N/A - Weight Bearing Precaution NWB right LE - Consult Perform Consult Certified Prosthetic for prosthesis construction - Skin care per protocol - N/A Perform Consult Certified Prosthetic for prosthesis construction - Diet - Solid Texture Continue Regular - Shower allowing shower FUNCTIONAL STATUS: UPDATED AT WEEKLY TEAM CONFERENCE - Bladder Same accident frequency: 7-Ind - No accidents in the past 7 days - Bowel Same accident frequency: 7-Ind - No accidents in the past 7 days - Walking Same score based on distance walked: 0(N/A) - Wheelchair Same score based on distance traveled: 0(N/A) FUNCTIONAL STATUS: - Self-Care A. Eating sup B. Grooming Gera C. Bathing Cynthia D. Dressing - Upper sup E. Dressing - Lower Cynthia F. Toileting Cynthia - Sphincter Control G. Bladder control modA H. Bowel control Gera - Transfers Control I. Bed/Chair/Wheelchair sup J. Toilet sup K. Tub/Shower Cynthia - Locomotion L. Walk/Wheelchair (B) sup M. Stairs modA - Communication N. Comprehension (B) Gera O. Expression (B) Gera - Social Cognition P. Social Interaction Gera Q. Problem Solving Gera R. Memory Gera - Endurance Good - Balance Fair - Safety Awareness Fair QI SCORES: - Self-Care A. Eating 03-Partial/moderate assistance B. Oral hygiene 03-Partial/moderate assistance C. Toileting hygiene 03-Partial/moderate assistance E. Shower/bathe self 03-Partial/moderate assistance F. Upper body dressing 03-Partial/moderate assistance G. Lower body dressing 03-Partial/moderate assistance H. Putting on/taking off footwear 88-Not attempted due to medical condition or safety concerns - Mobility A. Roll left and right 04-Supervision or touching assistance B. Sit to lying 03-Partial/moderate assistance C. Lying to sitting on side of bed 03-Partial/moderate assistance D. Sit to stand 88-Not attempted due to medical condition or safety concerns E. Chair/tas-iw-vifrc transfer 03-Partial/moderate assistance F. Toilet transfer 03-Partial/moderate assistance G. Car transfer 88-Not attempted due to medical condition or safety concerns I. Walk 10 feet 88-Not attempted due to medical condition or safety concerns J. Walk 50 feet with two turns 88-Not attempted due to medical condition or safety concerns K. Walk 150 feet 88-Not attempted due to medical condition or safety concerns L. Walking 10 feet on uneven surfaces 88-Not attempted due to medical condition or safety concerns M. 1 step (curb) 88-Not attempted due to medical condition or safety concerns N. 4 steps 88-Not attempted due to medical condition or safety concerns O. 12 steps 88-Not attempted due to medical condition or safety concerns P. Picking up object 88-Not attempted due to medical condition or safety concerns R. Wheel 50 feet with two turns 88-Not attempted due to medical condition or safety concerns S. Wheel 150 feet 88-Not attempted due to medical condition or safety concerns - Bladder and Bowel Bladder continence Bowel continence - Endurance Fair - Balance Fair - Safety Awareness Fair CURRENT [facility]. DEFICITS: Self-Care SIGNATURE PANEL: (DIRECTOR OF BILLING)
[2020-05-05 20:05] LABS: HBsAG Nonreactive (Nonreactive)
--- NOTE | 2020-05-21 15:32 | R.DS ---
DISCHARGE SUMMARY FACILITY [facility] MR# [id number] NAME VAL MAGALLANES ADDRESS [facility] [place]IP [address] PHONE DATE OF 1965 AGE 54 SSN# [id number] GENDER Male DEXTERITY Right-handed MARITAL STATUS RACE Unknown race ENCOUNTER PHYSICIAN Dr. Min Velarde M.D. REFERRING DOCTOR REFERRING FACILITY [facility] PRIMARY CARE PHYSICIAN ; NEPHROLOGY- DR. FLOOD DISCHARGE DIAGNOSIS: - Amputation of Limb 05 - Bilateral Lower Limb Below the Knee (BK/BK) (05.7) RIGHT BELOW-KNEE AMPUTTION. DATE OF ADMISSION 04/14/2020 14:13 (BEAM DOFFER) MEDICATION ALLERGIES: No Known Drug Allergies (NKDA) ENVIRONMENTAL ALLERGIES: - Substance Allergies None Known - Other Allergies None Known DISCHARGE MEDICATIONS: Other- ContinueSee attached MAR (Medication Administration Record). CONSULT: Perform Consult Certified Prosthetic for prosthesis construction NURSING: - Shower allowing shower - Skin care per protocol PRECAUTIONS: - Weight Bearing Precaution NWB right LE ACTIVITIES OOB only with supervision THERAPIES: - Orthotics/Prosthetics Prosthetic Evaluation - Dietary and Nutrition Adequate Nutrition Nutritional Education Nutritional Supplements HISTORY OF PRESENT ILLNESS: Pt. is a 54 yo Right-handed male of unknown race.On 04/06/2020 he was admitted to [facility] with diagnosis RIGHT BELOW-KNEE AMPUTTION.His impairment category is Amputation of Limb 05 - Bi lateral Lower Limb Below the Knee (BK/BK) (05.7).Pre-morbidly, Pt. was independent/mod-I in Safety Aw areness, Transfers Control, Sphincter Control, and Self-Care; and he had good Safety Awareness, Michelet ce, Endurance, and Locomotion.Currently, he has deficits of Safety Awareness, Locomotion, Balance, Tr ansfers Control, Endurance, and Sphincter Control.Pt. is [facility] for acute in-patient rehabilitation in order to maximize patient's functional independence in a ctivities of daily living, strength, ROM, and mobility.- Rehab Goal Patient has realistic goal of being discharged at assistance level 7-Ind to reside at Home with Fami ly/Relatives. HOSPITAL COURSE: DIET - LIQUID TEXTURE: On 04/12/2020 Pt was upgraded to Regular Diet - Liquid Texture. DIET - SOLID TEXTURE: On 04/12/2020 Pt was upgraded to Regular Diet - Solid Texture. DIET TYPE: On 04/12/2020 Pt was upgraded to Regular Diet Type. TUBE FEED: On 04/12/2020 Pt was changed to N/A Tube Feed. WEIGHT BEARING PRECAUTION: On 04/15/2020 the following precautions were added for the patient: Weight Bearing Precaution - NWB right LE, and Weight Bearing Precaution - NWB right LE. On 04/19/2020 the following precautions were removed for the patient: Weight Bearing Precaution - NW B right LE. On 04/20/2020 the following precautions were added for the patient: Weight Bearing Precaution - NWB right LE. DISCHARGE PHYSICAL EXAM - Gen Alert and awake Lying in bed No apparent distress Oriented to: person, time, and place - Skin No skin breakdown. No abnormalities - Eyes No abnormalities - ENMT No abnormalities - Neck No abnormalities No cervical adenopathy - CVS RRR - Chest No abnormalities - Resp Clear to auscultation - Abd Soft - GI Soft Deferred - No abnormalities - Ext No significant edema - MSK 4+/5 weakness in both lower extremities. - Neuro 4/5 strength right lower extremity. - Psych No abnormalities FUNCTIONAL STATUS: - Self-Care A. Eating 6-Gera B. Grooming 6-Gera C. Bathing 6-Gera D. Dressing - Upper 6-Gera E. Dressing - Lower 6-Gera F. Toileting 6-Gera - Sphincter Control G. Bladder control 3-modA H. Bowel control 6-Gera - Transfers Control I. Bed/Chair/Wheelchair 6-Gera J. Toilet 6-Gera K. Tub/Shower 6-Gera - Locomotion L. Walk/Wheelchair (B) 6-Gera M. Stairs 5-sup - Communication N. Comprehension (B) 6-Gera O. Expression (B) 6-Gera - Social Cognition P. Social Interaction 6-Gera Q. Problem Solving 6-Gera R. Memory 6-Gera - Endurance Good - Balance Good - Safety Awareness Good QI SCORES: - Self-Care A. Eating 03-Partial/moderate assistance B. Oral hygiene 03-Partial/moderate assistance C. Toileting hygiene 03-Partial/moderate assistance E. Shower/bathe self 03-Partial/moderate assistance F. Upper body dressing 03-Partial/moderate assistance G. Lower body dressing 03-Partial/moderate assistance H. Putting on/taking off footwear 88-Not attempted due to medical condition or safety concerns - Mobility A. Roll left and right 04-Supervision or touching assistance B. Sit to lying 03-Partial/moderate assistance C. Lying to sitting on side of bed 03-Partial/moderate assistance D. Sit to stand 88-Not attempted due to medical condition or safety concerns E. Chair/sih-ti-bsaui transfer 03-Partial/moderate assistance F. Toilet transfer 03-Partial/moderate assistance G. Car transfer 88-Not attempted due to medical condition or safety concerns I. Walk 10 feet 88-Not attempted due to medical condition or safety concerns J. Walk 50 feet with two turns 88-Not attempted due to medical condition or safety concerns K. Walk 150 feet 88-Not attempted due to medical condition or safety concerns L. Walking 10 feet on uneven surfaces 88-Not attempted due to medical condition or safety concerns M. 1 step (curb) 88-Not attempted due to medical condition or safety concerns N. 4 steps 88-Not attempted due to medical condition or safety concerns O. 12 steps 88-Not attempted due to medical condition or safety concerns P. Picking up object 88-Not attempted due to medical condition or safety concerns R. Wheel 50 feet with two turns 88-Not attempted due to medical condition or safety concerns S. Wheel 150 feet 88-Not attempted due to medical condition or safety concerns - Bladder and Bowel Bladder continence Bowel continence - Endurance Fair - Balance Fair - Safety Awareness Fair DISCHARGE INSTRUCTIONS: - N/A Aspirin 81 mg daily, Heparin 2000 units with hemodialysis. DISCHARGE PLAN, FOLLOW UP CARE PROVISIONS: - Estimated Length of Stay (days) 11. - Consensus on plan Discharge plan has been discussed with primary caregiver. Patient/Family is in agreement with the mushtaq n. Primary caregiver is in agreement with the plan. - Patient/Family Goals Return home independently. - Planned Living Setting Upon Discharge Home, to live with Family/Relatives. Transitional Living. SIGNATURE PANEL: (BEAM DOFFER)
== END 2020-05-04 15:50 | disposition home health service (06) | DRG 559 ==
LOC: 5TH 04-14 14:13
PROVIDERS: ADMIT Psychiatry & Neurology Neurology with Special Qualifications in Child Neurology; ATTEND Psychiatry & Neurology Neurology with Special Qualifications in Child Neurology
PROC: 06HY33Z Insertion of Infusion Device into Lower Vein, Percutaneous Approach (ICD-10-PCS; 2020-04-23)
PROC: 5A1D70Z Performance of Urinary Filtration, Intermittent, Less than 6 Hours Per Day (ICD-10-PCS; principal; 2020-05-03)
DX: Z47.81 Encounter for orthopedic aftercare following surgical amputation (principal); N18.6 End stage renal disease; I12.0 Hypertensive chronic kidney disease with stage 5 chronic kidney disease or end stage renal disease; N25.81 Secondary hyperparathyroidism of renal origin; T82.868A Thrombosis due to vascular prosthetic devices, implants and grafts, initial encounter; M86.8X7 Other osteomyelitis, ankle and foot; E87.5 Hyperkalemia; D63.1 Anemia in chronic kidney disease; E78.5 Hyperlipidemia, unspecified; N25.0 Renal osteodystrophy; E87.70 Fluid overload, unspecified; E11.42 Type 2 diabetes mellitus with diabetic polyneuropathy; E11.319 Type 2 diabetes mellitus with unspecified diabetic retinopathy without macular edema; E11.69 Type 2 diabetes mellitus with other specified complication; E11.40 Type 2 diabetes mellitus with diabetic neuropathy, unspecified; E11.22 Type 2 diabetes mellitus with diabetic chronic kidney disease; B95.2 Enterococcus as the cause of diseases classified elsewhere; B95.62 Methicillin resistant Staphylococcus aureus infection as the cause of diseases classified elsewhere; Z89.511 Acquired absence of right leg below knee; Z99.2 Dependence on renal dialysis; Z20.822 Contact with and (suspected) exposure to COVID-19; Z79.82 Long term (current) use of aspirin; Z79.4 Long term (current) use of insulin; Z79.899 Other long term (current) drug therapy
CPT/HCPCS: 36415; 71045; 73200; 76000; 80048; 80069; 80074; 82040; 82274; 82947; 83735; 84134; 85025; 86704; 86706; 86803; 87340; 90935; 93971; 97110; 97112; 97116; 97161; 97530; 97542; J0360; J0690; J1644; J1815; J2250; J2405; J2704; J3010; J7040; Q0169; Q5105; Q5106; U0002; U0003

== ENCOUNTER 2023-05-01 17:08 | Inpatient (IN) | payer OTHER ==
[2023-05-01 18:10] LABS: Absolute Lymphocytes (CBC) 2.1 K/uL (0.7-4.9); Hematocrit 30.8 % (39.6-49.0); Lymphocytes % 28.3 % (15.3-44.8); MCV 98.9 fL (80-100); MPV 8.1 fL (7.6-11.3); Platelets 201 thou/uL (152-406); RBC Red Blood Cell Count 3.11 M/uL (4.33-5.43)
[2023-05-01 18:18] LABS: Protime INR 1.23
[2023-05-01 18:59] LABS: Albumin 3.4 g/dL (3.4-5.0); Bilirubin Direct 0.2 mg/dL (0-0.2); Bilirubin Indirect, Calculated 0.2 mg/dL (0.2-0.8); Bilirubin Total 0.4 mg/dL (0.2-1.0); Magnesium 3.1 mg/dL (1.6-2.4); Protein, Total 7.5 g/dL (6.4-8.2); Troponin High Sensitivity 22.3 pg/mL (<58.9)
[2023-05-01 19:02] LABS: Potassium 7.1 mEq/L (3.5-5.1)
[2023-05-01] MEDS ORDERED: SOD POLYSTYREN SUL 15 GM/60 ML UCUP ONE (19:28)
[2023-05-01] MEDS ORDERED: INSULIN REGULAR (HUMAN) 100 UNIT/ML ONE (19:29)
[2023-05-01] MEDS ORDERED: CALCIUM GLUCONATE 1 GM IVPB 2 GM/100 ML BAG IV ONE (19:30)
[2023-05-01] MEDS ORDERED: D10W 250 ML IV ONE (19:30)
--- NOTE | 2023-05-01 20:18 | RAD REPORT ---
EXAM DESCRIPTION: CT - Chest Abd Pelvis Wo Con - 05/01/2023 7:36 pm CLINICAL HISTORY: COUGH. Hemoptysis COMPARISON: Thorax Wo Con dated 05/13/2018; Chest Single View dated 04/23/2020 TECHNIQUE: Thin axial CT images of the chest, abdomen, and pelvis, performed without IV contrast. Mu ltiplanar reformats were generated and reviewed. All CT scans are performed using dose optimization technique as appropriate and may include automated exposure control or mA/KV adjustment according to patient size. FINDINGS: Progressive pattern of reticular and tree-in-bud opacities in the peripheral right lower l obe. Stable reticular opacities elsewhere, most pronounced in the left lower lobe dependently, left l ingula, and to lesser extent in the lower aspects of the right upper lobe. Marked interval reduction in size of the left upper segment lower lobe cavitary lesion, with a small residual lucent lesion shanelle suring 5 mm.No pleural or pericardial effusion.No intrathoracic adenopathy. Mild cardiomegaly. Left c hest wall pacer/AICD in place. The liver, spleen, pancreas, and adrenal glands are within normal limits. Markedly atrophic right kid maddy. Atrophic changes of the left kidney with extensive vascular mineralization. No bowel obstruction, free air, free fluid or abscess. Normal appendix. No pathologic lymphadenopath y in the abdomen or pelvis. Bladder is decompressed limiting evaluation, with nonspecific wall promi nence, difficult to evaluate, and may be related to nondistention. No worrisome osseous finding. IMPRESSION: Progressive reticular and tree-in-bud opacities in the peripheral right lower lobe. Othe r similar although milder peripheral changes throughout the lungs are stable. Findings are nonspecifi c, and considerations include atypical infections, as well as other nonspecific causes of NSIP patter n. Interval resolution of the left upper segment lower lobe cavitary lesion with a small residual 5 mm l ucent lesion. Other incidental findings as above.
--- NOTE | 2023-05-01 20:27 | EDPHYS ---
Physician Documentation [facility] Name: Joey Baez Age: 57 yrs Sex: Male : 1965 Arrival Date: 05/01/2023 Time: 17:08 Bed 5 Private MD: ED Physician Rusty Lyons HPI: 05/01 18:00 This 57 yrs old Male presents to ER via Wheelchair with complaints of Spitting rt up Blood. 18:00 Patient presents to the ED after spitting up a clot of blood after taking a nap. Denies rt nausea, vomiting. The patient denies having a cough or shortness of breath at this time. Denies other acute complaints, states that the bleeding seems like it is slowed down. Symptoms are moderate in severity, no other aggravating or elevating factors.. Historical: - Allergies: 17:31 No Known Allergies; ap3 - PMHx: 17:31 Diabetes - IDDM; High Cholesterol; Hypertension; ap3 - Immunization history:: Client reports receiving the 2nd dose of the Covid vaccine. - Social history:: Smoking status: Patient denies any tobacco usage or history of. - Family history:: not pertinent. ROS: 18:00 Constitutional: Negative for fever, chills, and weight loss, Cardiovascular: Negative rt for chest pain, palpitations, and edema, Respiratory: Negative for shortness of breath, cough, wheezing, and pleuritic chest pain, Abdomen/GI: Negative for abdominal pain, nausea, vomiting, diarrhea, and constipation, MS/Extremity: Negative for injury and deformity, Skin: Negative for injury, rash, and discoloration, Neuro: Negative for headache, weakness, numbness, tingling, and seizure, Exam: 18:00 Constitutional: This is a well developed, well nourished patient who is awake, alert, rt and in no acute distress. Head/Face: Normocephalic, atraumatic. Chest/axilla: Normal chest wall appearance and motion. Nontender with no deformity. No lesions are appreciated. Cardiovascular: Regular rate and rhythm with a normal S1 and S2. No gallops, murmurs, or rubs. Normal PMI, no JVD. No pulse deficits. Respiratory: Lungs have equal breath sounds bilaterally, clear to auscultation and percussion. No rales, rhonchi or wheezes noted. No increased work of breathing, no retractions or nasal flaring. Abdomen/GI: Soft, non-tender, with normal bowel sounds. No distension or tympany. No guarding or rebound. No evidence of tenderness throughout. Skin: Warm, dry with normal turgor. Normal color with no rashes, no lesions, and no evidence of cellulitis. MS/ Extremity: Pulses equal, no cyanosis. Neurovascular intact. Full, normal range of motion. Neuro: Awake and alert, GCS 15, oriented to person, place, time, and situation. Cranial nerves II-XII grossly intact. Motor strength 5/5 in all extremities. Sensory grossly intact. Cerebellar exam normal. Normal gait. 18:00 ECG was reviewed by the Attending Physician. Vital Signs: 17:28 BP 145 / 30; Pulse 59; Resp 17; Temp 97.8; Pulse Ox 100% ; Weight 61.23 kg; Height 5 ap3 ft. 3 in. ; Pain 0/10; 18:15 BP 162 / 56; Pulse 60; Resp 14; Pulse Ox 98% ; ko1 19:00 BP 171 / 37; Pulse 60; Pulse Ox 100% on R/A; km8 20:00 BP 150 / 37; Pulse 59; Pulse Ox 100% on R/A; km8 21:00 BP 179 / 68; Pulse 61; Resp 16; Pulse Ox 98% on R/A; km8 21:30 BP 167 / 58; Pulse 61; Resp 18; Pulse Ox 100% on R/A; km8 17:28 Body Mass Index 23.91 (61.23 kg, 160.02 cm) ap3 17:28 Pain Scale: Adult ap3 MDM: 17:35 Patient medically screened. rt 20:26 Differential Diagnosis ESRD, pneumonia, PE. Data reviewed: vital signs, nurses notes, rt lab test result(s), EKG, radiologic studies. Consideration of Admission/Observation Patient was admitted/placed on observation. Management of patient was discussed with the following: Hospitalist: Agrees to admit. 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 I considered the following discharge prescriptions or medication management in the emergency department Medications were administered in the Emergency Department. See MAR. Independent interpretation of the following test(s) in the Emergency Department CT Scan: My interpretation is No pneumothorax, to potation of CT scan images. Care significantly affected by the following chronic conditions: Chronic Kidney Disease. Counseling: I had a detailed discussion with the patient and/or guardian regarding the historical points, exam findings, and any diagnostic results supporting the discharge/admit diagnosis, lab results, radiology results, the need for further work-up and treatment in the hospital. Response to treatment: the patient's symptoms have markedly improved after treatment. 05/01 17:41 Order name: Basic Metabolic Panel; Complete Time: 19:06 rt 05/01 17:41 Order name: CBC with Diff; Complete Time: 19:06 rt 05/01 17:41 Order name: LFT's; Complete Time: 19:06 rt 05/01 17:41 Order name: Magnesium; Complete Time: 19:06 rt 05/01 17:41 Order name: PT-INR; Complete Time: 19:06 rt 05/01 17:41 Order name: Troponin HS; Complete Time: 19:06 rt 05/01 21:00 Order name: Glucose, Ancillary Testing EDMS 05/01 21:10 Order name: Urinalysis w/ reflexes EDMS 05/01 21:10 Order name: Basic Metabolic Panel EDMS 05/01 21:10 Order name: Basic Metabolic Panel EDMS 05/01 22:01 Order name: Glucose, Ancillary Testing EDMS 05/01 22:02 Order name: Glucose, Ancillary Testing EDMS 05/01 19:26 Order name: Chest Abd Pelvis Wo Con; Complete Time: 20:19 EDMS 05/01 17:41 Order name: EKG; Complete Time: 17:42 rt 05/01 17:41 Order name: Cardiac monitoring; Complete Time: 17:52 rt 05/01 17:41 Order name: EKG - Nurse/Tech; Complete Time: 17:56 rt 05/01 17:41 Order name: IV Saline Lock; Complete Time: 18:03 rt 05/01 17:41 Order name: Labs collected and sent; Complete Time: 18:03 rt 05/01 17:41 Order name: O2 Per Protocol; Complete Time: 17:52 rt 05/01 17:41 Order name: O2 Sat Monitoring; Complete Time: 17:52 rt EC:00 Rate is 60 beats/min. Rhythm is regular, Paced with Right bundle branch block. QRS Colon rt is Normal. LA interval is normal. QT interval is normal. No Q waves. T waves are Normal. Administered Medications: 19:52 Drug: Insulin Regular Human IVP 10 units IVP once {Co-Signature: km8 (Annika Kinney RN).} [facility] [place] Route: IVP; Site: left antecubital; 21:15 Follow up: Response: Adverse reaction, Physician notified; Blood sugar is lowered; km8 blood sugar lower too fast; Dr. García notified 19:52 Drug: D10 in Water IVP 250 ml IVP once Route: IVP; Site: left antecubital; [facility] [place] [place] 21:59 Follow up: Response: No adverse reaction [facility] 19:53 Drug: Sodium Bicarbonate IVP 1 amp IVP once; (50 mL); equals 50 mEq Route: IVP; Site: [facility] [place] left antecubital; 21:59 Follow up: Response: No adverse reaction km 20:05 Drug: Calcium Gluconate IVPB 2 grams IVPB once over 60 mins; (mix in NS 100 mL) Route: ga1 IVPB; Infused Over: 60 mins; Site: left antecubital; 21:10 Follow up: IV Status: Completed infusion; IV Intake: 100ml km 20:14 Drug: Kayexalate PO 45 grams PO once Route: PO; [facility] 21:58 Follow up: Response: No adverse reaction [facility] 20:23 CANCELLED (in error): diazepam1 mg IVP once rt 21:20 Drug: D50W IVP 50 ml IVP once; (1 amp) Route: IVP; Site: left antecubital; [facility] 21:59 Follow up: Response: Blood sugar is elevated; RASS: Alert and Calm (0) km8 22:03 Drug: Cefepime IVPB 2 grams IVPB at 200 ml/hr once over 30 mins; (mix in NS 100 mL) jj7 Route: IVPB; Rate: 200 ml/hr; Infused Over: 30 mins; Site: left antecubital; 22:51 Follow up: IV Status: Infusion continued upon admission km8 22:03 Drug: vancoMYCIN IVPB 1 grams IVPB once over 2 hrs Route: IVPB; Infused Over: 2 hrs; jj7 Site: left antecubital; 22:51 Follow up: IV Status: Infusion continued upon admission km8 Disposition Summary: 05/01/23 20:26 Hospitalization Ordered Notes: Hospitalization Status: Inpatient Admission rt Provider: Yuan Villarreal rt Condition: Serious rt Problem: new rt Symptoms: have improved rt Bed/Room Type: Standard rt Location: Intensive Care Unit(05/01/23 21:45) jb4 Room Assignment: 2-(05/01/23 21:45) jb4 Diagnosis - Hyperkalemia rt - End stage renal disease rt - Unspecified bacterial pneumonia rt Forms: - Medication Reconciliation Form rt - SBAR form rt - Leadership Thank You Letter rt Critical care time excluding procedures: 20:26 Critical care time: Bedside Care: 30 minutes, Consultation: 5 minutes. Total time: 35 rt minutes Signatures: Dispatcher [employer] EDTank Fox, RN RN jb4 Rere Shukla, RN RN ann3 Julio C Harmon RN RN jj7 Rusty Lyons MD MD rt Avani Lemus, RN RN me1 Annika Kinney RN RN km8 Annika Kinney RN km8 Corrections: (The following items were deleted from the chart) 19:22 17:44 Chest For PE Angio+CT.RAD.BRZ ordered. EDMS EDMS 19:22 17:44 Abdomen Pelvis W Con+CT.RAD.BRZ ordered. EDMS EDMS 19:26 19:19 Thorax Wo Con+CT.RAD.BRZ ordered. EDMS EDMS 19:26 19:19 Abdomen Pelvis Wo Con+CT.RAD.BRZ ordered. EDMS EDMS 20:23 20:22 Diazepam IVP 1 mg IVP once ordered. rt rt 21:45 20:26 Telemetry/MedSurg (Inpatient) rt jb4 :45 20:26 rt jb4
--- NOTE | 2023-05-01 20:27 | ER ---
Nurse's Notes [facility] Name: Joey Baez Age: 57 yrs Sex: Male : 1965 Arrival Date: 05/01/2023 Time: 17:08 Bed 5 Private MD: Diagnosis: Hyperkalemia;End stage renal disease;Unspecified bacterial pneumonia Presentation: 05/01 17:28 Chief complaint: Patient's son or daughter states: the patient started coughing, and ap3 had a blood clot which he coughed up, then started spitting up blood. It is reported this occurred while the patient was taking a nap this afternoon, and they estimate the time to be approx 1715 today. Coronavirus screen: At this time, the client does not indicate any symptoms associated with coronavirus-19. Ebola Screen: No symptoms or risks identified at this time. Initial Sepsis Screen: Does the patient meet any 2 criteria? No. Patient's initial sepsis screen is negative. Does the patient have a suspected source of infection? Yes: Productive cough/pneumonia. Risk Assessment: Do you want to hurt yourself or someone else? Patient reports no desire to harm self or others. Onset of symptoms was May 01, 2023 at 17:15. 17:28 Method Of Arrival: Wheelchair ap3 17:28 Acuity: GIRMA 2 ap3 Triage Assessment: 17:31 General: Appears in no apparent distress. Behavior is calm, cooperative. Pain: Denies ap3 pain. EENT:. Neuro: Level of Consciousness is awake, alert, obeys commands, Oriented to person, place, time, situation. Cardiovascular: Patient's skin is warm and dry. Cardiovascular: Dialysis shunt: in the right arm. Respiratory: Airway is patent Respiratory effort is even, unlabored, Respiratory pattern is regular, symmetrical. Respiratory: Reports coughing up blood with a clot. Derm:. Historical: - Allergies: 17:31 No Known Allergies; ap3 - PMHx: 17:31 Diabetes - IDDM; High Cholesterol; Hypertension; ap3 - Immunization history:: Client reports receiving the 2nd dose of the Covid vaccine. - Social history:: Smoking status: Patient denies any tobacco usage or history of. - Family history:: not pertinent. Screenin:33 Abuse screen: Denies threats or abuse. Nutritional screening: No deficits noted. ap3 Tuberculosis screening: No symptoms or risk factors identified. 18:15 [facility] ED Fall Risk Assessment (Adult) History of falling in the last 3 months, ko1 including since admission No falls in past 3 months (0 pts) Confusion or Disorientation No (0 pts) Intoxicated or Sedated No (0 pts) Impaired Gait No (0 pts) Mobility Assist Device Used No (0 pt) Altered Elimination No (0 pt) Score/Fall Risk Level 0 - 2 = Low Risk Oriented to surroundings, Maintained a safe environment, Educated pt \T\ family on fall prevention, incl call for assistance when getting out of bed, Assessed \T\ reinforced patient's understanding of fall precautions, Provided non-skid footwear, Hourly rounding (assess needs \T\ fall precautionary measures) done, Used ambulatory aids as needed (educated on \T\ assisted with), Used gait belt as appropriate. Assessment: 18:15 General: Appears in no apparent distress. comfortable, Behavior is calm, cooperative, ko1 appropriate for age. Pain: Denies pain. Neuro: No deficits noted. Cardiovascular: No deficits noted. Respiratory: No deficits noted. GI: Reports spitting up blood. : dialysis fistula to right upper arm. EENT: No deficits noted. Derm: No deficits noted. Musculoskeletal: No deficits noted. 19:19 Reassessment: Patient appears in no apparent distress at this time. No changes from km8 previously documented assessment. Patient and/or family updated on plan of care and expected duration. Pain level reassessed. Patient is alert, oriented x 3, equal unlabored respirations, skin warm/dry/pink. Dr. Lyons at bedside updating pt on results and plan of care. 20:50 Reassessment: PT STATES HE THINKS HIS BLOOD SUGAR IS LOW. BS CHECKED 21. ORANGE AND PBJ jj7 SANDWICH PROVIDED. MD GARCÍA INFORMED. STATES TO CONTINUE TO GIVE PT FOOD. ADDITIONAL ORANGE JUICE PROVIDED. Vital Signs: 17:28 BP 145 / 30; Pulse 59; Resp 17; Temp 97.8; Pulse Ox 100% ; Weight 61.23 kg; Height 5 ap3 ft. 3 in. ; Pain 0/10; 18:15 BP 162 / 56; Pulse 60; Resp 14; Pulse Ox 98% ; ko1 19:00 BP 171 / 37; Pulse 60; Pulse Ox 100% on R/A; km8 20:00 BP 150 / 37; Pulse 59; Pulse Ox 100% on R/A; km8 21:00 BP 179 / 68; Pulse 61; Resp 16; Pulse Ox 98% on R/A; km8 21:30 BP 167 / 58; Pulse 61; Resp 18; Pulse Ox 100% on R/A; km8 17:28 Body Mass Index 23.91 (61.23 kg, 160.02 cm) ap3 17:28 Pain Scale: Adult ap3 ED Course: 17:10 Patient arrived in ED. rg4 17:18 Rusty Lyons MD is Attending Physician. rt 17:30 Triage completed. ap3 17:33 Arm band placed on left wrist. ap3 17:37 Pinky Bolanos, RN is Primary Nurse. ko1 18:00 Inserted saline lock: 20 gauge in left antecubital area, using aseptic technique. Blood ko1 collected. 18:03 Basic Metabolic Panel Sent. ko1 18:03 CBC with Diff Sent. ko1 18:03 LFT's Sent. ko1 18:03 Magnesium Sent. ko1 18:03 PT-INR Sent. ko1 18:03 Troponin HS Sent. ko1 18:15 Patient has correct armband on for positive identification. Placed in gown. Bed in low ko1 position. Call light in reach. Side rails up X2. Client placed on continuous cardiac and pulse oximetry monitoring. NIBP monitoring applied. athletic monitor on. Door closed. Noise minimized. Lights dimmed. Warm blanket given. 19:38 Chest Abd Pelvis Wo Con In Process Unspecified. EDMS 20:26 Yuan Villarreal MD is Hospitalizing Provider. rt 21:56 Provided Education on: admission process. km8 21:56 No provider procedures requiring assistance completed. km8 21:56 Patient admitted, IV remains in place. km8 Administered Medications: 19:52 Drug: Insulin Regular Human IVP 10 units IVP once {Co-Signature: km8 (Annika Kinney RN).} me1 Route: IVP; Site: left antecubital; 21:15 Follow up: Response: Adverse reaction, Physician notified; Blood sugar is lowered; km8 blood sugar lower too fast; Dr. García notified 19:52 Drug: D10 in Water IVP 250 ml IVP once Route: IVP; [place]: [place]ital[place] [facility] [place]:59 Follow up: Response: No adverse reaction km8 19:53 Drug: Sodium Bicarbonate IVP 1 amp IVP once; (50 mL); equals 50 mEq Route: IVP; [place] [facility] [place]cubital; 21:59 Follow up: Response: No adverse reaction km8 20:05 Drug: Calcium Gluconate IVPB 2 grams IVPB once over 60 mins; (mix in NS 100 mL) Route: me1 IVPB; Infused Over: 60 mins; Site: left antecubital; 21:10 Follow up: IV Status: Completed infusion; IV Intake: 100ml km8 20:14 Drug: Kayexalate PO 45 grams PO once Route: PO; [facility] [place]:58 Follow up: Response: No adverse reaction km8 20:23 CANCELLED (in error): diazepam1 mg IVP once rt 21:20 Drug: D50W IVP 50 ml IVP once; (1 amp) Route: IVP; Site: left antecubital; [facility] 21:59 Follow up: Response: Blood sugar is elevated; RASS: Alert and Calm (0) km8 22:03 Drug: Cefepime IVPB 2 grams IVPB at 200 ml/hr once over 30 mins; (mix in NS 100 mL) jj7 Route: IVPB; Rate: 200 ml/hr; Infused Over: 30 mins; Site: left antecubital; 22:51 Follow up: IV Status: Infusion continued upon admission km8 22:03 Drug: vancoMYCIN IVPB 1 grams IVPB once over 2 hrs Route: IVPB; Infused Over: 2 hrs; jj7 Site: left antecubital; 22:51 Follow up: IV Status: Infusion continued upon admission km8 Medication: 21:56 VIS not applicable for this client. km8 Intake: 21:10 IV: 100ml; Total: 100ml. km8 Outcome: 20:26 Decision to Hospitalize by Provider. rt 22:50 Admitted to ICU accompanied by nurse, family with patient, via stretcher, room 2, on km8 monitor, Report called to SILVIA [place] 22:50 Condition: stable 22:50 Instructed on the need for admit, Demonstrated understanding of instructions, 22:53 Patient left the ED. jb4 Signatures: Dispatcher [employer] Kristi Gillis 4 Tank Malloy RN RN jb4 Rere Shukla, RN RN ap3 Pinky Bolanos, RN RN ko1 Julio C Harmon, RN RN jj7 Rusty Lyons MD MD rt Avani Lemus, RN RN me1 Annika Kinney, SILVIA RN km8 Annika Kinney RN km8 Corrections: (The following items were deleted from the chart) 18:19 18:15 : No deficits noted. ko1 ko1
[2023-05-01] MEDS ORDERED: ONDANSETRON 4 MG/2 ML VIAL IV PRN (21:01)
[2023-05-01] MEDS ORDERED: ACETAMINOPHEN 325 MG TABLET PO PRN (21:01)
--- NOTE | 2023-05-01 21:09 | P.HP ---
Certification for Inpatient Patient admitted to: Observation With expected LOS: <2 Midnights Practitioner: I am a practitioner with admitting privileges, knowledge of patient current condition, hospital course, and medical plan of care. Services: Services provided to patient in accordance with Admission requirements found in Title 42 Section 412.3 of the Code of Federal Regulations Patient History Date of Service: 05/02/23 Reason for admission: severe hypoglycemia, hyperkalemia, ESRD History of Present Illness: 7-year-old male patient with medical history significant for ESRD and dialysis, hypertension, hyperlipidemia, anemia of renal disease was evaluated for episode of altered mentation after he had low blood sugar episode. In the ER he was found to have hypoglycemia with a glucose of 21 and he also had reported some hemoptysis. He had severely deranged labs with potassium of 7.1, severely elevated BUN and creatinine so he was admitted for inpatient care for management of hyperkalemia and recurrent hypoglycemia. Present hypoglycemia episode is deemed secondary to excess effect of insulin therapy. At the time of encounter patient was alert and oriented was communicative. No episode of seizures, cough, shortness of breath, chest pain reported. Allergies No Known Allergies Allergy (Verified 04/14/20 15:45) Home Medications: Epoetin [Retacrit] 4,000 unit IV EVERY HD vial 04/14/20 Acetaminophen 2 tab PO SEECOM PRN #60 05/04/20 Aspirin [Tao Chewable Aspirin] 1 tab PO DAILY #30 tab.chew 05/04/20 Calcitrol [Rocaltrol*] 1 tab PO DAILY #30 cap 05/04/20 Carboxymethylcellulose Sodium [Artificial Tears] 2 drops EACH EYE Q2H PRN #15 ml 05/04/20 Cetirizine HCl [Zyrtec] 1 tab PO DAILY #30 05/04/20 Chlorhexidine 4% [Betasept*] 1 appl TOP UD #1 btl 05/04/20 Doxycycline Hyclate [Vibramycin] 100 mg PO BID #60 capsule 05/04/20 Ferrous Sulfate [Ferrous Sulfate*] 1 tab PO DAILY #30 tab 05/04/20 Folic Acid/Vit B Complex and C [Rashmi-Brad Tablet] 1 tab PO DAILY #30 05/04/20 Gabapentin [Neurontin*] 1 tab PO Q8H #90 cap 05/04/20 Hydralazine HCl [Apresoline] 25 mg PO DAILY #30 05/04/20 Lactulose [Cephulac*] 30 ml PO DAILY #30 05/04/20 Mineral Oil/Petrolatum,White [Lubricant Eye Ointment] 0.5 shashank RIGHT EYE BEDTIME #1 05/04/20 Mupirocin Oint [Bactroban 2% Ointment*] 1 appl TOP BID #2 tube 05/04/20 Nifedipine Xl [Procardia Xl*] 30 mg PO DAILY #30 tab 05/04/20 Patiromer Calcium Sorbitex [Veltassa] 1 packet PO DAILY #30 05/04/20 Pravastatin Sodium 10 mg PO DAILY AT SUPPER #30 05/04/20 Promethazine HCl 1 tab PO Q6H PRN #60 05/04/20 hydrOXYzine HCL [Atarax*] 1 tab PO Q8H PRN #60 tab 05/04/20 Amlodipine [Norvasc*] 10 mg PO DAILY 05/02/23 Carvedilol [Coreg] 12.5 mg PO BID 05/02/23 Rivaroxaban [Xarelto*] 10 mg PO DAILY 05/02/23 Sevelamer Carbonate 2 tab PO TIDWM 05/02/23 Tizanidine HCl 2 mg PO Q8HP PRN 05/02/23 - Past Medical/Surgical History Diabetic: Yes -: cataracts -: IDDM -: anxiety -: One Kidney from (right) -: HTN -: heart problems-pacemaker -: anemia -: ESRD on HD MWF -: Left BKA -: pacemaker Insertion -: toe amputation -: fistula-KENNETH Psychosocial/ Personal History: Lives at home with family - Family History Mother -: Diabetes Brother -: Diabetes Sister -: Diabetes - Social History Alcohol use: No CD- Drugs: No Caffeine use: Yes Review of Systems General: Unremarkable Eyes: Unremarkable ENT: Unremarkable Respiratory: Unremarkable Cardiovascular: Unremarkable Gastrointestinal: Unremarkable Genitourinary: Unremarkable Musculoskeletal: Unremarkable Integumentary: Unremarkable Neurological: Unremarkable Lymphatics: Unremarkable Physical Examination - Physical Exam General: Alert, Oriented x3 HEENT: Atraumatic Neck: Supple Respiratory: Normal air movement Cardiovascular: Regular rate/rhythm, Normal S1 S2 Gastrointestinal: Soft and benign Neurological: Normal speech, Normal strength at 5/5 x4 extr - Studies Laboratory Data (last 24 hrs) 05/01/23 05/01/23 05/01/23 18:00 18:00 18:00 WBC 7.50 Hgb 10.4 L Hct 30.8 L Plt Count 201 PT 13.4 H INR 1.23 Sodium 134 L Potassium 7.1 H* BUN 80 H Creatinine 11.40 H Glucose 146 H Magnesium 3.1 H Total Bilirubin 0.4 AST 15 ALT 27 Alkaline Phosphatase 149 H Assessment and Plan - Plan Hypoglycemia: Deemed secondary to 6 effective insulin therapy. Hypoglycemia protocol initiated. Will follow trend of blood glucose as per protocol. Will continue to avoid insulin products at this time Hyperkalemia: Potassium is elevated at 7.1. Deemed due to ESRD status. Urgent dialysis orders placed as per nephrology. Monitor serum electrolytes closely postdialysis. ESRD: Patient is on Sunday, Sunday, Sunday dialysis schedule, will follow clinical symptomatology closely Hypertension: We will monitor vital signs per unit protocol and continue outpatient antihypertensives. Anemia of renal disease: Management as per nephrology recommendation Diabetes type 2: We will continue patient on carb restricted diet. Will use sliding scale insulin for glucose control if needed. Prophylaxis: Heparin for DVT prophylaxis due to ESRD status CODE STATUS: Full code Disposition: Patient will be discharged once he is deemed clinically stable and cleared by nephrology service. - Advance Directives Does patient have a Living Will: No Does patient have a Durable POA for Healthcare: No
[2023-05-01] MEDS ORDERED: D50W 25 GM/50 ML SYRINGE IV ONE (21:11)
[2023-05-01] MEDS ORDERED: NA CHLORIDE 0.9% 250 ML ONE ×2 (21:32→21:40)
[2023-05-01] MEDS ORDERED: VANCOMYCIN 1 GM/VIAL ONE (21:32)
[2023-05-01] MEDS ORDERED: CEFEPIME 2 GM VIAL ONE (21:32)
[2023-05-01] MEDS ORDERED: NA CHLORIDE 0.9% 0 ML ONE (21:33)
[2023-05-02] MEDS ORDERED: HEPARIN 5000 UNIT/ML 1 ML VIAL SQ SCH (01:00)
[2023-05-02 03:14] VITALS: BMI 23.9
[2023-05-02 04:23] VITALS: O2SAT 98
[2023-05-02 06:52] LABS: Hepatitis B Surface Ab - Quant 46.91 mIU/mL (<8.0); Hepatitis B surface AG Interp. Nonreactive (Nonreactive)
[2023-05-02] MEDS ORDERED: HYDRALAZINE HCL 20 MG/ML VIAL IV ONE (09:50)
[2023-05-02] MEDS ORDERED: HYDRALAZINE HCL 20 MG/ML VIAL IV PRN (10:02)
[2023-05-02] MEDS ORDERED: CEFEPIME 1 GM in NA CHLORIDE 0.9% 100 ML IV ONE (10:30)
[2023-05-02] MEDS ORDERED: VANCOMYCIN 1.5 GM in NA CHLORIDE 0.9% 500 ML IVPB ONE (11:00)
[2023-05-02] MEDS ORDERED: carvediloL 6.25 MG TAB ONE (11:29)
[2023-05-02] MEDS ORDERED: HYDRALAZINE HCL 20 MG/ML VIAL ONE (11:29)
[2023-05-02] MEDS: HYDRALAZINE HCL 25 MG TABLET PO SCH ×3 (11:35→20:00)
[2023-05-02] MEDS: carvediloL 6.25 MG TAB PO SCH ×2 (11:37→18:05)
--- NOTE | 2023-05-02 12:15 | CON ---
Date of Consultation: 05/02/2023 Reason For Consultation: Elevated BUN and creatinine, hyperkalemia. History Of Present Illness: This is a pleasant 57-year-old gentleman well known to me from dialysis with significant past medical history of end-stage renal disease, on hemodialysis, Sunday, Sunday, Sunday. Last dialysis was Sunday, uneventful. Patient went to the home. At home, started having c ough with hemoptysis. For that reason, reported to the hospital. In the hospital, found to have hyp erkalemia with the potassium above 7, and EKG change. For that reason, we have been consulted. We t ook the patient for urgent dialysis. The patient was dialyzed on low potassium bath. Currently, pot assium normalized. Patient denied fever. Denied any chills. Patient denied any melena. No diarrhe a. Past Medical History: Includes: 1.End-stage renal disease, on hemodialysis Sunday, Sunday, Sunday. 2.CAD, status post ICD. 3.End-stage renal disease. 4.PAD, status post bilateral below-knee amputation. 5.Hyperlipidemia. 6.Anemia of chronic kidney disease. Past Surgical History: Includes nephrectomy, left below-knee amputation, ICD placement, AV fistula c reation. Social History: Denied smoking. Denied drinking. Denied drugs abuse. Family History: Positive for hypertension. Allergies: NO KNOWN DRUGS ALLERGY. Home Medications: Include aspirin, Norvasc, bisacodyl, carvedilol, atorvastatin, Xarelto, amlodipine , tizanidine, and Renvela. Review of Systems: Head and Neck: No red eye. No ear pain. GI: No nausea. No vomiting. No melena. : No polyuria. No dysuria. No hematuria. 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 Respiratory: Has cough. Has hemoptysis. Cardiovascular: No chest pain. Endocrine: No polydipsia. Skin: No rash. Neuro: Has neuropathy. Musculoskeletal: Generalized fatigue. Physical Examination: Vital Signs: Blood pressure 169/34, pulse of 63. Chest: Clear to auscultation. Heart: S1, S2. Systolic murmur. Abdomen: Soft, nontender. Extremity: Bilateral below-knee amputation. Laboratory Data: Hemoglobin 10.4, sodium 134, potassium 4, bicarb 28, BUN 32, creatinine 5.7, calciu m 8.7. Yesterday, potassium 7.1. EKG . Current Medications: The patient on, includes cefepime, vancomycin, hydralazine 25 t.i.d., carvedilo l 6.25 b.i.d., Tylenol, and Zofran. Assessment And Plan: 1.End-stage renal disease. Continue dialysis 3 times a week. The patient dialyzed yesterday. We w ill dialyze the patient tomorrow. 2.Hypertension, controlled, optimal. Continue current treatment. 3.Anemia of chronic kidney disease. We will resume SHERIF. 4.Hyperkalemia. Patient was dialyzed on low potassium bath. Currently, potassium back to normal. We will follow up. I am going to go ahead and send for TSH and to evaluate any other sources. Teresa carranza does not have any melena. Patient anuric. Time spent examining the patient [id number], reviewing data, lab and radiology, placing order, disc ussing the case with the team manager including nursing staff, hemodialysis nurse and hospitalist more than 75 minutes. PELON Voice ID: [id number] Report ID: [id number]
--- NOTE | 2023-05-02 12:28 | P.CNS ---
Date of Consult: 05/02/23 Reason for Consult: Hemoptysis Chief Complaint: Hemoptysis end-stage renal disease History of Present Illness: Patient is 57 years of age admitted with sudden onset of hemoptysis denies any fever chills chest pain disease has resolved is a history of reflux patient has end-stage renal disease Allergies No Known Allergies Allergy (Verified 04/14/20 15:45) Home Medications: Aspirin [Tao Chewable Aspirin] 1 tab PO DAILY #30 tab.chew 05/04/20 Pravastatin Sodium 10 mg PO DAILY AT SUPPER #30 05/04/20 Amlodipine [Norvasc*] 10 mg PO DAILY 05/02/23 Carvedilol [Coreg] 12.5 mg PO BID 05/02/23 Rivaroxaban [Xarelto*] 10 mg PO DAILY 05/02/23 Sevelamer Carbonate 2 tab PO TIDWM 05/02/23 Tizanidine HCl 2 mg PO Q8HP PRN 05/02/23 - Past Medical/Surgical History Diabetic: Yes -: cataracts -: IDDM -: anxiety -: One Kidney from (right) -: HTN -: heart problems-pacemaker -: anemia -: ESRD on HD MWF -: Left BKA -: pacemaker Insertion -: toe amputation -: fistula-KENNETH Psychosocial/ Personal History: Lives at home with family - Family History Mother Medical History: Diabetes Brother Medical History: Diabetes Sister Medical History: Diabetes - Social History Smoking Status: Never smoker Alcohol use: No CD- Drugs: No Caffeine use: Yes Place of Residence: Home Review of Systems 10-point ROS is otherwise unremarkable Physical Examination Temp Pulse Resp BP Pulse Ox 98 F 65 14 169/34 H 100 05/02/23 07:00 05/02/23 11:37 05/02/23 11:00 05/02/23 11:37 05/02/23 11:00 General: Alert, Oriented x3 HEENT: Other Respiratory: Clear to auscultation bilaterally Cardiovascular: No edema, Regular rate/rhythm, Normal S1 S2 Gastrointestinal: Normal bowel sounds, Soft and benign Laboratory Data (last 24 hrs) 05/01/23 05/01/23 05/01/23 18:00 18:00 18:00 WBC 7.50 Hgb 10.4 L Hct 30.8 L Plt Count 201 PT 13.4 H INR 1.23 Sodium 134 L Potassium 7.1 H* BUN 80 H Creatinine 11.40 H Glucose 146 H Magnesium 3.1 H Total Bilirubin 0.4 AST 15 ALT 27 Alkaline Phosphatase 149 H - Problems (1) Hemoptysis Current Visit: Yes Status: Acute Plan: Patient is 57 years of age admitted with sudden onset of hemoptysis prior history of hemoptysis patient does not smoke chest CT scan now specific changes in the right lower lobe no obvious lung mass doubt pulmonary origin he will probably need a GI evaluation as a history of reflux patient has end-stage renal disease no prior history of liver disease no clinical evidence of an infection may have underlying bronchitis add some Augmentin sputum cultures also p.o. doxycycline for MRSA coverage
[2023-05-02] MEDS ORDERED: SODIUM CHLORIDE 0.9% 10ML INJ IV PRN (22:29)
[2023-05-02] MEDS ORDERED: PANTOPRAZOLE 40 MG INJ IVP ONE ×2 (22:29→22:33)
[2023-05-03 05:53] LABS: Absolute Lymphocytes (CBC) 2.2 K/uL (0.7-4.9); Hematocrit 29.5 % (39.6-49.0); Lymphocytes % 36.9 % (15.3-44.8); MCV 99.6 fL (80-100); MPV 8.6 fL (7.6-11.3); Platelets 174 thou/uL (152-406); RBC Red Blood Cell Count 2.96 M/uL (4.33-5.43)
[2023-05-03] MEDS: carvediloL 6.25 MG TAB PO SCH (06:08)
[2023-05-03 06:20] LABS: Albumin 3.1 g/dL (3.4-5.0); Bilirubin Total 0.5 mg/dL (0.2-1.0); Magnesium 2.4 mg/dL (1.6-2.4); Phosphorus 6.3 mg/dL (2.5-4.9); Potassium 4.2 mEq/L (3.5-5.1); Protein, Total 6.8 g/dL (6.4-8.2)
--- NOTE | 2023-05-03 06:32 | P.PN ---
Date of Service: 05/02/23 Subjective Patient is clinically doing well. Patient status post dialysis and he is much better. Patient blood sugars are stable. Continue monitoring blood sugars overnight and if patient's blood sugars remained stable then we will be able to discharge if okay with nephrology. Potassium is corrected. Physical Examination - Vitals Reviewed - Physical Exam General: Alert, Oriented x3 HEENT: Atraumatic Neck: Supple Respiratory: Normal air movement Cardiovascular: Regular rate/rhythm, Normal S1 S2 Gastrointestinal: Soft and benign Neurological: Normal speech, Normal strength at 5/5 x4 extr Assessment and Plan - Plan Hypoglycemia: Deemed secondary to 6 effective insulin therapy. Hypoglycemia protocol initiated. Will follow trend of blood glucose as per protocol. Will continue to avoid insulin products at this time Hyperkalemia: Potassium is elevated at 7.1. Deemed due to ESRD status. Urgent dialysis orders placed as per nephrology. Monitor serum electrolytes closely postdialysis. ESRD: Patient is on Sunday, Sunday, Sunday dialysis schedule, will follow clinical symptomatology closely Hypertension: We will monitor vital signs per unit protocol and continue outpatient antihypertensives. Anemia of renal disease: Management as per nephrology recommendation Diabetes type 2: We will continue patient on carb restricted diet. Will use sliding scale insulin for glucose control if needed. Prophylaxis: Heparin for DVT prophylaxis due to ESRD status CODE STATUS: Full code Disposition: Patient will be discharged once he is deemed clinically stable and cleared by nephrology service. - Advance Directives Does patient have a Living Will: No Does patient have a Durable POA for Healthcare: No
[2023-05-03] MEDS: HYDRALAZINE HCL 25 MG TABLET PO SCH ×2 (09:00→14:38)
[2023-05-03] MEDS ORDERED: EPOETIN 4,000 UNIT/ML VIAL IV SCH (10:45)
[2023-05-03] MEDS ORDERED: DOXYCYCLINE 100 MG CAP PO SCH (11:00)
[2023-05-03] MEDS ORDERED: SEVELAMER CARBONATE 800 MG TABLET PO SCH (12:00)
[2023-05-03] MEDS ORDERED: AMOX/K CLAV 500 MG TAB PO SCH (12:00)
--- NOTE | 2023-05-03 13:09 | PN ---
Date of Progress Note: 05/03/2023 Subjective: Patient was admitted to the hospital with hyperkalemia and pneumonia. Patient was dialy zed urgently. Potassium normalized. Patient's today's blood pressure is slightly on the upper side. Physical Examination: Vital Signs: Blood pressure 147/58, pulse of 60, afebrile. Chest: Clear to auscultation. Heart: S1, S2. Systolic murmur. Abdomen: Soft, nontender. Extremities: Bilateral below-knee amputation. Neuro: Alert. No focality. Laboratory Data: Hemoglobin 10. Sodium 137, potassium 4.2, bicarb 26, BUN 61, creatinine 8.9. Toyin sphorus 6.3, magnesium 2.4. Iron saturation 45. Albumin 3.1. Corrected calcium 9.9. Current Medications: Include: 1.Carvedilol. 2.Cefepime. 3.Augmentin. 4.Vancomycin. 5.Hydralazine 25 t.i.d. 6.Zofran. Assessment And Plan: 1.End-stage renal disease with hyperkalemia. Currently, hyperkalemia resolved. We will go back to the dialysis, we will do dialysis today, then we will arrange for dialysis tomorrow to go back to [facility] Sunday, Sunday, and Sunday. 2.Secondary hyperparathyroidism. I resumed Renvela. 3.Hyperkalemia, status post dialysis. Currently, potassium normalized. We will [facility] back [facility]. Continue low-potassium diet. 4.Anemia of chronic kidney disease. Continue SHEIRF. 5.Overvolume. We will continue to challenge the patient. Dialysis Note: Patient was seen on dialysis. Blood pressure been elevated 185/70, pulse of 88. Ches t: Crackles bilateral base. Heart: S1, S2. Regular. Abdomen: Soft, nontender. Extremities: Bilateral below-knee amputation. Laboratory Data: Reviewed. Hemoglobin of 10, potassium 4.3. Assessment And Plan: 1.End-stage renal disease, overvolume. I am going to go ahead and increase his goal to 3500 to help with volume control and the blood pressure and we will monitor the patient closely. 2.Hyperkalemia. Back to his schedule. We will arrange for dialysis tomorrow. 3.Secondary hyperparathyroidism. Resume Renvela. 4.Anemia of chronic kidney disease. Resume SHERIF. KENYON/JERSON Voice ID: [id number] Report ID: [id number]
--- NOTE | 2023-05-03 16:40 | P.DS ---
Admission Date: 05/03/23 Discharge Date: 05/03/23 Disposition: ROUTINE DISCHARGE Discharge Condition: GOOD Reason for Admission: Hemoptysis end-stage renal disease Brief History of Present Illness: 7-year-old male patient with medical history significant for ESRD and dialysis, hypertension, hyperlipidemia, anemia of renal disease was evaluated for episode of altered mentation after he had low blood sugar episode. In the ER he was found to have hypoglycemia with a glucose of 21 and he also had reported some hemoptysis. He had severely deranged labs with potassium of 7.1, severely elevated BUN and creatinine so he was admitted for inpatient care for management of hyperkalemia and recurrent hypoglycemia. Present hypoglycemia episode is deemed secondary to excess effect of insulin therapy. At the time of encounter patient was alert and oriented was communicative. No episode of seizures, cough, shortness of breath, chest pain reported. Hospital Course: Pt presented with elevated BP, hypoglycemia and hyperkalemia. He also complained of hemoptysis at home. We corrected the hypoglycemia with hypoglycemia protocol. Pt received diabetes education. He took a lot of insulin. His BG improved prior ot discharge. We also repleted electrolytes. The Bag Printer evaluated pt and recommended further EGD to rule out source of hemoptysis. CXR shows right lung pneumonia. Bag Printer suspected bronchitis and recommended doxycycline and Augmentin. Pt did not have any hemoptysis while in the hospital and his Hgb remained stable. Pt was advised to follow up with Dr. Nichols in clinic for EGD. We continued dialysis per Nephrology schedule and also continued other home meds. Pt was in NAD prior to discharge with Doxy and Augmentin. Vital Signs/Physical Exam: Temp Pulse Resp BP Pulse Ox 98.1 F 63 16 144/63 H 97 05/03/23 12:00 05/03/23 14:39 05/03/23 12:00 05/03/23 14:39 05/03/23 12:00 Laboratory Data at Discharge: WBC 6.00 thou/uL (4.3-10.9) 05/03/23 05:14 Hgb 10.0 g/dL (13.6-17.9) L 05/03/23 05:14 Hct 29.5 % (39.6-49.0) L 05/03/23 05:14 Plt Count 174 thou/uL (152-406) 05/03/23 05:14 PT 13.4 SECONDS (9.5-12.5) H 05/01/23 18:00 INR 1.23 05/01/23 18:00 Sodium 137 mEq/L (136-145) 05/03/23 05:14 Potassium 4.2 mEq/L (3.5-5.1) 05/03/23 05:14 BUN 61 mg/dL (7-18) H 05/03/23 05:14 Creatinine 8.96 mg/dL (0.70-1.30) H 05/03/23 05:14 Glucose 164 mg/dL (74-106) H 05/03/23 05:14 Phosphorus 6.3 mg/dL (2.5-4.9) H 05/03/23 05:14 Magnesium 2.4 mg/dL (1.6-2.4) 05/03/23 05:14 Total Bilirubin 0.5 mg/dL (0.2-1.0) 05/03/23 05:14 AST 19 U/L (15-37) 05/03/23 05:14 ALT 26 U/L (16-61) 05/03/23 05:14 Alkaline Phosphatase 119 U/L (45-117) H 05/03/23 05:14 Home Medications: Aspirin [Tao Chewable Aspirin] 1 tab PO DAILY #30 tab.chew 05/04/20 Pravastatin Sodium 10 mg PO DAILY AT SUPPER #30 05/04/20 Amlodipine [Norvasc*] 10 mg PO DAILY 05/02/23 Carvedilol [Coreg] 12.5 mg PO BID 05/02/23 Rivaroxaban [Xarelto*] 10 mg PO DAILY 05/02/23 Sevelamer Carbonate 2 tab PO TIDWM 05/02/23 Tizanidine HCl 2 mg PO Q8HP PRN 05/02/23 Amox/Clavulanate [Augmentin 500-125 mg Tab*] 500 mg PO Q24H 7 Days #7 tab 05/03/23 Doxycycline Hyclate 100 mg PO BID 7 Days #14 tab 05/03/23 Sevelamer Carbonate [Renvela*] 1,600 mg PO TIDWM 15 Days #60 tab 05/03/23 New Medications: Amox/Clavulanate [Augmentin 500-125 mg Tab*] 500 mg PO Q24H 7 Days #7 tab Doxycycline Hyclate 100 mg PO BID 7 Days #14 tab Sevelamer Carbonate [Renvela*] 1,600 mg PO TIDWM 15 Days #60 tab Physician Discharge Instructions: Continue ad meek activity. Take Augmentin, doxycycline, and other home meds as prescribed. Continue dialysis. Follow up with Dr. Nichols within 1 week for EGD. Follow up with PCP and Nephrology within 1 week. Diet: Regular Activity: Ad meek Followup: Arvind Nichols MD [ASSOCIATE-ACTIVE - CAN ADMIT] -
[2023-05-03] MEDS ORDERED: GLUCAGON 1 MG/VIAL IM PRN (16:56)
[2023-05-03] MEDS ORDERED: D10W 250 ML BAG IV PRN (16:56)
[2023-05-03] MEDS ORDERED: INSULIN LISPRO 100 UNIT/ML SQ ONE (17:08)
[2023-05-03 17:33] VITALS: BP 161/61; TEMP 97.4
[2023-05-03] MEDS ORDERED: CEFEPIME 1 GM in NA CHLORIDE 0.9% 100 ML IV SCH (18:00)
[2023-05-03] MEDS ORDERED: VANCOMYCIN 1 GM in NA CHLORIDE 0.9% 250 ML IVPB SCH (18:00)
[2023-05-04] MEDS ORDERED: VANCOMYCIN 1 GM in NA CHLORIDE 0.9% 250 ML IVPB SCH (18:00)
--- NOTE | 2023-05-07 17:17 | EKG ---
Test Date: 2023-05-01 Test Time: 17:54:51 Review Engineer: MARILYN MEASUREMENT RESULTS: Intervals: Rate: 60 NE: 282 QRSD: 156 QT: 432 QTc: 432 Vernalis: P: NE: 282 QRS: 234 T: 60 INTERPRETIVE STATEMENTS: Atrial-paced rhythm with prolonged AV conduction Right bundle branch block Abnormal ECG Compared to ECG 04/06/2020 17:18:21 Sinus rhythm no longer present Left anterior fascicular block no longer present Bifascicular block no longer present Electronically Signed On 05-07-23 16:58:57 AUTO ROLLER by Norman Burdick
== END 2023-05-03 18:01 | disposition home or self-care (01) | DRG 637 ==
LOC: ER 17:08 → ERHOLD 21:01 → UNDOADMOB 21:01 → OBSVTOIN 21:01 → INTOOBSV 21:01 → ERHOLD 23:58 → 3RD-ICU 23:58 → 2ND 05-02 17:40 → 3RD-ICU 05-02 17:40 → OBSVTOIN 05-03 10:44 → ERHOLD 05-03 10:44 → 2ND 05-03 10:44
PROVIDERS: ADMIT Internal Medicine Nephrology; ATTEND Hospitalist
PROC: 5A1D70Z Performance of Urinary Filtration, Intermittent, Less than 6 Hours Per Day (ICD-10-PCS; principal; 2023-05-03)
DX: E11.649 Type 2 diabetes mellitus with hypoglycemia without coma (principal); J18.9 Pneumonia, unspecified organism; I12.0 Hypertensive chronic kidney disease with stage 5 chronic kidney disease or end stage renal disease; N18.6 End stage renal disease; E11.22 Type 2 diabetes mellitus with diabetic chronic kidney disease; E11.51 Type 2 diabetes mellitus with diabetic peripheral angiopathy without gangrene; D63.1 Anemia in chronic kidney disease; K21.9 Gastro-esophageal reflux disease without esophagitis; N25.81 Secondary hyperparathyroidism of renal origin; K29.70 Gastritis, unspecified, without bleeding; E87.5 Hyperkalemia; E78.00 Pure hypercholesterolemia, unspecified; T38.3X5A Adverse effect of insulin and oral hypoglycemic [antidiabetic] drugs, initial encounter; I25.10 Atherosclerotic heart disease of native coronary artery without angina pectoris; Z95.0 Presence of cardiac pacemaker; Z99.2 Dependence on renal dialysis; Z79.82 Long term (current) use of aspirin; Z79.01 Long term (current) use of anticoagulants; Z79.02 Long term (current) use of antithrombotics/antiplatelets; Z89.512 Acquired absence of left leg below knee; Z79.899 Other long term (current) drug therapy; Z91.158 Patient's noncompliance with renal dialysis for other reason
CPT/HCPCS: 36415; 71250; 74176; 80048; 80053; 80069; 80076; 82947; 83540; 83735; 83880; 84145; 84466; 84484; 85025; 85610; 86706; 87340; 90935; 93005; 96365; 96367; 96368; 96375; 99285; A4216; C9113; J0360; J0612; J0692; J1815; J7040; J7050

== ENCOUNTER 2024-02-15 16:47 | Emergency (ER) | payer OTHER ==
--- NOTE | 2024-02-15 17:14 | EDPHYS ---
Physician Documentation [facility] Name: Joey Baez Age: 58 yrs Sex: Male : 1965 Arrival Date: 02/15/2024 Time: 16:47 Bed 12 Private MD: ED Physician Ramírez García HPI: 02/14 17:16 This 58 yrs old Male presents to ER via Wheelchair with complaints of ec2 Dizziness, Ear Pain. 17:16 Patient arrives today for 1 week of symptoms. Complains of right ear pain, states he ec2 was recently diagnosed with otitis media, started on antibiotics, was on antibiotics twice a day. No fevers or chills, no nausea or vomiting. Patient reports some dizziness and lightheadedness which is persistent since initial onset. No falls injuries or trauma.. Historical: - Allergies: 16:53 No Known Allergies; aa5 - PMHx: 16:53 Diabetes - IDDM; High Cholesterol; Hypertension; aa5 16:53 Dialysis; ESRD; aa5 16:53 SVETLANA BKA; aa5 - Immunization history:: Adult Immunizations unknown. - Infectious Disease History:: Denies. - Social history:: Smoking status: unknown. ROS: 17:16 Constitutional: as per hpi ec2 Exam: 17:16 Constitutional: GEN: NAD Head: atraumatic Eyes: EOMI Ears: External ears are normal. ec2 Right ear with purulent fluid behind the tympanic membrane without otitis externa CV: regular rate LUNGS: no respiratory distress ABD: non-distended SKIN: no evidence of rashes MSK: no evidence of trauma Vital Signs: 16:53 BP 177 / 43; Pulse 61; Resp 18 S; Pulse Ox 99% on R/A; aa5 17:30 BP 168 / 52; Pulse 63; Resp 17; Temp 98.4; Pulse Ox 100% ; me1 MDM: 17:13 Medical Screening Exam initiated ec2 17:16 Data reviewed: vital signs. ED course: Patient arrives today for dizziness as well as ec2 ear pain. Examination remarkable for ear findings as above. Presentation consistent with otitis media. Differential additionally considered include intracranial brain bleed, ischemic stroke. Patient with clear infectious otitis media with effusion which I suspect is causing the patient's dizziness. Will discharge home and start on antibiotics. Return precautions given.. Administered Medications: 17:12 CANCELLED (Physician Discretion): ns 0.9% 1000 ml IV at 1000 ml once; to be given as a aa5 bolus over 60 minutes 17:12 CANCELLED (Physician Discretion): [id number] mg IVP once; over 1 to 2 minutes aa5 17:12 CANCELLED (Physician Discretion): [id number] mg IVP once aa5 17:29 Drug: Clindamycin PO 300 mg PO once Route: PO; me1 17:29 Follow up: Response: No adverse reaction me1 17:29 Drug: Acetaminophen-Codeine PO (300 mg-30 mg) 2 tabs PO once; RASS on ADMIN: Combtv4, me1 Very Agttd3, Agttd2, Rstlss1, AlertClm0, Drwsy-1, Lt Sdtn-2, Mod Sdtn-3, Dp Sdtn-4, UnArsble-5 Route: PO; 17:29 Follow up: Response: No adverse reaction me1 Disposition Summary: 02/15/24 17:13 Discharge Ordered Notes: Location: Home ec2 Condition: Stable ec2 Diagnosis - Acute suppurative otitis media ec2 Followup: ec2 - With: Private Physician - When: - Reason: Re-evaluation by your physician Followup: ec2 - With: Elaine Zamarripa MD - When: - Reason: Recheck today's complaints Discharge Instructions: - Discharge Summary Sheet ec2 - Otitis Media, Adult, [id number] ec2 Forms: - Medication Reconciliation Form ec2 - Antibiotic Education ec2 - Prescription Opioid Use ec2 - Patient Portal Instructions ec2 - Leadership Thank You Letter ec2 Prescriptions: - acetaminophen-codeine 300-30 mg Oral tablet - take 1 tablet ORAL route every 6 hours; 15 tablet; Refills: 0, Product ec2 Selection Permitted - Clindamycin HCl 150 mg Oral capsule - take 3 capsule ORAL route every 8 hours for 7 days; 63 capsule; Refills: 0, ec2 Product Selection Permitted Signatures: Dispatcher [employer] Destiny Manuel, RN RN aa5 Avani Lemus RN RN me1 Ramírez García MD MD ec2 Corrections: (The following items were deleted from the chart) 17:00 17:00 Chest Single View+RAD.RAD.BRZ ordered. EDMS EDMS 17:12 16:59 Cardiac monitoring ordered. ec2 aa5 17:12 16:59 EKG - Nurse/Tech ordered. ec2 aa5 17:12 16:59 IV Saline Lock ordered. ec2 aa5 17:12 16:59 Labs collected and sent ordered. 2 aa5 17:12 16:59 Oxygen Per Protocol ordered. ec2 aa5 17:12 16:59 O2 Sat Monitoring ordered. ec2 aa5 17:12 16:59 NS 0.9% IV 1000 ml IV at 1000 ml once; to be given as a bolus over 60 minutes aa5 ordered. ec2 17:12 16:59 metoCLOPramide IVP 10 mg IVP once; over 1 to 2 minutes ordered. ec2 aa5 17:12 16:59 diphenhydrAMINE IVP 25 mg IVP once ordered. 2 aa5 17:15 17:00 BASIC METABOLIC PANEL+C.LAB.BRZ ordered. EDMS EDMS 17:15 17:00 CBC+H.LAB.BRZ ordered. EDMS EDMS 17:15 17:00 Troponin High Sensitivity+C.LAB.BRZ ordered. EDMS EDMS
--- NOTE | 2024-02-15 17:14 | ER ---
Nurse's Notes [facility] Name: Joey Baez Age: 58 yrs Sex: Male : 1965 Arrival Date: 02/15/2024 Time: 16:47 Bed 12 Private MD: Diagnosis: Acute suppurative otitis media Presentation: 02/14 16:53 Chief complaint: Patient states: dizziness x 4 days ago. Reports svetlana ear pain and me1 states "my ears feel clogged". 16:53 Coronavirus screen: At this time, the client does not indicate any symptoms associated aa5 with coronavirus-19. Ebola Screen: Patient denies travel to an Ebola-affected area in the 21 days before illness onset. Initial Sepsis Screen: Does the patient meet any 2 criteria? No. Patient's initial sepsis screen is negative. Does the patient have a suspected source of infection? No. Patient's initial sepsis screen is negative. Risk Assessment: Do you want to hurt yourself or someone else? Patient reports no desire to harm self or others. Onset of symptoms was January 2024. 16:53 Method Of Arrival: Wheelchair aa5 16:53 Acuity: GIRMA 4 aa5 Historical: - Allergies: 16:53 No Known Allergies; aa5 - PMHx: 16:53 Diabetes - IDDM; High Cholesterol; Hypertension; aa5 16:53 Dialysis; ESRD; aa5 16:53 SVETLANA BKA; aa5 - Immunization history:: Adult Immunizations unknown. - Infectious Disease History:: Denies. - Social history:: Smoking status: unknown. Screenin:21 [facility] ED Fall Risk Assessment (Adult) History of falling in the last 3 months, me1 including since admission No falls in past 3 months (0 pts) Confusion or Disorientation No (0 pts) Intoxicated or Sedated No (0 pts) Impaired Gait No (0 pts) Mobility Assist Device Used No (0 pt) Altered Elimination No (0 pt) Score/Fall Risk Level 0 - 2 = Low Risk Maintained a safe environment, Provided non-skid footwear, Hourly rounding (assess needs \\T\\ fall precautionary measures) done. Abuse screen: Denies threats or abuse. Nutritional screening: No deficits noted. Tuberculosis screening: No symptoms or risk factors identified. Assessment: 17:21 General: Appears uncomfortable, well groomed, well developed, well nourished, Behavior me1 is calm, cooperative, appropriate for age. General: dizziness x 4 days ago. Reports svetlana ear pain and states "my ears feel clogged" . Pain: Complains of pain in right ear and left ear Pain does not radiate. Pain currently is 4 out of 10 on a pain scale. Quality of pain is described as aching, Pain began gradually, Is continuous. Neuro: Level of Consciousness is awake, alert, obeys commands, Oriented to person, place, time, situation, Appropriate for age. Cardiovascular: Patient's skin is warm and dry. Respiratory: Airway is patent Respiratory effort is even, unlabored, Respiratory pattern is regular, symmetrical. GI: Abdomen is non-distended. : No signs and/or symptoms were reported regarding the genitourinary system. EENT: Reports pain in right ear and left ear. Derm: Skin is intact, is healthy with good turgor, Skin is pink, warm \\T\\ dry. Musculoskeletal: No signs and/or symptoms reported regarding the musculoskeletal system. Vital Signs: 16:53 BP 177 / 43; Pulse 61; Resp 18 S; Pulse Ox 99% on R/A; aa5 17:30 BP 168 / 52; Pulse 63; Resp 17; Temp 98.4; Pulse Ox 100% ; me1 ED Course: 16:49 Patient arrived in ED. im 16:53 Arm band placed on. aa5 16:56 Ramírez García MD is Attending Physician. ec2 17:08 Triage completed. aa5 17:13 Elaine Zamarripa MD is Referral Physician. ec2 17:19 Avani Lemus, SILVIA is Primary Nurse. me1 17:21 Patient has correct armband on for positive identification. Bed in low position. Call me1 light in reach. Side rails up X 1. Provided Education on: POC. Verbalized understanding. . 17:21 No provider procedures requiring assistance completed. Patient did not have IV access [facility] during this emergency room visit. Administered Medications: 17:12 CANCELLED (Physician Discretion): ns 0.9% 1000 ml IV at 1000 ml once; to be given as a aa5 bolus over 60 minutes 17:12 CANCELLED (Physician Discretion): [id number] mg IVP once; over 1 to 2 minutes aa5 17:12 CANCELLED (Physician Discretion): [id number] mg IVP once aa5 17:29 Drug: Clindamycin PO 300 mg PO once Route: PO; me1 17:29 Follow up: Response: No adverse reaction me1 17:29 Drug: Acetaminophen-Codeine PO (300 mg-30 mg) 2 tabs PO once; RASS on ADMIN: Combtv4, me1 Very Agttd3, Agttd2, Rstlss1, AlertClm0, Drwsy-1, Lt Sdtn-2, Mod Sdtn-3, Dp Sdtn-4, UnArsble-5 Route: PO; 17:29 Follow up: Response: No adverse reaction me1 Medication: 17:21 VIS not applicable for this client. me1 Outcome: 17:13 Discharge ordered by . ec2 17:37 Discharged to home via wheelchair, with family, me1 17:37 Condition: stable 17:37 Discharge instructions given to patient, family, Instructed on discharge instructions, follow up and referral plans. medication usage, Demonstrated understanding of instructions, follow-up care, medications, Prescriptions given X 2, 17:37 Patient left the ED. me1 Signatures: Destiny Mar RN RN aa5 Kirsten Cee Michelle, RN RN me1 Ramírez García MD MD ec2 Corrections: (The following items were deleted from the chart) 17:08 16:53 Acuity: GIRMA 3 aa5 aa5 17:21 16:53 Chief complaint: Patient states: dizziness x 4 days ago. Reports svetlana ear pain and me1 states "my ears feel clogged" aa5
[2024-02-15] MEDS ORDERED: CODEINE 30MG/APAP 300MG TAB ONE (17:28)
[2024-02-15 17:54] VITALS: BP 168/52; TEMP 98.4; O2SAT 100
== END 2024-02-15 17:37 | disposition home or self-care (01) ==
LOC: ER 16:47
DX: H66.001 Acute suppurative otitis media without spontaneous rupture of ear drum, right ear (principal)
CPT/HCPCS: 99283

== ENCOUNTER 2024-02-17 13:17 | Emergency (ER) | payer OTHER ==
[2024-02-17] MEDS ORDERED: ONDANSETRON 4 MG (ODT) TAB ONE (14:30)
[2024-02-17 14:44] LABS: SARS-CoV-2 Antigen CONTROL BLUE LINE VIS/BG OK; SARS-CoV-2 Antigen Rapid Res Negative (Negative)
[2024-02-17 15:58] LABS: Absolute Basophils 0.1 K/uL (0-0.5); Absolute Eosinophils 0.1 K/uL (0-0.5); Absolute Lymphocytes (CBC) 1.6 K/uL (0.7-4.9); Absolute Monocytes 0.8 K/uL (0.1-1.3); Absolute Neutrophil 4.2 K/uL (1.8-8.0); Eosinophils % 1.1 % (0-4.4); Hematocrit 26.7 % (39.6-49.0); Hemoglobin 8.6 g/dL (13.6-17.9); Lymphocytes % 23.6 % (15.3-44.8); MCH 31.8 pg (27.0-35.0); MCHC 32.1 g/dL (32.0-36.0); MCV 98.9 fL (80-100); MPV 8.5 fL (7.6-11.3); Monocytes % 12.1 % (3.3-12.3); Neutrophils % 62.2 % (41.7-73.7); Platelets 196 thou/uL (152-406); Red Cell Distribution Width 12.9 % (12.1-15.2)
[2024-02-17 16:04] LABS: Anion Gap 11.7 mEq/L (5.0-15.0); Potassium 3.7 mEq/L (3.5-5.1)
--- NOTE | 2024-02-17 16:28 | ER ---
Nurse's Notes [facility] Name: Joey Baez Age: 58 yrs Sex: Male : 1965 Arrival Date: 02/17/2024 Time: 13:17 Bed 11 Private MD: Diagnosis: Nausea with vomiting, unspecified;Otalgia Presentation: 02/16 13:58 Chief complaint: Bilateral ear pain, headache, and N/V x 3 days. Actively vomiting in hb triage. Coronavirus screen: Client presents with at least one sign or symptom that may indicate coronavirus-19. Standard/surgical mask placed on the client. Provider contacted for isolation considerations. Ebola Screen: No symptoms or risks identified at this time. Initial Sepsis Screen: Does the patient meet any 2 criteria? No. Patient's initial sepsis screen is negative. Does the patient have a suspected source of infection? No. Patient's initial sepsis screen is negative. Risk Assessment: Do you want to hurt yourself or someone else? Patient reports no desire to harm self or others. Onset of symptoms was February 15, 2024. 13:58 Method Of Arrival: Wheelchair hb 13:58 Acuity: GIRMA 3 hb Historical: - Allergies: 13:56 No Known Allergies; ll1 - PMHx: 13:56 Dialysis; Gerard BKA; Diabetes - IDDM; ESRD; High Cholesterol; Hypertension; ll1 - Immunization history:: Adult Immunizations up to date. - Infectious Disease History:: Denies. - Social history:: Smoking status: Patient/guardian denies using tobacco. Screenin:29 [facility] ED Fall Risk Assessment (Adult) History of falling in the last 3 months, ll1 including since admission No falls in past 3 months (0 pts) Confusion or Disorientation No (0 pts) Intoxicated or Sedated No (0 pts) Impaired Gait No (0 pts) Mobility Assist Device Used No (0 pt) Altered Elimination No (0 pt) Score/Fall Risk Level 0 - 2 = Low Risk Maintained a safe environment, Hourly rounding (assess needs \T\ fall precautionary measures) done. Abuse screen: Denies threats or abuse. Nutritional screening: No deficits noted. Tuberculosis screening: No symptoms or risk factors identified. Assessment: 14:12 Reassessment: requests IV and IV fluids. J. Roszak informed. ll1 14:29 General: Appears uncomfortable, Behavior is calm, cooperative, appropriate for age, ll1 Reports fatigue for. Pain: Complains of pain in right ear and left ear Quality of pain is described as aching. Neuro: Reports headache. GI: Reports nausea, vomiting. EENT: Reports pain in left ear and right ear. 14:30 Reassessment: informed that PA doesn't want to give IV fluids due to his dialysis. ll1 Patient and informed. understood, but he states that he wants them anyway. BG Velasquez informed. 15:33 Reassessment: No changes from previously documented assessment. Patient and/or family ll1 updated on plan of care and expected duration. Pain level reassessed. Patient is alert, oriented x 3, equal unlabored respirations, skin warm/dry/pink. 16:18 Reassessment: No changes from previously documented assessment. Patient and/or family ll1 updated on plan of care and expected duration. Pain level reassessed. Patient is alert, oriented x 3, equal unlabored respirations, skin warm/dry/pink. 16:42 Reassessment: No changes from previously documented assessment. Patient and/or family ll1 updated on plan of care and expected duration. Pain level reassessed. Patient is alert, oriented x 3, equal unlabored respirations, skin warm/dry/pink. Vital Signs: 13:58 BP 145 / 44; Pulse 62; Resp 15; Temp 98.4(TE); Pulse Ox 100% on R/A; Pain 3/10; hb 16:40 BP 167 / 49; Pulse 60; Resp 16; Pulse Ox 100% on R/A; ll1 13:58 Pain Scale: Adult hb ED Course: 13:20 Patient arrived in ED. im 13:43 Rico Griffiths PA is PHCP. jr8 13:43 Albert Ivey MD is Attending Physician. jr8 13:56 Arm band placed on Patient placed in an exam room, on a stretcher. ll1 13:59 Ede Ponce, SILVIA is Primary Nurse. ll1 14:00 Triage completed. hb 14:12 COVID swab sent to lab. Flu and/or RSV swab sent to lab. ll1 14:28 Influenza Screen (a \T\ B) Sent. ll1 14:29 SARS RAPID Sent. ll1 14:30 Patient has correct armband on for positive identification. Bed in low position. Call 1 light in reach. Provided Education on: ER procedures and process. 15:33 Initial lab(s) drawn, by me, sent to lab. Inserted saline lock: 22 gauge in left ll1 antecubital area, using aseptic technique. Blood collected. Flushed with 10 mL NS. 16:43 No provider procedures requiring assistance completed. IV discontinued, intact, ll1 bleeding controlled, No redness/swelling at site. Pressure dressing applied. Administered Medications: 14:36 Drug: Ondansetron PO 4 mg PO once Route: PO; ll1 16:40 Follow up: Response: No adverse reaction; Nausea is decreased ll1 Medication: 14:30 VIS not applicable for this client. 1 Outcome: 16:27 Discharge ordered by . jr8 16:43 Patient left the ED. ll1 16:43 Discharged to home ambulatory, ll1 16:43 Condition: stable 16:43 Discharge instructions given to patient, family, Instructed on discharge instructions, follow up and referral plans. medication usage, Demonstrated understanding of instructions, follow-up care, medications, Prescriptions given X 2, Signatures: Rico Griffiths PA PA jr8 Lydia Ch RN RN Ede Whitehead RN RN 1 Kirsten Cee
--- NOTE | 2024-02-17 16:28 | EDPHYS ---
Physician Documentation [facility] Name: Joey Baez Age: 58 yrs Sex: Male : 1965 Arrival Date: 02/17/2024 Time: 13:17 Bed 11 Private MD: ED Physician Albert Ivey HPI: 02/16 15:53 This 58 yrs old Male presents to ER via Wheelchair with complaints of Ear jr8 Pain, Nausea/Vomiting. 15:53 58-year-old male patient presents to the emergency room with complaints of continued jr8 ear pain along with nausea. Stated that since he has been on the antibiotics has had nausea and vomiting. Still feels "swishing" in his ears. Patient seen 2 days ago and put on antibiotics and pain meds for suppurative otitis media. Currently denies any other complaints at this time.. Historical: - Allergies: 13:56 No Known Allergies; ll1 - PMHx: 13:56 Dialysis; Gerard BKA; Diabetes - IDDM; ESRD; High Cholesterol; Hypertension; ll1 - Immunization history:: Adult Immunizations up to date. - Infectious Disease History:: Denies. - Social history:: Smoking status: Patient/guardian denies using tobacco. ROS: 15:53 Eyes: Negative for injury, pain, redness, and discharge, Neck: Negative for injury, jr8 pain, and swelling, Cardiovascular: Negative for chest pain, palpitations, and edema, Respiratory: Negative for shortness of breath, cough, wheezing, and pleuritic chest pain, Back: Negative for injury and pain, MS/Extremity: Negative for injury and deformity, Skin: Negative for injury, rash, and discoloration, 15:53 Neuro: Negative for headache, weakness, numbness, tingling, and seizure, 15:53 ENT: Positive for ear pain, 15:53 Abdomen/GI: Positive for nausea and vomiting, Negative for abdominal pain, diarrhea, Exam: 15:53 Constitutional: This is a well developed, well nourished patient who is awake, alert, jr8 and in no acute distress. Eyes: Pupils equal round and reactive to light, extra-ocular motions intact. Lids and lashes normal. Conjunctiva and sclera are non-icteric and not injected. Cornea within normal limits. Periorbital areas with no swelling, redness, or edema. ENT: Nares patent. No nasal discharge, no septal abnormalities noted. Tympanic membranes are normal and external auditory canals are clear. Oropharynx with no redness, swelling, or masses, exudates, or evidence of obstruction, uvula midline. Mucous membranes moist. Neck: Trachea midline, no thyromegaly or masses palpated, and no cervical lymphadenopathy. Supple, full range of motion without nuchal rigidity, or vertebral point tenderness. No Meningismus. Cardiovascular: Regular rate and rhythm with a normal S1 and S2. No gallops, murmurs, or rubs. Normal PMI, no JVD. No pulse deficits. Respiratory: Lungs have equal breath sounds bilaterally, clear to auscultation and percussion. No rales, rhonchi or wheezes noted. No increased work of breathing, no retractions or nasal flaring. Abdomen/GI: Soft, non-tender, with normal bowel sounds. No distension or tympany. No guarding or rebound. No evidence of tenderness throughout. Back: No spinal tenderness. No costovertebral tenderness. Full range of motion. Skin: Warm, dry with normal turgor. Normal color with no rashes, no lesions, and no evidence of cellulitis. MS/ Extremity: Pulses equal, no cyanosis. Neurovascular intact. Full, normal range of motion. Neuro: Awake and alert, GCS 15, oriented to person, place, time, and situation. Motor strength 5/5 in all extremities. Sensory grossly intact. Vital Signs: 13:58 BP 145 / 44; Pulse 62; Resp 15; Temp 98.4(TE); Pulse Ox 100% on R/A; Pain 3/10; hb 16:40 BP 167 / 49; Pulse 60; Resp 16; Pulse Ox 100% on R/A; ll1 13:58 Pain Scale: Adult hb MDM: 14:02 Medical Screening Exam initiated jr8 16:25 Differential diagnosis: otitis media, otitis externa, ruptured TM, Dehydration, jr8 electrolyte disturbance. Data reviewed: vital signs, nurses notes, lab test result(s), and as a result, I will discharge patient. Counseling: I had a detailed discussion with the patient and/or guardian regarding the historical points, exam findings, and any diagnostic results supporting the discharge/admit diagnosis, lab results, the need for outpatient follow up, a family practitioner, to return to the emergency department if symptoms worsen or persist or if there are any questions or concerns that arise at home. ED course: Discussed with patient and family that labs are stable for him if not improved renal function. No increase in white cell count no other acute findings on physical exam. Since he has been on it has been on clindamycin it has been causing nausea and vomiting and most likely this is the cause of his feeling bad. Hemodynamically has been stable otherwise. Told him to stop the clindamycin and put him on Zofran and switch his antibiotics. Patient family understand good plan at this time. Needs to follow-up with primary care otherwise.. 02/16 14:12 Order name: Influenza Screen (a \\T\\ B); Complete Time: 15:12 jr8 02/16 14:12 Order name: SARS RAPID; Complete Time: 14:45 jr8 02/16 15:25 Order name: CBC with Diff; Complete Time: 16:01 jr8 02/16 15:25 Order name: Basic Metabolic Panel; Complete Time: 16:15 jr8 Administered Medications: 14:36 Drug: Ondansetron PO 4 mg PO once Route: PO; ll1 16:40 Follow up: Response: No adverse reaction; Nausea is decreased ll1 Disposition Summary: 02/17/24 16:27 Discharge Ordered Notes: Location: Home jr8 Problem: new jr8 Symptoms: have improved jr8 Condition: Stable jr8 Diagnosis - Nausea with vomiting, unspecified jr8 - Otalgia jr8 Followup: jr8 - With: Private Physician - When: 5 - 6 days - Reason: Recheck today's complaints, Continuance of care, Re-evaluation by your physician Discharge Instructions: - Discharge Summary Sheet jr8 - Nausea, Adult jr8 Forms: - Medication Reconciliation Form jr8 - Antibiotic Education jr8 - Prescription Opioid Use jr8 - Patient Portal Instructions jr8 - Leadership Thank You Letter jr8 Prescriptions: - Amoxicillin 500 mg Oral capsule - take 1 capsule ORAL route once daily for 7 days; 7 tablet; Refills: 0, Product jr8 Selection Permitted - Zofran 4 mg Oral Tablet - take 1 tablet ORAL route every 12 hours As needed; 20 tablet; Refills: 0, jr8 Product Selection Permitted Signatures: Dispatcher [facility] EDNM Rico Griffiths PA PA jr8 Lydia Ch RN RN hb Lewis, Lynsay, RN RN ll1 Corrections: (The following items were deleted from the chart) 15:25 15:25 CBC+H.LAB.BRZ ordered. EDMS EDMS 15:25 15:25 BASIC METABOLIC PANEL+C.LAB.BRZ ordered. EDMS EDMS
[2024-02-17 16:52] VITALS: BP 145/44; TEMP 98.4; O2SAT 100
== END 2024-02-17 16:43 | disposition home or self-care (01) ==
LOC: ER 13:17
DX: R11.2 Nausea with vomiting, unspecified (principal); H92.03 Otalgia, bilateral; Z11.52 Encounter for screening for COVID-19
CPT/HCPCS: 85025; 80048; 36415; 87804 ×2; 99284; 87811; Q0162